=== PATIENT | male | born 1940 | race Caucasian/White ===

== ENCOUNTER 2021-11-29 18:56 | Outpatient (RCR) | payer SELFPAY ==
--- NOTE | 2022-02-03 15:29 | URNOTE ---
Received request for prior auth for Leuprolide ([id number]) and Zoledronic Acid ([id number]). Pt has Medicare primary, prior authorization is not required as services are based on medical necessity and follow medicare guidelines.
[2022-02-08] MEDS: ZOLEDRONIC ACID 4 MG in 0.9 % SODIUM CHLORIDE 100 ml 100 ML 420 MG IVPB (15:32)
[2022-02-08] MEDS: LEUPROLIDE ACETATE 22.5 MG (SQ) SYRINGE SUBCUT (15:51)
== END 2022-06-22 12:51 | disposition home or self-care (01) ==
LOC: MOW 18:56
PROVIDERS: PCP Family Medicine; Visit Provider Family Medicine
DX: Z76.0 Encounter for issue of repeat prescription (principal)
CPT/HCPCS: 36415; 80053; 84153; 85025; 96376; 96401; 99212; 99214; J3489; J9217; S5170

== ENCOUNTER 2022-03-07 12:11 | Inpatient (IN) | payer MEDICARE, BC, SELFPAY ==
[2022-03-07] VITALS (7 sets, daily range): BP systolic 106–134; BP diastolic 50–89; PULSE 85–114; RESP 18–20; TEMP 36.8–37.7; O2SAT 91–96; BMI 22.5
--- NOTE | 2022-03-07 12:38 | CRLHL7_ITS ---
For Patients: As a result of the Century Cures Act, medical imaging exams and procedure reports are released immediately into your electronic medical record. You may view this report before your referring provider. If you have questions, please contact your health care provider. INDICATION: COVID-19 TECHNIQUE: Chest radiograph 1 view COMPARISON: 04/30/2023 FINDINGS: Mediastinum: The mediastinum is normal in appearance. The heart silhouette is normal in size and morphology. Lung: Small lung volumes are present with bibasilar subsegmental atelectasis seen. No sign of pleural effusion seen. No pneumothorax is identified. Bone and Soft tissue: Remote right-sided rib fracture deformities are present. IMPRESSION: 1. Small lung volumes are present with bibasilar subsegmental atelectasis seen. Dictated by Alfonso Avalos MD @ 03/07/2022 1:59:40 PM Dictated by: Alfonso Avalos MD @ 03/07/2022 13:59:43 (Electronically Signed)
--- NOTE | 2022-03-07 12:40 | ED_ITS ---
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 patient does have a history of dementia, is here signing for him since he has a history deafness. per he has had increased weakness since yesterday, usually gets around with a walker or cane, he could not get out of bed this morning, he has had decreased oral intake, he did not eat anything, states that he had a fever yesterday which has improved today he has had a chronic cough, he also has episodes were coughing up white sputum, no shortness of breath, he has had some abdominal cramping this morning but no chest pain, he has had also chronic diarrhea, no urinary complaints. No Covid exposure. he was scheduled to see Urology today but he could not get out of bed, he ended up sliding to the floor when they tried to change his depends, he would not get up. he is baseline per , no focal deficits, he is in no apparent distress pain Related Data Home Medications Medication Instructions Recorded Confirmed atorvastatin 40 mg tablet 40 mg PO DAILY 02/08/22 03/07/22 enzalutamide 40 mg tablet (Xtandi) See Rx Instructions PO QDAY 02/08/22 02/08/22 latanoprost 0.005 % eye drops 1 drp ophthalmic (eye) HS 02/08/22 03/07/22 lisinopril 2.5 mg tablet 2.5 mg PO DAILY 02/08/22 03/07/22 metoprolol tartrate 25 mg tablet 25 mg PO BID 02/08/22 03/07/22 omeprazole 20 mg capsule,delayed 20 mg PO DAILY 02/08/22 03/07/22 release timolol maleate 0.5 % eye drops 1 drp ophthalmic (eye) QAM 02/08/22 03/07/22 vitamin B complex (B 1 tab PO QDAY 02/08/22 02/08/22 Complex-Vitamin B12 tablet) Allergies Allergy/AdvReac Type Severity Reaction Status Date / Time No Known Drug Allergies Allergy Verified 02/08/22 11:03 Review of Systems Status of ROS: Reports: 10 or more systems reviewed and unremarkable except as noted in History and below [facility] Medical History (Updated 03/07/22 @ 16:42 by Doris Ahumada MD) Alzheimer's dementia with behavioral disturbance Anemia Arm fracture ASHD (arteriosclerotic heart disease) Atrial fibrillation with RVR Bladder outflow obstruction CKD stage G3a/A1, GFR 45-59 and albumin creatinine ratio <30 mg/g Complex renal cyst Deafness DJD (degenerative joint disease) of knee Essential hypertension Falls GERD (gastroesophageal reflux disease) Glaucoma History of radiation therapy Hydronephrosis of right kidney Hypokalemia Iron deficiency anemia Kidney stone on left side Mild dementia Mixed hyperlipidemia Non-STEMI (non-ST elevated myocardial infarction) Normal colonoscopy Normal esophagogastroduodenoscopy (EGD) MAGALYS (obstructive sleep apnea) Peripheral artery disease Prostate cancer metastatic to bone Sepsis UTI (urinary tract infection) Surgical History (Updated 03/07/22 @ 16:29 by Doris Ahumada MD) H/O lithotripsy H/O prostatectomy History of coronary artery stent placement Social History (Updated 03/07/22 @ 16:33 by Doris Ahumada MD) Narrative: Lives with , who is also deaf. I tried to contact her at the number on file; she was unavailable. Smoked [id number], 0.25 ppd for 3 years. No chew. According to [place], occasional beer. Has previously been full code. I am unable to discuss this with him and his is unavailable. Highest level of school completed/degree received: don't know Smoking Status: Never smoker How often do you have a drink containing alcohol: never AUDIT-C Alcohol total score: 0 Non-prescribed substance use: denies use Exam Narrative: Exam Narrative: general: no obvious distress laying comfortably, nontoxic in appearance HEENT: tympanic membranes within normal limits bilateral oropharynx is clear and moist pupils equal round reactive to light, extraocular muscles intact neck: supple full range of motion lungs: clear to auscultation bilaterally heart: normal sinus rhythm S1-S2 abdomen: bowel sounds present, he is nontender to palpation all 4 quadrants muscle skeletal: is moving his upper and lower extremities without any difficulty, no focal deficits. Neuro; dementia, baseline per unable to evaluate gait Const: Vital Signs, click to edit/add: Vital Signs - 24 hr 03/07/22 12:20 03/07/22 13:55 Temperature 99.2 F Pulse Rate [Pulse Oximeter] 89 85 Respiratory Rate 18 18 Blood Pressure [Ri t Upper Arm] 106/65 113/50 L Pulse Oximetry 91 95 Oxygen Delivery Me thod Room Air Room Air Course Course Hospital Course: 12:30 PM: AIDET performed, vitals are normal at this time, workup will include sepsis order set, including lactate, blood cultures x2, chest x-ray two views, urinalysis and urine culture, CMP, will also obtain COVID swab, IV fluids 500 mL bolus, likely admit for observation. Reevaluation(s) Reevaluation #1: updated on his imaging and lab results, patient positive for SARs-covi-2, patient and mildly elevated lactate at 2.5 plan to repeat after fluids, CBC showed no leukocytosis, imaging showed no acute cardiopulmonary process. Patients vitals are stable at this time, no hypoxia. Did discuss patient with Hospitalist Dr. Artem DONAHUE. He accepts care of the patient to an observation bed, still pending urinalysis at this time, patient is feeling better after the above care given. Multiple differential diagnoses were considered for the above patient's symptoms. Life-threatening include sepsis, CVA or [place]. Other considerations were pneumonia, UTI, COVID-19, influenza, metabolic derangement or [employer] derangement. Time: 13:56 Vital Signs Vital signs: Initial Vital Signs Temperature 99.2 F 03/07/22 12:20 Temperature Source Temporal Artery Scan 03/07/22 12:20 Pulse Rate 89 03/07/22 12:20 Respiratory Rate 18 03/07/22 12:20 Blood Pressure 106/65 03/07/22 12:20 Blood Pressure Mean 78 03/07/22 12:20 Blood Pressure Position Supine 03/07/22 12:20 Pulse Oximetry 91 03/07/22 12:20 Oxygen Delivery Method 03/07/22 12:20 Vital Signs Temperature 99.2 F 03/07/22 12:20 Pulse Rate 89 03/07/22 12:20 Respiratory Rate 18 03/07/22 12:20 Blood Pressure 106/65 03/07/22 12:20 Pulse Oximetry 91 03/07/22 12:20 Oxygen Delivery Method 03/07/22 12:20 Temperature 99.2 F 03/07/22 12:20 Pulse Rate 85 03/07/22 13:55 Respiratory Rate 18 03/07/22 13:55 Blood Pressure 113/50 L 03/07/22 13:55 Pulse Oximetry 96 03/07/22 15:30 Oxygen Delivery Method 03/07/22 13:55 Medical Decision Making Lab Data Labs: Lab Results 03/07/22 03/07/22 03/07/22 Range/Units 13:00 13:00 13:00 WBC 8.13 (4.50-11.00) K/uL RBC 5.48 (4.30-5.90) m/uL Hgb 15.2 (13.5-17.5) gm/dL Hct 44.8 (37.0-53.0) % MCV 82 (80-100) fL MCH 28 (26-34) pg MCHC 34 (32-36) gm/dL RDW Coeff of Kai 13.9 (11.5-15.5) % Plt Count 279 (140-440) K/uL Neut % (Auto) 78.0 H (42.0-72.0) % Lymph % (Auto) 4.9 L (20-44) % [place] % (Auto) 16.4 H (0.0-11.0) % Eos % (Auto) 0.1 (0.0-7.0) % Baso % (Auto) 0.2 (0.0-3.0) % Neut # (Auto) 6.30 (1.7-7.0) K/uL Lymph # (Auto) 0.40 L (0.90-2.90) K/uL [place] # (Auto) 1.30 H (0.00-0.90) K/UL Eos # (Auto) 0.01 (0.00-0.50) K/uL Baso # (Auto) 0.02 (0.00-0.30) K/uL Abs Immat Gran (auto) 0.03 (0.00-0.30) K/uL Sodium 134 L (135-149) mmol/L Potassium 4.0 (3.6-5.1) mmol/L Chloride 101 (96-114) mmol/L Carbon Dioxide 22 (20-32) mmol/L BUN 9 (7-30) mg/dL Creatinine 0.8 (0.5-1.5) mg/dL Estimated Creat Clear 49.33 Estimated GFR 88 ml/min Glucose 129 H (60-115) mg/dL Lactate 2.5 H (0.5-1.9) mmol/L Calcium 9.4 (8.4-10.6) mg/dL Total Bilirubin 0.7 (0.1-1.5) mg/dL AST 30 (12-35) U/L ALT 19 (4-50) U/L Alkaline Phosphatase 90 (40-150) U/L Total Protein 7.4 (6.0-8.3) g/dL Albumin 4.4 (3.3-5.0) g/dL SARS-CoV-2 (PCR) (Negative) 03/07/22 Range/Units 13:00 WBC (4.50-11.00) K/uL RBC (4.30-5.90) m/uL Hgb (13.5-17.5) gm/dL Hct (37.0-53.0) % MCV (80-100) fL MCH (26-34) pg MCHC (32-36) gm/dL RDW Coeff of Kai (11.5-15.5) % Plt Count (140-440) K/uL Neut % (Auto) (42.0-72.0) % Lymph % (Auto) (20-44) % [place] % (Auto) (0.0-11.0) % Eos % (Auto) (0.0-7.0) % Baso % (Auto) (0.0-3.0) % Neut # (Auto) (1.7-7.0) K/uL Lymph # (Auto) (0.90-2.90) K/uL [place] # (Auto) (0.00-0.90) K/UL Eos # (Auto) (0.00-0.50) K/uL Baso # (Auto) (0.00-0.30) K/uL Abs Immat Gran (auto) (0.00-0.30) K/uL Sodium (135-149) mmol/L Potassium (3.6-5.1) mmol/L Chloride (96-114) mmol/L Carbon Dioxide (20-32) mmol/L BUN (7-30) mg/dL Creatinine (0.5-1.5) mg/dL Estimated Creat Clear Estimated GFR ml/min Glucose (60-115) mg/dL Lactate (0.5-1.9) mmol/L Calcium (8.4-10.6) mg/dL Total Bilirubin (0.1-1.5) mg/dL AST (12-35) U/L ALT (4-50) U/L Alkaline Phosphatase (40-150) U/L Total Protein (6.0-8.3) g/dL Albumin (3.3-5.0) g/dL SARS-CoV-2 (PCR) POSITIVE SARS-CoV-2 A (Negative) Discharge Plan Discharge Clinical Impression: COVID-19, Generalized weakness
--- NOTE | 2022-03-07 13:02 | ED.NURSE ---
tangled yarn spool straightener on a stick used for registrar nurses' registry. pt alert and awake but not interacting with tangled yarn spool straightener. answering all questions. #20 sl placed R ac, ns bolus infusing. pt swabbed for covid.
[2022-03-07 13:04] LABS: Lactate* 2.5 mmol/L (0.5-1.9)
[2022-03-07] MEDS: 0.9 % SODIUM CHLORIDE 500 ML 500 ML IV (13:04)
[2022-03-07 13:06] LABS: Basophils Absolute Auto 0.02 K/uL (0.00-0.30); Basophils Percent Auto 0.2 % (0.0-3.0); Eosinophils Absolute Auto 0.01 K/uL (0.00-0.50); Eosinophils Percent Auto 0.1 % (0.0-7.0); Hematocrit 44.8 % (37.0-53.0); Hemoglobin* 15.2 gm/dL (13.5-17.5); Immature Granulocytes Abs Auto 0.03 K/uL (0.00-0.30); Lymphocytes Percent Auto 4.9 % (20-44); Mean Corpuscular HGB Conc 34 gm/dL (32-36); Mean Corpuscular Hemoglobin 28 pg (26-34); Mean Corpuscular Volume 82 fL (80-100); Monocytes Percent Auto 16.4 % (0.0-11.0); Platelet Count* 279 K/uL (140-440); RDW Coefficient of Variation % 13.9 % (11.5-15.5); Red Blood Count 5.48 m/uL (4.30-5.90); White Blood Count* 8.13 K/uL (4.50-11.00)
[2022-03-07 13:07] LABS: Slide Review Reflex No
[2022-03-07 13:30] LABS: Albumin* 4.4 g/dL (3.3-5.0); Chloride* 101 mmol/L (96-114); Sodium* 134 mmol/L (135-149)
[2022-03-07 13:32] LABS: Bilirubin Total* 0.7 mg/dL (0.1-1.5); Creatinine* 0.8 mg/dL (0.5-1.5); Est. Creatinine Clearance* 49.33; Estimated Glomerular Filt Rate 88 ml/min
[2022-03-07 13:33] LABS: Alanine Aminotransferase* 19 U/L (4-50); Alkaline Phosphatase* 90 U/L (40-150); Aspartate Amino Transferase* 30 U/L (12-35); Blood Urea Nitrogen* 9 mg/dL (7-30); Calcium* 9.4 mg/dL (8.4-10.6); Carbon Dioxide* 22 mmol/L (20-32); Glucose* 129 mg/dL (60-115); Total Protein* 7.4 g/dL (6.0-8.3)
[2022-03-07 13:36] LABS: SARS PCR* POSITIVE SARS-CoV-2 (Negative)
--- OUTSIDE RECORDS SUMMARY | 2022-03-07 14:39 | XMS_ITS | Clinical Summary ---
:1940 Author Organization [employer] [facility] [place] [address] Care Team Providers Name Role Phone Clovis Turk MD Primary Care Provider [phone] Allergies No known active allergies Medications Medication Sig Dispensed Refills Start Date End Date Status CENTRUM SILVER TAB Once daily 0 01/14/2007 Active aspirin 81 mg tablet Take 1 tablet by 0 02/16/2012 Active mouth once daily with a meal. VITAMIN D-3 2,000 TAKE ONE CAPSULE 100 capsule 2 09/13/2012 Active unit capsule BY MOUTHEVERY DAY omega-3 fatty Take 1 capsule by 90 capsule 3 02/18/2015 Active acids-vitamin E (FISH mouth once daily. OIL) 1,000 mg capIndications: Hyperlipidemia LDL goal < 70 latanoprost (XALATAN) Place 1 Drop into 0 03/15/2015 Active 0.005 % ophthalmic the eye(s) once solution daily in the evening. timolol maleate INSTILL 1 DROP 5 mL 11 10/24/2016 Active (TIMOPTIC) 0.5 % INTO BOTH EYE(S) ophthalmic TWICE A DAY solutionIndications: ASHD (arteriosclerotic heart disease) enzalutamide (XTANDI) Take 4 capsules by 0 9 Active 40 mg capsule mouth once daily. nitroglycerin Place 1 tablet 25 tablet 1 06/12/2019 Active (NITROSTAT) 0.4 mg under the tongue sublingual every 5 minutes if tabletIndications: needed for Chest ASHD Pain. (arteriosclerotic heart disease) calcium carbonate Take 500 mg by 0 12/30/2020 Active (OS-LIN 500) 500 mg mouth. calcium (1,250 mg) tablet acetaminophen Take 2 Tablets 0 02/03/2021 Active (TYLENOL EXTRA (1,000 mg) by [facility]) 500 mg mouth every 8 tabletIndications: hours if needed. Pain Max acetaminophen dose: 4000mg in 24 hrs. lidocaine 5 % topical Apply on dry, 30 Patch 11 02/21/2021 Active patchIndications: clean, hairless Mechanical back pain skin. Apply 1 patch to painful area of skin for up to to 12 hours within 24 hour period. honey ([place], Apply topically to 103 mL 3 03/15/2021 Active honey,) 100 % affected area(s). psteIndications: Skin ulcer of sacrum, unspecified ulcer stage (HC) Foam Bandage Apply topically to 20 Each 3 03/15/2021 Active (Mepilex) 4 X 4 affected area(s). bndgIndications: Skin Apply to skin ulcer of sacrum, ulcer every 3 to 4 unspecified ulcer days. stage (HC) atorvastatin Take 1 Tablet (40 90 tablet. 3 09/08/2021 Active (LIPITOR) 40 mg mg) by mouth once tabletIndications: daily. ASHD (arteriosclerotic heart disease) lisinopriL (PRINIVIL; Take 1 Tablet (2.5 90 Tablet 3 2 Active ZESTRIL) 2.5 mg mg) by mouth once tabletIndications: daily. ASHD (arteriosclerotic heart disease) metoprolol tartrate Take 1 Tablet (25 180 Tablet 3 09/08/2021 Active (LOPRESSOR) 25 mg mg) by mouth 2 tabletIndications: times daily. ASHD (arteriosclerotic heart disease) omeprazole (PRILOSEC) Take 1 Capsule (20 90 Capsule 3 09/09/19 22 Active 20 mg Delayed-Release mg) by mouth once capsuleIndications: daily before a Gastroesophageal meal. reflux disease, unspecified whether esophagitis present cyanocobalamin One tab oral 90 Tablet 3 09/09/2021 A ctive (VITAMIN B12) 250 mcg daily. 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 Patient has identified Health Care Agent (s): Yes Add Health Care Agents: Yes Health Care Agent(s): Primary Health Care Agent: Martin Dinh elationship: son (h) [phone](c) Secondary Health Care Agent: Scarlet Guido Relationship: sister in law (h) [phone] (c) Conservator: Relationship: Phone: Guardian: Relationship: Phone: Patient has Advance Care Plan Documents (Health Care Directive, POLST): Yes Advance Care Plan Documents: Health Care Directive Patient has identified Specific Treatmen t Preferences: Yes Specific Treatment Preferences: Code Status: CPR/Attempt Resuscitation Tony would want CPR attempted unless his provider determines any of the following: ?? He has an incurable illness or injury and is dying; ?? He has no reasonable chance of surviv al if his heart stops; ?? He has little chance of senior care mk vival if his heart stops and the process of resuscutation would cause significant suffering. Goals of Treatment: Limited Interventions and treat reversib le conditions. Provide interventions aimed at treatment of new or reversible illness/injury or non-life threatening chronic conditions. Duration of invasive or un comfortable interventions should general ly be limited.- Trial of intubation until physician advise likelihood of recovery low. Interventions and Treatments: Other Jaymie tment Preferences: would want all treatments, desire all treatments necessary unless likelihood of recovery low and physician confirms no improvement or return to prior condition. Last Assessment & Plan: Advance Care Planning: Disease-specific Session Tony Lora is a [facility] patient. His PCP is Dr. Esa López at [facility]. Advance care planning discussions were c ompleted with Tony and his spouse and son, designated health care agents, Jyothi and Martin Lora. hourly sign language interpreter, Kendy Bobby, also present. Alternative H CA, Scarlet Lora identified, not present for session. Understanding of Illness and Disease Bur den: Tony identifies his medical condition as good, having history of heart disease, stent placed; hypertension, anemia, prostate cancer, kidney stones and describes it as stable. He identifies the follow ing symptoms of his medical condition as being the most bothersome: arthritic back pain, once up moving around loosens up. Goals of Care: Tony currently hopes to maintain inde pendence, control pain and symptoms, delay progression of, but not cure, the illness, have comfort cares and with dignity. Desires to continue routine follow- up medical appointments and seek treatme tn as appropriate. Don't want to end up in a usp. Would desire Home Care and/or Hospice when / if appropriate to remain in home. Quality of Life: The following present and future experie nces are most important for Tony to live well: Family, time with Jyothi and one son/ and 3 grandsons, growing up fast, very active. Walking 2-3 miles carlos y, prefers outdoors, use treadmill in wi nter. Playing Cards and watching sports on TV, loves to work, housework, laundry, iron clothes, dishes. Tony yesi with serious challenges in his life: Family: Spouse, Jyothi and Son, Martin; and neighbors very helpful Tony identifies the following fears a nd worries about his medical care: Disabling disease so can't get outdoors, really don't think about it, keep cool about it. Having hourly sign language interpreter significant improvement, in past not available which caused much fear. Having hands free to sign/communicate. Treatment and Care Preferences: Past experiences in dealing with family and/or friends that have or been seriously ill include father suddenly, mother had leukemia and heart disease, during long hospital stay, and broth er in [place], had dementia. As a result of these experiences, Tony expresses these health care preferences: Summary Tony's Treatment Preferences: LOW SURVIVAL; HIGH TREATMENT BURDEN: If Tony suffered a serious complication, such that he was facing a prolonged hospital stay, required ongoing medical interventions, and the chance of living throu gh the complication was low (for example , only 5 out of 100 would live), Tony would choose: to focus treatment on comfort and quality of life (Quality of life is more important than length of life t chandler Jimenez.) If any chance of improvemen t to return to previous state, would request a limited trial of medical interventions HIGH SURVIVAL; LOW FUNCTIONAL STATUS: If Tony had a serious complication and had a good chance of living through the complication but it was expected that he would never be able to walk or talk again and would require 24 hour nursing care, he would choose: to focus treatment on comfort and quality of life (Quality of life is more important than length of life to Tony.) HIGH SURVIVAL; LOW COGNITIVE STATUS: If Tony had a serious complication and had a good chance of living through the complication but it was expected that he would never know who he was or who he was with and would require 24 hour nursing c are, he would choose: to focus treatment on comfort and quality of life (Quality of life is more important than length of life to Tony.) CARDIO-PULMONARY RESUSCITATION (CPR): e facts, risks and benefits of CPR were discussed with Tony. If he had a sudden event that caused his heart and breathing to stop, he: WOULD want CPR attempted unless his provider determines any one of the following: he has an incurable illness or injury and is dying, he has no reasonable chance of survival if his heart stops or he has little chance of long-t erm survival if his heart stops and the process of resuscutation would cause significant suffering. MECHANICAL VENTILATION: If Tony had a n episode where he was unable to breathe on his own, he would choose the following: attempt to use any appropriate non- invasive method to assist breathing, and de sires limited trial use of mechanical ve ntilation to assess improvement and ability to be weaned from mechanical ventilation. Tony has chosen his healthcare agent to: do what he or she thinks is best at the time, considering Tony's wishes Follow Up Plan: Tony was encouraged to continue advan ce care planning discussions with his Designated Health Care Agent: Ryan, and primary care provider. Hard Choices for [place] People booklet was given to Tony and his health care agent fo r review. none Tony identified the following concern s during his advance care planning session: none Questions identified for his primary car e provider: none Documents addressed during this advance care planning session: Health Care Directive completed and scan michelle into medical record. Statement of Treatment Preferences for a dvanced illness completed and scanned into the medical record. Recommendations/Plan: Tony and his health care agent to rev iew Advance Care Plan with Tony's family. Tony would benefit from: Home Care an d/or Hospice when/if appropriate Lifeline and Care Navigation Help Desk f or additional support resources to remain home when/if increasing needs. Hospice Care, Home Care, [facility], Care Navigation Help Desk, and [facility] [employer] [facility] brochure(s) were given to Tony and/or his healthcare agent. Advance Care Planning recommendations an d Tony's concerns and questions were cc? ed to his primary provider. Interviewer: Darlene Villafana RN 05/06 Essential hypertension 02/16/2012 Complex renal cyst 06/06/2011 Overview: On right kidney, repeat CT or US September 03 012. Anemia, unspecified 05/05/2011 Overview: Colonoscopy 04/2011 normal no follow up needed Unspecified urinary incontinence 09/17/2009 ASHD (arteriosclerotic heart disease) 07/22/2009 Overview: -NSTEMI 07/21/2009 -Stenting (BMS) to proximal LAD and PTCA of small diagonal 07/21/2009 -Stress Myoview 11/02/2010 Small area of mild ischemia in the mid apical anterior septum EF 65% DJD (degenerative joint disease) of knee 07/12/2009 GERD (gastroesophageal reflux disease) 05/31/2009 Overview: EGD 04/2011 normal Personal history of malignant neoplasm of prostate 11/2006 Overview: -Status post prostatectomy Unspecified glaucoma Deaf Overview: - Mother had Mongolian Measles during pregn vincent Resolved Problems Problem Noted Date Resolved Date Atrial fibrillation 09/25/2019 09/08/2021 Prostate cancer 04/07/2019 09/08/2021 Poor personal hygiene 09/15/2016 09/20/2017 Prostate cancer 06/21/2015 09/15/2016 MCI (mild cognitive impairment) 07/21/2014 04/20/20 15 Advanced care planning/counseling discussion 08/15/2011 08/15/2012 Overview: Desires full code. Shortness of breath 04/20/2011 08/15/2011 S/P coronary artery stent placement 03/28/201104/04 SOBOE (shortness of breath on exertion) 10/18/2010 04/20/2011 Malignant neoplasm of prostate 06/28/2010 1 Malignant neoplasm of prostate 06/21/2010 1 Status post prostatectomy 09/17/2009 04/20/2011 New Onset A-Fib with RVR 07/21/2009 08/15/2011 Overview: - noted 07/21/08 when arrived for test - spontaneous conversion to SR 07/22 Non STEMI - acute 07/21/2009 04/20/2011 Overview: - 07/21/09: Trop I 0.12 at [facility] - angiogram 07/22/ Other and unspecified hyperlipidemia 06/27/2007 Overview: - lipitor 10 mg daily prior to admission - 05/31/09: TC 125, TC 119, HDL 44, LDL 57 Calculus of kidney 09/16/2006 03/13/2016 Personal history of malignant neoplasm of prostate 06/27/2007 Hyperlipidemia LDL goal < 70 09/16/2015 Encounters Date Type Specialty Care Team Description 03/07/2022 Nurse Triage Clovis Turk MD Weak 03/07/2022 Travel 03/07/2022 Nurse Triage Clovis Turk MD Cough 02/08/2022 Orders Only Scanner <No scans attac hed> from Last 3 Months Immunizations Name Administration Dates Next Due AMB Influenza, IIV3 (Age >=3 03/14/2011, 03/22/2009, 008 years)(Flu Clinic Only) Amb Influenza, Inact (High-dose) (Flu 03/11/2014 Clinic Only) Amb Influenza, Inactivated AIIV4 (Age 1003/16/2020 65+ Years) Preserv Free COVID-19 vaccine (Lancope 09/08/2021 30mcg/0.3mL) 12YO+ EMI-SUCROSE CECILIA NICK COVID-19 vaccine (Lancope 03/03/2021, 08/10/2020, 30mcg/0.3mL) PF, MDV Influenza, High-dose Inactivated 03/13/2016, 02/18/2015 Influenza, IIV3 (Age >=3 years) 02/20/2013, 02/16/2012, 03/04, 03/01/2010, 03/22/2009, 03/25/2008, 04/09/2007, 04/17/2006, 03/27/2005, 03/25/2003 Influenza, Inactivated AIIV4 (Age 65+ 03/03/2021 Years) Preserv Free Influenza, Inactivated IIV3 (Age 65+ 03/10/2019, 03/18/2018, 02/27/2017 Years) Preserv Free Pneumococcal Poly,23-Valent 11/16/2011, 03/26/2005 (Pneumovax) Pneumococcal conj 13-Valent (Prevnar 01/18/2015 13) Td (Age >=7 Years) 12/15/2020, 05/14/1995 Td, Preservative Free (age >= 7 06/24/2015 Years) Tdap 06/23/2005 Zoster (Shingrix-RZV, recombinant) 08/28/2018, 06/25/2018 Zoster (Zostavax-ZVL, live) 01/04/2010 Family History Medical History Relation Name Comments Cancer Mother Other Mother lukemia Relation Name Status Comments Father Mother Social History Tobacco Use Types Packs/Day Years Used Date Former Smoker Cigarettes 0.25 3 1966 - 970 Smokeless Tobacco: Never Used Tobacco Cessation: Counseling Given: Yes Comments: smoked 1 cigarette on weekends in 1960's -1969's rare Alcohol Use Standard Drinks/Week Comments Not Currently 0 (1 standard drink = 0.6 oz pure alcoho l) occ beer Alcohol Habits Answer Date Recorded How often do you have a drink containing alcohol? Monthly or less 09/23/2018 How many drinks containing alcohol do you have on a 1 or 2 09/23/2018 typical day when you are drinking? How often do you have six or more drinks on one Never 09/23/2018 occasion? Comment: Not asked Sex Assigned at Date Recorded Not on file COVID-19 Exposure Response Date Recorded In the last 10 days, have you been in contact with No / Unsu re 03/07/2022 10:07 AM CDT someone who was confirmed or suspected to have Coronavirus/COVID-19? Obstetrics History Last Filed Vital Signs Vital Sign Reading Time Taken Comments Blood Pressure 132/72 09/08/2021 10:15 AM CDT Pulse 84 09/08/2021 10:15 AM CDT Temperature 36.6 ??C (97.9 ??F) 01/08/2020 1:40 PM CDT Respiratory Rate 20 03/01/2020 2:18 PM CDT Oxygen Saturation 96% 09/08/2021 10:15 AM CDT Inhaled Oxygen Concentration - - Weight 60.4 kg (133 lb 3.2 oz) 09/08/2021 10:15 AM CDT Height 165.7 cm (5' 5.24) 09/08/2021 10:15 AM CDT Body Mass Index 22.01 09/08/2021 10:15 AM CDT Plan of Treatment Upcoming Encounters Date Type Specialty Care Team Description 03/08/2022 Office Visit Amina Leiva PA [address] [facility] [address] [place], [place] [address] (Wo rk) 03/14/2022 Office Visit Clovis Turk MD [address] [facility] [address] [place], [place] [address] (Wo rk) Health Maintenance Due Date Last Done Comments Depression screening for age 12+ 09/24/2020 09/25/2019, , 09/26/2018, Additional history exists Medicare Wellness for age 65+ 09/24/2020 09/25/2019, 2018, 09/20/2017, Additional history exists COVID-19 vaccine series (5 - 11/03/2021 09/08/2021, 021, Booster for Pfizer series) 08/10/2020, Additiona l history exists Influenza for age 65+ 02/02/2022 03/03/2021, 03/16/2020, 03/10/2019, Additional history exists BMI (ht and wt on same day) for 09/08/2022 09/08/2021, 11/03, age 18+ 01/08/2020, Additional history exists Tetanus booster 12/15/2030 12/15/2020, 06/24/2015, 06/23/2005, Additional history exists Tdap Completed 06/23/2005 Pneumococcal series for age 65+ Completed 01/18/2015, 03/05 ([facility] 11/16/2011, Additional history exists Zoster (shingles) series for age Completed 08/28/2018, , 50+ 01/04/2010 Procedures Procedure Name Priority Date/Time Associated Diagnosis Comme nts SCAN-LABORATORY 02/08/2022 12:00 AM Resul ts for this REPORT CDT procedure are i n the results section. from Last 3 Months Results SCAN-LABORATORY REPORT (02/08/2022 12:00 AM CDT) Narrative This result has an attachment that is no t available. Scanner OTHER from Last 3 Months Insurance Payer Benefit Plan / Subscriber ID Effective Dates Phone Addre ss Type Group MEDICARE PART B MEDICARE PART B [id number] 2003-Prese ATTN: CLAIMS - HB USE ONLY HB ONLY nt [address] [place] [address] MEDICARE PART A MEDICARE PART A [id number] 2003-Prese ATTN: CLAIMS - HB USE ONLY HB ONLY nt [address] [place] [address] BLUE CROSS BLUE CROSS [id number] 2016-[place] [address] [address] [address] [place], [place] [id number] BLUE CROSS MR BLUE CROSS [id number] 2016-Presen [address] [address] [place] [place], [place] [id number] Advance Directives Documents on File Type Date Recorded Patient Trade [employer] Official Explanati on Healthcare Directive 05/10/2012 12:08 PM ACP Latest Code Status on File Code Status Date Activated Date Inactivated Comments Full Code 04/25/2015 5:06 AM 04/28/2015 9:45 PM Per POLST Full Code 04/20/2011 11:31 AM 04/20/2011 5:08 PM Full Code 07/21/2009 8:23 PM 07/23/2009 6:15 PM Care Teams Knot Cutter Relationship Specialty Start Date End Date Clovis Turk MD PCP - General Family Practice 11/28/16 [address] [place] [address]
[2022-03-07 15:50] LABS: Lactate* 2.3 mmol/L (0.5-1.9)
--- NOTE | 2022-03-07 16:26 | P.IMHP_ITS ---
Hospitalist- H&P: HPI History of Present Illness Time Seen by Provider: 14:20 Date Seen: 03/07/22 Chief complaint: Weakness Narrative: Tony Lora is a 81 year old male with advanced Alzheimer's dementia who lives with his became very weak this morning, slid out of bed, and was unable to get up. They had called the clinic earlier in the day because he was coughing and wanted to get him a COVID test. According to the ER doc, the patient's did not communicate with the patient when answering questions. The patient did not respond to the shipping services sales representative on the iPad. When I finger spelled my name in sign language, the patient looked at me but did not otherwise respond. He did follow a few simple commands via pantomime. Per the ER doc, the patient's was concerned that his appetite was poor today as well. Review of Systems Status of ROS: Reports: unobtainable due to medical condition and unobtainable due to mental status PFSH [facility] Medical History (Updated 03/07/22 @ 16:42 by Doris Ahumada MD) Alzheimer's dementia with behavioral disturbance Anemia Arm fracture ASHD (arteriosclerotic heart disease) Atrial fibrillation with RVR Bladder outflow obstruction CKD stage G3a/A1, GFR 45-59 and albumin creatinine ratio <30 mg/g Complex renal cyst Deafness DJD (degenerative joint disease) of knee Essential hypertension Falls GERD (gastroesophageal reflux disease) Glaucoma History of radiation therapy Hydronephrosis of right kidney Hypokalemia Iron deficiency anemia Kidney stone on left side Mild dementia Mixed hyperlipidemia Non-STEMI (non-ST elevated myocardial infarction) Normal colonoscopy Normal esophagogastroduodenoscopy (EGD) MAGALYS (obstructive sleep apnea) Peripheral artery disease Prostate cancer metastatic to bone Sepsis UTI (urinary tract infection) Surgical History (Updated 03/07/22 @ 16:29 by oDris Ahumada MD) H/O lithotripsy H/O prostatectomy History of coronary artery stent placement Social History (Updated 03/07/22 @ 16:33 by Doris Ahumada MD) Narrative: Lives with , who is also deaf. I tried to contact her at the number on file; she was unavailable. Smoked [id number], 0.25 ppd for 3 years. No chew. According to Harrison, occasional beer. Has previously been full code. I am unable to discuss this with him and his is unavailable. Highest level of school completed/degree received: don't know Smoking Status: Never smoker How often do you have a drink containing alcohol: never AUDIT-C Alcohol total score: 0 Non-prescribed substance use: denies use Meds Home Medications and Allergies Home Medications Medication Instructions Recorded Confirmed Type atorvastatin 40 mg tablet 40 mg PO DAILY 02/08/22 03/07/22 History enzalutamide 40 mg tablet (Xtandi) See Rx Instructions PO QDAY 02/08/22 02/08/22 History latanoprost 0.005 % eye drops 1 drp ophthalmic (eye) HS 02/08/22 03/07/22 History lisinopril 2.5 mg tablet 2.5 mg PO DAILY 02/08/22 03/07/22 History metoprolol tartrate 25 mg tablet 25 mg PO BID 02/08/22 03/07/22 History omeprazole 20 mg capsule,delayed 20 mg PO DAILY 02/08/22 03/07/22 History release timolol maleate 0.5 % eye drops 1 drp ophthalmic (eye) QAM 02/08/22 03/07/22 History vitamin B complex (B 1 tab PO QDAY 02/08/22 02/08/22 History Complex-Vitamin B12 tablet) Allergies Allergy/AdvReac Type Severity Reaction Status Date / Time No Known Drug Allergies Allergy Verified 02/08/22 11:03 Exam Narrative: Exam Narrative: General: No acute distress. Sleeping, arousable by touch, deaf, was able to follow some simple commands by pantomime. Cooperative. Did not speak. HEENT: Normocephalic atraumatic, pupils equally round and reactive to light. Oropharynx clear. Mucous membranes are slightly dry. No cervical lymphadenopathy, thyromegaly or carotid bruits. No JVD. Cardiovascular: Regular rate and rhythm. No murmurs, gallops, or rubs. Chest: No increased work of breathing. Clear to auscultation bilaterally. No crackles or wheezes. Abdomen: Bowel sounds present. Soft, nondistended, nontender. No hepatosplenomegaly or masses. Extremities: No edema, no cyanosis or clubbing. Skin on legs is very dry and flaky. Skin: No jaundice, no pallor, no rashes. Neuro: Grossly intact. No focal deficits, moved all extremities. Unable to do a complete neuro exam because the patient is unable to follow commands. Const: Vital Signs, click to edit/add: Vital Signs - 24 hr 03/07/22 12:20 03/07/22 13:55 Temperature 99.2 F Pulse Rate [Pulse Oximeter] 89 85 Respiratory Rate 18 18 Blood Pressure [Ri ght Upper Arm] 106/65 113/50 L Pulse Oximetry 91 95 Oxygen Delivery Me thod Room Air Room Air Documenting provider has reviewed patient's vital signs: yes Hospitalist - H&P: Result Labs Labs: Short CBC 03/07/22 Range/Units 13:00 WBC 8.13 (4.50-11.00) K/uL Hgb 15.2 (13.5-17.5) gm/dL Hct 44.8 (37.0-53.0) % Plt Count 279 (140-440) K/uL BMP 03/07/22 13:00 Sodium 134 L Potassium 4.0 Chloride 101 Carbon Dioxide 22 BUN 9 Creatinine 0.8 Glucose 129 H Calcium 9.4 Liver Function 03/07/22 Range/Units 13:00 Total Bilirubin 0.7 (0.1-1.5) mg/dL AST 30 (12-35) U/L ALT 19 (4-50) U/L Alkaline Phosphatase 90 (40-150) U/L Albumin 4.4 (3.3-5.0) g/dL Ordering Physician: Chang Ko M.D. Date of Service: 03/07/22 Procedure(s): XR chest 1V portable Accession Number(s): [id number] cc: Clovis Turk MD; Chang Ko M.D.~ For Patients: As a result of the Cures Act, medical imaging exams and procedure reports are released immediately into your electronic medical record. You may view this report before your referring provider. If you have questions, please contact your health care provider. INDICATION: COVID-19 TECHNIQUE: Chest radiograph 1 view COMPARISON: 04/30/2023 FINDINGS: Mediastinum: The mediastinum is normal in appearance. The heart silhouette is normal in size and morphology. Lung: Small lung volumes are present with bibasilar subsegmental atelectasis seen. No sign of pleural effusion seen. No pneumothorax is identified. Bone and Soft tissue: Remote right-sided rib fracture deformities are present. IMPRESSION: 1. Small lung volumes are present with bibasilar subsegmental atelectasis seen. Dictated by Alfonso Avalos MD @ 03/07/2022 1:59:40 PM Dictated by: Alfonso Avalos MD @ 03/07/2022 13:59:43 (Electronically Signed) Assessment and Plan Assessment and plan (1) COVID-19: Problem comment: Symptom onset 03/07/22 Covid pcr positive 03/07/22 Status: Acute Assessment and Plan: Symptoms of cough, weakness, decreased appetite (2) Generalized weakness: Status: Acute Assessment and Plan: secondary to covid (3) Alzheimer's dementia with behavioral disturbance: Status: Chronic (4) Hyponatremia: Problem comment: mild, Na 134 Status: Acute (5) Volume depletion: Status: Acute (6) Deafness: Problem comment: Mother had [place] Measles during Status: Chronic (7) Prostate cancer metastatic to bone: Status: Chronic (8) MAGALYS (obstructive sleep apnea): Problem comment: 04/30/2018 AHI-27, positional and stage dependent with central apneas on treatment Status: Acute Plan * Admit for treatment of moderate covid with generalized weakness and no respiratory distress or hypoxia. * Since patient takes Xtandi, paxlovid is contraindicated. Start 3 day course of remdesivir. * Was given fluid bolus in ER. Lactate went from 2.5 to 2.3. Give another bolus and recheck labs in am. * Hold lisinopril. Continue daily metoprolol if BP allows. * PT/OT for weakness. * Will need code status addressed when is available. Will also order SW consult to help with d/c planning.
[2022-03-07] MEDS: LACTATED RINGERS 1000 ML 500 ML IV (17:27)
--- NOTE | 2022-03-07 20:16 | PC.NURSE ---
shift note: pt admit via stretcher to rm [id number]. pt very drowsy and unable to communicate with picture board or grease board. Pt incont x1 moderate amount. pt tolerating ensure supplement and water. LS clr. IV patent Rt AC #20. pt had temp 99.9 temporal.
[2022-03-07] MEDS: METOPROLOL TARTRATE 25 MG TABLET PO (20:32)
[2022-03-07] MEDS: ENOXAPARIN 40 MG/0.4 ML INJ SUBCUT (20:32)
[2022-03-08] VITALS (11 sets, daily range): BP systolic 109–139; BP diastolic 57–73; PULSE 64–83; RESP 14–20; TEMP 36.3–39.2; O2SAT 91–93
[2022-03-08] MEDS: ACETAMINOPHEN 325 MG TABLET 650 MG PO ×2 (01:05→16:12)
[2022-03-08] MEDS: OMEPRAZOLE 20 MG CAPSULE DR PO (06:36)
[2022-03-08 07:16] LABS: Lactate* 1.3 mmol/L (0.5-1.9)
[2022-03-08 07:19] LABS: Hematocrit 39.6 % (37.0-53.0); Hemoglobin* 13.4 gm/dL (13.5-17.5); Immature Granulocytes Abs Auto 0.01 K/uL (0.00-0.30); Lymphocytes Absolute Auto 1.38 K/uL (0.90-2.90); Lymphocytes Percent Auto 22.7 % (20-44); Mean Corpuscular HGB Conc 34 gm/dL (32-36); Mean Corpuscular Hemoglobin 28 pg (26-34); Mean Corpuscular Volume 83 fL (80-100); Monocytes Percent Auto 23.6 % (0.0-11.0); Neutrophils Absolute Auto 3.25 K/uL (1.7-7.0); Neutrophils Percent Auto 53.5 % (42.0-72.0); Platelet Count* 232 K/uL (140-440); RDW Coefficient of Variation % 14.1 % (11.5-15.5); White Blood Count* 6.07 K/uL (4.50-11.00)
[2022-03-08 07:20] LABS: Slide Review Reflex No
[2022-03-08 07:35] LABS: Chloride* 104 mmol/L (96-114); Sodium* 136 mmol/L (135-149)
[2022-03-08 07:36] LABS: Potassium* 3.5 mmol/L (3.6-5.1)
[2022-03-08 07:38] LABS: Carbon Dioxide* 24 mmol/L (20-32); Creatinine* 0.7 mg/dL (0.5-1.5); Estimated Glomerular Filt Rate 92 ml/min
--- NOTE | 2022-03-08 07:38 | PC.NURSE ---
Shift Note 23-07: Pt is pleasant and cooperative, VSS, fever present @ 0100, Tylenol given and brought down to normal temp range. Pt unable to respond to attempts to communicate. Incontinent of bladder. Tolerating reg diet.
[2022-03-08 07:39] LABS: Blood Urea Nitrogen* 12 mg/dL (7-30); Calcium* 8.5 mg/dL (8.4-10.6); Glucose* 110 mg/dL (60-115)
[2022-03-08 08:35] LABS: Magnesium* 1.8 mg/dL (1.5-2.6)
[2022-03-08] MEDS: ATORVASTATIN CALCIUM 40 MG TABLET PO (09:12)
[2022-03-08] MEDS: METOPROLOL TARTRATE 25 MG TABLET PO ×2 (09:12→20:43)
--- NOTE | 2022-03-08 12:15 | PM.IMPN1 ---
Progress Note: A&P Assessment and plan (1) COVID-19: Problem details: Symptom onset 03/07/22 Covid pcr positive 03/07/22 Status: Acute Assessment and Plan: Remdesivir day 2/3. Improving. (2) Volume depletion: Status: Acute Assessment and Plan: Resolved. Encourage PO intake. (3) Hyponatremia: Problem details: mild, Na 134 Status: Acute Assessment and Plan: Resolved. (4) Generalized weakness: Status: Acute Assessment and Plan: Treat covid, as above. PT/OT. Unclear what his needs will be and if he'll be strong enough/safe for d/c home in next few days. May need SNF, is aware and prefers him to return home. (5) Alzheimer's dementia with behavioral disturbance: Status: Chronic Assessment and Plan: Appears to be improving to near baseline mental status. (6) MAGALYS (obstructive sleep apnea): Problem details: 04/30/2018 AHI-27, positional and stage dependent with central apneas on treatment Status: Acute (7) Deafness: Problem details: Mother had [place] Measles during Status: Chronic (8) Prostate cancer metastatic to bone: Status: Chronic Assessment and Plan: Continue Xtandi (9) Hypokalemia: Status: Acute Assessment and Plan: Replace orally. (10) Hypertension: Status: Chronic Assessment and Plan: Lisinopril on hold. BP better today. Restart lisinopril tomorrow if continues to do well. Plan VTE prophylaxis with TEDs, SCDs, low dose lovenox. Subjective Time Seen by Provider: 09:15 Date Seen: 03/08/22 Interval history: Jacque looks better today, more awake and interactive. We communicated via whiteboard. He said he was feeling okay. His and I spoke via ASL video bathroom tiling professional. She said that he is mildly demented at baseline. He is incontinent of urine, he forgets he needs to go. She prompts him to shower, which he then does once a month. He often doesn't remember things, but when she reminds him, it dejesus his memory. He is able to feed himself. He doesn't eat much. If he skips a meal, he will drink an ensure. He ambulates with a walker or cane with her as SBA. To go to [facility], he uses a wheelchair. His is going to call us with a list of his medications. We reviewed them together and she thinks we are missing a few of his home medications, but she does not know which ones. EXAM General: No acute distress. Awake, alert. Cooperative. Did not speak. Thin. Cardiovascular: Regular rate and rhythm. No murmurs, gallops, or rubs. Chest: No increased work of breathing. No respiratory distress. Clear to auscultation bilaterally. No crackles or wheezes. Abdomen: Bowel sounds present. Soft, nondistended, nontender. No hepatosplenomegaly or masses. Exam Const: Vital Signs, click to edit/add: Vital Signs - 24 hr 03/07/22 12:20 03/07/22 13:55 03/07/22 15:30 Temperature 99.2 F Pulse Rate [Left B rachial] Pulse Rate [Pulse Oximeter] 89 85 Respiratory Rate 18 18 Blood Pressure [Le ft Arm] Blood Pressure [Ri ght Upper Arm] 106/65 113/50 L Pulse Oximetry 91 95 96 Oxygen Delivery Me thod Room Air Room Air 03/07/22 15:16 03/07/22 14:55 03/07/22 20:48 Temperature 99.9 F H 99.9 F H 98.2 F Pulse Rate [Left B rachial] 94 94 114 H Pulse Rate [Pulse Oximeter] Respiratory Rate 20 20 18 Blood Pressure [Le ft Arm] 133/89 133/89 134/74 Blood Pressure [Ri ght Upper Arm] Pulse Oximetry 96 96 93 Oxygen Delivery Al thod Room Air Room Air Room Air 03/07/22 20:54 03/08/22 00:52 03/08/22 01:05 Temperature 102.5 F H 102.5 F H Pulse Rate [Left B rachial] 83 Pulse Rate [Pulse Oximeter] Respiratory Rate 14 Blood Pressure [Le ft Arm] 139/66 Blood Pressure [Ri ght Upper Arm] Pulse Oximetry 92 93 Oxygen Delivery Al thod Room Air 03/08/22 01:17 03/08/22 03:15 03/08/22 03:16 Temperature 97.4 F L 97.4 F L Pulse Rate [Left B rachial] 83 66 Pulse Rate [Pulse Oximeter] Respiratory Rate 14 20 Blood Pressure [Le ft Arm] Blood Pressure [Ri ght Upper Arm] Pulse Oximetry 91 Oxygen Delivery Me thod Room Air 03/08/22 09:08 03/08/22 09:08 Temperature 98.9 F Pulse Rate [Left B rachial] 82 Pulse Rate [Pulse Oximeter] Respiratory Rate 18 Blood Pressure [Le ft Arm] 122/57 L Blood Pressure [Ri ght Upper Arm] Pulse Oximetry 91 91 Oxygen Delivery Me thod Room Air Labs Labs: Laboratory Results - last 24 hr 03/07/22 03/07/22 03/07/22 13:00 13:00 13:00 WBC 8.13 RBC 5.48 Hgb 15.2 Hct 44.8 MCV 82 MCH 28 MCHC 34 RDW Coeff of Kai 13.9 Plt Count 279 Neut % (Auto) 78.0 H Lymph % (Auto) 4.9 L [place] % (Auto) 16.4 H Eos % (Auto) 0.1 Baso % (Auto) 0.2 Neut # (Auto) 6.30 Lymph # (Auto) 0.40 L [place] # (Auto) 1.30 H Eos # (Auto) 0.01 Baso # (Auto) 0.02 Abs Immat Gran (auto) 0.03 Sodium 134 L Potassium 4.0 Chloride 101 Carbon Dioxide 22 BUN 9 Creatinine 0.8 Estimated Creat Clear 49.33 Estimated GFR 88 Glucose 129 H Lactate 2.5 H Calcium 9.4 Magnesium Total Bilirubin 0.7 AST 30 ALT 19 Alkaline Phosphatase 90 Total Protein 7.4 Albumin 4.4 SARS-CoV-2 (PCR) 03/07/22 03/07/22 03/08/22 13:00 15:44 07:02 WBC 6.07 RBC 4.80 Hgb 13.4 L Hct 39.6 MCV 83 MCH 28 MCHC 34 RDW Coeff of Kai 14.1 Plt Count 232 Neut % (Auto) 53.5 Lymph % (Auto) 22.7 [place] % (Auto) 23.6 H Eos % (Auto) 0.0 Baso % (Auto) 0.0 Neut # (Auto) 3.25 Lymph # (Auto) 1.38 [place] # (Auto) 1.40 H Eos # (Auto) 0.00 Baso # (Auto) 0.00 Abs Immat Gran (auto) 0.01 Sodium Potassium Chloride Carbon Dioxide BUN Creatinine Estimated Creat Clear Estimated GFR Glucose Lactate 2.3 H Calcium Magnesium Total Bilirubin AST ALT Alkaline Phosphatase Total Protein Albumin SARS-CoV-2 (PCR) POSITIVE SARS-CoV-2 A 03/08/22 03/08/22 07:02 07:02 WBC RBC Hgb Hct MCV MCH MCHC RDW Coeff of Kai Plt Count Neut % (Auto) Lymph % (Auto) [place] % (Auto) Eos % (Auto) Baso % (Auto) Neut # (Auto) Lymph # (Auto) [place] # (Auto) Eos # (Auto) Baso # (Auto) Abs Immat Gran (auto) Sodium 136 Potassium 3.5 L Chloride 104 Carbon Dioxide 24 BUN 12 Creatinine 0.7 Estimated Creat Clear 46.40 Estimated GFR 92 Glucose 110 Lactate 1.3 Calcium 8.5 Magnesium 1.8 Total Bilirubin AST ALT Alkaline Phosphatase Total Protein Albumin SARS-CoV-2 (PCR)
--- NOTE | 2022-03-08 15:20 | REH.PT ---
Eval not performed today as OT evaluated pt, and he was minimally responsive and non-participatory. Pt. not appropriate for PT eval today. Will attempt tomorrow, if appropriate.
[2022-03-08] MEDS: POTASSIUM CHLORIDE 10 MEQ CAPSULE ER PO (17:45)
[2022-03-08] MEDS: ENOXAPARIN 40 MG/0.4 ML INJ SUBCUT (20:42)
[2022-03-08] MEDS: LATANOPROST 0.005% OPHTH 1 DROP EYE-BOTH (20:43)
[2022-03-08] MEDS: CYANOCOBALAMIN (VITAMIN B-12) 500 MCG TABLET 250 MCG PO (20:43)
--- NOTE | 2022-03-08 22:36 | PC.NURSE ---
?Pt is pleasant and cooperative, VSS, mild temp at start of shift, 99.6. Communicated w/Pt. via white board and asked if he had any pain, and he said yes to pain. PRN Tylenol given and temp came down to normal range and pt. was able to rest. Pt unable to respond to attempts to communicate using the Ipad psychometrician. Incontinent of bladder, changed brief in bed and turned and repositioned in bed. Tolerating reg diet. Pt. ate 100%. Pt. became fidgety and kept pressing call light, pulled off pulse ox, and DC'd his IV after Remdesivir infusion. IV was found on bed intact.
[2022-03-09 03:00] VITALS: BP 146/77; PULSE 64; RESP 16; TEMP 37.1; O2SAT 95
[2022-03-09] MEDS: OMEPRAZOLE 20 MG CAPSULE DR PO (06:21)
[2022-03-09 07:00] VITALS: BP 134/65; PULSE 64; RESP 16; TEMP 37.1; O2SAT 95
--- NOTE | 2022-03-09 07:31 | PC.NURSE ---
END OF SHIFT NOTE: PT DEAF; USES ASL AND WHITEBOARD TO COMMUNICATE. COMMUNICATE WITH YES/NO QUESTIONS. PT REPOSITIONED WITH PILLOWS FOR OFFLOADING OVERNIGHT. PT DOES NOT USE CALL LIGHT APPROPRIATELY. PT IS INCONTINENT OF URINE. PT ABLE TO ROLL FROM SIDE TO SIDE WHEN PERFORMING CARES WHEN PROMPTED. PT HAS NON-PRODUCTIVE, MOIST COUGH. VSS ON RA. PER PREVIOUS SHIFT, IV DC?D BY PT D/T DEMENTIA. NO IV MEDS REQUIRED THIS SHIFT. IV LEFT OUT NOTIFIED ONCOMING NURSE, ATIF. CODE STATUS REQUIRES ADDRESSING.
[2022-03-09 07:40] LABS: Potassium* 3.4 mmol/L (3.6-5.1)
[2022-03-09] MEDS: METOPROLOL TARTRATE 25 MG TABLET PO ×2 (09:07→20:21)
[2022-03-09] MEDS: ASPIRIN 81 MG TABLET EC PO (09:07)
[2022-03-09] MEDS: POTASSIUM CHLORIDE 10 MEQ CAPSULE ER PO ×2 (09:08→18:52)
[2022-03-09] MEDS: timoloL maleate 0.5 % 1 DROP EYE-BOTH (09:08)
[2022-03-09] MEDS: CYANOCOBALAMIN (VITAMIN B-12) 500 MCG TABLET 250 MCG PO ×2 (09:08→20:21)
[2022-03-09] MEDS: ATORVASTATIN CALCIUM 40 MG TABLET PO (09:08)
[2022-03-09 11:00] VITALS: BP 135/74; PULSE 72; RESP 18; TEMP 36.7; O2SAT 92
[2022-03-09] MEDS: ACETAMINOPHEN 325 MG TABLET 650 MG PO (14:42)
[2022-03-09 15:00] VITALS: BP 115/52; PULSE 77; RESP 18; TEMP 37.1; O2SAT 94
--- NOTE | 2022-03-09 17:12 | PM.IMPN1 ---
Progress Note: A&P Assessment and plan (1) COVID-19: Problem details: Symptom onset 03/07/22 Covid pcr positive 03/07/22 He appears modestly improved overall but still profoundly weak. Uncertain how much of his poor cognition is related to COVID and how much is his underlying dementia Status: Acute (2) Volume depletion: Problem details: Improved Status: Acute (3) Hyponatremia: Problem details: mild, Na 134 Status: Acute (4) Generalized weakness: Problem details: Not much improvement. Uncertain how well he was doing at home with his prior to admission. Is quite a ways from being able to live independently based on current status. Status: Acute (5) Alzheimer's dementia with behavioral disturbance: Problem details: Not much behavioral problem Status: Chronic (6) MAGALYS (obstructive sleep apnea): Problem details: 04/30/2018 AHI-27, positional and stage dependent with central apneas on treatment Status: Acute (7) Deafness: Problem details: Mother had Citizen [place] Measles during Status: Chronic (8) Prostate cancer metastatic to bone: Problem details: On Xtandi Status: Chronic (9) Hypokalemia: Status: Acute (10) Hypertension: Status: Chronic Plan Continue in hospital for management of COVID, weakness, profound disability. Time Spent With Patient Total time spent: Total time spent is is 45 minutes, 30 minutes in coordination of care and discussing with other providers ongoing management of COVID and weakness. Subjective Date Seen: 03/09/22 Interval history: 81-year-old male seen in followup of profound weakness related to COVID infection. Patient with congenital deafness is seen today with a in-person signals analyst as he was unable to communicate with an eye pad signals analyst. Today the a communication with they in person signals analyst was also relatively unsuccessful. Cognitively the patient seemed to be basically alert but not responding significantly to questions or following simple commands. Nursing staff note that he is still unable to assist with transfers so he has a Nasrin lift to get bed to chair. He has been eating some but not well. No respiratory problems are apparent. He has occasional cough. He pulled out his IV but it has been replaced for his last dose of Remdesivir. Exam Narrative: Exam Narrative: He is alert appears in no obvious distress he is relatively unresponsive to the activity around him. He occasionally looks at people but does not respond in any obvious way to their care providing examination or intervention. He is not indicating any responsiveness to the signals analyst with him today as well. Respirations unlabored with a few basilar crackles otherwise clear. Cardiovascular: S1-S2 regular rate and rhythm. Abdomen is soft without tenderness. Extremities without edema. Const: Vital Signs, click to edit/add: Vital Signs - 24 hr 03/08/22 21:00 03/08/22 23:10 03/08/22 23:10 Temperature 98.5 F Pulse Rate [Left B rachial] 83 Pulse Rate [Pulse Oximeter] Respiratory Rate 16 16 Blood Pressure [Le ft Arm] 110/73 Pulse Oximetry 93 92 93 Oxygen Delivery Me thod Room Air Room Air 03/08/22 23:00 03/09/22 03:00 03/09/22 07:00 Temperature 98.8 F 98.8 F Pulse Rate [Left B rachial] Pulse Rate [Pulse Oximeter] 64 64 64 Respiratory Rate 16 16 16 Blood Pressure [Le ft Arm] 146/77 H 134/65 Pulse Oximetry 95 95 Oxygen Delivery Me thod Room Air Room Air 03/09/22 07:00 03/09/22 11:00 Temperature 98.0 F Pulse Rate [Left B rachial] Pulse Rate [Pulse Oximeter] 72 Respiratory Rate 16 18 Blood Pressure [Le ft Arm] 135/74 Pulse Oximetry 92 Oxygen Delivery Me thod Room Air Documenting provider has reviewed patient's vital signs: yes Labs Labs: Laboratory Results - last 24 hr 03/09/22 07:09 Potassium 3.4 L
[2022-03-09] MEDS: POTASSIUM BICARB 25 MEQ EFFERVESCENT TAB PO (18:52)
[2022-03-09 19:00] VITALS: BP 114/69; PULSE 69; RESP 18; TEMP 36.6; O2SAT 96
--- NOTE | 2022-03-09 19:58 | PC.NURSE ---
PATIENT VERY SLEEPY THIS MORNING, ABLE TO COMMUNICATE WITH PATIENT USING SIGN LANGUAGE AND WHITE BOARD, PATIENT RESPONDS TO 75% OF QUESTIONS ASKS, HORTICULTURE SUPERVISOR HERE TODAY AND PATIENT ALSO RESPONDED/FOLLOWED DIRECTION ABOUT 75% OF THE TIME, EATING REGULAR DIET ATE MINIMAL OF BREAKFAST AND LUNCH BUT ATE 100% OF DINNER, UP TO CHAIR WITH A1 WALKER AND BELT, IT IS HELPFUL TO HAVE TWO PEOPLE WITH TRANSFERS ONE TO HELP AMBULATE/ASSIST AND ONE TO SHOW PATIENT WHAT TO DO, TURN AND REPO Q2H WHEN IN BED, INCONTINENT OF BLADDER, NO BOWEL MOVEMENT TODAY, TOOK PILLS WITH WATER WITH EASE, PRN TYLENOL GIVEN TODAY FOR SOME DISCOMFORT AFTER AMBULATION, PATIENT INDICATED RELIEF.
[2022-03-09] MEDS: ENOXAPARIN 40 MG/0.4 ML INJ SUBCUT (20:21)
[2022-03-09] MEDS: LATANOPROST 0.005% OPHTH 1 DROP EYE-BOTH (20:22)
[2022-03-09 23:00] VITALS: BP 96/58; PULSE 68; PULSE 69; RESP 18; TEMP 35.9; O2SAT 94
[2022-03-10] VITALS (7 sets, daily range): BP systolic 92–125; BP diastolic 55–64; PULSE 51–71; RESP 16; TEMP 36.2–36.3; O2SAT 92–95
--- NOTE | 2022-03-10 05:46 | PC.NURSE ---
Pt slept well. Denied pain, turn and reposition every 2 hours. Continued communication with white board and sign. O2 maintained >90% of room air.
[2022-03-10] MEDS: OMEPRAZOLE 20 MG CAPSULE DR PO (06:29)
[2022-03-10] MEDS: ACETAMINOPHEN 325 MG TABLET 650 MG PO ×2 (06:35→15:10)
[2022-03-10 07:48] LABS: Basophils Absolute Auto 0.01 K/uL (0.00-0.30); Basophils Percent Auto 0.1 % (0.0-3.0); Eosinophils Absolute Auto 0.05 K/uL (0.00-0.50); Eosinophils Percent Auto 0.7 % (0.0-7.0); Hematocrit 39.3 % (37.0-53.0); Hemoglobin* 13.4 gm/dL (13.5-17.5); Immature Granulocytes Abs Auto 0.01 K/uL (0.00-0.30); Lymphocytes Percent Auto 19.2 % (20-44); Mean Corpuscular HGB Conc 34 gm/dL (32-36); Mean Corpuscular Hemoglobin 28 pg (26-34); Mean Corpuscular Volume 81 fL (80-100); Monocytes Percent Auto 14.2 % (0.0-11.0); Neutrophils Absolute Auto 4.86 K/uL (1.7-7.0); Neutrophils Percent Auto 65.7 % (42.0-72.0); Platelet Count* 232 K/uL (140-440); RDW Coefficient of Variation % 14.3 % (11.5-15.5); Red Blood Count 4.84 m/uL (4.30-5.90)
[2022-03-10 07:56] LABS: Slide Review Reflex No
[2022-03-10 08:00] LABS: Chloride* 104 mmol/L (96-114)
[2022-03-10 08:01] LABS: Sodium* 134 mmol/L (135-149)
[2022-03-10 08:03] LABS: Creatinine* 0.6 mg/dL (0.5-1.5); Estimated Glomerular Filt Rate 96 ml/min
[2022-03-10 08:04] LABS: Blood Urea Nitrogen* 15 mg/dL (7-30); Carbon Dioxide* 23 mmol/L (20-32); Glucose* 107 mg/dL (60-115)
[2022-03-10 08:05] LABS: Calcium* 8.5 mg/dL (8.4-10.6)
[2022-03-10 08:07] LABS: C Reactive Protein* 3.9 mg/dL (0.5-1.0)
[2022-03-10] MEDS: ATORVASTATIN CALCIUM 40 MG TABLET PO (08:19)
[2022-03-10] MEDS: POTASSIUM CHLORIDE 10 MEQ CAPSULE ER PO ×2 (08:19→17:30)
[2022-03-10] MEDS: timoloL maleate 0.5 % 1 DROP EYE-BOTH (08:20)
[2022-03-10] MEDS: CYANOCOBALAMIN (VITAMIN B-12) 500 MCG TABLET 250 MCG PO ×2 (08:20→21:19)
[2022-03-10] MEDS: ASPIRIN 81 MG TABLET EC PO (08:20)
[2022-03-10] MEDS: SODIUM CHLORIDE 0.9 % (FLUSH) 10 ML SYRINGE IVF ×2 (11:23→21:28)
[2022-03-10] MEDS: METOPROLOL TARTRATE 25 MG TABLET PO ×2 (11:23→21:18)
--- NOTE | 2022-03-10 13:25 | PC.SOCIAL ---
Confirmed pt. has had [facility] in the past, but home care is closed to any new home care admissions for the next week. Unclear if pt. will be able to discharge home which is what the pt. and spouse want or if pt. will need a SNF. Due to being COVID positive pt. would not be able to discharge to a SNF until 03/17.
[2022-03-10] MEDS: guaiFENesin 100 MG/ML CUP PO (15:09)
[2022-03-10] MEDS: BENZOCAINE/MENTHOL 1 EACH LOZENGE MUCOUS MEM (15:10)
--- NOTE | 2022-03-10 15:29 | PM.IMPN1 ---
Progress Note: A&P Assessment and plan (1) COVID-19: Problem details: Symptom onset 03/07/22 Covid + PCR 03/07/22 Status: Acute Assessment and Plan: Has completed course of Remdesivir as COVID specific therapy. Weakness remains primary symptom, continue PT/OT. (2) Hyponatremia: Problem details: mild, Na 134 Status: Acute Assessment and Plan: Stable, continue to follow. (3) Generalized weakness: Status: Acute Assessment and Plan: Slowly improving with therapies. (4) Alzheimer's dementia with behavioral disturbance: Problem details: No agitation or impulsivity. Status: Chronic (5) MAGALYS (obstructive sleep apnea): Problem details: 04/30/2018 AHI-27, positional and stage dependent with central apneas on treatment Status: Acute (6) Deafness: Problem details: Congenital - Mother had [place] Measles during Status: Chronic (7) Prostate cancer metastatic to bone: Problem details: On Xtandi Status: Chronic (8) Hypokalemia: Status: Acute Assessment and Plan: Resolved, continue to follow. (9) Hypertension: Status: Chronic Assessment and Plan: Hypotensive over the past 1-2 days, asymptomatic. Holding Lisinopril, continuing Metoprolol for rate control, given history of A fib. Plan - per above - Lovenox for ppx - dispo pending progress with PT/OT. May need SNF upon discharge (vs home with ) Time Spent With Patient Total time spent: 25, >50% in chart review and care coordination Subjective Date Seen: 03/10/22 Interval history: No acute events overnight. No concerns from nursing staff. Tony denies any concerns for me today (we communicated with minimal sign language and the whiteboard). He is making strides with therapies. Labs are stable/improved. Exam Narrative: Exam Narrative: GEN: Alert and sitting comfortably in bedside chair, nontoxic HEENT: Normal external ears, EOMIs bilaterally, no scleral icterus CV: RRR (not in AFib during my exam), No concerning murmurs, rubs, or gallops R: Decreased air movement at bilateral bases, no wheezes or crackles, air movement adequate Ext: wwp, no concerning edema Skin: No concerning skin lesions or rashes on exposed skin Neuro: Nonfocal Psych: Appropriate Const: Vital Signs, click to edit/add: Vital Signs - 24 hr 03/09/22 19:00 03/09/22 23:00 03/09/22 23:00 Temperature 97.9 F Pulse Rate [Pulse Oximeter] 69 69 Respiratory Rate 18 18 Blood Pressure [Le ft Arm] 114/69 Pulse Oximetry 96 94 Oxygen Delivery Me thod Room Air 03/09/22 23:00 03/10/22 03:00 03/10/22 07:00 Temperature 96.7 F L 97.2 F L Pulse Rate [Pulse Oximeter] 68 63 71 Respiratory Rate 18 16 16 Blood Pressure [Le ft Arm] 96/58 L 104/58 L 92/56 L Pulse Oximetry 94 92 93 Oxygen Delivery Me thod Room Air Room Air Room Air 03/10/22 07:00 03/10/22 11:00 Temperature 97.3 F L Pulse Rate [Pulse Oximeter] 71 66 Respiratory Rate 16 16 Blood Pressure [Le ft Arm] 92/60 Pulse Oximetry 94 Oxygen Delivery Me thod Room Air Labs Labs: Laboratory Results - last 24 hr 03/10/22 03/10/22 07:30 07:30 WBC 7.40 RBC 4.84 Hgb 13.4 L Hct 39.3 MCV 81 MCH 28 MCHC 34 RDW Coeff of Kai 14.3 Plt Count 232 Neut % (Auto) 65.7 Lymph % (Auto) 19.2 L Taylor % (Auto) 14.2 H Eos % (Auto) 0.7 Baso % (Auto) 0.1 Neut # (Auto) 4.86 Lymph # (Auto) 1.40 [place] # (Auto) 1.10 H Eos # (Auto) 0.05 Baso # (Auto) 0.01 Abs Immat Gran (auto) 0.01 Sodium 134 L Potassium 4.0 Chloride 104 Carbon Dioxide 23 BUN 15 Creatinine 0.6 Estimated Creat Clear 46.40 Estimated GFR 96 Glucose 107 Calcium 8.5 C-Reactive Protein 3.9 H
--- NOTE | 2022-03-10 19:43 | PC.NURSE ---
Patient Ax1 with walker and GB today. Incontinent q 1-2h, multiple incontinent stools. Cdiff sample ordered, Verbal order obtained from Dr. Jackson if Cdiff sample is negative immodium can be given. Ipad grocery store bagger used as well as whiteboard. Tylenol and cough syrup given for productive cough with yellow sputum. Cont pulse ox monitoring, pt remained 93% and above on RA. Pt ate eggs, deluna and toast this AM, enjoys black coffee throughout the day. Pt ate half of lunch meal of hamburger with chicken noodle soup and fruit tray. Oral potassium replacement. barrier cream applied to buttocks. turn and repo when in bed. Spouse Jyothi called at [phone] ([phone]) who uses grocery store bagger phone services, keno writer/runner inquired about care she was assisting patient with at home, Spouse verbalized, I can't care for him., I have covid, and my own issues. 10 days and he can come home. Accounts Receivable Administrator asked again what she would do for him at baseline and spouse verbalized, helped with walking, encouraging him to eat, give him more blankets. Dr. Jackson aware of conversation. Bed linen change x2 today, chair linen change x1. Replaced TEDS/Gripper socks/gown due to incontence of bowel and bladder. Extra precautions taken to prevent soiled linen. Pt up in chair with meal tray, bed alarm on and call light in reach. Report given to Giovanni RN's.
[2022-03-10] MEDS: LATANOPROST 0.005% OPHTH 1 DROP EYE-BOTH (21:18)
[2022-03-10] MEDS: ENOXAPARIN 40 MG/0.4 ML INJ SUBCUT (21:18)
[2022-03-11] VITALS (8 sets, daily range): BP systolic 105–128; BP diastolic 54–77; PULSE 53–67; RESP 16; TEMP 35.8–36.6; O2SAT 92–98
--- NOTE | 2022-03-11 06:40 | PC.NURSE ---
Condition seems improving. no cough and fever observed. Turn and reposition every 2 hours.
[2022-03-11] MEDS: OMEPRAZOLE 20 MG CAPSULE DR PO (06:53)
[2022-03-11] MEDS: CYANOCOBALAMIN (VITAMIN B-12) 500 MCG TABLET 250 MCG PO ×2 (09:13→21:49)
[2022-03-11] MEDS: ASPIRIN 81 MG TABLET EC PO (09:13)
[2022-03-11] MEDS: POTASSIUM CHLORIDE 10 MEQ CAPSULE ER PO ×2 (09:14→17:33)
[2022-03-11] MEDS: METOPROLOL TARTRATE 25 MG TABLET PO ×2 (09:14→21:48)
[2022-03-11] MEDS: ATORVASTATIN CALCIUM 40 MG TABLET PO (09:14)
[2022-03-11] MEDS: timoloL maleate 0.5 % 1 DROP EYE-BOTH (09:16)
[2022-03-11] MEDS: SODIUM CHLORIDE 0.9 % (FLUSH) 10 ML SYRINGE IVF ×2 (09:16→21:52)
--- NOTE | 2022-03-11 16:14 | PC.NURSE ---
shift note: pt up 1/walker. pt using walker improperly and needed to be guided on how to use properly. LS clr. pt on cont sats. pt denies pain. pt has fair appetite. Pt has chaffing/redness to buttock. small open area to rt mid buttock. pt 's upper torso skin very dry/flaking. IV to Rt FA patent.
--- NOTE | 2022-03-11 16:35 | P.IMPN_ITS ---
Progress Note: A&P Assessment and plan (1) COVID-19: Problem details: Symptom onset 03/07/22 Covid + PCR 03/07/22 Status post Remdesivir x3 days Continue current cares, supportive. Not on oxygen Mild hyponatremia hypokalemia will continue to monitor. Status: Acute (2) Generalized weakness: Problem details: Continue current cares, supportive. Status: Acute (3) Deafness: Problem details: Congenital - Mother had Mongolian Measles during Status: Chronic (4) Prostate cancer metastatic to bone: Problem details: On Xtandi Status: Chronic (5) Alzheimer's dementia with behavioral disturbance: Problem details: No agitation or impulsivity. Status: Chronic Subjective Date Seen: 03/11/22 Interval history: Daily Progress Note - Hospital Medicine Day #:5 CC:weakness 03/07/22, Day #5 of illness, Day #5 from +PCR OVERNIGHT UPDATES FROM STAFF & MED, LAB, IMAGING UPDATES Burning makes slow progress. But he is making improvements. He is working with OT and PT although there has been variable effort. He has finished his 3 day course of Remdesivir. He is not strong enough to return home especially given his has now become symptomatic with COVID and he needs more help than she can provide. However placement in a jail facility is quite limited given his current/acute diagnosis of COVID. No new labs today, following a mild hyponatremia, mild hypokalemia Review of Systems: See subjective Cardiac: No new chest pain/pressure/palpitations. Respiratory: no new dyspnea. GI: No abdominal bloating Objective: Tired appearing, deaf. I use the dry erase board and word/picture association laminated Card to communicate Vitals: see above Lungs: Clear. congested cough appreciated. Cardiac: S1S2. No edema Disposition/Potential discharge - Likely to return to previous living situation vs SNF for short term rehab. Total time is 35 minutes with greater than 50% spent in counseling and coordination of care. Exam Const: Vital Signs, click to edit/add: Vital Signs - 24 hr 03/10/22 19:00 03/10/22 23:00 03/10/22 23:00 Temperature 97.2 F L Pulse Rate [Left B rachial] Pulse Rate [Pulse Oximeter] 64 51 L Respiratory Rate 16 16 Blood Pressure [Le ft Arm] 118/55 L Pulse Oximetry 94 95 Oxygen Delivery Me thod Room Air 03/10/22 23:00 03/11/22 00:35 03/11/22 02:55 Temperature 96.5 F L 97 F L Pulse Rate [Left B rachial] Pulse Rate [Pulse Oximeter] 51 L 54 L 58 L Respiratory Rate 16 16 16 Blood Pressure [Le ft Arm] 105/58 L 106/61 Pulse Oximetry [address] thod Room Air Room Air Room Air 03/11/22 08:30 03/11/22 12:00 Temperature 97.8 F 97.9 F Pulse Rate [Left B rachial] 58 L 58 L Pulse Rate [Pulse Oximeter] Respiratory Rate 16 16 Blood Pressure [Le ft Arm] 126/77 128/54 L Pulse Oximetry [address] Room Air Room Air
[2022-03-11] MEDS: LATANOPROST 0.005% OPHTH 1 DROP EYE-BOTH (21:51)
[2022-03-11] MEDS: ENOXAPARIN 40 MG/0.4 ML INJ SUBCUT (21:51)
--- NOTE | 2022-03-11 22:19 | PC.NURSE ---
Shift note: The technical writer communicated with the pt via interpreter and White board ( by writing ); The pt appeared forgetful and has not been following directions. He has been getting out of the bed and chair without calling for help despite educating. He denied any distress ; short of breath and chest pain. He has been in room air with Spo2 in the mid 90s. He has been incontinent of urine. He drunk all of his Enlive ensure; and a few bites of his dinner .
[2022-03-12 03:30] VITALS: BP 129/63; PULSE 66; RESP 16; TEMP 36.4; O2SAT 96
--- NOTE | 2022-03-12 05:27 | PC.NURSE ---
Shift note : Pt w/ dementia, has been calm/cooperative all shift, incontinent of urine, T&R Q2h. Home Health Registered Nurse not used throughout the night as able to communicate routine care provided via white board. Remains on RA, lungs clear.
[2022-03-12] MEDS: OMEPRAZOLE 20 MG CAPSULE DR PO (06:14)
[2022-03-12 07:00] VITALS: BP 111/53; PULSE 60; PULSE 63; RESP 16; TEMP 36.4; O2SAT 96
[2022-03-12 07:51] LABS: Chloride* 104 mmol/L (96-114); Sodium* 136 mmol/L (135-149)
[2022-03-12 07:52] LABS: Potassium* 3.6 mmol/L (3.6-5.1)
[2022-03-12 07:54] LABS: Blood Urea Nitrogen* 12 mg/dL (7-30); Carbon Dioxide* 26 mmol/L (20-32); Creatinine* 0.6 mg/dL (0.5-1.5); Estimated Glomerular Filt Rate 96 ml/min
[2022-03-12 07:55] LABS: Calcium* 8.5 mg/dL (8.4-10.6); Glucose* 105 mg/dL (60-115)
[2022-03-12] MEDS: POTASSIUM CHLORIDE 10 MEQ CAPSULE ER PO ×2 (10:41→17:59)
[2022-03-12] MEDS: ATORVASTATIN CALCIUM 40 MG TABLET PO (10:42)
[2022-03-12] MEDS: CYANOCOBALAMIN (VITAMIN B-12) 500 MCG TABLET 250 MCG PO ×2 (10:42→21:40)
[2022-03-12] MEDS: timoloL maleate 0.5 % 1 DROP EYE-BOTH (10:43)
[2022-03-12] MEDS: METOPROLOL TARTRATE 25 MG TABLET PO ×2 (10:43→21:40)
[2022-03-12] MEDS: ASPIRIN 81 MG TABLET EC PO (10:43)
[2022-03-12] MEDS: SODIUM CHLORIDE 0.9 % (FLUSH) 10 ML SYRINGE IVF ×2 (10:44→21:41)
[2022-03-12 11:00] VITALS: BP 115/71; PULSE 62; RESP 16; TEMP 36.6; O2SAT 96
[2022-03-12 15:00] VITALS: BP 117/64; PULSE 63; PULSE 64; RESP 16; TEMP 36.6; O2SAT 95
--- NOTE | 2022-03-12 16:49 | P.IMPN_ITS ---
Progress Note: A&P Assessment and plan (1) COVID-19: Problem details: Symptom onset 03/07/22 Covid + PCR 03/07/22 Status post Remdesivir x3 days Continue current cares, supportive. Not on oxygen Mild hyponatremia hypokalemia will continue to monitor. Status: Acute (2) Generalized weakness: Problem details: Continue current cares, supportive. Status: Acute (3) Deafness: Problem details: Congenital - Mother had Serbian Measles during Status: Chronic (4) Prostate cancer metastatic to bone: Problem details: On Xtandi Status: Chronic (5) Alzheimer's dementia with behavioral disturbance: Problem details: No agitation or impulsivity. Status: Chronic Subjective Date Seen: 03/12/22 Interval history: Daily Progress Note - Hospital Medicine Day #: 6 CC: weakness 03/07/22, Day #6 of illness, Day #6 from +PCR OVERNIGHT UPDATES FROM STAFF & MED, LAB, IMAGING UPDATES progressing. less weak. pt and I with PT walked down the roy a little. used iP ad to talk with ASL interpretor. c/o of back stiffness and needing to have BM. smiling more; tells ASL that PT and doc are doing a great job - seems to understand he has covid, as does his , and he is here to gain strength and return home. Last drawn cbc 03/10 Today, 03/12, BMP is completely unremarkable. Review of Systems: See subjective Cardiac: No new chest pain/pressure/palpitations. Respiratory: no new dyspnea. GI: No abdominal bloating Tired, lack of appetite. Back stiffness. Feels constipated. Objective: Vitals: see above Lungs: Clear. Cardiac: S1S2. Abdomen soft. Good bowel sounds. Walks with a slow shuffle but has decent ambulatory stamina. Disposition/Potential discharge - Likely to return to previous living situation. Total time is 35 minutes with greater than 50% spent in counseling and coordination of care. Exam Const: Vital Signs, click to edit/add: Vital Signs - 24 hr 03/11/22 17:47 03/11/22 19:49 03/11/22 17:10 Temperature 97.5 F L 97.7 F Pulse Rate [Left B rachial] 58 L 53 L 60 Pulse Rate [Pulse Oximeter] Respiratory Rate 16 16 16 Blood Pressure [Le ft Arm] 124/61 125/57 L Pulse Oximetry 98 96 Oxygen Delivery Me thod Room Air Room Air 03/11/22 23:30 03/11/22 23:30 03/11/22 23:30 Temperature 96.6 F L Pulse Rate [Left B rachial] 67 Pulse Rate [Pulse Oximeter] 67 Respiratory Rate 16 16 Blood Pressure [Le ft Arm] 120/54 L Pulse Oximetry 96 96 Oxygen Delivery Ky thod Room Air 03/12/22 03:30 03/12/22 07:00 03/12/22 07:00 Temperature 97.6 F 97.6 F Pulse Rate [Left B rachial] 63 Pulse Rate [Pulse Oximeter] 66 60 60 Respiratory Rate 16 16 16 Blood Pressure [Le ft Arm] 129/63 111/53 L Pulse Oximetry 96 96 Oxygen Delivery Ky thod Room Air Room Air 03/12/22 11:00 Temperature 97.9 F Pulse Rate [Left B rachial] Pulse Rate [Pulse Oximeter] 62 Respiratory Rate 16 Blood Pressure [Le ft Arm] 115/71 Pulse Oximetry 96 Oxygen Delivery Ky thod Room Air Labs Labs: Laboratory Results - last 24 hr 03/12/22 07:05 Sodium 136 Potassium 3.6 Chloride 104 Carbon Dioxide 26 BUN 12 Creatinine 0.6 Estimated Creat Clear 46.40 Estimated GFR 96 Glucose 105 Calcium 8.5
--- NOTE | 2022-03-12 18:13 | PC.NURSE ---
Patient is up in the room with Standby assistance. Demonstrates a steady gait. Incontinent of urine this shift. Tolerating a regular diet - encouraged fluid intake. Ipad card hanger used this shift to communicate. Experienced some difficultly as patient seemed confusing with questioning.
[2022-03-12 19:00] VITALS: BP 117/63; PULSE 61; RESP 16; TEMP 36.4; O2SAT 95
[2022-03-12] MEDS: LATANOPROST 0.005% OPHTH 1 DROP EYE-BOTH (21:40)
[2022-03-12] MEDS: ENOXAPARIN 40 MG/0.4 ML INJ SUBCUT (21:41)
[2022-03-12] MEDS: guaiFENesin 100 MG/ML CUP PO (22:01)
[2022-03-12 23:00] VITALS: BP 107/59; PULSE 55; RESP 16; TEMP 36.2; O2SAT 95
[2022-03-13 03:00] VITALS: BP 114/59; PULSE 65; RESP 16; TEMP 36.5; O2SAT 93
--- NOTE | 2022-03-13 07:35 | PC.NURSE ---
19-07: shift unremarkable. Moves around the room well. Does not call appropriately, bed alarm and chair alarms on. 2x brief change. VSS. Pt on RA.
[2022-03-13] MEDS: OMEPRAZOLE 20 MG CAPSULE DR PO (07:41)
[2022-03-13 07:48] VITALS: BP 126/64; PULSE 56; RESP 16; TEMP 36.4; O2SAT 93
[2022-03-13] MEDS: ATORVASTATIN CALCIUM 40 MG TABLET PO (09:30)
[2022-03-13] MEDS: METOPROLOL TARTRATE 25 MG TABLET PO ×2 (09:30→20:43)
[2022-03-13] MEDS: CYANOCOBALAMIN (VITAMIN B-12) 500 MCG TABLET 250 MCG PO ×2 (09:30→21:16)
[2022-03-13] MEDS: POTASSIUM CHLORIDE 10 MEQ CAPSULE ER PO ×2 (09:31→18:10)
[2022-03-13] MEDS: ASPIRIN 81 MG TABLET EC PO (09:31)
[2022-03-13] MEDS: SODIUM CHLORIDE 0.9 % (FLUSH) 10 ML SYRINGE IVF ×2 (09:32→20:44)
[2022-03-13] MEDS: timoloL maleate 0.5 % 1 DROP EYE-BOTH (09:32)
[2022-03-13 11:38] VITALS: BP 138/68; PULSE 62; RESP 18; TEMP 36.6; O2SAT 94
[2022-03-13 15:33] VITALS: BP 116/60; PULSE 62; RESP 16; TEMP 36.5; O2SAT 94
--- NOTE | 2022-03-13 17:48 | PC.NURSE ---
Shift Summary: Patient pleasant and cooperative. Uses whiteboard to communicate. Attempted to use ipad mesh worker to communicate but patient not receptive, would tell ipad mesh worker he doesn't need anything. Had 25% of an ensure for lunch and bites of malt-o-meal for breakfast. C/o back pain, unable to rate, was offered tylenol but refused. Up in recliner for meals. Continues to be incontinent of bladder, needing bed and gown change this morning.
[2022-03-13 19:00] VITALS: BP 124/66; PULSE 86; RESP 16; TEMP 36.4; O2SAT 92
--- NOTE | 2022-03-13 20:04 | P.IMPN_ITS ---
Progress Note: A&P Assessment and plan (1) COVID-19: Problem details: Symptom onset 03/07/22 Covid + PCR 03/07/22 Status post Remdesivir x3 days Continue current cares, supportive. Not on oxygen Mild hyponatremia hypokalemia will continue to monitor. long conversation with interpretor and via phone. has covid, likely she is day 5. she is at home and coughing and tired but does not feel she can care for him. she had concerns about giving him covid again and they both falling trying to help each other. they have no adult children or family to help. she would like to have him transferred to rehab/SNF for short term stay and when they are both at baseline, she will come pick him up Status: Acute (2) Alzheimer's dementia with behavioral disturbance: Problem details: No agitation or impulsivity. Status: Chronic (3) Generalized weakness: Problem details: Continue current cares, supportive. Status: Acute (4) Deafness: Problem details: Congenital - Mother had Romanian Measles during Status: Chronic Subjective Date Seen: 03/13/22 Interval history: Day #: 7 CC: weakness 03/07/22, Day #7 of illness, Day #7 from +PCR OVERNIGHT UPDATES FROM STAFF & MED, LAB, IMAGING UPDATES progressing. less weak. No significant change. He is comfortable and likely back to his baseline. He expresses he feels better each day. Last drawn cbc 03/10 03/12, BMP was completely unremarkable. Review of Systems: See subjective Cardiac:? No new chest pain/pressure/palpitations.? Respiratory:? no new dyspnea.? GI: No abdominal bloating? Tired, lack of appetite.? Back stiffness.? Feels constipated. ? Objective: Vitals: see above Lungs: Clear. Cardiac: S1S2. Abdomen soft.? Good bowel sounds. Walks with a slow shuffle but has decent ambulatory stamina. ? Disposition/Potential discharge - Likely to return to previous living situation. Total time is 35 minutes with greater than 50% spent in counseling and coordination of care. Exam Const: Vital Signs, click to edit/add: Vital Signs - 24 hr 03/12/22 23:00 03/12/22 23:00 03/12/22 23:00 Temperature 97.1 F L Pulse Rate [Pulse Oximeter] 55 L 55 L Respiratory Rate 16 16 Blood Pressure [Le ft Arm] 107/59 L Pulse Oximetry 95 95 Oxygen Delivery Me thod Room Air 03/13/22 03:00 03/13/22 07:48 03/13/22 11:38 Temperature 97.7 F 97.5 F L 97.8 F Pulse Rate [Pulse Oximeter] 65 56 L 62 Respiratory Rate 16 16 18 Blood Pressure [Le ft Arm] 114/59 L 126/64 138/68 Pulse Oximetry 93 93 94 Oxygen Delivery Me thod Room Air Room Air Room Air 03/13/22 15:33 Temperature 97.7 F Pulse Rate [Pulse Oximeter] 62 Respiratory Rate 16 Blood Pressure [Le ft Arm] 116/60 Pulse Oximetry 94 Oxygen Delivery Me thod Room Air
[2022-03-13] MEDS: ENOXAPARIN 40 MG/0.4 ML INJ SUBCUT (20:43)
[2022-03-13] MEDS: LATANOPROST 0.005% OPHTH 1 DROP EYE-BOTH (20:43)
[2022-03-13] MEDS: ACETAMINOPHEN 325 MG TABLET 650 MG PO (21:14)
[2022-03-13] MEDS: guaiFENesin 100 MG/ML CUP PO (21:16)
[2022-03-13 23:00] VITALS: PULSE 80; RESP 16; TEMP 36.6; O2SAT 92; O2SAT 93
[2022-03-14 02:54] VITALS: BP 112/62; PULSE 73; RESP 16; TEMP 36.6; O2SAT 94
--- NOTE | 2022-03-14 06:16 | PC.NURSE ---
19-: pt seemed withdrawn and sad at the beginning of this shift. Ipad customer complaint clerk used, pt c/o back ache, and accepted Tylenol. Pts cough sounded more productive as well, pt accepted guaifenesin. Pt slept on and off throughout the night. VSS. Lotion applied to dry skin, pt was grateful for this. This AM pt seems more records management clerk and is smiling.
[2022-03-14] MEDS: OMEPRAZOLE 20 MG CAPSULE DR PO (06:36)
[2022-03-14 07:00] VITALS: BP 109/67; PULSE 64; PULSE 69; RESP 15; RESP 18; TEMP 36.5; O2SAT 94
[2022-03-14] MEDS: CYANOCOBALAMIN (VITAMIN B-12) 500 MCG TABLET 250 MCG PO ×2 (08:43→20:37)
[2022-03-14] MEDS: POTASSIUM CHLORIDE 10 MEQ CAPSULE ER PO ×2 (08:43→20:37)
[2022-03-14] MEDS: ASPIRIN 81 MG TABLET EC PO (08:44)
[2022-03-14] MEDS: METOPROLOL TARTRATE 25 MG TABLET PO ×2 (08:44→20:37)
[2022-03-14] MEDS: ATORVASTATIN CALCIUM 40 MG TABLET PO (08:45)
[2022-03-14] MEDS: timoloL maleate 0.5 % 1 DROP EYE-BOTH (08:45)
[2022-03-14 09:51] VITALS: BMI 21.1
[2022-03-14 11:00] VITALS: BP 90/68; PULSE 93; RESP 15; TEMP 36.5; O2SAT 93
[2022-03-14] MEDS: guaiFENesin 100 MG/ML CUP PO (11:28)
[2022-03-14] MEDS: SODIUM CHLORIDE 0.9 % (FLUSH) 10 ML SYRINGE IVF ×2 (11:29→20:44)
--- NOTE | 2022-03-14 14:29 | PC.SOCIAL ---
Made a phone call to pt's , Jyothi to discuss discharge planning and placement at SNF. Jyothi stated that they discussed and she has changed her mind. Jyothi thinks it's best if pt comes home with her and has some home health services in place. Jyothi states she is concerned about finances and states insurance has said that he doesn't qualify for a [facility]cf stay. This worker will have Utilization Review check insurance coverage. Jyothi states that she is not interested in having pt come to [facility] as he was there before. Jyothi would like pt to stay in the [place] area only and states that [place] and [place] facilities are too far away. Jyothi states she will be talking with Dr. Elizondo around 12:45 pm and will discuss what she would like to do either SNF or pt going home with home health services in place. Phone call to Monique in Utilization Review to discuss pt's insurance coverage. Monique states Medicare is primary and pt would have to have a skilled need to get coverage for SNF stay. Pt is currently receiving therapy services. Provided and update to Dr. Elizondo regarding conversation and insurance coverage. Dr. Elizondo will talk with Pt's more on the plan moving forward.
[2022-03-14] MEDS: ACETAMINOPHEN 325 MG TABLET 650 MG PO ×2 (14:46→21:09)
[2022-03-14 15:00] VITALS: BP 137/69; PULSE 70; RESP 21; O2SAT 93
--- NOTE | 2022-03-14 15:22 | P.IMPN_ITS ---
Progress Note: A&P Assessment and plan (1) COVID-19: Problem details: Symptom onset 03/07/22 Covid + PCR 03/07/22 Status post Remdesivir x3 days Continue current cares, supportive. Not on oxygen Mild hyponatremia hypokalemia will continue to monitor. long conversation with interpretor and via phone. has covid, likely she is day 5. she is at home and coughing and tired but does not feel she can care for him. she had concerns about giving him covid again and they both falling trying to help each other. they have no adult children or family to help. she would like to have him transferred to rehab/SNF for short term stay and when they are both at baseline, she will come pick him up Status: Acute (2) Alzheimer's dementia with behavioral disturbance: Problem details: No agitation or impulsivity. Status: Chronic (3) Generalized weakness: Problem details: Continue current cares, supportive. Status: Acute (4) Deafness: Problem details: Congenital - Mother had Malagasy Measles during Status: Chronic Subjective Date Seen: 03/14/22 Interval history: Day #: 8 CC: weakness 03/07/22, Day #8 of illness, Day #9 from +PCR OVERNIGHT UPDATES FROM STAFF & MED, LAB, IMAGING UPDATES progressing. less weak. No significant change. He is comfortable and likely back to his baseline. He expresses he feels better each day. Last drawn cbc 03/10 03/12, BMP was completely unremarkable. Review of Systems: See subjective Cardiac:? No new chest pain/pressure/palpitations.? Respiratory:? no new dyspnea.? GI: No abdominal bloating? Tired, lack of appetite.? Back stiffness.? Feels constipated. ? Objective: Vitals: see above Lungs: Clear. Cardiac: S1S2. Abdomen soft.? Good bowel sounds. Walks with a slow shuffle but has decent ambulatory stamina. ? Disposition/Potential discharge - Likely to return to previous living situation. Total time is 35 minutes with greater than 50% spent in counseling and coordination of care. Exam Const: Vital Signs, click to edit/add: Vital Signs - 24 hr 03/13/22 15:33 03/13/22 19:00 03/13/22 23:00 Temperature 97.7 F 97.6 F Pulse Rate [Pulse Oximeter] 62 86 Respiratory Rate 16 16 Blood Pressure [Le ft Arm] 116/60 124/66 Pulse Oximetry 94 92 92 Oxygen Delivery Me thod Room Air Room Air 03/13/22 23:00 03/13/22 23:00 03/14/22 02:54 Temperature 97.9 F 98 F Pulse Rate [Pulse Oximeter] 80 80 73 Respiratory Rate 16 16 16 Blood Pressure [Le ft Arm] 112/62 Pulse Oximetry 93 94 Oxygen Delivery Co thod Room Air Room Air 03/14/22 07:00 03/14/22 07:00 03/14/22 11:00 Temperature 97.7 F 97.7 F Pulse Rate [Pulse Oximeter] 69 64 93 Respiratory Rate 15 18 15 Blood Pressure [Le ft Arm] 109/67 90/68 Pulse Oximetry 94 93 Oxygen Delivery Co thod Room Air Room Air
--- NOTE | 2022-03-14 16:13 | PC.SOCIAL ---
Made a phone call to Pt's , Jyothi Lora. Pt's states that she does not think she can provide the care that pt needs and requests that pt goes to SNF for rehab. Informed that this worker will look for SNF placement in [place] or close to [place] per 's request. Contacted the following facilities for SNF placement. 1. [facility]- Phone call to Gloria in Admissions. Gloria states that she may have an open bed by Sunday. This worker informed that Sunday is the earliest that pt can discharge. Faxed initial information to [phone]. 2. [facility]- Phone call to Candy information assurance analyst Admissions. Candy states that she has no beds available for this week. 3. [facility]- Phone call to Gregoria in admissions. Gregoria states that she has no male beds available for this week. 4. [facility]- Faxed initial information for assessment of possible admission.
[2022-03-14 19:00] VITALS: BP 112/66; PULSE 55; RESP 18; TEMP 36.4; O2SAT 96
--- NOTE | 2022-03-14 19:27 | PC.NURSE ---
shift [id number] Pt this shift calm and cooperative with cares. Per report, pt c/o back pain and not acting like himself. Pt still c/o of back pain, and treated with Tylenol see eMAR. Assessed area and no bruising, bulging, or redness noted. Reddened groin and glutes, barrier cream applied each brief change x2. Used pillows to prop pt on L side. Ate about 50% at breakfast, did not order lunch and ordered dinner late. One ensure given. Skin pale and dry, bilat legs lotion and massaged, TEDs on and SCD on while in bed. Used director work, communicated well with pt, able to get needs known, and message from relayed to pt. Lung sounds clear in upper [place], diminished middle lobes, and clear at bases. Occasional cough heard which is productive.
[2022-03-14] MEDS: ENOXAPARIN 40 MG/0.4 ML INJ SUBCUT (20:38)
[2022-03-14] MEDS: LATANOPROST 0.005% OPHTH 1 DROP EYE-BOTH (20:44)
[2022-03-14 23:00] VITALS: PULSE 55; PULSE 62; RESP 16; RESP 18; TEMP 36.6; O2SAT 94; O2SAT 96
[2022-03-15 03:00] VITALS: BP 115/60; PULSE 58; RESP 18; TEMP 36.6; O2SAT 95
--- NOTE | 2022-03-15 06:22 | PC.NURSE ---
Shift note: Turned and repositioned pt every couple hours, pt is incontinent. He is afebrile, back pain treated per eMAR and pt was able to rest
[2022-03-15 07:00] VITALS: BP 93/58; PULSE 56; RESP 18; TEMP 36.7; O2SAT 94
[2022-03-15] MEDS: METOPROLOL TARTRATE 25 MG TABLET PO ×2 (09:35→20:12)
[2022-03-15] MEDS: CYANOCOBALAMIN (VITAMIN B-12) 500 MCG TABLET 250 MCG PO ×2 (09:36→20:11)
[2022-03-15] MEDS: ATORVASTATIN CALCIUM 40 MG TABLET PO (09:36)
[2022-03-15] MEDS: POTASSIUM CHLORIDE 10 MEQ CAPSULE ER PO (09:37)
[2022-03-15] MEDS: ASPIRIN 81 MG TABLET EC PO (09:37)
[2022-03-15] MEDS: SODIUM CHLORIDE 0.9 % (FLUSH) 10 ML SYRINGE IVF ×2 (09:38→20:13)
[2022-03-15] MEDS: timoloL maleate 0.5 % 1 DROP EYE-BOTH (09:39)
[2022-03-15] MEDS: OMEPRAZOLE 20 MG CAPSULE DR PO (09:42)
[2022-03-15 11:00] VITALS: BP 138/74; PULSE 56; RESP 18; TEMP 36.2; O2SAT 97
--- NOTE | 2022-03-15 13:22 | PM.IMPN1 ---
Progress Note: A&P Assessment and plan (1) COVID-19: Problem details: Symptom onset 03/07/22 Covid + PCR 03/07/22 Status post Remdesivir x3 days Continue current cares, supportive. Not on oxygen Mild hyponatremia hypokalemia will continue to monitor. will have RN update . initial pushback from SNF - not interpretor for ASL and worried about Xtandi dosing. is recovering from covid. Status: Acute (2) Alzheimer's dementia with behavioral disturbance: Problem details: No agitation or impulsivity. Status: Chronic (3) Generalized weakness: Problem details: Continue current cares, supportive. Status: Acute (4) Deafness: Problem details: Congenital - Mother had Singaporean Measles during Status: Chronic Subjective Date Seen: 03/15/22 Interval history: Day #: 9 CC: weakness 03/07/22, Day #9 of illness, Day #8 from +PCR OVERNIGHT UPDATES FROM STAFF & MED, LAB, IMAGING UPDATES progressing. less weak. No significant change. He is comfortable and likely back to his baseline. He expresses he feels better each day. Last drawn cbc 03/10 03/12, BMP was completely unremarkable. Review of Systems: See subjective Cardiac:? No new chest pain/pressure/palpitations.? Respiratory:? no new dyspnea.? GI: No abdominal bloating? Tired, lack of appetite.? Back stiffness.? Feels constipated. ? Objective: Vitals: see above Lungs: Clear. Cardiac: S1S2. Abdomen soft.? Good bowel sounds. Walks with a slow shuffle but has decent ambulatory stamina. ? Disposition/Potential discharge - Likely to return to previous living situation. Total time is 35 minutes with greater than 50% spent in counseling and coordination of care. Exam Const: Vital Signs, click to edit/add: Vital Signs - 24 hr 03/14/22 15:00 03/14/22 15:00 03/14/22 19:00 Temperature 97.6 F Pulse Rate [Pulse Oximeter] 70 70 55 L Respiratory Rate 21 21 18 Blood Pressure [Le ft Arm] 137/69 112/66 Pulse Oximetry 93 96 Oxygen Delivery Me thod Room Air Room Air 03/14/22 23:00 03/14/22 23:00 03/14/22 23:00 Temperature 98 F Pulse Rate [Pulse Oximeter] 55 L 62 Respiratory Rate 18 16 Blood Pressure [Le ft Arm] Pulse Oximetry 96 94 Oxygen Delivery Me thod Room Air 03/15/22 03:00 03/15/22 07:00 Temperature 97.8 F 98.1 F Pulse Rate [Pulse Oximeter] 58 L 56 L Respiratory Rate 18 18 Blood Pressure [Le ft Arm] 115/60 93/58 L Pulse Oximetry 95 94 Oxygen Delivery Me thod Room Air Room Air
[2022-03-15 15:00] VITALS: BP 133/68; PULSE 56; RESP 18; TEMP 36.6; O2SAT 94
--- NOTE | 2022-03-15 15:49 | PC.NURSE ---
Attempted to call , Jyothi to update @ [id number]. No answer. Will try again
--- NOTE | 2022-03-15 15:54 | PC.SOCIAL ---
Received a phone call from Indigo in Admissions at [facility]. [facility] is declining pt for admission due to pt being on a medication (Xtandi) that costs $1,300.00 a month. Also, declining due to not have an primary class teacher for ASL and pt's medical history stating he has Alzheimer's dementia with behavioral disturbance. Follow up phone call to [facility] in [place] to inquire on referral that was faxed to them on 03/14/22. Left a voicemail for Valerie in Admissions.
--- NOTE | 2022-03-15 16:05 | PC.NURSE ---
Pt's , Jyothi, called back. Updated her per Dr. Elizondo and social works notes. states she feels it is better for him to come home on Sunday.
[2022-03-15 19:00] VITALS: BP 127/72; PULSE 68; RESP 18; TEMP 36.5; O2SAT 94
--- NOTE | 2022-03-15 19:48 | PC.NURSE ---
Pt up with SBA, and gait belt; attempts but confused with use of walker. Denies pain. Use of car chaser on iPad and whiteboard for communication with pt. Pt denies appetite, eating only fruit and toast, refusing ensure.
[2022-03-15] MEDS: ENOXAPARIN 40 MG/0.4 ML INJ SUBCUT (20:13)
[2022-03-15] MEDS: LATANOPROST 0.005% OPHTH 1 DROP EYE-BOTH (20:14)
[2022-03-15 23:00] VITALS: BP 121/67; PULSE 67; PULSE 68; RESP 16; RESP 18; TEMP 36.5; O2SAT 94
[2022-03-16 03:00] VITALS: BP 117/68; PULSE 79; RESP 16; TEMP 36.3; O2SAT 94
--- NOTE | 2022-03-16 05:16 | PC.NURSE ---
[id number] Pt slept entire shift, T&R q2hr and independently per pt, changed brief prn. denies pain, pt on RA with sats well above 90%.
[2022-03-16] MEDS: OMEPRAZOLE 20 MG CAPSULE DR PO (06:33)
[2022-03-16 07:00] VITALS: BP 138/78; PULSE 74; RESP 16; O2SAT 93
[2022-03-16] MEDS: METOPROLOL TARTRATE 25 MG TABLET PO ×2 (08:51→21:12)
[2022-03-16] MEDS: POTASSIUM CHLORIDE 10 MEQ CAPSULE ER PO ×2 (08:51→18:03)
[2022-03-16] MEDS: ATORVASTATIN CALCIUM 40 MG TABLET PO (08:51)
[2022-03-16] MEDS: ASPIRIN 81 MG TABLET EC PO (08:52)
[2022-03-16] MEDS: CYANOCOBALAMIN (VITAMIN B-12) 500 MCG TABLET 250 MCG PO ×2 (08:52→21:12)
[2022-03-16] MEDS: timoloL maleate 0.5 % 1 DROP EYE-BOTH (08:52)
--- NOTE | 2022-03-16 10:02 | PC.SOCIAL ---
Discharge planning- Phone call to pt's Jyothi Lora. Informed Jyothi that this worker was unable to find a SNF that could meet pt's needs. Informed that pt is now medically ready for discharge and at his baseline. Jyothi stated that she will have to come and get him then. This worker stated that if Jyothi could come into the [facility] today she could come to the pt's room and see how he is doing and also speak with medical staff before discharge. Jyothi responded stating that she needs more rest and she doesn't want to come in. This worker asked how the pt would get home from the hospital and Jyothi responded stating she guesses she would have to come in. This worker again offered for Jyothi to come to the pt's room and speak with medical staff before discharge and see how pt is doing. Jyothi stated she will come in and meet staff at the Emergency Department entrance at 11:00 am and she will bring pt's coat with her. Informed Jyothi that she will need to have a mask on and have the mask on while in the building. Informed Jyothi that she has the right to appeal the discharge and during that time the appeal is being reviewed pt would stay in the hospital. Processing [employer] Supervisor then cut me off and stated that Jyothi is trying to hang up the phone and doesn't want to continue to conversate. Call then ended. Provided update to charge nurse.
[2022-03-16 11:00] VITALS: BP 113/70; PULSE 69; RESP 16; TEMP 36.6; O2SAT 95
[2022-03-16] MEDS: SODIUM CHLORIDE 0.9 % (FLUSH) 10 ML SYRINGE IVF ×2 (11:15→21:13)
--- NOTE | 2022-03-16 12:46 | P.IMPN_ITS ---
Progress Note: A&P Assessment and plan (1) COVID-19: Problem details: Symptom onset 03/07/22 Covid + PCR 03/07/22 Status post Remdesivir x3 days Continue current cares, supportive. Not on oxygen family conference with , RN, Jacque and Lidya from social work. No SNF available with closed circuit screen watcher; brought bedside to visit with social work and she agrees to home health and taking him home tomorrow. Status: Acute (2) Alzheimer's dementia with behavioral disturbance: Problem details: No agitation or impulsivity. Status: Chronic (3) Generalized weakness: Problem details: Continue current cares, supportive. Status: Acute (4) Deafness: Problem details: Congenital - Mother had Setswana Measles during Status: Chronic Subjective Date Seen: 03/16/22 Interval history: Day #: 10 CC: weakness 03/07/22, Day #10 of illness, Day #9 from +PCR OVERNIGHT UPDATES FROM STAFF & MED, LAB, IMAGING UPDATES progressing. less weak. No significant change. He is comfortable and likely back to his baseline. He expresses he feels better each day. Last drawn cbc 03/10 03/12, BMP was completely unremarkable. Review of Systems: See subjective Cardiac:? No new chest pain/pressure/palpitations.? Respiratory:? no new dyspnea.? GI: No abdominal bloating? Tired, lack of appetite.? Back stiffness.? Feels constipated. ? Objective: Vitals: see above Lungs: Clear. Cardiac: S1S2. Abdomen soft.? Good bowel sounds. Walks with a slow shuffle but has decent ambulatory stamina. I watched him standup and shuffle to the chair - he need a little cuing and one hand to get started. ? Disposition/Potential discharge - Likely to return to previous living situation. Total time is 35 minutes with greater than 50% spent in counseling and coordination of care. Exam Const: Vital Signs, click to edit/add: Vital Signs - 24 hr 03/15/22 15:00 03/15/22 19:00 03/15/22 23:00 Temperature 97.8 F 97.7 F Pulse Rate [Pulse Oximeter] 56 L 68 67 Respiratory Rate 18 18 16 Blood Pressure [Le ft Arm] 133/68 127/72 Blood Pressure [Ri ght Arm] Pulse Oximetry 94 94 Oxygen Delivery Me thod Room Air Room Air 03/15/22 23:00 03/15/22 23:00 03/16/22 03:00 Temperature 97.7 F 97.3 F L Pulse Rate [Pulse Oximeter] 68 79 Respiratory Rate 18 16 Blood Pressure [Le ft Arm] 121/67 117/68 Blood Pressure [Ri ght Arm] Pulse Oximetry 94 94 94 Oxygen Delivery Ak thod Room Air Room Air 03/16/22 07:00 03/16/22 11:00 Temperature 97.8 F Pulse Rate [Pulse Oximeter] 74 69 Respiratory Rate 16 16 Blood Pressure [Le ft Arm] 113/70 Blood Pressure [Ri ght Arm] 138/78 Pulse Oximetry 93 95 Oxygen Delivery Ak thod Room Air Room Air
[2022-03-16] MEDS: ACETAMINOPHEN 325 MG TABLET 650 MG PO (14:04)
[2022-03-16 15:00] VITALS: BP 131/69; PULSE 62; RESP 14; TEMP 37.1; O2SAT 94
--- NOTE | 2022-03-16 15:43 | PC.SOCIAL ---
Met with pt's , pt, Dr. Elizondo, and Nurse in pt's room. bottle line worker was outside of room due to Covid protocols. Pt's was informed that pt would be discharged tomorrow (03-17-22) and social work will work on looking for home health care options. Pt and Pt's were agreeable to having home health services come into their home to assist with therapy and nursing services. Dr. Elizondo requested that social work get housing resource information for pt and pt's . Discussed home health services with pt's . Informed pt's that this worker would complete a referral to the senior linkage line to get housing information. Pt's was agreeable. Completed the face to face sheet for home care orders. Completed referral to [facility] linkage line for help around the home, managing finances, and housing options. Confirmation #[id number]. Contacted the following home care agencies. 1. [facility]. Home care declined due to having pt in the past and pt being non-compliant and not letting home care into the home. 2. [facility]- Phone call to [facility] intake. Faxed referral to be assessed. Received a phone call back stating that they cannot meet clients needs. 3. [facility]- Phone call to [facility] intake and was informed they could take pt. Faxed referral to [phone]. Received phone call back stating they could not longer accept pt as they cannot meet pt needs. 4. [facility] Phone call to [facility] intake and was informed they could take pt for home health services. Faxed referral information to [phone]. Made a phone call to Pt's and provided an update.
[2022-03-16 19:00] VITALS: BP 121/64; PULSE 78; RESP 16; TEMP 36.6; O2SAT 92
--- NOTE | 2022-03-16 19:35 | PC.NURSE ---
End of Shift: Patient pleasant and cooperative. Patient vitally stable, lungs with crackles posteriorly, BS WNL, IV intact. Patient SBA, walker, gb. Patient reported some back pain, tylenol given. Patient incontinent of urine and bladder, diaper changed x3 with 1 small soft BM. Patient with small appetite but tolerating regular diet. White board used for communication, when arrived Ipad parts interpreter used with MD and oncology social worker.
[2022-03-16] MEDS: ENOXAPARIN 40 MG/0.4 ML INJ SUBCUT (21:13)
[2022-03-16] MEDS: LATANOPROST 0.005% OPHTH 1 DROP EYE-BOTH (21:13)
[2022-03-16 23:00] VITALS: BP 117/69; PULSE 62; RESP 16; TEMP 36.6; O2SAT 92
[2022-03-17] VITALS (7 sets, daily range): BP systolic 127–141; BP diastolic 71–93; PULSE 57–78; RESP 16–20; TEMP 36.1–36.6; O2SAT 92–95
--- NOTE | 2022-03-17 05:20 | PC.NURSE ---
[id number]: mobile device engineer used for cares, patient incontinent of bladder frequently, room air, slept between cares.
[2022-03-17] MEDS: OMEPRAZOLE 20 MG CAPSULE DR PO (06:47)
[2022-03-17] MEDS: POTASSIUM CHLORIDE 10 MEQ CAPSULE ER PO ×2 (09:22→17:53)
[2022-03-17] MEDS: METOPROLOL TARTRATE 25 MG TABLET PO ×2 (09:23→20:02)
[2022-03-17] MEDS: ASPIRIN 81 MG TABLET EC PO (09:23)
[2022-03-17] MEDS: ATORVASTATIN CALCIUM 40 MG TABLET PO (09:23)
[2022-03-17] MEDS: CYANOCOBALAMIN (VITAMIN B-12) 500 MCG TABLET 250 MCG PO ×2 (09:23→20:03)
[2022-03-17] MEDS: SODIUM CHLORIDE 0.9 % (FLUSH) 10 ML SYRINGE IVF ×2 (09:24→20:02)
[2022-03-17] MEDS: timoloL maleate 0.5 % 1 DROP EYE-BOTH (09:25)
--- NOTE | 2022-03-17 11:30 | PC.SOCIAL ---
Social work: Vulnerable Adult report made through [facility] due to possible concerns regarding 's ability to care for self and pt at home. Report #[id number]. [facility] worker, Ashleigh Betancourt, aware of report made. Awaiting communication from [facility] department regarding plans to discharge pt home with as caregiver. wallboard worker to follow up as needed.
--- NOTE | 2022-03-17 13:05 | PM.IMPN1 ---
Progress Note: A&P Assessment and plan (1) COVID-19: Problem details: Symptom onset 03/07/22 Covid + PCR 03/07/22 Status post Remdesivir x3 days Continue current cares, supportive. Not on oxygen family conference with , RN, Jacque and Lidya from social work. No SNF available with light rail transit operator; brought bedside to visit with social work and she agrees to home health and taking him home. Status: Acute (2) Alzheimer's dementia with behavioral disturbance: Problem details: No agitation or impulsivity. Status: Chronic (3) Generalized weakness: Problem details: Continue current cares, supportive. Status: Acute (4) Deafness: Problem details: Congenital - Mother had Korean Measles during Status: Chronic Subjective Date Seen: 03/17/22 Interval history: Day #: 11 CC: weakness 03/07/22, Day #11 of illness, Day #10 from +PCR OVERNIGHT UPDATES FROM STAFF & MED, LAB, IMAGING UPDATES progressing. less weak. No significant change. He is comfortable and likely back to his baseline. He expresses he feels better each day. Last drawn cbc 03/10 03/12, BMP was completely unremarkable. Review of Systems: See subjective Cardiac:? No new chest pain/pressure/palpitations.? Respiratory:? no new dyspnea.? GI: No abdominal bloating? Tired, lack of appetite.? Back stiffness.? wants to go home. ? Objective: Vitals: see above Lungs: Clear. Cardiac: S1S2. Abdomen soft.? Good bowel sounds. Walks with a slow shuffle but has decent ambulatory stamina. I watched him standup and shuffle to the chair - he need a little cuing and one hand to get started. ? Disposition/Potential discharge - Likely to return to previous living situation. I did place a [facility] report after meeting and interacting with her and Jacque. She, Jyothi = , reports that it is cold in their house but that wearing blankets and extra coats is fine and she thinks the furnace doesn't work. She does not appear to have stamina and strength to barely care for herself in addition to Jacque and his acute on chronic weakness. Id like to see home health and elderly services help this couple and see if they can get moved into assisted living. Total time is 35 minutes with greater than 50% spent in counseling and coordination of care. Exam Const: Vital Signs, click to edit/add: Vital Signs - 24 hr 03/16/22 15:00 03/16/22 15:00 03/16/22 19:00 Temperature 98.7 F 97.8 F Pulse Rate [Pulse Oximeter] 62 62 78 Respiratory Rate 14 14 16 Blood Pressure [Ri ght Arm] 131/69 121/64 Pulse Oximetry 94 92 Oxygen Delivery Me thod Room Air Room Air 03/16/22 23:00 03/16/22 23:00 03/16/22 23:00 Temperature 97.8 F Pulse Rate [Pulse Oximeter] 62 62 Respiratory Rate 16 16 Blood Pressure [Ri ght Arm] 117/69 Pulse Oximetry 92 92 Oxygen Delivery Me thod Room Air 03/17/22 03:00 03/17/22 08:04 03/17/22 08:07 Temperature 97.0 F L Pulse Rate [Pulse Oximeter] 57 L 57 L Respiratory Rate 18 16 16 Blood Pressure [Ri ght Arm] 132/71 Pulse Oximetry 94 Oxygen Delivery Me thod Room Air 03/17/22 11:30 Temperature 97.4 F L Pulse Rate [Pulse Oximeter] 62 Respiratory Rate 16 Blood Pressure [Ri ght Arm] 132/71 Pulse Oximetry 92 Oxygen Delivery Me thod Room Air
--- NOTE | 2022-03-17 14:56 | PM.DS1 ---
DS: Providers Provider Date Seen: 03/17/22 Date of admission: 03/07/22 15:16 Primary care physician: Clovis Turk MD Admitting Clinician: Casa Mcgill MD Consults: 03/07/22 15:34 Consult to Occupational Therapy [CONS] Routine Comment: Reason(s) for OT Consult:: Evaluate and Treat Any Restrictions?:: No Restrictions Consult to Physical Therapy [CONS] Routine Comment: Reason(s) for PT Consult:: Evaluate and Treat Any Restrictions?:: No Restrictions Consult to [employer] Machine Operator [CONS] Routine Comment: Reason for Consult:: Discharge Planning Needs Attending Physician on discharge: [facility] Date of Discharge: 03/18/22 DS: Diagnosis Discharge Diagnosis (1) COVID-19: Status: Acute Problem details: Symptom onset 03/07/22 Covid + PCR 03/07/22 Status post Remdesivir x3 days Continue current cares, supportive. Not on oxygen family conference with , RN, Jacque and Lidya from social work. No SNF available with cod clerk; brought bedside to visit with social work and she agrees to home health and taking him home. (2) Alzheimer's dementia with behavioral disturbance: Status: Chronic Problem details: No agitation or impulsivity. (3) Generalized weakness: Status: Acute Problem details: Continue current cares, supportive. (4) Deafness: Status: Chronic Problem details: Congenital - Mother had Taiwanese Measles during DS: Summary Hospital Course Hospital Course: HOSPITALIST DISCHARGE SUMMARY ATTENDING PHYSICIAN: Lisa Elizondo MD FINAL DIAGNOSIS: COVID-19 -hospitalized for weakness. Status post 3 days of Remdesivir. Congenital deafness Alzheimer's dementia [facility] cancer [facility] FOLLOWUP ISSUES: 1. Home health for increased strength. Patient would have benefitted from halfway therapies to continue to work on his strength, coordination and self-care. However placement was not possible. Vulnerable adult and home health requests for intervention were placed REFERRALS WHILE ADMITTED: [employer] Machine Operator, PT, OT REFERRALS AFTER DISCHARGE: Home health BRIEF HOSPITAL COURSE: Jacque is an 81-year-old, deaf since , gentleman who unfortunately acquired COVID-19. And while he was not hypoxic he was incredibly weak. He lives alone with his who also struggles to maintain self-care. He was brought into the hospital secondary to dehydration, electrolyte abnormalities and COVID-19 related weakness. He was given supportive care, Remdesivir and electrolyte corrections. He is likely back to baseline, however his baseline is tenuous. He is able to shuffle walk behind his walker and can generally transition from sitting to standing. His still drives and does all of the primary care giving. She also had COVID during her 's admission. When the risk of transmission could be mitigated we brought Jyothi up to interact with Jacque and assess their level of functioning. At the time of discharge I was worried about the ability for her and them as a couple to self-care. They seem relatively socially isolated, financially restricted and are not receiving services. Jyothi made mention of a furnace that was not working and that they would need extra blankets and coats. The lack of insight seem to be concerning. I made a vulnerable adult report. At the time of this dictation this was not available back from the [facility]. I think they can be successful at home with increased services. However there will be a time in the very near future where assisted living and or halfway will be necessary for 1 or both Jacque and Jyothi. However, from a COVID specific standpoint he has returned to baseline and can be discharged. VITAL SIGN, MEDICATION, LAB/MICRO, IMAGING SUMMARY (full details available in account tabs or by records request) DISCHARGE MEDICATIONS: See Reconciled list REVIEW OF SYSTEMS No new chest pain or dyspnea Pain controlled No voiding difficulties Tolerating diet challenge PHYSICAL EXAM: CONSTITUTIONAL: alert; cooperative. uses ASL to communicate or dry erase board. VITAL SIGNS: see record. HEENT: Normocephalic, atraumatic. PERRL, EOMI, conjunctivae pink, no scleral icterus. Ears and nose externally normal. Pharynx normal. NECK: No JVD. No carotid bruit, no thyromegaly, no adenopathy. CHEST: Clear to auscultation bilaterally. HEART: S1 and S2 normal. Edema ABDOMEN: Soft, nontender. Normal bowel sounds. MUSCULOSKELETAL: No gross joint deformity or swelling. NEURO: Cranial nerves intact. Grossly intact. No asymmetric findings. shuffle walk unchanged. trunk strength and stability weak. SKIN: No rashes, petechiae, concerning changes PSYCHIATRIC: Mood euthymic. DISPOSITION: home with ; home health and increased [facility] services. Time spent on discharge 37 minutes. Status at Discharge Functional status at discharge: uses cane/walker Overall status at discharge: patient is progressing back to baseline Time Spent with Patient Time attestation: Total time spent providing and/or coordinating discharge services: Exam Const: Vital Signs, click to edit/add: Vital Signs - 24 hr 03/16/22 15:00 03/16/22 15:00 03/16/22 19:00 Temperature 98.7 F 97.8 F Pulse Rate [Pulse Oximeter] 62 62 78 Respiratory Rate 14 14 16 Blood Pressure [Ri ght Arm] 131/69 121/64 Pulse Oximetry 94 92 Oxygen Delivery Me thod Room Air Room Air 03/16/22 23:00 03/16/22 23:00 03/16/22 23:00 Temperature 97.8 F Pulse Rate [Pulse Oximeter] 62 62 Respiratory Rate 16 16 Blood Pressure [Ri ght Arm] 117/69 Pulse Oximetry 92 92 Oxygen Delivery Me thod Room Air 03/17/22 03:00 03/17/22 08:04 03/17/22 08:07 Temperature 97.0 F L Pulse Rate [Pulse Oximeter] 57 L 57 L Respiratory Rate 18 16 16 Blood Pressure [Ri ght Arm] 132/71 Pulse Oximetry 94 Oxygen Delivery Me thod Room Air 03/17/22 11:30 Temperature 97.4 F L Pulse Rate [Pulse Oximeter] 62 Respiratory Rate 16 Blood Pressure [Ri ght Arm] 132/71 Pulse Oximetry 92 Oxygen Delivery Me thod Room Air Discharge Plan Discharge Disposition: Home, Self-Care Date of Admission: 03/07/22 15:16 Attending Provider on Discharge: Lisa Elizondo Primary Care Provider: Clovis Turk Condition: Improved Anticipated Discharge Date/Time: 03/18/22 12:53 Discharge Medications: Continued atorvastatin 40 mg tablet 40 mg PO DAILY Label Comments: TAKE 1 TABLET BY MOUTH ONCE DAILY. timolol maleate 0.5 % drops 1 drp ophthalmic (eye) QAM Label Comments: INSTILL 1 DROP INTO BOTH EYE(S) EVERY MORNING latanoprost 0.005 % drops 1 drp ophthalmic (eye) HS Label Comments: INSTILL 1 DROP INTO BOTH EYES ONCE DAILY IN THE EVENING omeprazole 20 mg capsule,delayed release(DR/EC) 20 mg PO DAILY lisinopril 2.5 mg tablet 2.5 mg PO HS Label Comments: TAKE 1 TABLET (2.5 MG) BY MOUTH ONCE DAILY. metoprolol tartrate 25 mg tablet 25 mg PO BID Label Comments: TAKE 1 TABLET (25 MG) BY MOUTH 2 TIMES DAILY. Xtandi 40 mg tablet See Rx Instructions PO QDAY Rx Instructions: alternates 80mg with 40 mg every other day orally every day; omega 6-dap-rgo-fish oil [Fish Oil] 1,200 (144-216) mg capsule 1 cap PO DAILY cyanocobalamin (vitamin B-12) [Vitamin B-12] 250 mcg tablet 250 mcg PO BID aspirin 81 mg tablet,delayed release (DR/EC) 81 mg PO DAILY calcium carbonate-vitamin D3 [Calcium 500 + D] 500 mg-5 mcg (200 unit) tablet 1 tab PO DAILY cholecalciferol (vitamin D3) [Vitamin D3] 25 mcg (1,000 unit) tablet 25 mcg PO DAILY Discharge Orders: Discharge Order (Routine); Ordered 03/17/22 Ordered By: Lisa Elizondo Additional Instructions: 1. Use your walker in the home. 2. Allow home health and [facility] service representatives help you and your Jyothi 3. stay as active as possible. Activity Level: Activity as Tolerated Discharge Diet: Regular Follow Up Appointments: Clovis Turk MD [Primary Care Provider] - 03/24/22 (f/u covid weakness (hospitalized); vulnerable adult concern placed with [facility] for lack of resources for Jacque and his .) Forms: [employer] Info Instructions
--- NOTE | 2022-03-17 15:40 | PC.NURSE ---
End of Shift: Pt has been pleasant and he is cooperative. no pain, vvs. , lungs with coarse and crackles., SL is patent. and intact. Pt is up with SBA, walker, and gb. pt took meds with rn assist. he is incontinent of urine, Brief was changed as needed. he is eating drinking and voiding. White board used for communication, when arrived Ipad child care provider used. was needed at times. instructed the to stay in the room and use the call both RN and charge relayed this information to the Pt.
--- NOTE | 2022-03-17 16:19 | PC.SOCIAL ---
Discharge planning: Received call back from Ashleigh Betancourt [facility] Vulnerable Adult worker, stating she received the [facility] report submitted by this protective services social worker and has spoken with pt's by phone using computer systems security analyst. Per Ashleigh, pt's refuses any discharge plan other than pt returning home. Per Ashleigh, states she is sick with COVID so can not care for pt this weekend. wants him to have home care when he returns home at discharge. [facility] Vulnerable Adult Department is not opening this case to follow-up and agrees with discharge home with when she voices she can care for pt, and when home care has been set up. Shared this information with MD and RN.
--- NOTE | 2022-03-17 16:40 | PC.SOCIAL ---
Phone call to [facility]. to follow up on referral for home health care services for pt. Home Health Care is determining if they can meet pt needs and will call this worker back. Received phone call from [facility]. and they stated they have accepted pt for admission. Informed that pt will discharge tomorrow (03-18-22). [facility]. will call pt's 's phone tomorrow to set up initial home visit, which will be on Sunday or Sunday. Provided information to Charge Nurse. Made a phone call to pt's Jyothi Lora. Informed that [facility]. will provide home health services to pt. and will contact her tomorrow to set up initial meeting. Provided with the name and phone number to the home health care agency ([facility] [phone]). Informed that pt will be discharged from the hospital tomorrow (03-18-22) at 11:00 am. Asked if she is able to pick pt up from the hospital upon discharge. stated that she don't know if she can and asks if pt is for sure being discharged tomorrow. This worker informed that the plan established is for sure happening. Pt's then stated that she will come to the hospital and pick pt up at 11:00 am tomorrow when he is set to discharge. Pt states she will wait for the phone call from home health care services. Provided updated information to the charge nurse. Received a phone call from the [facility] line asking about the discharge plan for the pt. This worker made a referral for resources and services. Made a phone call back to [facility] Line at [phone] and left a voicemail providing information on discharge plan.
--- NOTE | 2022-03-17 18:52 | PC.NURSE ---
Shift [id number]- Communicates with patient via whiteboard. RN also anticipates needs and directs with gestures. He offers conflicting answers at times- for instance looking into bathroom, frowning and shaking his head no, but continuing to walk into the bathroom anyway and sitting on toilet, where he has a small-medium BM. He is up with walker, gait belt and assist of one. He is very slow to walk back to bed and appeared weak/tired. He seemed agreeable to suppe trayr, but has not eaten anything from his tray yet.
[2022-03-17] MEDS: LATANOPROST 0.005% OPHTH 1 DROP EYE-BOTH (20:02)
[2022-03-17] MEDS: ENOXAPARIN 40 MG/0.4 ML INJ SUBCUT (20:02)
[2022-03-18 03:00] VITALS: PULSE 70; RESP 16; TEMP 36.3; O2SAT 95
--- NOTE | 2022-03-18 05:18 | PC.NURSE ---
SHIFT NOTE -: Pt pleasant and cooperative, deaf, communication via spool fixer and white board. Denies pain. VSS on RA. Up 1 assist with a walker. Incontinent of urine, dileep care provided. Uneventful night.
[2022-03-18] MEDS: OMEPRAZOLE 20 MG CAPSULE DR PO (06:22)
[2022-03-18 08:15] VITALS: BP 137/79; PULSE 85; RESP 16; TEMP 36.1; O2SAT 94
[2022-03-18] MEDS: ASPIRIN 81 MG TABLET EC PO (09:22)
[2022-03-18] MEDS: ATORVASTATIN CALCIUM 40 MG TABLET PO (09:22)
[2022-03-18] MEDS: CYANOCOBALAMIN (VITAMIN B-12) 500 MCG TABLET 250 MCG PO (09:22)
[2022-03-18] MEDS: METOPROLOL TARTRATE 25 MG TABLET PO (09:22)
[2022-03-18] MEDS: timoloL maleate 0.5 % 1 DROP EYE-BOTH (09:23)
[2022-03-18] MEDS: SODIUM CHLORIDE 0.9 % (FLUSH) 10 ML SYRINGE IVF (09:23)
[2022-03-18] MEDS: POTASSIUM CHLORIDE 10 MEQ CAPSULE ER PO (09:23)
--- NOTE | 2022-03-18 11:25 | PC.NURSE ---
Pt calm, pleasant and cooperative. Nursing staff using wipe off board to communicate with Jacque who is deaf. Good appetite, up to chair for bkfst. Incontinent of urine times one. Took in 760 in orally. RN utilized ASL divorce attorney to teach Jacque about his discharge instructions. Pt's timolol, latanaprost eye gtts returned in addition to his Xtandi chemo med. Pt indicated to ASL divorce attorney that he understood his discharge diagnosis, home meds, f/up appt and symptoms to report urgently to physician. IV discontinued. Pt dressed and d/c'ed to own home with his via w/c at 11:10 am.
== END 2022-03-18 11:10 | disposition home health service (06) | DRG 178 ==
LOC: ED 14:05 → MEDSURG 14:37
PROVIDERS: Family Medicine; Admitting Provider Family Medicine; Emergency Provider Student in an Organized Health Care Education/Training Program; PCP Family Medicine; Visit Provider Family Medicine
DX: U07.1 COVID-19 (principal); C79.51 Secondary malignant neoplasm of bone; E87.1 Hypo-osmolality and hyponatremia; F02.818 Dementia in other diseases classified elsewhere, unspecified severity, with other behavioral disturbance; E87.6 Hypokalemia; R53.1 Weakness; E86.9 Volume depletion, unspecified; G30.9 Alzheimer's disease, unspecified; I12.9 Hypertensive chronic kidney disease with stage 1 through stage 4 chronic kidney disease, or unspecified chronic kidney disease; N18.31 Chronic kidney disease, stage 3a; G47.33 Obstructive sleep apnea (adult) (pediatric); I48.91 Unspecified atrial fibrillation; I25.10 Atherosclerotic heart disease of native coronary artery without angina pectoris; K21.9 Gastro-esophageal reflux disease without esophagitis; E78.2 Mixed hyperlipidemia; C61 Malignant neoplasm of prostate; I73.9 Peripheral vascular disease, unspecified; H90.5 Unspecified sensorineural hearing loss
CPT/HCPCS: 36415; 71045; 80048; 80053; 81003; 83605; 83735; 84132; 85025; 86140; 87040; 87086; 87493; 87631; 87635; 94761; 97116; 97161; 97166; 97530; 97535; 99283; 99284; A9270; J1650; J7050; J7120

== ENCOUNTER 2022-03-18 20:18 | Outpatient (CLI) | payer MEDICARE, BC, SELFPAY ==
--- OUTSIDE RECORDS SUMMARY | 2022-05-05 10:49 | XMS_ITS | Clinical Summary ---
:1940 Author Organization [facility] [place] [address] Care Team Providers Name Role Phone Clovis Turk MD Primary Care Provider [phone] Allergies No known active allergies Medications Medication [...] 02/03/2021 Active (TYLENOL EXTRA (1,000 mg) by [facility]) 500 mg mouth every 8 tabletIndications: hours if needed. Pain Max acetaminophen dose: 4000mg in 24 hrs. lidocaine 5 % topical Apply on dry, 30 Patch 11 02/21/2021 Active patchIndications: clean, hairless Mechanical back pain skin. Apply 1 patch to painful area of skin for up to to 12 hours within 24 hour period. honey ([employer], Apply topically to 103 mL 3 03/15/2021 [...] Care Agent: Martin Dinh elationship: son (h) [phone](c) Secondary Health Care Agent: Scarlet Guido Relationship: sister in law (h) [phone] (c) Conservator: Relationship: Phone: Guardian: Relationship: Phone: [...] stops; ?? 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 Esa López at [facility]. Advance care planning discussions were c ompleted with Tony and his spouse and son, designated health care agents, Jyothi and Martin Lora. worm farmer, Kendy Bobby, also present. Alternative H [...] about it, keep cool about it. Having worm farmer significant improvement, in past not available [...] and primary care provider. Hard Choices for [place] booklet was given to Tony and [...] when/if increasing needs. Hospice Care, Home Care, [facility], Care Navigation Help Desk, [...] Unspecified glaucoma Deaf Overview: - Mother had Finnish Measles during pregn vincent Resolved Problems Problem [...] Overview: - 07/21/09: Trop I 0.12 at [place] - angiogram 07/22/ Other and unspecified hyperlipidemia [...] 1003/16/2020 65+ Years) Preserv Free COVID-19 vaccine (Osmopure 09/08/2021 30mcg/0.3mL) 12YO+ EMI-SUCROSE PF, MDV COVID-19 vaccine (Osmopure 03/03/2021, 08/10/2020, 30mcg/0.3mL) PF, MDV Influenza, High-dose [...] Group MEDICARE PART B MEDICARE PART B [id number] 2003-Prese ATTN: CLAIMS - HB USE ONLY HB ONLY nt [address] [place] [address] MEDICARE PART A MEDICARE PART A [id number] 2003-Prese ATTN: CLAIMS - HB USE ONLY HB ONLY nt [address] [place] [address] BLUE CROSS BLUE CROSS [id number] 2016-Presen [address] [address] [place], [place] HB ONLY [id number] BLUE CROSS MR BLUE CROSS [id number] 2016-Nurys [address] [address] [place], [place] MR PB ONLY [id number] Advance Directives Documents on File Type Date Recorded Patient Technical Manager Explanati on Healthcare Directive 05/10/2012 12:08 PM ACP Latest Code Status on File Code Status Date Activated Date Inactivated Comments Full Code 04/25/2015 5:06 AM 04/28/2015 9:45 PM Per POLST Full Code 04/20/2011 11:31 AM 04/20/2011 5:08 PM Full Code 07/21/2009 8:23 PM 07/23/2009 6:15 PM Care Teams Electrical Sign Wirer Relationship Specialty Start Date End Date Clovis Turk MD PCP - General Family Practice 11/28/[address] [place] [address]
== END 2022-03-18 20:19 | disposition home or self-care (01) ==
LOC: AMB 05-05 10:47
PROVIDERS: PCP Family Medicine; Visit Provider Family Medicine
DX: R53.1 Weakness (principal)
CPT/HCPCS: A0998

== ENCOUNTER 2022-03-19 08:42 | Outpatient (CLI) | payer MEDICARE, BC, SELFPAY ==
--- OUTSIDE RECORDS SUMMARY | 2022-03-24 17:23 | XMS_ITS | Clinical Summary ---
:1940 Author Organization [facility] [place] [address] Care Team Providers Name Role Phone Clovis Turk MD Primary Care Provider [phone] Allergies No known active allergies Medications Medication [...] 12 hours within 24 hour period. honey ([employer], Apply topically to 103 mL 3 03/15/2021 [...] Care Agent: Martin Dinh elationship: son (h) [phone](c) Secondary Health Care Agent: Scarlet Guido Relationship: sister in law (h) [phone] (c) Conservator: Relationship: Phone: Guardian: Relationship: Phone: [...] stops; ?? He has little chance of wood barrel reconditioner mk vival if his heart stops and [...] His PCP is Dr. Esa López at [facility]. Advance care planning discussions were c ompleted with Tony and his spouse and son, designated health care agents, Jyothi and Martin Lora. mixed livestock farmer, Kendy Bobby, also present. Alternative H CA, [...] Don't want to end up in a mcfp. Would desire Home Care and/or Hospice when [...] about it, keep cool about it. Having mixed livestock farmer significant improvement, in past not available which caused much fear. Having hands free to sign/communicate. Treatment and Care Preferences: Past experiences in dealing with family and/or friends that have or been seriously ill include father suddenly, mother had leukemia and heart disease, during long hospital stay, and broth er in [place], had dementia. As a result of these [...] and primary care provider. Hard Choices for Holder People booklet was given to Tony and [...] when/if increasing needs. Hospice Care, Home Care, [facility], Care Navigation Help Desk, [...] Unspecified glaucoma Deaf Overview: - Mother had [place] Citizen Measles during pregn vincent Resolved Problems Problem [...] Overview: - 07/21/09: Trop I 0.12 at [place] - angiogram 07/22/ Other and unspecified hyperlipidemia 06/27/2007 Overview: - lipitor 10 mg daily prior to admission - 05/31/09: TC 125, TC 119, HDL 44, LDL 57 Calculus of kidney 09/16/2006 03/13/2016 Personal history of malignant neoplasm of prostate 06/27/2007 Hyperlipidemia LDL goal < 70 09/16/2015 Encounters Date Type Specialty Care Team Description 03/19/2022 Orders Only Scanner <No scans attac hed> 03/17/2022 Telephone Clovis Turk MD Questions (Homecare) [...] 1003/16/2020 65+ Years) Preserv Free COVID-19 vaccine ([employer] 09/08/2021 30mcg/0.3mL) 12YO+ EMI-SUCROSE PF, MDV COVID-19 vaccine ([employer] 03/03/2021, 08/10/2020, 30mcg/0.3mL) PF, MDV Influenza, High-dose [...] 09/08/2021 10:15 AM CDT Plan of Treatment Health Maintenance Due Date Last Done Comments [...] 65+ Completed 01/18/2015, 03/05 (Completed outside of [facility]), 11/16/2011, Additional history exists Zoster (shingles) series for age Completed 08/28/2018, , 50+ 01/04/2010 Procedures Procedure Name Priority Date/Time Associated Comments Diagnosis SCAN-MRI INTERPRETATION 03/19/2022 12:00 AM CDT SCAN-LABORATORY REPORT 02/08/2022 12:00 R esults for this AM CDT procedure are i n the results section. from Last 3 Months Results SCAN-MRI INTERPRETATION (03/19/2022 12:00 AM CDT) Narrative This result has an attachment that is no t available. Scanner OTHER SCAN-LABORATORY REPORT (02/08/2022 12:00 AM CDT) Narrative This result has an attachment that is no t available. Scanner OTHER from Last 3 Months Insurance Payer Benefit Plan / Subscriber ID Effective Dates Phone Addre ss Type Group MEDICARE PART B MEDICARE PART B [id number] 2003-Prese ATTN: CLAIMS - HB USE ONLY HB ONLY nt [address] [place] [address] MEDICARE PART A MEDICARE PART A [id number] 2003-Prese ATTN: CLAIMS - HB USE ONLY HB ONLY nt [address] [place] [address] BLUE CROSS BLUE CROSS [id number] 2016-[place] [address] [address] [address] [place], [place] ONLY [id number] BLUE CROSS MR BLUE CROSS [id number] 2016-Presen [address] [address] [address] [place], [place] MR PB ONLY [id number] Advance Directives Documents on File Type Date Recorded Patient Cupola Tender Helper Explanati on Healthcare Directive 05/10/2012 12:08 PM ACP Latest Code Status on File Code Status Date Activated Date Inactivated Comments Full Code 04/25/2015 5:06 AM 04/28/2015 9:45 PM Per POLST Full Code 04/20/2011 11:31 AM 04/20/2011 5:08 PM Full Code 07/21/2009 8:23 PM 07/23/2009 6:15 PM Care Teams Facilities Manager Relationship Specialty Start Date End Date Clovis Turk MD PCP - General Family Practice 11/28/16 [address] [place] [id number]
--- OUTSIDE RECORDS SUMMARY | 2022-04-24 08:26 | XMS_ITS | Clinical Summary ---
:1940 Author Organization [employer] [facility] [place] [address] Care Team Providers Name Role Phone Clovis Turk MD Primary Care Provider [phone] Allergies No known active allergies Medications Medication [...] 02/03/2021 Active (TYLENOL EXTRA (1,000 mg) by [facility]) 500 mg mouth every 8 tabletIndications: hours if needed. Pain Max acetaminophen dose: 4000mg in 24 hrs. lidocaine 5 % topical Apply on dry, 30 Patch 11 02/21/2021 Active patchIndications: clean, hairless Mechanical back pain skin. Apply 1 patch to painful area of skin for up to to 12 hours within 24 hour period. honey (Innovidney, Apply topically to 103 mL 3 03/15/2021 [...] Care Agent: Martin Dinh elationship: son (h) [phone](c) Secondary Health Care Agent: Scarlet Guido Relationship: sister in law (h) [phone] (c) Conservator: Relationship: Phone: Guardian: Relationship: Phone: [...] stops; ?? He has little chance of usp mk vival if his heart stops and [...] of recovery low. Interventions and Treatments: Other Jyamie tment Preferences: would want all treatments, desire all treatments necessary unless likelihood of recovery low and physician confirms no improvement or return to prior condition. Last Assessment & Plan: Advance Care Planning: Disease-specific Session Tony Lora is a [facility] patient. His PCP is Dr. Esa López at [facility]. Advance care planning discussions were c ompleted with Tony and his spouse and son, designated health care agents, Jyothi and Martin Lora. foreign language interpreter, Kendy Bobby, also present. Alternative [...] Don't want to end up in a shelter. Would desire Home Care and/or Hospice when [...] about it, keep cool about it. Having foreign language interpreter significant improvement, in past not available which caused much fear. Having hands free to sign/communicate. Treatment and Care Preferences: Past experiences in dealing with family and/or friends that have or been seriously ill include father suddenly, mother had leukemia and heart disease, during long hospital stay, and broth er in [place], had dementia. As a result of these [...] and primary care provider. Hard Choices for [place] People booklet was given to Tony and [...] when/if increasing needs. Hospice Care, Home Care, [facility], Care Navigation Help Desk, [...] Unspecified glaucoma Deaf Overview: - Mother had Bermudian Measles during pregn vincent Resolved Problems Problem [...] Overview: - 07/21/09: Trop I 0.12 at [place] - angiogram 07/22/ Other and unspecified hyperlipidemia 06/27/2007 Overview: - lipitor 10 mg daily prior to admission - 05/31/09: TC 125, TC 119, HDL 44, LDL 57 Calculus of kidney 09/16/2006 03/13/2016 Personal history of malignant neoplasm of prostate 06/27/2007 Hyperlipidemia LDL goal < 70 09/16/2015 Encounters Date Type Specialty Care Team Description 04/07/2022 Orders Only Scanner <No scans attac hed> 03/24/2022 Orders Only Scanner <No scans attac hed> 03/24/2022 Orders Only Scanner <No scans attac hed> 03/19/2022 Orders Only Scanner <No scans attac [...] 1003/16/2020 65+ Years) Preserv Free COVID-19 vaccine (AirDroids 09/08/2021 30mcg/0.3mL) 12YO+ EMI-SUCROSE PF, MDV COVID-19 vaccine (AirDroids 03/03/2021, 08/10/2020, 30mcg/0.3mL) PF, MDV Influenza, High-dose [...] Assigned at Date Recorded Not on file Obstetrics History Last Filed Vital Signs Vital [...] Procedure Name Priority Date/Time Associated Comments Diagnosis SCAN-LABORATORY REPORT 04/07/2022 7:23 AM Results for this CDT procedure are i n the results section. SCAN-CT INTERPRETATION 03/24/2022 12:00 AM CDT SCAN-RADIOLOGY REPORT 03/24/2022 12:00 Re sults for this AM CDT procedure are i n the results section. SCAN-MRI INTERPRETATION 03/19/2022 12:00 AM CDT SCAN-LABORATORY REPORT 02/08/2022 12:00 R esults for this AM CDT procedure are i n the results section. from Last 3 Months Results SCAN-LABORATORY REPORT (04/07/2022 7:23 AM CDT)Only the most recent of2 results within the time period is included. Narrative This result has an attachment that is no t available. Scanner OTHER SCAN-RADIOLOGY REPORT (03/24/2022 12:00 AM CDT) Narrative This result has an attachment that is no t available. Scanner OTHER SCAN-CT INTERPRETATION (03/24/2022 12:00 AM CDT) Narrative This result has an attachment that is no t available. Scanner OTHER SCAN-MRI INTERPRETATION (03/19/2022 12:00 AM CDT) Narrative This result has an attachment that is no t available. Scanner OTHER from Last 3 Months Insurance Payer Benefit Plan / Subscriber ID Effective Dates Phone Addre ss Type Group MEDICARE PART B MEDICARE PART B [id number] 2003-Prese ATTN: CLAIMS - HB USE ONLY HB ONLY nt [address] [place] [address] MEDICARE PART A MEDICARE PART A [id number] 2003-Prese ATTN: CLAIMS - HB USE ONLY HB ONLY nt [address] [place] [address] BLUE CROSS BLUE CROSS [id number] 2016-[place] [address] [address] [address] [place], [place] ONLY [id number] BLUE CROSS MR BLUE CROSS [id number] 2016-Nurys [address] [address] [place] [address] [place], [place] [id number] Advance Directives Documents on File Type Date Recorded Patient Classification Clerk Explanati on Healthcare Directive 05/10/2012 12:08 PM ACP Latest Code Status on File Code Status Date Activated Date Inactivated Comments Full Code 04/25/2015 5:06 AM 04/28/2015 9:45 PM Per POLST Full Code 04/20/2011 11:31 AM 04/20/2011 5:08 PM Full Code 07/21/2009 8:23 PM 07/23/2009 6:15 PM Care Teams Fire Protection Specialist Relationship Specialty Start Date End Date Clovis Turk MD PCP - General Family Practice 11/28/[address] [place] [address]
== END 2022-03-19 08:43 | disposition home or self-care (01) ==
LOC: AMB 04-24 08:21
PROVIDERS: PCP Family Medicine; Visit Provider Emergency Medicine Emergency Medical Services
DX: R53.1 Weakness (principal); R50.9 Fever, unspecified; R05.9 Cough, unspecified
CPT/HCPCS: A0425; A0427

== ENCOUNTER 2022-03-19 09:18 | Inpatient (IN) | payer MEDICARE, BC, SELFPAY ==
[2022-03-19] VITALS (9 sets, daily range): BP systolic 114–132; BP diastolic 61–104; PULSE 62–99; RESP 12–20; TEMP 36.5–37.2; O2SAT 91–97; BMI 23.0; BMI 18.7
--- NOTE | 2022-03-19 09:41 | CRLHL7_ITS ---
For Patients: As a result of the Cures Act, medical imaging exams and procedure reports are released immediately into your electronic medical record. You may view this report before your referring provider. If you have questions, please contact your health care provider. INDICATION: Weakness. Fever. Possible sepsis. TECHNIQUE: AP portable seated chest x-ray. COMPARISON: March 07, 2022. FINDINGS: Clear lungs. Normal heart size and pulmonary vascularity. Old right-sided rib fractures. Post traumatic/postsurgical change left humerus/left shoulder. IMPRESSION: No acute cardiopulmonary process identified. No significant change. Dictated by Arya Guido MD @ 03/19/2022 10:12:57 AM (Electronically Signed)
--- NOTE | 2022-03-19 09:42 | ED.GENADULT ---
HPI - General Adult General Chief complaint: Weakness Stated complaint: Weakness fever possible sepsis Time Seen by Provider: 03/19/22 09:36 History of Present Illness HPI narrative: This 81-year-old male comes in by ambulance. His called for a lift assistance as he was in bed and apparently needed help getting up. He was seen here yesterday. Ambulance personnel report a fever of around 101? F and oximetry at 89% on room air. He does have a cough and was positive for COVID couple weeks ago. He arrives here with normal temperature at 98.2? and oximetry at 95% on room air. He is not using accessory muscles for breathing. The patient is a poor historian due to dementia and also is very hard of hearing. He nods his head to answer questions but it is uncertain whether he understands what is being asked of him. Related Data Home Medications Medication Instructions Recorded Confirmed atorvastatin 40 mg tablet 40 mg PO DAILY 02/08/22 03/07/22 enzalutamide 40 mg tablet (Xtandi) See Rx Instructions PO QDAY 02/08/22 03/08/22 latanoprost 0.005 % eye drops 1 drp ophthalmic (eye) HS 02/08/22 03/07/22 lisinopril 2.5 mg tablet 2.5 mg PO HS 02/08/22 03/09/22 metoprolol tartrate 25 mg tablet 25 mg PO BID 02/08/22 03/07/22 omeprazole 20 mg capsule,delayed 20 mg PO DAILY 02/08/22 03/07/22 release timolol maleate 0.5 % eye drops 1 drp ophthalmic (eye) [facility] 02/08/22 03/07/22 aspirin 81 mg tablet,delayed 81 mg PO DAILY 03/08/22 03/08/22 release calcium carbonate 500 mg-vitamin 1 tab PO DAILY 03/08/22 03/08/22 D3 5 mcg (200 unit) tablet (Calcium 500 + D) cyanocobalamin (vitamin B-12) 250 250 mcg PO BID 03/08/22 03/08/22 mcg tablet (Vitamin B-12) omega 5-xxj-qge-fish oil 1,200 mg 1 cap PO DAILY 03/08/22 03/08/22 (144 mg-216 mg) capsule (Fish Oil) cholecalciferol (vitamin D3) 25 25 mcg PO DAILY 03/09/22 03/09/22 mcg (1,000 unit) tablet (Vitamin D3) Allergies Allergy/AdvReac Type Severity Reaction Status Date / Time No Known Drug Allergies Allergy Verified 02/08/22 11:03 Review of Systems Status of ROS: Reports: unobtainable due to mental status [facility] Medical History (Updated 03/19/22 @ 12:00 by Get Castillo MD) Alzheimer's dementia with behavioral disturbance Anemia Arm fracture ASHD (arteriosclerotic heart disease) Atrial fibrillation with RVR Bladder outflow obstruction CKD stage G3a/A1, GFR 45-59 and albumin creatinine ratio <30 mg/g Complex renal cyst Deafness DJD (degenerative joint disease) of knee Essential hypertension Falls GERD (gastroesophageal reflux disease) Glaucoma History of radiation therapy Hydronephrosis of right kidney Hypokalemia Iron deficiency anemia Kidney stone on left side Mild dementia Mixed hyperlipidemia Non-STEMI (non-ST elevated myocardial infarction) Normal colonoscopy Normal esophagogastroduodenoscopy (EGD) MAGALYS (obstructive sleep apnea) Peripheral artery disease Prostate cancer metastatic to bone Sepsis UTI (urinary tract infection) Surgical History (Updated 03/07/22 @ 16:29 by Doris Ahumada MD) H/O lithotripsy H/O prostatectomy History of coronary artery stent placement Social History (Updated 03/07/22 @ 16:33 by Doris Ahumada MD) Narrative: Lives with , who is also deaf. I tried to contact her at the number on file; she was unavailable. Smoked [id number], 0.25 ppd for 3 years. No chew. According to Harrison, occasional beer. Has previously been full code. I am unable to discuss this with him and his is unavailable. Highest level of school completed/degree received: don't know Smoking Status: Never smoker How often do you have a drink containing alcohol: never AUDIT-C Alcohol total score: 0 Non-prescribed substance use: denies use Exam Narrative: Exam Narrative: Constitutional: Well-developed, well-nourished, no acute distress. HEENT: Normocephalic, atraumatic. Neck: Normal range of motion. Nontender. Supple. Heart: Regular. No murmurs. Normal rate. Intact distal pulses. Lungs: Clear to auscultation. No chest discomfort. No wheezes, rhonchi, or rales. Productive cough. Abdomen: Normal bowel sounds. Nontender. No rebound tenderness. Genitalia: Deferred. Back: No midline tenderness. Normal range of motion. Extremities: Normal range of motion. No injury. No pedal edema. Skin: Intact. No rash. Warm. No erythema or pallor. Neurologic: No altered sensation. No weakness. Alert. Nursing notes and vitals signs are reviewed. Const: Vital Signs, click to edit/add: Vital Signs - 24 hr 03/19/22 09:25 Temperature 98.2 F Pulse Rate [Pulse Oximeter] 78 Respiratory Rate 12 Blood Pressure [facility]] 123/61 Pulse Oximetry 95 Oxygen Delivery Me thod Room Air Course Vital Signs Vital signs: Initial Vital Signs Temperature 98.2 F 03/19/22 09:25 Temperature Source Temporal Artery Scan 03/19/22 09:25 Pulse Rate 78 03/19/22 09:25 Respiratory Rate 12 03/19/22 09:25 Blood Pressure 123/61 03/19/22 09:25 Blood Pressure Mean 81 03/19/22 09:25 Blood Pressure Position Supine 03/19/22 09:25 Pulse Oximetry 95 03/19/22 09:25 Oxygen Delivery Method 03/19/22 09:25 Vital Signs Temperature 98.2 F 03/19/22 09:25 Pulse Rate 78 03/19/22 09:25 Respiratory Rate 12 03/19/22 09:25 Blood Pressure 123/61 03/19/22 09:25 Pulse Oximetry 95 03/19/22 09:25 Oxygen Delivery Method 03/19/22 09:25 Temperature 98.2 F 03/19/22 09:25 Pulse Rate 78 03/19/22 09:25 Respiratory Rate 12 03/19/22 09:25 Blood Pressure 123/61 03/19/22 09:25 Pulse Oximetry 95 03/19/22 09:25 Oxygen Delivery Method 03/19/22 09:25 Medical Decision Making MDM Narrative Medical decision making narrative: This patient comes in by ambulance who reported fever and hypoxia. On arrival here in throughout his stay here he has had normal vital signs with normal oximetry on room air and temperature. Labs are acquired and returned with reassuring findings. He does have a slightly elevated white count and his COVID test is yet positive. This is not new for him as he was positive back almost 2 weeks ago. His lactate level is in normal range. He is not appearing septic. He is rather pleasant and does not appear to be in any acute distress. An attempt was made to get the patient to ambulate and he was not strong enough to do so. He also had his depends changed and not the nurse reports that it seems like there was an accumulation of stool and urine probably since yesterday when he was discharged from the hospital. I did speak with the hospitalist networks computer consultant, Dr. Ahumada, who agrees to bring him in on an observation status. I did speak with the patient's and indicated that this is not covered by Medicare. She states that she cannot take care of him if he is not able to get up and ambulate. Lab Data Labs: Lab Results 03/19/22 03/19/22 03/19/22 Range/Units 09:50 09:50 09:50 WBC 11.25 H (4.50-11.00) K/uL RBC 4.90 (4.30-5.90) m/uL Hgb 13.6 (13.5-17.5) gm/dL Hct 40.2 (37.0-53.0) % MCV 82 (80-100) fL MCH 28 (26-34) pg MCHC 34 (32-36) gm/dL RDW Coeff of Kai 14.2 (11.5-15.5) % Plt Count 264 (140-440) K/uL Neut % (Auto) 72.2 H (42.0-72.0) % Lymph % (Auto) 10.2 L (20-44) % Hays % (Auto) 16.6 H (0.0-11.0) % Eos % (Auto) 0.4 (0.0-7.0) % Baso % (Auto) 0.2 (0.0-3.0) % Neut # (Auto) 8.10 H (1.7-7.0) K/uL Lymph # (Auto) 1.10 (0.90-2.90) K/uL Hays # (Auto) 1.90 H (0.00-0.90) K/UL Eos # (Auto) 0.00 (0.00-0.50) K/uL Baso # (Auto) 0.00 (0.00-0.30) K/uL Abs Immat Gran (auto) 0.05 (0.00-0.30) K/uL Sodium 135 (135-149) mmol/L Potassium 3.6 (3.6-5.1) mmol/L Chloride 105 (96-114) mmol/L Carbon Dioxide 22 (20-32) mmol/L BUN 11 (7-30) mg/dL Creatinine 0.6 (0.5-1.5) mg/dL Estimated Creat Clear 58.46 Estimated GFR 96 ml/min Glucose 116 H (60-115) mg/dL Lactate 1.1 (0.5-1.9) mmol/L Calcium 9.3 (8.4-10.6) mg/dL SARS-CoV-2 (PCR) (Negative) Influenza Type A (PCR) (Negative) Influenza Type B (PCR) (Negative) 03/19/22 Range/Units 10:15 WBC (4.50-11.00) K/uL RBC (4.30-5.90) m/uL Hgb (13.5-17.5) gm/dL Hct (37.0-53.0) % MCV (80-100) fL MCH (26-34) pg MCHC (32-36) gm/dL RDW Coeff of Kai (11.5-15.5) % Plt Count (140-440) K/uL Neut % (Auto) (42.0-72.0) % Lymph % (Auto) (20-44) % Hays % (Auto) (0.0-11.0) % Eos % (Auto) (0.0-7.0) % Baso % (Auto) (0.0-3.0) % Neut # (Auto) (1.7-7.0) K/uL Lymph # (Auto) (0.90-2.90) K/uL Hays # (Auto) (0.00-0.90) K/UL Eos # (Auto) (0.00-0.50) K/uL Baso # (Auto) (0.00-0.30) K/uL Abs Immat Gran (auto) (0.00-0.30) K/uL Sodium (135-149) mmol/L Potassium (3.6-5.1) mmol/L Chloride (96-114) mmol/L Carbon Dioxide (20-32) mmol/L BUN (7-30) mg/dL Creatinine (0.5-1.5) mg/dL Estimated Creat Clear Estimated GFR ml/min Glucose (60-115) mg/dL Lactate (0.5-1.9) mmol/L Calcium (8.4-10.6) mg/dL SARS-CoV-2 (PCR) POSITIVE SARS-CoV-2 A (Negative) Influenza Type A (PCR) Negative PCR FLU A (Negative) Influenza Type B (PCR) Negative PCR FLU B (Negative) Imaging Data Chest x-ray: Radiologist's impression: No acute cardiopulmonary process identified. No significant change. Discharge Plan Discharge Clinical Impression: COVID-19, Weakness Patient Disposition: Admitted As Inpatient Condition: Stable Additional Instructions: Continue current plans. Follow up with MD or return if worsening. Prescriptions: No Action atorvastatin 40 mg tablet 40 mg PO DAILY Label Comments: TAKE 1 TABLET BY MOUTH ONCE DAILY. timolol maleate 0.5 % drops 1 drp ophthalmic (eye) QAM Label Comments: INSTILL 1 DROP INTO BOTH EYE(S) EVERY MORNING latanoprost 0.005 % drops 1 drp ophthalmic (eye) HS Label Comments: INSTILL 1 DROP INTO BOTH EYES ONCE DAILY IN THE EVENING omeprazole 20 mg capsule,delayed release(DR/EC) 20 mg PO DAILY lisinopril 2.5 mg tablet 2.5 mg PO HS Label Comments: TAKE 1 TABLET (2.5 MG) BY MOUTH ONCE DAILY. metoprolol tartrate 25 mg tablet 25 mg PO BID Label Comments: TAKE 1 TABLET (25 MG) BY MOUTH 2 TIMES DAILY. Xtandi 40 mg tablet See Rx Instructions PO QDAY Rx Instructions: alternates 80mg with 40 mg every other day orally every day; omega [id number]-fish oil [Fish Oil] 1,200 (144-216) mg capsule 1 cap PO DAILY cyanocobalamin (vitamin B-12) [Vitamin B-12] 250 mcg tablet 250 mcg PO BID aspirin 81 mg tablet,delayed release (DR/EC) 81 mg PO DAILY calcium carbonate-vitamin D3 [Calcium 500 + D] 500 mg-5 mcg (200 unit) tablet 1 tab PO DAILY cholecalciferol (vitamin D3) [Vitamin D3] 25 mcg (1,000 unit) tablet 25 mcg PO DAILY Follow Up/Referrals: Clovis Turk MD [Primary Care Provider] - Stand Alone Forms: [employer] Info Instructions
--- OUTSIDE RECORDS SUMMARY | 2022-03-19 09:56 | XMS_ITS | Clinical Summary ---
:1940 Author Organization [facility] [place] [address] Care Team Providers Name Role Phone Clovis Turk MD Primary Care Provider [phone] Allergies No known active allergies Medications Medication [...] 02/03/2021 Active (TYLENOL EXTRA (1,000 mg) by [facility]) 500 mg mouth every 8 tabletIndications: hours if needed. Pain Max acetaminophen dose: 4000mg in 24 hrs. lidocaine 5 % topical Apply on dry, 30 Patch 11 02/21/2021 Active patchIndications: clean, hairless Mechanical back pain skin. Apply 1 patch to painful area of skin for up to to 12 hours within 24 hour period. honey (XOJETney, Apply topically to 103 mL 3 03/15/2021 [...] Care Agent: Martin Dinh elationship: son (h) [phone](c) Secondary Health Care Agent: Scarlet Guido Relationship: sister in law (h) [phone] (c) Conservator: Relationship: Phone: Guardian: Relationship: Phone: [...] stops; ?? He has little chance of watermelon inspector mk vival if his heart stops and [...] His PCP is Dr. Esa L[facility]pez at [facility]. Advance care planning discussions were c ompleted with Tony and his spouse and son, designated health care agents, Jyothi and Martin Lora. slate worker, Kendy Bobby, also present. Alternative H [place], [...] about it, keep cool about it. Having slate worker significant improvement, in past not available which caused much fear. Having hands free to sign/communicate. Treatment and Care Preferences: Past experiences in dealing with family and/or friends that have or been seriously ill include father suddenly, mother had leukemia and heart disease, during long hospital stay, and broth er in [place], had dementia. As a result of these [...] and primary care provider. Hard Choices for [place] People booklet was given to Tony and [...] when/if increasing needs. Hospice Care, Home Care, [facility], Care Navigation Help Desk, [...] Unspecified glaucoma Deaf Overview: - Mother had Colombian Measles during pregn vincent Resolved Problems Problem [...] Overview: - 07/21/09: Trop I 0.12 at [place] - angiogram 07/22/ Other and unspecified hyperlipidemia 06/27/2007 Overview: - lipitor 10 mg daily prior to admission - 05/31/09: TC 125, TC 119, HDL 44, LDL 57 Calculus of kidney 09/16/2006 03/13/2016 Personal history of malignant neoplasm of prostate 06/27/2007 Hyperlipidemia LDL goal < 70 09/16/2015 Encounters Date Type Specialty Care Team Description 03/17/2022 Telephone Clovis Turk MD Questions (Homecare) 03/07/2022 Nurse Triage Clovis Turk MD Weak [...] 1003/16/2020 65+ Years) Preserv Free COVID-19 vaccine (NuFlick 09/08/2021 30mcg/0.3mL) 12YO+ EMI-SUCROSE PF, MDV COVID-19 vaccine (NuFlick 03/03/2021, 08/10/2020, 30mcg/0.3mL) PF, MDV Influenza, High-dose [...] smoked 1 cigarette on weekends in 1960's -1970's rare Alcohol Use Standard Drinks/Week Comments Not [...] Encounters Date Type Specialty Care Team Description 03/20/2022 Office Visit Shanice Leon MD [address] [place], [place] [address] (Wo rk) Health Maintenance [...] 65+ Completed 01/18/2015, 03/05 ([facility] 11/16/2011, Additional history exists Zoster (shingles) series [...] Group MEDICARE PART B MEDICARE PART B [id number] 2003-Prese ATTN: CLAIMS - HB USE ONLY HB ONLY nt [address] [place] [address] MEDICARE PART A MEDICARE PART A [id number] 2003-Prese ATTN: CLAIMS - HB USE ONLY HB ONLY nt [address] [place] [address] BLUE CROSS BLUE CROSS [id number] 2016-Presen [address] [address] [address] [place], [place] ONLY [id number] BLUE CROSS MR BLUE CROSS [id number] 2016-Presen [address] [address] [place], [place] [phone] (Work) [id number] Advance Directives Documents on File Type Date Recorded Patient Chiropractic Doctor Explanati on Healthcare Directive 05/10/2012 12:08 PM ACP Latest Code Status on File Code Status Date Activated Date Inactivated Comments Full Code 04/25/2015 5:06 AM 04/28/2015 9:45 PM Per POLST Full Code 04/20/2011 11:31 AM 04/20/2011 5:08 PM Full Code 07/21/2009 8:23 PM 07/23/2009 6:15 PM Care Teams Furrier Apprentice Relationship Specialty Start Date End Date Clovis Turk MD PCP - General Family Practice 11/28/16 [address] [place] [address]
[2022-03-19 10:06] LABS: Lactate* 1.1 mmol/L (0.5-1.9)
[2022-03-19 10:07] LABS: Basophils Percent Auto 0.2 % (0.0-3.0); Eosinophils Percent Auto 0.4 % (0.0-7.0); Hematocrit 40.2 % (37.0-53.0); Hemoglobin* 13.6 gm/dL (13.5-17.5); Immature Granulocytes Abs Auto 0.05 K/uL (0.00-0.30); Lymphocytes Percent Auto 10.2 % (20-44); Mean Corpuscular HGB Conc 34 gm/dL (32-36); Mean Corpuscular Hemoglobin 28 pg (26-34); Mean Corpuscular Volume 82 fL (80-100); Monocytes Percent Auto 16.6 % (0.0-11.0); Neutrophils Percent Auto 72.2 % (42.0-72.0); Platelet Count* 264 K/uL (140-440); RDW Coefficient of Variation % 14.2 % (11.5-15.5); White Blood Count* 11.25 K/uL (4.50-11.00)
[2022-03-19 10:11] LABS: Slide Review Reflex No
[2022-03-19 10:23] LABS: Chloride* 105 mmol/L (96-114); Potassium* 3.6 mmol/L (3.6-5.1); Sodium* 135 mmol/L (135-149)
[2022-03-19 10:26] LABS: Blood Urea Nitrogen* 11 mg/dL (7-30); Carbon Dioxide* 22 mmol/L (20-32); Creatinine* 0.6 mg/dL (0.5-1.5); Est. Creatinine Clearance* 58.46; Estimated Glomerular Filt Rate 96 ml/min; Glucose* 116 mg/dL (60-115)
[2022-03-19 10:27] LABS: Calcium* 9.3 mg/dL (8.4-10.6)
--- NOTE | 2022-03-19 10:33 | ED.NURSE ---
Pt COV+ 03/07, so discussed antigen vs PCR test with and MD advises continuing with PCR orders that include flu. Pt requesting water and okayed with .
[2022-03-19 11:01] LABS: PCR FLU A Negative PCR FLU A (Negative); PCR FLU B Negative PCR FLU B (Negative)
[2022-03-19 11:04] LABS: SARS PCR* POSITIVE SARS-CoV-2 (Negative)
--- OUTSIDE RECORDS SUMMARY | 2022-03-19 12:22 | XMS_ITS | Clinical Summary ---
:1940 Author Organization [facility] [place] [address] Care Team Providers Name Role Phone Clovis Turk MD Primary Care Provider [phone] Allergies No known active allergies Medications Medication [...] 02/03/2021 Active (TYLENOL EXTRA (1,000 mg) by [facility]) 500 mg mouth every 8 tabletIndications: hours if needed. Pain Max acetaminophen dose: 4000mg in 24 hrs. lidocaine 5 % topical Apply on dry, 30 Patch 11 02/21/2021 Active patchIndications: clean, hairless Mechanical back pain skin. Apply 1 patch to painful area of skin for up to to 12 hours within 24 hour period. honey (PadMatcherney, Apply topically to 103 mL 3 03/15/2021 [...] Care Agent: Martin Dinh elationship: son (h) [phone](c) Secondary Health Care Agent: Scarlet Guido Relationship: sister in law (h) [phone] (c) Conservator: Relationship: Phone: Guardian: Relationship: Phone: [...] stops; ?? He has little chance of buttermaker continuous churn mk vival if his heart stops and [...] His PCP is Dr. Esa L[facility]pez at [facility]. Advance care planning discussions were c ompleted with Tony and his spouse and son, designated health care agents, Jyothi and Martin Lora. recruitment director, Kendy Bobby, also present. Alternative H [place], [...] Don't want to end up in a [place] health care facility. Would desire Home Care and/or Hospice when [...] about it, keep cool about it. Having recruitment director significant improvement, in past not available which caused much fear. Having hands free to sign/communicate. Treatment and Care Preferences: Past experiences in dealing with family and/or friends that have or been seriously ill include father suddenly, mother had leukemia and heart disease, during long hospital stay, and broth er in [place], had dementia. As a result of these [...] and primary care provider. Hard Choices for [place] People booklet was given to Tony and [...] when/if increasing needs. Hospice Care, Home Care, [facility], Care Navigation Help Desk, [...] Unspecified glaucoma Deaf Overview: - Mother had Swazi Measles during pregn vincent Resolved Problems Problem [...] Overview: - 07/21/09: Trop I 0.12 at [place] - angiogram 07/22/ Other and unspecified hyperlipidemia [...] 1003/16/2020 65+ Years) Preserv Free COVID-19 vaccine (Snabboteket 09/08/2021 30mcg/0.3mL) 12YO+ EMI-SUCROSE PF, MDV COVID-19 vaccine (Snabboteket 03/03/2021, 08/10/2020, 30mcg/0.3mL) PF, MDV Influenza, High-dose [...] Office Visit Shanice Leon MD [address] [place], [place] [address] (Wo rk) Health Maintenance [...] 65+ Completed 01/18/2015, 03/05 [facility] 11/16/2011, Additional history exists Zoster (shingles) series [...] Group MEDICARE PART B MEDICARE PART B [id number] 2003-Prese ATTN: CLAIMS - HB USE ONLY HB ONLY nt [address] [place] [address] MEDICARE PART A MEDICARE PART A [id number] 2003-Prese ATTN: CLAIMS - HB USE ONLY HB ONLY nt [address] [place] [address] BLUE CROSS BLUE CROSS [id number] 2016-[place] [address] [address] [place], [place] [id number] BLUE CROSS [address] BLUE CROSS [id number] 2016-Presen [address] [address] [address] [place], [place] [phone] (Work) [id number] Advance Directives Documents on File Type Date Recorded Patient Water Registrar Explanati on Healthcare Directive 05/10/2012 12:08 PM ACP Latest Code Status on File Code Status Date Activated Date Inactivated Comments Full Code 04/25/2015 5:06 AM 04/28/2015 9:45 PM Per POLST Full Code 04/20/2011 11:31 AM 04/20/2011 5:08 PM Full Code 07/21/2009 8:23 PM 07/23/2009 6:15 PM Care Teams Route Sales Driver Relationship Specialty Start Date End Date Clovis Turk MD PCP - General Family Practice 11/28/16 [address] [place] [address]
--- NOTE | 2022-03-19 15:21 | PM.IMHP1 ---
Hospitalist- H&P: HPI History of Present Illness Time Seen by Provider: 14:45 Date Seen: 03/19/22 Chief complaint: Weakness Narrative: Tony Lora is a 81 year old man who is being readmitted to the hospital after having been discharged yesterday. His summoned EMS help because he was so weak in the home and unable to get out of bed. EMS measured a temperature of 101? F and room air oxygen saturation of 89%. By the time he arrives here at hospital his temperature is 98.2? F and his room air oxygen saturations 95%. He appears comfortable and is not using any accessory muscles of respiration. indicates that she is not able to care for him in their home when he is so weak that he is not able to care for himself and move. For safety's sake, patient is admitted to the hospital under observation as we further assess the patient and consider alternative discharge disposition options. Patient was admitted to the hospital on 03/07/2022 with weakness, cough, hypoxemia. He tested positive for COVID-19. Treated with 3 days of remdesivir. Over time his oxygen saturations normalized. His strength gradually returned. Was able to walk in the hallways in the hospital with use of walker. Discussion was undertaken prior to discharge about safe discharge plan. Recommendations were made for patient to be discharged to retirement facility for rehabilitation purposes. Despite these discussions and recommendations that patient and opted to be discharged back to his home with home health care as well as in-home physical and occupational therapy. Prior discharge vulnerable adult report was filed with the [facility]. indicates to our emergency department physician that the patient has not moved since he got back home. She indicates she is not able to help him in this weak states that he is currently in. Hence patient is admitted to the hospital under observation status as we continue to assess him and consider alternate, safer living arrangements. In the emergency department patient's depends diaper was changed. He was found to have large amount of stool and urine in his depends diapers. It appears as though his depends diaper has not been changed since he left the hospital yesterday. Review of Systems Status of ROS: Reports: 6 or more systems reviewed and unremarkable except as noted in History and below Narrative: I am only able to communicate with the patient via a costume design teacher whom we convene via the iPad. I have difficulty keeping the patient awake or engaged in my efforts to communicate with him. Should be stated that his baseline cognition is known to be impaired and that he has a known diagnosis of dementia. He does indicate he feels fine and has no pain. Denies chest heaviness, pressure, tightness, discomfort. Denies dyspnea. Denies syncope. Denies nausea or vomiting. Acknowledges decreased oral intake in the last 24 hours. He denies fevers, rigors, diaphoresis. Denies dysuria, urgency, frequency, hematuria. Denies diarrhea or constipation. [facility] Medical History (Updated 03/19/22 @ 15:52 by Miki Ortega MD) Alzheimer's dementia with behavioral disturbance Anemia Arm fracture ASHD (arteriosclerotic heart disease) Atrial fibrillation with RVR Bladder outflow obstruction CKD stage G3a/A1, GFR 45-59 and albumin creatinine ratio <30 mg/g Complex renal cyst COVID-19 Deafness DJD (degenerative joint disease) of knee Essential hypertension Falls GERD (gastroesophageal reflux disease) Glaucoma History of radiation therapy Hydronephrosis of right kidney Hypokalemia Iron deficiency anemia Kidney stone on left side Mild dementia Mixed hyperlipidemia Non-STEMI (non-ST elevated myocardial infarction) Normal colonoscopy Normal esophagogastroduodenoscopy (EGD) MAGALYS (obstructive sleep apnea) Peripheral artery disease Prostate cancer metastatic to bone Sepsis UTI (urinary tract infection) Volume depletion Surgical History H/O lithotripsy H/O prostatectomy History of coronary artery stent placement Social History Narrative: Lives with , who is also deaf. I tried to contact her at the number on file; she was unavailable. Smoked [id number], 0.25 ppd for 3 years. No chew. According to Harrison, occasional beer. Has previously been full code. I am unable to discuss this with him and his is unavailable. Highest level of school completed/degree received: don't know Smoking Status: Never smoker How often do you have a drink containing alcohol: never AUDIT-C Alcohol total score: 0 Non-prescribed substance use: denies use Meds Home Medications and Allergies Home Medications Medication Instructions Recorded Confirmed Type atorvastatin 40 mg tablet 40 mg PO DAILY 02/08/22 03/07/22 History enzalutamide 40 mg tablet (Xtandi) See Rx Instructions PO QDAY 02/08/22 03/08/22 History latanoprost 0.005 % eye drops 1 drp ophthalmic (eye) HS 02/08/22 03/07/22 History lisinopril 2.5 mg tablet 2.5 mg PO HS 02/08/22 03/09/22 History metoprolol tartrate 25 mg tablet 25 mg PO BID 02/08/22 03/07/22 History omeprazole 20 mg capsule,delayed 20 mg PO DAILY 02/08/22 03/07/22 History release timolol maleate 0.5 % eye drops 1 drp ophthalmic (eye) QAM 02/08/22 03/07/22 History aspirin 81 mg tablet,delayed 81 mg PO DAILY 03/08/22 03/08/22 History release calcium carbonate 500 mg-vitamin 1 tab PO DAILY 03/08/22 03/08/22 History D3 5 mcg (200 unit) tablet (Calcium 500 + D) cyanocobalamin (vitamin B-12) 250 250 mcg PO BID 03/08/22 03/08/22 History mcg tablet (Vitamin B-12) omega 1-sul-ayg-fish oil 1,200 mg 1 cap PO DAILY 03/08/22 03/08/22 History (144 mg-216 mg) capsule (Fish Oil) cholecalciferol (vitamin D3) 25 25 mcg PO DAILY 03/09/22 03/09/22 History mcg (1,000 unit) tablet (Vitamin D3) Allergies Allergy/AdvReac Type Severity Reaction Status Date / Time No Known Drug Allergies Allergy Verified 02/08/22 11:03 Exam Narrative: Exam Narrative: Appears comfortable and in no acute distress. He is deaf. Able to communicate with him with help from costume design teacher via iPad. He engages for a brief period of time, then closes his eyes and rolls over when he is done having a conversation. Does not answer the question for me as to what happened in the last 24 hours and why he is back at the hospital so soon. Vision is preserved. Dry buccal mucosa. Dentition in fair repair. Pupils equally round and reactive to light and accommodation. Extraocular muscles intact. No conjunctival injection or icterus. Neck is supple. Midline trachea. Normal thyroid. No JVD, hepatojugular reflux, or carotid bruits. No lymphadenopathy in the pre or postauricular chains, anterior or posterior cervical chains, submandibular or submental fossa, supra or infraclavicular fossa, or axilla bilaterally. Lungs are clear to auscultation without wheezing, rhonchi, or rales. Chest wall excursions are full. No CVA tenderness. Heart tones with regular rhythm, normal S1-S2, without murmur, gallop, or rub. PMI is not laterally displaced. Abdomen with active bowel sounds, soft, nontender. No organomegaly or masses. Palpable pulses in upper lower extremities. Capillary refill less than 3 seconds. Skin is warm, dry, intact. No petechiae, jaundice, rash, or other lesions. Aside from his absence of hearing and seemingly inability to articulate,cranial nerves 3-12 are otherwise normal. Too weak to sit up without assistance at this juncture. Too weak to stand up. No other focal motor neurologic deficits. Const: Vital Signs, click to edit/add: Vital Signs - 24 hr 03/19/22 09:25 03/19/22 10:00 03/19/22 10:30 Temperature 98.2 F Pulse Rate [Left P ulse Oximeter] Pulse Rate [Pulse Oximeter] 78 62 75 Respiratory Rate 12 12 12 Blood Pressure [Le ft Arm] Blood Pressure [Ri ght Upper Arm] 123/61 132/73 118/75 Pulse Oximetry 95 95 97 Oxygen Delivery Me thod Room Air Room Air Room Air 03/19/22 12:49 03/19/22 12:49 03/19/22 11:00 Temperature 99 F Pulse Rate [Left P ulse Oximeter] 91 Pulse Rate [Pulse Oximeter] 75 Respiratory Rate 20 20 12 Blood Pressure [Le ft Arm] 125/104 H Blood Pressure [Ri ght Upper Arm] 118/75 Pulse Oximetry 93 97 Oxygen Delivery Me thod Room Air Room Air 03/19/22 12:00 Temperature Pulse Rate [Left P ulse Oximeter] Pulse Rate [Pulse Oximeter] 94 Respiratory Rate Blood Pressure [Le ft Arm] Blood Pressure [Ri ght Upper Arm] Pulse Oximetry 94 Oxygen Delivery Me thod Room Air Hospitalist - H&P: Result Labs Labs: Short CBC 03/19/22 Range/Units 09:50 WBC 11.25 H (4.50-11.00) K/uL Hgb 13.6 (13.5-17.5) gm/dL Hct 40.2 (37.0-53.0) % Plt Count 264 (140-440) K/uL [facility] 03/19/22 09:50 Sodium 135 Potassium 3.6 Chloride 105 Carbon Dioxide 22 BUN 11 Creatinine 0.6 Glucose 116 H Calcium 9.3 Imaging Chest x-ray: Attestation: I have reviewed the pertinent imaging results. Radiologist's impression: No acute changes. Assessment and Plan Assessment and plan (1) COVID-19: Problem comment: Symptom onset 03/07/22 Covid + PCR 03/07/22 Status post Remdesivir x3 days Continue current cares, supportive. Not on oxygen family conference with , RN, Jacque and Lidya from social work. No SNF available with utility person; brought bedside to visit with social work and she agrees to home health and taking him home. Status: Acute (2) Weakness: Problem comment: Too weak to care for self. Too weak to transfer or stand. Status: Acute (3) Alzheimer's dementia with behavioral disturbance: Problem comment: No agitation or impulsivity. Vulnerable adult report filed 03/17/2022. Status: Chronic (4) Deafness: Problem comment: Congenital - Mother had Georgian Measles during Status: Chronic (5) Prostate cancer metastatic to bone: Problem comment: On Xtandi Status: Chronic (6) MAGALYS (obstructive sleep apnea): Problem comment: 04/30/2018 AHI-27, positional and stage dependent with central apneas on treatment Status: Acute (7) Leukocytosis: Status: Acute Plan 1. Reviewed impression with patient. 2. Our emergency department physician reviewed with patient and . 3. Patient's condition precludes being able to safely remain in his home at this time. It appears as though he has not incontinence cares since he left the hospital about 24 hours ago. acknowledges she is not able to care for him in this weak state. 4. Will check a urine analysis and urine culture. Blood cultures already obtained. 5. Continue with supportive cares and efforts. 6. Physical therapy, occupational therapy, bilingual social worker consultation. 7. Anticipate he will need discharge to an assisted living setting or retirement facility that is able to safely meet his needs. 8. Patient and are agreeable to above stated plans and recommendations.
[2022-03-19 15:24] LABS: Appearance Urine Clear (Clear); Bilirubin Urine Negative (Negative); Blood Urine Trace-intact (Negative); Color Urine Yellow (Yellow); Glucose Urine Negative (Negative); Ketones Urine Negative (Negative); Leukocyte Esterase Urine Negative (Negative); Nitrite Urine Negative (Negative); Protein Urine Negative (Negative); Specific Gravity Urine 1.015 (1.000-1.030); Urobilinogen Urine 0.2 (0.2-1.0)
[2022-03-19 15:40] LABS: RBC Urine 0-2 (0-2)
[2022-03-19 15:41] LABS: Bacteria Urine Few
--- NOTE | 2022-03-19 18:10 | PC.NURSE ---
Addendum entered by Tina Solis RN 03/19/22 18:20: Gloria's phone # [phone] Original Note: Family contact: ZULY Castro spoke with RN via telephone (Patient okayed). She would like to be included in discharge planning conversations. She is supportive of patient being placed to SNF and has concerns about his safety to return home. This information was charted to social worker aide.
--- NOTE | 2022-03-19 18:45 | PC.NURSE ---
Shift 5495-1697- Patient is moved to room 245 from [facility]. He is up to chair for supper and tolerated walk from bed well. He frowns and shakes his head no when attempt to put on HILARIA stockings. He is straight cath'd for urine sample and was sent. Solo provided for incontinence.
[2022-03-19] MEDS: ENOXAPARIN 40 MG/0.4 ML INJ SUBCUT (22:35)
[2022-03-20 03:00] VITALS: BP 121/67; PULSE 87; RESP 16; TEMP 36.8; O2SAT 93
--- NOTE | 2022-03-20 06:20 | PC.NURSE ---
Shift note: Pt rested in bed overnight, episodes of large incontinence of urine, RN changed in bed. No c/o pain
[2022-03-20 07:00] VITALS: BP 152/77; PULSE 91; RESP 16; TEMP 36.1; O2SAT 94
[2022-03-20 11:00] VITALS: BP 125/81; PULSE 91; RESP 16; TEMP 36.2; O2SAT 95
--- NOTE | 2022-03-20 14:01 | PC.SOCIAL ---
Received a phone call from Ashleigh Betancourt at [facility]. Ashleigh states that pt's called over the weekend and asked Ashleigh to come and change pt's depends. Ashleigh states that pt's again called today to see if pt's branch officer was coming to the home. Will follow up with Pt's . Phone call to pt's and there was no answer. Phone call to [facility] and provided an update that pt is currently readmitted to the hospital and not at home. Informed agency that this worker will update on pt's discharge plan.
--- NOTE | 2022-03-20 15:02 | PC.NURSE ---
Shift [id number]-?Pt. pleasant and cooperative, alert and able to use ipad for communication as well as the white board. Pt. up to chair for meals and tolerated walk from bed well.?He frowns and shakes his head no when attempt to put on HILARIA stockings.? Solo provided for incontinence. Pt. up independently this morning and walked to BR and changed his pad by himself. He tolerated walking back to bed well. VSS, pt. denies any N/V/SOB and denies any pain. Plan for patient is waiting on placement to memory care facility.
--- NOTE | 2022-03-20 15:43 | P.IMPN_ITS ---
Progress Note: A&P Assessment and plan (1) Generalized weakness: Status: Acute Assessment and Plan: Continue PT and OT. He will need placement, which is challenging given his needs for would computational physicist. No safe discharge option at present. (2) Alzheimer's dementia with behavioral disturbance: Problem details: No agitation or impulsivity. Vulnerable adult report filed 03/17/2022. Status: Chronic (3) Deafness: Problem details: Congenital - Mother had Sinhala Measles during Status: Chronic (4) COVID-19: Problem details: Resolved. Symptom onset 03/07/22 Covid + PCR 03/07/22 Status post Remdesivir x3 days Status: Resolved Subjective Time Seen by Provider: 10:45 Date Seen: 03/20/22 Interval history: I spoke with Jacque via iPad design engineering specialist. He says he is sad because he misses his family and wants to be at home. He says he recalls being at home briefly, but can not recall any details and does not know how it went being at home. He is up in his room independently here and has been getting up on his own prompting to use the bathroom with a walker. Exam Narrative: Exam Narrative: General: Pleasant. Cooperative. No acute distress. Awake, alert, oriented to self and place. No pallor. No jaundice. While I was standing in the hallway, I watched him get out of bed and ambulate independently with a walker to the bathroom. Oropharynx: Clear. Mucous membranes moist. Cardiovascular: Regular rate and rhythm. No murmurs, gallops, or rubs. Respiratory: Clear to auscultation bilaterally. No wheezes or crackles. Abdomen: Bowel sounds present. Soft, nondistended, nontender. Extremities: No pedal edema. Const: Vital Signs, click to edit/add: Vital Signs - 24 hr 03/19/22 16:05 03/19/22 19:00 03/19/22 23:00 Temperature 97.7 F 98.3 F 98.2 F Pulse Rate [Left P ulse Oximeter] 79 99 86 Respiratory Rate 18 16 18 Blood Pressure [Le ft Arm] 119/80 114/70 Pulse Oximetry 94 93 91 Oxygen Delivery Me thod Room Air Room Air Room Air 03/20/22 03:00 03/20/22 07:00 03/20/22 07:00 Temperature 98.3 F 96.9 F L Pulse Rate [Left P ulse Oximeter] 87 91 91 Respiratory Rate 16 16 16 Blood Pressure [Le ft Arm] 121/67 152/77 H Pulse Oximetry 93 94 Oxygen Delivery Me thod Room Air Room Air 03/20/22 11:00 Temperature 97.2 F L Pulse Rate [Left P ulse Oximeter] 91 Respiratory Rate 16 Blood Pressure [Le ft Arm] 125/81 Pulse Oximetry 95 Oxygen Delivery Me thod Room Air Documenting provider has reviewed patient's vital signs: yes
[2022-03-20 15:55] VITALS: BP 137/79; PULSE 95; RESP 16; TEMP 36.4; O2SAT 91
--- NOTE | 2022-03-20 18:16 | PC.NURSE ---
Shift Summary 15-19: Patient pleasant and cooperative. Up with one assist, walker and gait belt. Incont, staff manage pericares an incont brief. Able to communicate with white board and sign language.
[2022-03-20 19:00] VITALS: BP 111/62; PULSE 107; RESP 16; TEMP 36.8; O2SAT 91
[2022-03-20] MEDS: ENOXAPARIN 40 MG/0.4 ML INJ SUBCUT (20:30)
[2022-03-20 23:00] VITALS: PULSE 96; RESP 16; TEMP 37; O2SAT 90
[2022-03-21] VITALS (7 sets, daily range): BP systolic 131–155; BP diastolic 78–95; PULSE 79–93; RESP 14–16; TEMP 36.2–36.8; O2SAT 92–96
--- NOTE | 2022-03-21 06:22 | PC.NURSE ---
Shift note: rested throughout the night, afebrile
--- NOTE | 2022-03-21 13:20 | PM.IMPN1 ---
Progress Note: A&P Assessment and plan (1) Generalized weakness: Status: Acute Assessment and Plan: Failed 24 hours at home. Continue PT and OT. He needs placement, which is challenging given his needs for signs and displays salesperson. No safe discharge option at present. (2) Alzheimer's dementia with behavioral disturbance: Problem details: No agitation or impulsivity. Vulnerable adult report filed 03/17/2022. Status: Chronic (3) Deafness: Problem details: Congenital - Mother had Kenyan Measles during Status: Chronic (4) COVID-19: Problem details: Resolved. Symptom onset 03/07/22 Covid + PCR 03/07/22 Status post Remdesivir x3 days Status: Resolved Plan Resume home medications. Subjective Time Seen by Provider: 12:12 Date Seen: 03/21/22 Interval history: I spoke with Jacque with an in person signs and displays salesperson. When I introduced myself, he replied that it has been a long time since he's seen me, and he was sorry it's been so long. He complains of feeling sad and fatigued. He is missing his home and family. Exam Narrative: Exam Narrative: General: Pleasant. Cooperative. No acute distress. Awake, alert, oriented to self and place. No pallor. No jaundice. Cardiovascular: Regular rate and rhythm. No murmurs, gallops, or rubs. Respiratory: Clear to auscultation bilaterally. No wheezes or crackles. Abdomen: Bowel sounds present. Soft, nondistended, nontender. Extremities: No pedal edema. Const: Vital Signs, click to edit/add: Vital Signs - 24 hr 03/20/22 15:55 03/20/22 19:00 03/20/22 23:00 Temperature 97.6 F 98.3 F 98.6 F Pulse Rate [Left P ulse Oximeter] 95 107 H 96 Respiratory Rate 16 16 16 Blood Pressure [Le ft Arm] 137/79 111/62 Pulse Oximetry 91 91 90 Oxygen Delivery Me thod Room Air Room Air Room Air 03/21/22 03:00 03/21/22 07:31 03/21/22 11:27 Temperature 98.2 F 97.1 F L 97.1 F L Pulse Rate [Left P ulse Oximeter] 86 82 86 Respiratory Rate 16 16 16 Blood Pressure [Le ft Arm] 131/78 136/83 Pulse Oximetry 92 94 96 Oxygen Delivery Me thod Room Air Room Air Room Air Documenting provider has reviewed patient's vital signs: yes
--- NOTE | 2022-03-21 14:26 | PC.SOCIAL ---
Follow up phone call to Valerie in Admission at [facility] regarding assessment for admission. Valerie states that they are declining pt for admission due to not being able to meet pt's needs. [facility] a phone call to [facility] and they do have [facility] open bed. Faxed referral to [phone]. Phone call to Viv at [facility] at [phone]. Provided an update that pt is currently inpatient at the hospital. Viv states that they will keep pt open and pending until a discharge plan is in place. Viv would like an update when discharge plans are finalized. Made a phone call to Pt's , Jyothi Lora. Informed Jyothi that the Home Health Care Services that were put into place for pt are currently on hold since pt is now in the hospital. Discussed discharge plans and pt's states that she would like pt to go to assisted living or SNF because she cannot provide him the care he needs. Informed Jyothi that this worker is working on locating a SNF that can meet pt's needs. Jyothi asked this worker if this worker could meet with her in person and discuss discharge plans. Jyothi then stated that she did not want to meet in person because she is still very ill from Covid and does not want to go out in the cold. Jyothi states she would like updates via phone calls. Jyothi states that she is working with Royce, from [facility], on locating assisted living facilities and completing an MA application. Jyothi states that she thought Royce was from the [facility]. This worker had to reiterate to her that this worker discussed a referral with her last week to the [facility] to locate housing resources and complete a MA application. Made a phone call to Royce at the [facility] at [phone]. Provided an update on pt's status and discharge plan. Royce states that he has had conversations with Pt's and pt's does not feel she can meet pt's needs (short-term or long-term) and wants pt to go to assisted living or SNF. This worker informed that this worker is working on locating a SNF that can meet pt's needs. Royce will meet with pt's in person to provide the MA application to her.
--- NOTE | 2022-03-21 16:00 | PC.SOCIAL ---
Phone call to Ashleigh Betancourt at [facility] at [phone]. Provided Ashleigh with an update on pt. and the plan for discharge (looking for a SNF placement). Informed Ashleigh that hospital staff and this worker have concerns of the pt's 's cognitive ability due to inconsistency in discussions. Ashleigh states that she also has concerns after having conversations with Pt's . Ashleigh states she asked pt's if she had heat in her home and she stated she didn't and then later in conversation she said she got heat on Sunday. Ashleigh will try to get to pt's home to see home conditions tomorrow. Ashleigh would like and update on discharge plans for pt as they are known.
--- NOTE | 2022-03-21 18:26 | PC.NURSE ---
End of Shift(): Patient pleasant and cooperative. Patient vitally stable, lungs clear, BS WNL, IV intact. Patient denies pain. Patient 1 assist, walker, gb. Patient incontinent, brief changed once with this marketing copywriter. Patient has been up in chair watching tv. Patient tolerating regular diet but only took bites of dinner. White board used for communication.
[2022-03-21] MEDS: ENOXAPARIN 40 MG/0.4 ML INJ SUBCUT (20:38)
[2022-03-22] VITALS (7 sets, daily range): BP systolic 122–133; BP diastolic 71–90; PULSE 67–91; RESP 16–18; TEMP 36.3–36.6; O2SAT 93–95
--- NOTE | 2022-03-22 05:41 | P.IMPN_ITS ---
Progress Note: A&P Assessment and plan (1) Alzheimer's dementia with behavioral disturbance: Problem details: No agitation or impulsivity. Vulnerable adult report filed 03/17/2022. Status: Chronic (2) Generalized weakness: Status: Acute (3) Deafness: Problem details: Congenital - Mother had Hong Konger Measles during Status: Chronic (4) COVID-19: Problem details: Resolved. Symptom onset and + COVID PCR 03/07/22 Status post Remdesivir x3 days Status: Resolved Plan - continue to work with PT and OT while awaiting placement; appreciate assistance from social work regarding disposition - patient's comorbidities (Alzheimer's, essential hypertension, MAGALYS, prostate cancer, AFib) are quiescent; continue home medications - Lovenox and aspirin for prophylaxis Time Spent With Patient Total time spent: 25, greater than 50% in coordination of care with team Subjective Date Seen: 03/22/22 Interval history: No acute events overnight. Jacque denies any concerns for me today. He continues to work with therapies. Exam Narrative: Exam Narrative: GEN: Alert HEENT: Normal external ears, EOMIs bilaterally, no scleral icterus CV: Rate controlled atrial fibrillation, No concerning murmurs, rubs, or gallops R: LCTA bilaterally without concerning wheezing, rales, or rhonchi Ext: wwp, no concerning edema Skin: No concerning skin lesions or rashes on exposed skin Neuro: Nonfocal Psych: Appropriate Const: Vital Signs, click to edit/add: Vital Signs - 24 hr 03/21/22 07:31 03/21/22 11:27 03/21/22 15:00 Temperature 97.1 F L 97.1 F L Pulse Rate [Left P ulse Oximeter] 82 86 93 Respiratory Rate 16 16 14 Blood Pressure [Le ft Arm] 131/78 136/83 Blood Pressure [Ri ght Arm] Pulse Oximetry 94 96 Oxygen Delivery Me thod Room Air Room Air 03/21/22 15:00 03/21/22 19:15 03/21/22 22:53 Temperature 97.8 F 97.3 F L 97.1 F L Pulse Rate [Left P ulse Oximeter] 93 89 79 Respiratory Rate 14 16 16 Blood Pressure [Le ft Arm] Blood Pressure [Ri ght Arm] 132/82 138/95 H 155/95 H Pulse Oximetry 93 93 93 Oxygen Delivery Me thod Room Air Room Air Room Air 03/21/22 23:04 03/22/22 02:49 Temperature 97.3 F L Pulse Rate [Left P ulse Oximeter] 79 76 Respiratory Rate 16 16 Blood Pressure [Le ft Arm] Blood Pressure [Ri ght Arm] 130/90 H Pulse Oximetry 93 Oxygen Delivery Hi thod Room Air
--- NOTE | 2022-03-22 05:47 | PC.NURSE ---
Pt pleasant and cooperative. Uses sign language. Up SBA. VS unremarkable.
[2022-03-22] MEDS: METOPROLOL TARTRATE 25 MG TABLET PO ×2 (11:25→20:10)
[2022-03-22] MEDS: ATORVASTATIN CALCIUM 40 MG TABLET PO (11:26)
[2022-03-22] MEDS: OMEPRAZOLE 20 MG CAPSULE DR PO (11:26)
[2022-03-22] MEDS: timoloL maleate 0.5 % 1 DROP EYE-BOTH (11:27)
[2022-03-22] MEDS: ASPIRIN 81 MG TABLET EC PO (11:27)
--- NOTE | 2022-03-22 14:52 | PC.NURSE ---
Patient's medication resumed by Dr. Jackson mid-morning today. XTANDI is not available from the pharmacy. (who has dementia) will try to locate this chemo drug at home and bring it in to the hospital. Pt calm and cooperative with cares. Good appetite at breakfast and poor appetite for lunch. IV site patent. Eval by Dr. Jackson. Pt takes his meds 1-2 pills at a time. Continue POC.
--- NOTE | 2022-03-22 15:09 | PC.SOCIAL ---
Discharge planning - phone call to Gregoria in Admissions at The [facility] in [place] to check in on the referral sent on pt. Gregoria states that they have reviewed the referral and there are some initial concerns that pt has dementia with behavioral disturbances and if pt were to become behavioral the staff is concerned they would not be able to communicate with pt to calm him down. Discussed with Gregoria the different ways that hospital staff communicates with pt. Also, discussed that there are no documented concerns with behavioral disturbances while pt has been hospitalized. Gregoria will discuss again with the DON at [facility], but states they may have to decline. Gregoria will follow up with a response after communicating with the DON. Phone call to Julieth in admissions at the [facility] in [place] at [phone]. Facility offers ASL interpreters and also works with pt's with Dementia. Left a voicemail inquiring on potential openings for admission. Received a phone call back from Julieth. There are no openings at this time.
[2022-03-22] MEDS: ENOXAPARIN 40 MG/0.4 ML INJ SUBCUT (20:09)
[2022-03-22] MEDS: lisinopriL 5 MG TABLET 2.5 MG PO (20:10)
[2022-03-23] VITALS (9 sets, daily range): BP systolic 105–113; BP diastolic 60–68; PULSE 58–78; RESP 16–18; TEMP 36.3–36.6; O2SAT 92–94; BMI 18.6
--- NOTE | 2022-03-23 05:04 | PC.NURSE ---
Pt slept well, changed and repo q2-3hr. denies pain. urine with strong odor, encouraged fluid intake.
[2022-03-23] MEDS: OMEPRAZOLE 20 MG CAPSULE DR PO (06:31)
[2022-03-23] MEDS: ASPIRIN 81 MG TABLET EC PO (08:47)
[2022-03-23] MEDS: ATORVASTATIN CALCIUM 40 MG TABLET PO (08:47)
[2022-03-23] MEDS: METOPROLOL TARTRATE 25 MG TABLET PO ×2 (08:47→20:38)
[2022-03-23] MEDS: timoloL maleate 0.5 % 1 DROP EYE-BOTH (08:48)
--- NOTE | 2022-03-23 12:19 | PC.SOCIAL ---
Received a phone call from Gregoria in admissions at The [facility]. Gregoria informed that they are declining admission for pt due to not being able to meet pt's needs.
--- NOTE | 2022-03-23 14:01 | PM.IMPN1 ---
Progress Note: A&P Assessment and plan (1) Alzheimer's dementia with behavioral disturbance: Problem details: No agitation or impulsivity. Vulnerable adult report filed 03/17/2022. Status: Chronic Assessment and Plan: - baseline, pleasant (2) Generalized weakness: Status: Acute Assessment and Plan: - improving, working with therapies (3) Deafness: Problem details: Congenital - Mother had [place]vian Measles during Status: Chronic (4) COVID-19: Problem details: Resolved. Symptom onset and + COVID PCR 03/07/22 Status post Remdesivir x3 days Status: Resolved Plan - per above - Lovenox for ppx Subjective Date Seen: 03/23/22 Interval history: No acute events overnight. Jacque denies any concerns for me today. Exam Narrative: Exam Narrative: GEN: Alert, comfortable in bed. Interpretor utilized for interview HEENT: Normal external ears, EOMIs bilaterally, no scleral icterus CV: Rate controlled atrial fibrillation R: LCTA bilaterally without concerning wheezing, rales, or rhonchi Ext: wwp, no concerning edema Skin: No concerning skin lesions or rashes on exposed skin Neuro: Nonfocal Psych: Appropriate Const: Vital Signs, click to edit/add: Vital Signs - 24 hr 03/22/22 15:00 03/22/22 15:00 03/22/22 19:16 Temperature 97.6 F 97.9 F Pulse Rate [Left P ulse Oximeter] 67 67 74 Respiratory Rate 18 18 16 Blood Pressure [Le ft Arm] 124/71 Blood Pressure [Ri ght Arm] 122/76 Pulse Oximetry 94 95 Oxygen Delivery Me thod Room Air Room Air 03/22/22 23:30 03/22/22 23:31 03/23/22 00:27 Temperature 97.9 F Pulse Rate [Left P ulse Oximeter] 74 74 Respiratory Rate 16 16 16 Blood Pressure [Le ft Arm] 124/71 Blood Pressure [Ri ght Arm] Pulse Oximetry 95 Oxygen Delivery Me thod Room Air 03/23/22 03:07 03/23/22 05:03 03/23/22 07:35 Temperature 97.8 F Pulse Rate [Left P ulse Oximeter] 62 Respiratory Rate 16 16 18 Blood Pressure [Le ft Arm] 105/68 Blood Pressure [Ri ght Arm] Pulse Oximetry 92 Oxygen Delivery Me thod Room Air 03/23/22 10:54 Temperature 97.5 F L Pulse Rate [Left P ulse Oximeter] 58 L Respiratory Rate 18 Blood Pressure [Le ft Arm] Blood Pressure [Ri ght Arm] 107/60 Pulse Oximetry 93 Oxygen Delivery Me thod Room Air
--- NOTE | 2022-03-23 15:22 | PC.NURSE ---
Pt's appetite off this shift. Pt calm and cooperative, no dysphagia with med administration. Walked in hallway with Juan from PT. lang interpreter Mariella in to assist with Manuel rounds this afternoon. Pt had a small bm, then tolerated vanilla ensure and PBJ sandwich for lunch. Up to chair for meals, resting in bed with warm blankets and bed alarm engaged at this time.
--- NOTE | 2022-03-23 15:31 | PC.NURSE ---
Report to Amina Rdz RN for evening shift.
[2022-03-23] MEDS: lisinopriL 5 MG TABLET 2.5 MG PO (20:38)
[2022-03-23] MEDS: ENOXAPARIN 40 MG/0.4 ML INJ SUBCUT (20:38)
--- NOTE | 2022-03-23 22:34 | PC.NURSE ---
End of Shift: Patient pleasant and cooperative. Afebrile. Video dental insurance biller and white board used for communication. Denies pain. Up to chair and bathroom with 1 assist, walker and gait belt. Tolerating regular diet with no nausea. O2 sats 93-94% on room air.
[2022-03-24] VITALS (7 sets, daily range): BP systolic 93–118; BP diastolic 53–64; PULSE 57–75; RESP 16–20; TEMP 36.2–36.8; O2SAT 92–94
--- NOTE | 2022-03-24 04:57 | PC.NURSE ---
[id number] Restful night vitals, Pt slept entire night, Turn and Repo throughout night. incontinent brief changed with repositioning.
[2022-03-24] MEDS: OMEPRAZOLE 20 MG CAPSULE DR PO (06:11)
[2022-03-24] MEDS: timoloL maleate 0.5 % 1 DROP EYE-BOTH (09:04)
[2022-03-24] MEDS: METOPROLOL TARTRATE 25 MG TABLET PO ×2 (09:04→21:14)
[2022-03-24] MEDS: ASPIRIN 81 MG TABLET EC PO (09:04)
[2022-03-24] MEDS: ATORVASTATIN CALCIUM 40 MG TABLET PO (09:04)
--- NOTE | 2022-03-24 12:10 | P.IMPN_ITS ---
Progress Note: A&P Assessment and plan (1) Alzheimer's dementia with behavioral disturbance: Problem details: No agitation or impulsivity. Vulnerable adult report filed 03/17/2022. Expressed apathy/depression on 03/24/22, started Lexapro at that time. Status: Chronic Assessment and Plan: - notes mood is low, amenable to treatment. - start Lexapro (2) Generalized weakness: Status: Acute Assessment and Plan: - no safe discharge plan at this time, awaiting SNF placement. Appreciate input and assistance from PT, OT, and SW (3) Deafness: Problem details: Congenital - Mother had [place] Measles during Status: Chronic (4) COVID-19: Problem details: Resolved. Symptom onset and + COVID PCR 03/07/22 Status post Remdesivir x3 days Status: Resolved (5) Right-sided chest pain: Status: Acute Assessment and Plan: - c/w muscular source vs malignant pain. No true CVA ttp - obtain portable CXR to evaluate, continue to follow symptoms (6) Prostate cancer metastatic to bone: Problem details: On Xtandi, has this at home. Status: Chronic Assessment and Plan: - has missed some doses of Xtandi during this hospitalization, has been asked to bring this in Plan - per above - Lovenox for ppx Subjective Date Seen: 03/24/22 Interval history: No acute events overnight. No concerns from nursing staff. Jacque notes that his mood is low, would like to try a medication for this. Also has started having some discomfort in his R side, no trauma or inciting incident. Exam Narrative: Exam Narrative: GEN: Alert, comfortable in bed. ASL Interpretor utilized for interview HEENT: Normal external ears, EOMIs bilaterally, no scleral icterus CV: Rate controlled atrial fibrillation Chest: no crepitus over R chest/flank, mild discomfort over this area with palpation R: LCTA bilaterally without concerning wheezing, rales, or rhonchi Ext: wwp, no concerning edema Skin: No concerning skin lesions or rashes on exposed skin. Jacque declines skin exam over R side/flank Neuro: Nonfocal Psych: Appropriate, affect more flat today Const: Vital Signs, click to edit/add: Vital Signs - 24 hr 03/23/22 15:00 03/23/22 15:00 03/23/22 19:00 Temperature 97.4 F L 97.6 F Pulse Rate [Left P ulse Oximeter] 72 72 78 Respiratory Rate 16 16 16 Blood Pressure [facility]] 109/63 113/68 Pulse Oximetry 94 93 Oxygen Delivery Me thod Room Air Room Air 03/23/22 23:00 03/23/22 23:00 03/23/22 23:30 Temperature Pulse Rate [Left P ulse Oximeter] Respiratory Rate 16 16 16 Blood Pressure [[facility] Arm] Pulse Oximetry Oxygen Delivery Me thod 03/24/22 06:00 03/24/22 08:40 03/24/22 11:00 Temperature 97.2 F L 97.3 F L Pulse Rate [Left P ulse Oximeter] 69 57 L Respiratory Rate 16 18 16 Blood Pressure [[facility] Arm] 93/60 106/59 L Pulse Oximetry 93 94 Oxygen Delivery Ga thod Room Air Room Air
--- NOTE | 2022-03-24 12:37 | CRLHL7_ITS ---
For Patients: As a result of the Cures Act, medical imaging exams and procedure reports are released immediately into your electronic medical record. You may view this report before your referring provider. If you have questions, please contact your health care provider. INDICATION: Right-sided pain. TECHNIQUE: Chest 1 views. COMPARISON: Chest x-ray from 03/19/2022. FINDINGS: Lungs: Clear lungs. No consolidation. Pleura: No pleural effusion or pneumothorax. Heart and Mediastinum: The cardiomediastinal silhouette is normal. The vessels are unremarkable. Bones: Unremarkable. IMPRESSION: No acute cardiopulmonary disease. Dictated by Wesley Gibbs MD @ 03/24/2022 1:11:52 PM (Electronically Signed)
--- NOTE | 2022-03-24 13:38 | PC.NURSE ---
Pt calm and cooperative with nsg interventions. No dysphagia with meds. Eval by Dr. Jackson and myself today. Portable CXR completed this afternoon. Pt requested that patient call his Jyothi as he is lonely,bored and would like to have her visit this evening with dtr-in-law Gloria. They plan to arrive around dinnertime. Pt assisted by Mariella PAULA barge hand at bedside today. Pt needs verbal cues to take in nutrition and drink fluids more liberally.
--- NOTE | 2022-03-24 14:50 | PC.SOCIAL ---
Discharge planning: Requested evaluation for admission to [facility] when there is a bed available. Pt to be evaluated for potential admit. Called [facility] Vulnerable Adult Worker, Ashleigh Betancourt, who has had contact with to ask if has been assisted by [facility] with Medical Assistance Application. Ashleigh states she will check and call back. connection worker to follow up as needed.
--- NOTE | 2022-03-24 15:37 | CRLHL7_ITS ---
For Patients: As a result of the Century Cures Act, medical imaging exams and procedure reports are released immediately into your electronic medical record. You may view this report before your referring provider. If you have questions, please contact your health care provider. INDICATION: Right-sided abdominal pain.. TECHNIQUE: CT abdomen and pelvis without contrast. COMPARISON: None. FINDINGS: Limited evaluation of the intra-abdominal solid organs without IV contrast. Lower chest: Pericardial calcifications are noted. Coronary artery calcifications are identified. Left lower lobe airspace opacities may be related aspiration, infection or atelectasis. Mild bilateral gynecomastia. Liver: Normal in size and attenuation. No suspicious masses. Gallbladder and bile ducts: No stones or inflammation. No biliary dilatation. Pancreas: Unremarkable. No mass or inflammation. Spleen: Normal in size. No masses. Adrenal glands: Normal in size. No nodules. Kidneys: Staghorn type calcifications in the superior pole of left kidney, measuring up to 2.6 centimeters in craniocaudal dimension. Punctate nonobstructing stone in the superior pole of the right kidney. No hydronephrosis or hydroureter. GI tract: Unremarkable. Normal in caliber. No sign of mass or inflammation. Normal appendix. Vasculature: Abdominal aorta is normal in caliber. Moderate calcific atherosclerosis of the visualized vessels. Lymph nodes: No lymphadenopathy. Peritoneum/Abdominal Wall: Unremarkable. No sign of mass or infiltration. No free air or significant free fluid. Pelvis: Bladder is decompressed. Prostate is not visualized. Multiple clips in the lower pelvis likely related to prior surgical intervention. Bones: Bilateral L5 spondylolysis. Grade 1 anterolisthesis of L5 on S1. Mild demineralization of the visualized bones. Mild multilevel degenerative changes in the spine. No suspicious osseous lesions. Mild bilateral hip degenerative changes. IMPRESSION: No acute intra-abdominal process identified. Gallbladder, right kidney and appendix not demonstrate an acute process. Staghorn type nonobstructing calculus in the left kidney. Punctate nonobstructing stone in the right kidney. Probable prior prostatectomy. Please note that all CT scans at this facility use dose modulation, iterative reconstruction, and/or weight-based dosing when appropriate to reduce radiation dose to as low as reasonably achievable. Dictated by Scott Velasquez MD @ 03/24/2022 5:29:30 PM (Electronically Signed)
[2022-03-24] MEDS: lisinopriL 5 MG TABLET 2.5 MG PO (21:14)
[2022-03-24] MEDS: ENOXAPARIN 40 MG/0.4 ML INJ SUBCUT (21:14)
[2022-03-25 06:32] LABS: Basophils Absolute Auto 0.03 K/uL (0.00-0.30); Basophils Percent Auto 0.6 % (0.0-3.0); Eosinophils Absolute Auto 0.09 K/uL (0.00-0.50); Eosinophils Percent Auto 1.7 % (0.0-7.0); Hematocrit 36.7 % (37.0-53.0); Hemoglobin* 12.5 gm/dL (13.5-17.5); Immature Granulocytes Abs Auto 0.04 K/uL (0.00-0.30); Lymphocytes Absolute Auto 1.41 K/uL (0.90-2.90); Lymphocytes Percent Auto 26.4 % (20-44); Mean Corpuscular HGB Conc 34 gm/dL (32-36); Mean Corpuscular Hemoglobin 28 pg (26-34); Mean Corpuscular Volume 83 fL (80-100); Monocytes Percent Auto 16.5 % (0.0-11.0); Neutrophils Absolute Auto 2.89 K/uL (1.7-7.0); Neutrophils Percent Auto 54.1 % (42.0-72.0); Platelet Count* 329 K/uL (140-440); RDW Coefficient of Variation % 14.1 % (11.5-15.5); Red Blood Count 4.44 m/uL (4.30-5.90); White Blood Count* 5.34 K/uL (4.50-11.00)
[2022-03-25 06:37] LABS: Slide Review Reflex No
[2022-03-25 06:53] LABS: Chloride* 103 mmol/L (96-114); Sodium* 136 mmol/L (135-149)
[2022-03-25 06:54] LABS: Potassium* 3.3 mmol/L (3.6-5.1)
[2022-03-25 06:56] LABS: Creatinine* 0.6 mg/dL (0.5-1.5); Estimated Glomerular Filt Rate 96 ml/min
[2022-03-25 06:57] LABS: Blood Urea Nitrogen* 14 mg/dL (7-30); Calcium* 9.2 mg/dL (8.4-10.6); Carbon Dioxide* 25 mmol/L (20-32); Glucose* 103 mg/dL (60-115)
[2022-03-25] MEDS: OMEPRAZOLE 20 MG CAPSULE DR PO (06:58)
[2022-03-25 07:00] VITALS: BP 101/60; PULSE 67; RESP 18; TEMP 36.1; O2SAT 94
--- NOTE | 2022-03-25 07:40 | PC.NURSE ---
Pt pleasant and cooperative. Inc of urine x3. Pt T&R q2hrs. VSS Up with 1 A and walker.
[2022-03-25] MEDS: timoloL maleate 0.5 % 1 DROP EYE-BOTH (09:18)
[2022-03-25] MEDS: METOPROLOL TARTRATE 25 MG TABLET PO ×2 (09:18→21:20)
[2022-03-25] MEDS: ESCITALOPRAM 10 MG TABLET 5 MG PO (09:18)
[2022-03-25] MEDS: ATORVASTATIN CALCIUM 40 MG TABLET PO (09:18)
[2022-03-25] MEDS: ASPIRIN 81 MG TABLET EC PO (09:18)
--- NOTE | 2022-03-25 09:51 | PC.NURSE ---
Addendum entered by Vickie Adams RN 03/25/22 11:16: Maintenance brought a different tv to patient room and closed captioning is working on this tv for the patient now. Original Note: It was brought to my attention that the closed captioning is not currently working on the patient's TV. Called Maintenance they are currently in the room along with the ALS machine printer hose trying to get the closed captioning to work on his tv.
[2022-03-25 11:00] VITALS: BP 100/52; PULSE 62; RESP 18; TEMP 36.3; O2SAT 93
--- NOTE | 2022-03-25 12:02 | P.IMPN_ITS ---
Progress Note: A&P Assessment and plan (1) Alzheimer's dementia with behavioral disturbance: Problem details: No agitation or impulsivity. Vulnerable adult report filed 03/17/2022. Expressed apathy/depression on 03/24/22, started Lexapro at that time. Status: Chronic Assessment and Plan: - patient is very pleasant without any agitated behaviors - awaiting placement, possibly our long-term care facility early next week (2) Generalized weakness: Status: Acute (3) Hypertension: Problem details: Stopped lisinopril 2/2 hypotension 03/25/22 Status: Chronic Assessment and Plan: - BP has been trending downward over the past few days, we will stop his home lisinopril dose and continue to follow - continue metoprolol given history of AFib (4) Deafness: Problem details: Congenital - Mother had Mongolian Measles during Status: Chronic (5) COVID-19: Problem details: Resolved. Symptom onset and + COVID PCR 03/07/22 Status post Remdesivir x3 days Status: Resolved (6) Right-sided chest pain: Problem details: Noted on 03/24, resolved. X-ray and CT within normal limits Status: Acute Assessment and Plan: - patient's pain is totally resolved today (7) Prostate cancer metastatic to bone: Problem details: On Xtandi, has this at home. Status: Chronic Assessment and Plan: - we have asked to bring in Xtandi; Jacque does not express a strong desire to remain on this medicine long-term Plan - per above - Lovenox for ppx Subjective Date Seen: 03/25/22 Interval history: No acute events overnight. No concerns from nursing staff. Jacque was having right-sided chest pain yesterday, both CT scan and x-ray were within normal limits. Today he states the pain is totally gone and he has no concerns for me. Interview conducted with superintendent power present. Exam Narrative: Exam Narrative: GEN: Alert, answering questions appropriately, thin and appears chronically ill but nontoxic HEENT: Normal external ears, EOMIs bilaterally CV: Rate controlled atrial fibrillation R: LCTA bilaterally without concerning wheezing, rales, or rhonchi Ext: wwp, no concerning edema Skin: No concerning skin lesions or rashes on exposed skin Neuro: Nonfocal Psych: Appropriate Const: Vital Signs, click to edit/add: Vital Signs - 24 hr 03/24/22 15:00 03/24/22 15:00 03/24/22 19:00 Temperature 98.2 F 97.2 F L Pulse Rate [Left P ulse Oximeter] 70 70 75 Respiratory Rate 16 16 18 Blood Pressure [Ri ght Arm] 103/53 L 118/64 Pulse Oximetry 93 92 Oxygen Delivery Me thod Room Air Room Air 03/24/22 23:30 03/24/22 23:00 03/25/22 07:00 Temperature Pulse Rate [Left P ulse Oximeter] 67 Respiratory Rate 20 18 18 Blood Pressure [Ri ght Arm] Pulse Oximetry Oxygen Delivery Me thod 03/25/22 07:00 03/25/22 11:00 Temperature 97 F L 97.3 F L Pulse Rate [Left P ulse Oximeter] 67 62 Respiratory Rate 18 18 Blood Pressure [Ri ght Arm] 101/60 100/52 L Pulse Oximetry 94 93 Oxygen Delivery Me thod Room Air Room Air Labs Labs: Laboratory Results - last 24 hr 03/25/22 03/25/22 06:07 06:07 WBC 5.34 RBC 4.44 Hgb 12.5 L Hct 36.7 L MCV 83 MCH 28 MCHC 34 RDW Coeff of Kai 14.1 Plt Count 329 Neut % (Auto) 54.1 Lymph % (Auto) 26.4 Boundary % (Auto) 16.5 H Eos % (Auto) 1.7 Baso % (Auto) 0.6 Neut # (Auto) 2.89 Lymph # (Auto) 1.41 Boundary # (Auto) 0.90 Eos # (Auto) 0.09 Baso # (Auto) 0.03 Abs Immat Gran (auto) 0.04 Sodium 136 Potassium 3.3 L Chloride 103 Carbon Dioxide 25 BUN 14 Creatinine 0.6 Estimated Creat Clear 47.50 Estimated GFR 96 Glucose 103 Calcium 9.2
[2022-03-25 15:00] VITALS: BP 108/68; PULSE 62; PULSE 64; RESP 18; TEMP 36.4; O2SAT 94
--- NOTE | 2022-03-25 17:06 | PC.NURSE ---
Shift Note [id number]: Pt friendly and cooperative with cares, in person full time staff interpreter used this morning. Gun Profiler able to efficiently communicate with pt using whiteboard this afternoon. BP's slightly soft, low 100's systolically. HR= 60's. SpO2 greater than 90% on RA. Afebrile. Denies pain other than a low back ache after some time in the chair. Discomfort resolved with transitioning pt back to bed this afternoon per pt report. Mediocre appetite, pt did drink 100% vanilla ensure this afternoon. Total incontinence with one large BM. Jyothi updated via telephone this morning. States she will come visit another day. Gun Profiler explained we will continue to share and update her with pt's POC. verbalized understanding.
[2022-03-25 19:00] VITALS: BP 110/67; RESP 18; TEMP 36.4; O2SAT 94
[2022-03-25] MEDS: ENOXAPARIN 40 MG/0.4 ML INJ SUBCUT (21:21)
[2022-03-25 23:00] VITALS: BP 112/69; PULSE 60; RESP 1; TEMP 36.4; O2SAT 94
[2022-03-25 23:30] VITALS: RESP 18
[2022-03-26] VITALS (7 sets, daily range): BP systolic 105–124; BP diastolic 51–99; PULSE 59–81; RESP 18–20; TEMP 36.1–36.4; O2SAT 93–95
[2022-03-26] MEDS: OMEPRAZOLE 20 MG CAPSULE DR PO (06:42)
[2022-03-26] MEDS: METOPROLOL TARTRATE 25 MG TABLET PO ×2 (09:12→20:24)
[2022-03-26] MEDS: ASPIRIN 81 MG TABLET EC PO (09:12)
[2022-03-26] MEDS: ESCITALOPRAM 10 MG TABLET 5 MG PO (09:12)
[2022-03-26] MEDS: POTASSIUM CHLORIDE 10 MEQ CAPSULE ER 20 MEQ PO (09:12)
[2022-03-26] MEDS: ATORVASTATIN CALCIUM 40 MG TABLET PO (09:12)
[2022-03-26] MEDS: timoloL maleate 0.5 % 1 DROP EYE-BOTH (09:20)
--- NOTE | 2022-03-26 11:32 | P.IMPN_ITS ---
Progress Note: A&P Assessment and plan (1) Alzheimer's dementia with behavioral disturbance: Problem details: No agitation or impulsivity. Vulnerable adult report filed 03/17/2022. Expressed apathy/depression on 03/24/22, started Lexapro at that time. Status: Chronic (2) Generalized weakness: Problem details: multifactorial; covid, dementia, age Status: Acute (3) Hypertension: Problem details: Stopped lisinopril 2/2 hypotension 03/25/22 Status: Chronic (4) Deafness: Problem details: Congenital - Mother had Ugand[place] Measles during Status: Chronic (5) COVID-19: Problem details: Resolved. Symptom onset and + COVID PCR 03/07/22 Status post Remdesivir x3 days Status: Resolved (6) Right-sided chest pain: Problem details: Noted on 03/24, resolved. X-ray and CT within normal limits Status: Acute (7) Prostate cancer metastatic to bone: Problem details: On Xtandi, has this at home. Status: Chronic Subjective Date Seen: 03/26/22 Interval history: Daily Progress Note - Hospital Medicine Day #:8 CC: No specific complaints, failure to thrive at home, in need of mcc OVERNIGHT UPDATES FROM STAFF & MED, LAB, IMAGING UPDATES No staff concerns. Jacque has no concerns. Hopeful for placement at our long- term care the coming days. No new labs this morning. no new imaging. Review of Systems: See subjective Cardiac: No new chest pain/pressure/palpitations. Respiratory: no new dyspnea. GI: No abdominal bloating Objective: Sleeping when I arrived this morning. Woke easily and was interactive. translator/interpreter bedside Vitals: Stable. No changes. see above Lungs: Clear. Cardiac: S1S2. Neuro: Jacque really was not able to pull himself up to the side of the bed and dangle his legs. He struggled some to get his legs uncovered. Somewhat apathetic this morning. Disposition/Potential discharge - Likely to move [facility] to [facility]. Total time is 35 minutes with greater than 50% spent in counseling and coordination of care. Exam Const: Vital Signs, click to edit/add: Vital Signs - 24 hr 03/25/22 15:00 03/25/22 15:00 03/25/22 19:00 Temperature 97.6 F 97.5 F L Pulse Rate [Left P ulse Oximeter] 62 64 Respiratory Rate 18 18 18 Blood Pressure [Le ft Arm] Blood Pressure [Ri ght Arm] 108/68 110/67 Pulse Oximetry 94 94 Oxygen Delivery Me thod Room Air Room Air 03/25/22 23:00 03/25/22 23:30 03/26/22 03:00 Temperature 97.5 F L 97.5 F L Pulse Rate [Left P ulse Oximeter] 60 81 Respiratory Rate 1 L 18 18 Blood Pressure [Le ft Arm] 105/68 Blood Pressure [Ri ght Arm] 112/69 121/71 Pulse Oximetry 94 95 Oxygen Delivery Me thod Room Air Room Air 03/26/22 06:00 03/26/22 07:00 03/26/22 07:00 Temperature 97.0 F L Pulse Rate [Left P ulse Oximeter] 62 62 Respiratory Rate 18 18 18 Blood Pressure [Le ft Arm] 114/99 H Blood Pressure [Ri ght Arm] Pulse Oximetry 93 Oxygen Delivery Me thod Room Air Labs Labs: Laboratory Results - last 24 hr 03/25/22 06:07 TSH 2.830
--- NOTE | 2022-03-26 18:39 | PC.NURSE ---
Shift Note [id number]: Pt friendly and cooperative with cares, in person revenue officer used this morning. Nurse able to communicate with pt using whiteboard this afternoon. Pt. Afebrile. Denies pain, N/V/SOB. Pt. did not have much of an appetite, pt. offered magic up but refused. Pt. incontinent of bowel and bladder, changed frequently and barrier cream applied to reddened areas on buttocks. Pt. repo frequently when in bed. Pt. sat in chair for breakfast and watched football game for a while.
[2022-03-26] MEDS: ENOXAPARIN 40 MG/0.4 ML INJ SUBCUT (20:24)
[2022-03-27] VITALS (8 sets, daily range): BP systolic 116–130; BP diastolic 62–70; PULSE 62–68; RESP 16–20; TEMP 36.6; O2SAT 93–94
--- NOTE | 2022-03-27 05:17 | PC.NURSE ---
END OF SHIFT NOTE: PT PLEASANT AND COOPERATIVE WITH CARES. PT IS DEAF. ASL AND WHITEBOARD UTILIZED FOR COMMUNICATION. BRIEF CHANGE AND REPOSITIONED PRN. PT IS INCONTINENT OF URINE DURING HS. DENIES CP, SOB, N/V. VSS ON RA; AFEBRILE.?RESTFUL NIGHT VITALS IN PLACE.
[2022-03-27] MEDS: OMEPRAZOLE 20 MG CAPSULE DR PO (06:32)
[2022-03-27] MEDS: ATORVASTATIN CALCIUM 40 MG TABLET PO (08:49)
[2022-03-27] MEDS: ASPIRIN 81 MG TABLET EC PO (08:49)
[2022-03-27] MEDS: METOPROLOL TARTRATE 25 MG TABLET PO ×2 (08:49→22:03)
[2022-03-27] MEDS: timoloL maleate 0.5 % 1 DROP EYE-BOTH (08:50)
[2022-03-27] MEDS: ESCITALOPRAM 10 MG TABLET 5 MG PO (08:50)
[2022-03-27] MEDS: POTASSIUM CHLORIDE 10 MEQ CAPSULE ER 20 MEQ PO (08:50)
--- NOTE | 2022-03-27 11:03 | PC.SOCIAL ---
Discharge planning: PT is being evaluated for admission to the [facility] [place]. Pt does not have insurance coverage for this potential stay. has been working with Senior LInkage stoneworker, Royce Rubio [phone], to complete a Medical Assistance application. Left message for Royce requesting call back regarding status of this application. Left message with [facility] vulnerable adult worker, Ashleigh Betancourt, who has been working with , requesting any information from [facility] regarding status of application. dry transfer worker to follow up as needed.
--- NOTE | 2022-03-27 11:12 | PC.SOCIAL ---
Addendum entered by MANJU Sullivan 03/27/22 16:25: Recieved call back from Royce at [facility] and [place] at [facility] confirming there has not been a Medical Assistance Application started with for this patient. Called pt's , Jyothi, using ASL/voice veneer jointer services, who confirmed she is still requesting usp placement for pt. Offered assistance with completing the Medical Assistance Application. will be at the hospital at 9:30am tomorrow morning to complete this with high school social studies tutor. ASL in-person veneer jointer is arranged for that time to provide interpreting services. pole frame construction worker to follow up as needed. Original Note: Discharge planning: Received call from pt's , Jyothi, through ASL/voice veneer jointer. Provided with an update on efforts to find a chcf facility for placement. Asked with whether she has already completed a Medical Assistance application. thinks she is scheduled to do that tomorrow afternoon at her home with Royce from [facility]. pole frame construction worker to clarify with Royce and call back to confirm appointment location.
--- NOTE | 2022-03-27 14:23 | PC.NURSE ---
Pt eval by Dr. Ortega and myself. ASL sandfill operator surface Mariella present to assist with lunch order and patient communication for primary RN and hospitalist. Jyothi updated per phone with ASL sandfill operator surface. No dysphagia with meds. Calm and cooperative with cares. Eupneic and in NAD. Plan possible d/c to LTCC tomorrow. Remains incontinent of urine.
--- NOTE | 2022-03-27 15:15 | PM.IMPN1 ---
Progress Note: A&P Assessment and plan (1) Alzheimer's dementia with behavioral disturbance: Problem details: No agitation or impulsivity. Vulnerable adult report filed 03/17/2022. Expressed apathy/depression on 03/24/22, started Lexapro at that time. Status: Chronic (2) Generalized weakness: Problem details: multifactorial; covid, dementia, age Status: Acute (3) Hypertension: Problem details: Stopped lisinopril 2/2 hypotension 03/25/22 Status: Chronic (4) Deafness: Problem details: Congenital - Mother had Marshallese Measles during Status: Chronic (5) COVID-19: Problem details: Resolved. Symptom onset and + COVID PCR 03/07/22 Status post Remdesivir x3 days Status: Resolved (6) Right-sided chest pain: Problem details: Noted on 03/24, resolved. X-ray and CT within normal limits Status: Acute (7) Prostate cancer metastatic to bone: Problem details: On Xtandi, has this at home. Status: Chronic Plan 1. Continue with our supportive efforts . 2. Continue with efforts to try to establish a safe discharge disposition plan. 3. Answered patient's questions to satisfaction. 4. Patient agreeable to above stated plans and recommendations. Time Spent With Patient Total time spent: 20 minutes Subjective Time Seen by Provider: 09:00 Date Seen: 03/27/22 Interval history: Daily Progress Note - [facility] Medicine Hospital day 9. I spoke with and examined the patient with the help and support from our supervisor communications and signals who was present. He indicates he feels well. Denies any concerns. Asks me to help with his blanket because he is feeling cold. Indicates he is getting enough to eat and has no nausea or vomiting or abdominal pain or dyspepsia. He indicates he is satisfied and ready to be discharged when we are able to find a place for him to safely move to. Denies any chest heaviness, pressure, tightness, or pain. Denies dyspnea at rest, paroxysmal nocturnal dyspnea, or orthopnea. Denies orthostasis, syncope, near syncope, vertigo, lightheadedness, or dizziness. Denies any other discomforts. Denies dysuria, urgency, frequency, or hematuria. Denies diarrhea or constipation. Exam Narrative: Exam Narrative: He speaks in sign language only. I speak with him through supervisor communications and signals. Alert, oriented to self and place not necessarily to time but in great measure is oriented to situation. Friendly, cooperative. Even has a sense of humor. Lungs are clear to auscultation. Heart tones with regular rhythm. Abdomen with active bowel sounds, soft, nontender. Extremities without edema. Capillary refill less than 3 seconds. Skin is warm, dry, intact. No focal motor neurologic deficits. Const: Vital Signs, click to edit/add: Vital Signs - 24 hr 03/26/22 19:00 03/26/22 23:00 03/26/22 23:00 Temperature 97.1 F L 97.3 F L Pulse Rate [Left P ulse Oximeter] 71 69 69 Respiratory Rate 18 20 20 Blood Pressure [Le ft Arm] 111/66 Blood Pressure [Ri ght Arm] 124/97 H Pulse Oximetry 95 95 Oxygen Delivery Me thod Room Air Room Air 03/27/22 03:00 03/27/22 03:00 03/27/22 06:00 Temperature Pulse Rate [Left P ulse Oximeter] Respiratory Rate 18 18 18 Blood Pressure [Le ft Arm] Blood Pressure [Ri ght Arm] Pulse Oximetry Oxygen Delivery Me thod Room Air 03/27/22 07:00 03/27/22 11:00 Temperature 97.8 F 98 F Pulse Rate [Left P ulse Oximeter] 62 68 Respiratory Rate 16 16 Blood Pressure [Le ft Arm] Blood Pressure [Ri ght Arm] 120/69 130/65 Pulse Oximetry 93 94 Oxygen Delivery Me thod Room Air Room Air Documenting provider has reviewed patient's vital signs: yes
[2022-03-27] MEDS: ENOXAPARIN 40 MG/0.4 ML INJ SUBCUT (22:03)
--- NOTE | 2022-03-27 23:19 | PC.NURSE ---
Nurse Care Hours: [id number] Pt this shift is calm and cooperative with cares. Fatigued and sleeping in bed most of shift. Ate 50% lunch and dinner, no supplements given. Void brief changed x1, red sore about the size of a dime, non-blanching, mepliex applied and pt position changed to right lateral. Wild Animal Caretaker used basic sign language and white board for communication. Pt signed thank you after cares.
[2022-03-28] VITALS (7 sets, daily range): BP systolic 125–133; BP diastolic 62–70; PULSE 60–65; RESP 16–20; TEMP 36.2–36.9; O2SAT 94–95
--- NOTE | 2022-03-28 04:41 | PC.NURSE ---
[id number] Pt slept during night, awake for cares but able to fall asleep as soon as task was completed. denies pain.
[2022-03-28] MEDS: OMEPRAZOLE 20 MG CAPSULE DR PO (06:34)
[2022-03-28] MEDS: ESCITALOPRAM 10 MG TABLET 5 MG PO (10:19)
[2022-03-28] MEDS: ASPIRIN 81 MG TABLET EC PO (10:20)
[2022-03-28] MEDS: POTASSIUM CHLORIDE 10 MEQ CAPSULE ER 20 MEQ PO (10:21)
[2022-03-28] MEDS: METOPROLOL TARTRATE 25 MG TABLET PO ×2 (10:21→21:11)
[2022-03-28] MEDS: ATORVASTATIN CALCIUM 40 MG TABLET PO (10:21)
[2022-03-28] MEDS: timoloL maleate 0.5 % 1 DROP EYE-BOTH (10:22)
--- NOTE | 2022-03-28 15:32 | PC.SOCIAL ---
Addendum entered by RILEY Gamble 03/28/22 16:03: Received a return phone call from Pt's , Jyothi. Jyothi would like to meet in person with clinical assessment manager tomorrow at 2:00 pm as she states it is easier to understand then talking over the phone. Will meet tomorrow at 2:00 pm in pt's room with in person clinical assessment manager. Original Note: Met with pt and pt's , Jyothi, in pt's room. capacity manager, Mariella, was also present in the room to provide ASL interpretation. Completed MA application for long-term care services with pt and pt's . Pt's provided 3 bank statements. Faxed MA application to [facility] at [phone]. Pt has been accepted to [facility]. Made a phone call to pt's , Jyothi. There was no answer. Social work will follow up with pt and pt's tomorrow.
--- NOTE | 2022-03-28 15:34 | PC.NURSE ---
Pt doing well. Jyothi spoke with via air conditioner installer helper Mariella about needed information for medical assistance forms. She continues to have questions about them but SS provided her with a list of financial forms she will need to supply in order to complete the forms to see if she will qualify. Jacque ambulated in hallway with OCCUPATIONAL THERAPY MANAGER 75 feet. VSS. Appetite improving. No dysphagia with meds. Report to Gaviota LAWRENCE for evening shift. Packing Clerk for ASL video remains in patient room at this time
--- NOTE | 2022-03-28 15:49 | P.IMPN_ITS ---
Progress Note: A&P Assessment and plan (1) Alzheimer's dementia with behavioral disturbance: Problem details: No agitation or impulsivity. Vulnerable adult report filed 03/17/2022. Expressed apathy/depression on 03/24/22, started Lexapro at that time. Status: Chronic Assessment and Plan: Awaiting safe discharge disposition plan. (2) Generalized weakness: Problem details: multifactorial; covid, dementia, age Status: Acute (3) Hypertension: Problem details: Stopped lisinopril 2/2 hypotension 03/25/22 Status: Chronic (4) Deafness: Problem details: Congenital - Mother had Greek Measles during Status: Chronic (5) COVID-19: Problem details: Resolved. Symptom onset and + COVID PCR 03/07/22 Status post Remdesivir x3 days Status: Resolved (6) Right-sided chest pain: Problem details: Noted on 03/24, resolved. X-ray and CT within normal limits Status: Acute (7) Prostate cancer metastatic to bone: Problem details: Will stop his Xtandi. Status: Chronic Time Spent With Patient Total time spent: 20 minutes Subjective Time Seen by Provider: 09:00 Date Seen: 03/28/22 Interval history: Daily Progress Note - [facility] Medicine Hospital day 10. I spoke with and examined the patient with the help and support from our senior interior designer who was present. He indicates he feels well. Denies any concerns. Indicates he is getting enough to eat and has no nausea or vomiting or abdominal pain or dyspepsia. He indicates he is satisfied and ready to be discharged when we are able to find a place for him to safely move to. Denies any chest heaviness, pressure, tightness, or pain. Denies dyspnea at rest, paroxysmal nocturnal dyspnea, or orthopnea. Denies orthostasis, syncope, near syncope, vertigo, lightheadedness, or dizziness. Denies any other discomforts. Denies dysuria, urgency, frequency , or hematuria. Denies diarrhea or constipation. It is unclear to me how much insight he has into when his social workers are trying to help achieve for him. Exam Narrative: Exam Narrative: Appears comfortable, no acute distress. Alert, oriented to self, place, time. Lungs are clear to auscultation. Heart tones with regular rhythm. Abdomen is benign. Extremities without edema. Const: Vital Signs, click to edit/add: Vital Signs - 24 hr 10/24/22 19:00 03/27/22 23:00 03/27/22 23:00 Temperature 97.9 F Pulse Rate [Left P ulse Oximeter] 62 62 Respiratory Rate 20 20 20 Blood Pressure [Le ft Arm] 129/62 Blood Pressure [Ri ght Arm] Pulse Oximetry 94 Oxygen Delivery Me thod Room Air 03/27/22 23:30 03/28/22 06:00 03/28/22 08:30 Temperature 97.9 F Pulse Rate [Left P ulse Oximeter] 60 Respiratory Rate 20 20 18 Blood Pressure [Le ft Arm] Blood Pressure [Ri ght Arm] 133/62 Pulse Oximetry 95 Oxygen Delivery Me thod Room Air 03/28/22 12:40 Temperature 97.1 F L Pulse Rate [Left P ulse Oximeter] 63 Respiratory Rate 18 Blood Pressure [Le ft Arm] Blood Pressure [Ri ght Arm] 125/63 Pulse Oximetry 94 Oxygen Delivery Me thod Room Air Documenting provider has reviewed patient's vital signs: yes
[2022-03-28] MEDS: ENOXAPARIN 40 MG/0.4 ML INJ SUBCUT (21:12)
--- NOTE | 2022-03-28 22:11 | PC.NURSE ---
End of Shift: Patient pleasant and cooperative. Patient vitally stable, lungs clear, BS WNL, No IV. Patient denies pain and sat in chair all shift. Patient tolerating regular diet, but not with great appetite, patient ate ice cream and some mac and cheese then video game script writer fed rest of mac and cheese to patient so patient had a reasonable dinner. Whiteboard used for communication. Patient 1 assist, walker, gb. Patient's brief changed for incontinent urines. Patient brushed teeth then went to bed.
[2022-03-29] VITALS (8 sets, daily range): BP systolic 101–140; BP diastolic 62–88; PULSE 50–77; RESP 16–18; TEMP 36.3–36.9; O2SAT 94–96
[2022-03-29] MEDS: OMEPRAZOLE 20 MG CAPSULE DR PO (06:41)
--- NOTE | 2022-03-29 06:46 | PC.NURSE ---
23-23: pt pleasant and cooperative with cares. White board use for communication, pt usually nods or signs ?okay?. Incont. Brief changes in bed. No BM. VS WNL.
[2022-03-29] MEDS: POTASSIUM CHLORIDE 10 MEQ CAPSULE ER 20 MEQ PO (09:35)
[2022-03-29] MEDS: ATORVASTATIN CALCIUM 40 MG TABLET PO (09:36)
[2022-03-29] MEDS: ESCITALOPRAM 10 MG TABLET 5 MG PO (09:36)
[2022-03-29] MEDS: METOPROLOL TARTRATE 25 MG TABLET PO ×2 (09:37→19:58)
[2022-03-29] MEDS: timoloL maleate 0.5 % 1 DROP EYE-BOTH (09:38)
[2022-03-29] MEDS: ASPIRIN 81 MG TABLET EC PO (09:38)
--- NOTE | 2022-03-29 12:43 | PM.IMPN1 ---
Progress Note: A&P Assessment and plan (1) Alzheimer's dementia with behavioral disturbance: Problem details: No agitation or impulsivity. Vulnerable adult report filed 03/17/2022. Expressed apathy/depression on 03/24/22, started Lexapro at that time. Status: Chronic (2) Generalized weakness: Problem details: multifactorial; covid, dementia, age Status: Acute (3) Hypertension: Problem details: Stopped lisinopril 2/2 hypotension 03/25/22 Status: Chronic (4) Deafness: Problem details: Congenital - Mother had Marshallese Measles during Status: Chronic (5) COVID-19: Problem details: Resolved. Symptom onset and + COVID PCR 03/07/22 Status post Remdesivir x3 days Status: Resolved (6) Right-sided chest pain: Problem details: Noted on 03/24, resolved. X-ray and CT within normal limits Status: Acute (7) Prostate cancer metastatic to bone: Problem details: Will stop his Xtandi. Status: Chronic Subjective Date Seen: 03/29/22 Interval history: Daily Progress Note - Hospital Medicine Day #: 11 CC: Generalized weakness, cognitive decline OVERNIGHT UPDATES FROM STAFF & MED, LAB, IMAGING UPDATES Jacque appears at his baseline. Nursing reports no concerns. There is administrative delays and financial hurdles to be past before he can be moved to our long-term care unit. Medically he is stable and receiving supportive care. Review of Systems: See subjective Cardiac: No new chest pain/pressure/palpitations. Respiratory: no new dyspnea. GI: No abdominal bloating Objective: Vitals: Reviewed Lungs: Clear. Cardiac: S1S2. Disposition/Potential discharge - Likely to return to previous living situation. Total time is 35 minutes with greater than 50% spent in counseling and coordination of care. . Exam Const: Vital Signs, click to edit/add: Vital Signs - 24 hr 03/28/22 15:00 03/28/22 15:00 03/28/22 19:00 Temperature 98.5 F 98.2 F Pulse Rate [Left P ulse Oximeter] 65 65 65 Respiratory Rate 20 20 16 Blood Pressure [Ri ght Arm] 130/65 130/70 Pulse Oximetry 94 94 Oxygen Delivery Me thod Room Air Room Air 03/28/22 23:00 03/28/22 23:30 03/29/22 03:00 Temperature 97.4 F L Pulse Rate [Left P ulse Oximeter] 62 Respiratory Rate 18 18 18 Blood Pressure [Ri t Arm] 111/62 Pulse Oximetry 95 Oxygen Delivery Me thod Room Air 03/29/22 06:00 03/29/22 07:30 03/29/22 11:00 Temperature 97.7 F 97.9 F Pulse Rate [Left P ulse Oximeter] 62 50 L Respiratory Rate 18 16 16 Blood Pressure [Located within [facility] Arm] 132/78 101/88 Pulse Oximetry 95 96 Oxygen Delivery Me thod Room Air Room Air
--- NOTE | 2022-03-29 14:04 | PC.NURSE ---
Pt calm and cooperative with cares. VS stable. Appetite improved. No dysphagia with meds. Jyothi is aware manager packaging will arrive at 2pm today. Assisted pt with ordering his meals. Up to recliner. Report given to Lidya Kincaid RN who assumed care of this patient at 11:25 am. The Daily Muse board used to communicate with pt who is deaf and his hearing impaired .
--- NOTE | 2022-03-29 16:03 | PC.SOCIAL ---
Completed Preadmission screening for pt to admit to [facility] on 03/30/2022. Confirmation #[id number].
--- NOTE | 2022-03-29 16:04 | PC.SOCIAL ---
Discharge planning- Met with pt and pt's , Jyothi Alfredn, in pt's room. In person electrode cleaner, Mariella, was in meeting to provide interpretation services. Provided pt's , Jyothi, with a printed copy of the discussion. Informed pt and pt's that pt has been accepted to the [facility]. Informed pt and pt's that since pt does not have a skilled need for SNF the Medicare insurance would not cover the custodial stay. Informed that this worker submitted the [employer] Former Supervisor Care Services application to [facility] yesterday (03/29/2022). Informed that based on the financial information provided by pt's the [facility] may require a spend down, but that will be decided by [facility]. Informed that for pt to go to [facility] they will have to private pay $7,500.00 up front upon admission. Informed that the first 30 days of the stay will cost approximately $408.65 a day. Informed that after 30 days the cost will be $340.54 a day. Informed that it is pt's financial responsibility to pay the monthly cost of care privately until a decision is made on the status of the AR for Long-term care services is made. Provided pt's with the phone number to [facility]. Informed that it is the medical recommendation that pt receive SNF level of care at this time. Pt's voiced concerns that they would spend all of their money right away and not have any money left. Pt's was concerned that she would not have any finances to live on at their home. Informed that she could reach out to [facility] on any questions she may have as [facility] will make the determination. Informed Pt and pt's if they decide to move pt to LT they would need to initially pay the $7,500.00. Pt and pt's discussed and stated they would like pt to move to [facility] as soon as possible. Pt's stated that she will come tomorrow with a check for the $7,500.00. Checked with [facility] staff and they are willing to accept pt for admission tomorrow (03/30/22) at 8:00 am. In person physiognomist will be available from 8-9 am. Pt's states she will arrive at the [facility] at 7:00am. Provided update to . Phone call to [employer]. at [phone]. Provided an update that [facility] and [facility] Health Care services are no longer needed for pt.
[2022-03-29] MEDS: ACETAMINOPHEN 325 MG TABLET 650 MG PO (19:19)
[2022-03-29] MEDS: ENOXAPARIN 40 MG/0.4 ML INJ SUBCUT (19:58)
--- NOTE | 2022-03-29 23:54 | PC.NURSE ---
Shift unremarkable. Pt to d/c to LTCC tomorrow at 0800. Engine Dynamometer Tester will be available from [phone]. Ambulated from room to double door entrance to M/S unit and back without difficulty. Shaved prior to HS per 's request. PRN tylenol given for low back pain.
[2022-03-30 05:26] VITALS: RESP 18
--- NOTE | 2022-03-30 06:05 | PC.NURSE ---
23-07: shift unremarkable. Pt to transfer to our LTCC at 8am.
[2022-03-30] MEDS: OMEPRAZOLE 20 MG CAPSULE DR PO (06:30)
[2022-03-30 07:49] VITALS: BP 123/63; PULSE 62; RESP 16; TEMP 36.6; O2SAT 94
--- NOTE | 2022-03-30 08:22 | PC.NURSE ---
Pt. discharged/transferred to [facility] at 0820. system support developer, Mariella, present and utilized for discharge/transfer process. [id number] report given to Nurse Tatiana at [facility].
--- NOTE | 2022-04-03 11:44 | PM.DS1 ---
DS: Providers Provider Time Seen by Provider: 08:00 Date Seen: 03/30/22 Date of admission: 03/21/22 11:51 Primary care physician: Clovis Turk MD Admitting Clinician: Doris Ahumada MD Consults: 03/19/22 13:00 Consult to Occupational Therapy [CONS] Routine Comment: Reason(s) for OT Consult:: Difficulty Managing ADLs Any Restrictions?:: No Restrictions Consult to Physical Therapy [CONS] Routine Comment: Reason(s) for PT Consult:: Evaluate Ambulation Any Restrictions?:: No Restrictions 03/19/22 13:49 Consult to Physical Therapy [CONS] Routine Comment: Reason(s) for PT Consult:: Evaluate and Treat Any Restrictions?:: No Restrictions Consult to Drying Machine Back Tender [CONS] Routine Comment: Reason for Consult:: Discharge Planning Needs 03/19/22 13:52 Consult to Occupational Therapy [CONS] Routine Comment: Reason(s) for OT Consult:: Evaluate and Treat Any Restrictions?:: No Restrictions Attending Physician on discharge: Miki Ortega MD Date of Discharge: 03/30/22 DS: Diagnosis Discharge Diagnosis (1) Generalized weakness: Status: Acute Problem details: multifactorial; covid, dementia, age (2) Prostate cancer metastatic to bone: Status: Chronic Problem details: Will stop his Xtandi. (3) MAGALYS (obstructive sleep apnea): Status: Acute Problem details: 04/30/2018 AHI-27, positional and stage dependent with central apneas on treatment (4) Deafness: Status: Chronic Problem details: Congenital - Mother had Citizen Of [place] Measles during (5) Hypertension: Status: Chronic Problem details: Stopped lisinopril 2/2 hypotension 03/25/22 DS: Summary Hospital Course Hospital Course: Tony Lora is a 81 year old man who is being readmitted to the hospital after having been discharged yesterday.? His summoned EMS help because he was so weak in the home and unable to get out of bed.? EMS measured a temperature of 101? F and room air oxygen saturation of 89%.? By the time he arrives here at hospital his temperature is 98.2? F and his room air oxygen saturations 95%.? He appears comfortable and is not using any accessory muscles of respiration.? indicates that she is not able to care for him in their home when he is so weak that he is not able to care for himself and move.? For safety's sake, patient is admitted to the hospital under observation as we further assess the patient and consider alternative discharge disposition options. Patient was admitted to the hospital on 03/07/2022 with weakness, cough, hypoxemia.? He tested positive for COVID-19.? Treated with 3 days of remdesivir.? Over time his oxygen saturations normalized.? His strength gradually returned.? Was able to walk in the hallways in the hospital with use of walker.? Discussion was undertaken prior to discharge about safe discharge plan.? Recommendations were made for patient to be discharged to fpc facility for rehabilitation purposes.? Despite these discussions and recommendations that patient and opted to be discharged back to his home with home health care as well as in-home physical and occupational therapy.? Prior discharge vulnerable adult report was filed with the county. indicates to our emergency department physician that the patient has not moved since he got back home.? She indicates she is not able to help him in this weak states that he is currently in.? Hence patient is admitted to the hospital under observation status as we continue to assess him and consider alternate, safer living arrangements. In the emergency department patient's depends diaper was changed.? He was found to have large amount of stool and urine in his depends diapers.? It appears as though his depends diaper has not been changed since he left the hospital yesterday.? In-hospital the main thrust of our efforts were directed toward trying to find a safe place for him to live. After multiple hurdles the discharge plan specified below was finally made. On the date of discharge, I spoke with and examined the patient with the help and support from our signal tower operator who was present. He indicates he feels well.? Denies any concerns.? Indicates he is getting enough to eat and has no nausea or vomiting or abdominal pain or dyspepsia.? He indicates he is satisfied and ready to be discharged when we are able to find a place for him to safely move to.? Denies any chest heaviness, pressure, tightness, or pain.? Denies dyspnea at rest, paroxysmal nocturnal dyspnea, or orthopnea.? Denies orthostasis, syncope, near syncope, vertigo, lightheadedness, or dizziness.? Denies any other discomforts.? Denies dysuria, urgency, frequency, or hematuria.? Denies diarrhea or constipation. Time Spent with Patient Time attestation: Total time spent providing and/or coordinating discharge services: Time spent: Less than 30 minutes Exam Narrative: Exam Narrative: Appears comfortable, no acute distress. Alert, oriented to self, place, time. Lungs are clear to auscultation. Heart tones with regular rhythm.? Abdomen is benign.? Extremities without edema. Const: Documenting provider has reviewed patient's vital signs: yes Discharge Plan Discharge Disposition: [facility] Date of Admission: 03/21/22 11:51 Attending Provider on Discharge: Miki Ortega Primary Care Provider: Clovis Turk Condition: Stable Anticipated Discharge Date/Time: 03/30/22 08:00 Discharge Medications: New escitalopram oxalate 10 mg Tablet 10 mg PO DAILY Qty: 30 0RF potassium chloride 10 mEq Capsule, Extended Release 20 meq PO DAILY Qty: 60 0RF Continued atorvastatin 40 mg tablet 40 mg PO DAILY Label Comments: TAKE 1 TABLET BY MOUTH ONCE DAILY. timolol maleate 0.5 % drops 1 drp ophthalmic (eye) QAM Label Comments: INSTILL 1 DROP INTO BOTH EYE(S) EVERY MORNING latanoprost 0.005 % drops 1 drp ophthalmic (eye) HS Label Comments: INSTILL 1 DROP INTO BOTH EYES ONCE DAILY IN THE EVENING omeprazole 20 mg capsule,delayed release(DR/EC) 20 mg PO DAILY lisinopril 2.5 mg tablet 2.5 mg PO HS Label Comments: TAKE 1 TABLET (2.5 MG) BY MOUTH ONCE DAILY. metoprolol tartrate 25 mg tablet 25 mg PO BID Label Comments: TAKE 1 TABLET (25 MG) BY MOUTH 2 TIMES DAILY. omega 9-mnr-qkz-fish oil [Fish Oil] 1,200 (144-216) mg capsule 1 cap PO DAILY cyanocobalamin (vitamin B-12) [Vitamin B-12] 250 mcg tablet 250 mcg PO BID aspirin 81 mg tablet,delayed release (DR/EC) 81 mg PO DAILY calcium carbonate-vitamin D3 [Calcium 500 + D] 500 mg-5 mcg (200 unit) tablet 1 tab PO DAILY cholecalciferol (vitamin D3) [Vitamin D3] 25 mcg (1,000 unit) tablet 25 mcg PO DAILY Discontinued Xtandi 40 mg tablet See Rx Instructions PO QDAY Rx Instructions: alternates 80mg with 40 mg every other day orally every day; Discharge Orders: Discharge Order (Routine); Ordered 03/30/22 Ordered By: Lisa Elizondo Additional Instructions: Additional Orders: Code Status: DNR DNI Physical Therapy: Yes, safe transfer and fall prevention Occupational Therapy: Yes, safe transfer and fall prevention, increase independence Instructions for feeds (do they need to be thickened?): No specific modifications, pre cut meal will increase independence Activity limitations or suggestions: Standby assist with walker Oxygen order: No, on room air Activity Level: Activity as Tolerated Discharge Diet: Regular Follow Up Appointments: Clovis Turk MD [Primary Care Provider] - Forms: [facility] Info Instructions
== END 2022-03-30 08:20 | DRG 947 ==
LOC: ED 12:00 → MEDSURG 12:21
PROVIDERS: Family Medicine; Internal Medicine; Admitting Provider Family Medicine; Emergency Provider Emergency Medicine Emergency Medical Services; PCP Family Medicine; Visit Provider Family Medicine
DX: R53.1 Weakness (principal); U07.1 COVID-19; C79.51 Secondary malignant neoplasm of bone; F02.818 Dementia in other diseases classified elsewhere, unspecified severity, with other behavioral disturbance; N13.30 Unspecified hydronephrosis; C61 Malignant neoplasm of prostate; R07.9 Chest pain, unspecified; G47.33 Obstructive sleep apnea (adult) (pediatric); H90.5 Unspecified sensorineural hearing loss; G30.9 Alzheimer's disease, unspecified; I25.10 Atherosclerotic heart disease of native coronary artery without angina pectoris; I12.9 Hypertensive chronic kidney disease with stage 1 through stage 4 chronic kidney disease, or unspecified chronic kidney disease; N18.31 Chronic kidney disease, stage 3a; I48.91 Unspecified atrial fibrillation; K21.9 Gastro-esophageal reflux disease without esophagitis; H40.9 Unspecified glaucoma; N32.0 Bladder-neck obstruction; E78.2 Mixed hyperlipidemia; I25.2 Old myocardial infarction; I73.9 Peripheral vascular disease, unspecified; F32.A Depression, unspecified
CPT/HCPCS: 36415; 71045; 74176; 80048; 81001; 83605; 84443; 85025; 87040; 87086; 87631; 97116; 97161; 97165; 97530; 97535; 99284; A9270; G0378; J1650

== ENCOUNTER 2022-03-30 07:18 | Inpatient (IN) | payer MEDICAID, SELFPAY, OTHER ==
[2022-03-30 09:16] VITALS: BP 115/70; PULSE 67; RESP 16; TEMP 36.6; O2SAT 95
[2022-03-30 09:21] VITALS: TEMP 36.6; O2SAT 95
--- NOTE | 2022-03-30 10:02 | LTC.ADM ---
LTC Admission Note: o Admit from:[facility] med Surg o Mode of transport: w/c o Accompanied by: o Transferred via:Hospital staff o Admitting dx:Alzheimer dementia with behaviors. o Mentation: Alert and forgetful at times. o Vital Signs:Temp 97.8, BP 115/70, R16, O2 sat 95% on room air, P67 o Lung sounds: clear on all 4 Lobs o Overall condition: Resident was alert and able to respond with thumbs up when taking vitals. Resident wearing his mask on as well as his . o Pain: Denied pain o Mood/Behavior: Stable, pleasant and cooperative. o Wound care: Mepilex dressing on rt buttocks. Skin will be assess with evening shift. o Assistance level with ADL?s: Resident needs assist of on with one for transfer using walker. Therapy will assess. o Mobility: Assist of one with walker o Eating: regular diet, Independent with eating. Resident will eat in his room at this time.
--- NOTE | 2022-03-30 11:43 | PC.PHA ---
Pharmacy Note: Renal Dosing of Oseltamivir: Treatment:30 mg po Bid for 5 days Prophylaxis:30 mg po Daily for 14 days or longer (see policy)
[2022-03-30 13:29] VITALS: BP 135/79; PULSE 68; RESP 18; TEMP 36.4; O2SAT 96
--- NOTE | 2022-03-30 13:34 | LTC.ADM ---
LTC Admission Note: o Admit from: o Mode of transport: o Accompanied by: o Transferred via: o Admitting dx: o Mentation: o Vital Signs: o Lung sounds: o Overall condition: o Pain: o Mood/Behavior: o Wound care: o Assistance level with ADL?s: o Mobility: o Eating:
--- NOTE | 2022-03-30 13:35 | PC.NURSE ---
vital signs WNL. No indication of pain/ discomfort noted or reported. Resident continues to in his room siting quietly. He ate poorly for lunch, staff offered snack which he enjoyed it. Will encourage rest and repositioning.
[2022-03-30 13:42] VITALS: TEMP 36.4; O2SAT 96
--- NOTE | 2022-03-30 13:43 | PC.NURSE ---
PROCUREMENT OFFICER observed to right buttocks and noted slightly redness. Will apply protective cream per PROCUREMENT OFFICER BID or as needed..
[2022-03-30 15:28] VITALS: BP 147/72; PULSE 65; RESP 16; TEMP 36.2; O2SAT 98
[2022-03-30] MEDS: CYANOCOBALAMIN (VITAMIN B-12) 500 MCG TABLET 250 MCG PO (16:01)
[2022-03-30] MEDS: METOPROLOL TARTRATE 25 MG TABLET PO (16:02)
[2022-03-30] MEDS: ATORVASTATIN CALCIUM 40 MG TABLET PO (19:21)
[2022-03-30] MEDS: lisinopriL 2.5 MG TABLET PO (19:21)
[2022-03-30] MEDS: LATANOPROST 0.005% OPHTH 1 DROP EYE-BOTH (19:21)
[2022-03-30 20:59] VITALS: BP 127/79; PULSE 59; RESP 14; TEMP 36.3; O2SAT 94
--- NOTE | 2022-03-30 21:38 | PC.NURSE ---
Admit status: Resident up in chair watching TV. White board utilized for communication. VSS and denies pain. Ate dinner in room. 2x2.5cm scab noted on L hand. Resident did attempt to self transfer x2. Bed and Chair alarm initiated. Resident reminded to use call light by staff. Incontinent of urine.
[2022-03-31] VITALS: BP 121/76; PULSE 60; RESP 16; TEMP 36.4; O2SAT 95
[2022-03-31 04:00] VITALS: BP 119/73; PULSE 58; RESP 14; TEMP 36.5; O2SAT 94
--- NOTE | 2022-03-31 05:40 | PC.NURSE ---
Admit status: Was awake watching TV in bed until about midnight. Slept well remainder of shift. Denies pain when asked. VSS. No attempts to self-transfer through the night. Pleasant and cooperative. No concerns.
[2022-03-31] MEDS: OMEPRAZOLE 20 MG CAPSULE DR PO (06:46)
[2022-03-31] MEDS: ASPIRIN 81 MG TABLET EC PO (07:57)
[2022-03-31] MEDS: POTASSIUM CHLORIDE 10 MEQ CAPSULE ER 20 MEQ PO (07:58)
[2022-03-31] MEDS: CYANOCOBALAMIN (VITAMIN B-12) 500 MCG TABLET 250 MCG PO ×2 (07:58→15:34)
[2022-03-31] MEDS: timoloL maleate 0.5 % 1 DROP EYE-BOTH (07:58)
[2022-03-31] MEDS: METOPROLOL TARTRATE 25 MG TABLET PO ×2 (07:58→15:34)
[2022-03-31] MEDS: ATORVASTATIN CALCIUM 40 MG TABLET PO (10:08)
[2022-03-31] MEDS: ESCITALOPRAM 10 MG TABLET PO (10:08)
[2022-03-31 10:46] VITALS: BP 107/67; PULSE 74; RESP 20; TEMP 36.4; O2SAT 94
--- NOTE | 2022-03-31 11:21 | PC.NURSE ---
Physician Visit: Resident seen by Dr. Le. Orders/chart reviewed. Order: Please help arrange oncology appt. with Dr. Sutton, Cloud Engagement Partner to see re: appetite and low weight.
--- NOTE | 2022-03-31 16:49 | PC.NURSE ---
Week #4: Resident has been diagnosed with low mood is on Lexapro 10mf PO Daily. Temporary care plan reviewed, nothing added. Resident is deaf, wears corrective lenses, has forgetfulness.
[2022-03-31] MEDS: lisinopriL 2.5 MG TABLET PO (19:47)
[2022-03-31] MEDS: LATANOPROST 0.005% OPHTH 1 DROP EYE-BOTH (19:47)
[2022-04-01] MEDS: OMEPRAZOLE 20 MG CAPSULE DR PO (07:23)
[2022-04-01] MEDS: CYANOCOBALAMIN (VITAMIN B-12) 500 MCG TABLET 250 MCG PO ×2 (08:35→15:15)
[2022-04-01] MEDS: METOPROLOL TARTRATE 25 MG TABLET PO ×2 (08:35→15:15)
[2022-04-01] MEDS: ATORVASTATIN CALCIUM 40 MG TABLET PO (08:35)
[2022-04-01] MEDS: ESCITALOPRAM 10 MG TABLET PO (08:35)
[2022-04-01] MEDS: ASPIRIN 81 MG TABLET EC PO (08:35)
[2022-04-01] MEDS: timoloL maleate 0.5 % 1 DROP EYE-BOTH (08:35)
[2022-04-01] MEDS: POTASSIUM CHLORIDE 10 MEQ CAPSULE ER 20 MEQ PO (08:35)
[2022-04-01] MEDS: LATANOPROST 0.005% OPHTH 1 DROP EYE-BOTH (19:53)
[2022-04-01] MEDS: lisinopriL 2.5 MG TABLET PO (19:53)
[2022-04-02] MEDS: OMEPRAZOLE 20 MG CAPSULE DR PO (06:40)
[2022-04-02] MEDS: ASPIRIN 81 MG TABLET EC PO (08:19)
[2022-04-02] MEDS: CYANOCOBALAMIN (VITAMIN B-12) 500 MCG TABLET 250 MCG PO ×2 (08:19→15:24)
[2022-04-02] MEDS: ATORVASTATIN CALCIUM 40 MG TABLET PO (08:19)
[2022-04-02] MEDS: ESCITALOPRAM 10 MG TABLET PO (08:20)
[2022-04-02] MEDS: METOPROLOL TARTRATE 25 MG TABLET PO ×2 (08:20→15:24)
[2022-04-02] MEDS: POTASSIUM CHLORIDE 10 MEQ CAPSULE ER 20 MEQ PO (08:20)
[2022-04-02] MEDS: timoloL maleate 0.5 % 1 DROP EYE-BOTH (08:20)
[2022-04-02] MEDS: lisinopriL 2.5 MG TABLET PO (19:26)
[2022-04-02] MEDS: LATANOPROST 0.005% OPHTH 1 DROP EYE-BOTH (19:26)
[2022-04-03] MEDS: OMEPRAZOLE 20 MG CAPSULE DR PO (07:30)
[2022-04-03] MEDS: ATORVASTATIN CALCIUM 40 MG TABLET PO (08:58)
[2022-04-03] MEDS: ASPIRIN 81 MG TABLET EC PO (08:58)
[2022-04-03] MEDS: CYANOCOBALAMIN (VITAMIN B-12) 500 MCG TABLET 250 MCG PO ×2 (08:59→15:31)
[2022-04-03] MEDS: METOPROLOL TARTRATE 25 MG TABLET PO ×2 (08:59→15:31)
[2022-04-03] MEDS: ESCITALOPRAM 10 MG TABLET PO (08:59)
[2022-04-03] MEDS: POTASSIUM CHLORIDE 10 MEQ CAPSULE ER 20 MEQ PO (09:00)
[2022-04-03] MEDS: timoloL maleate 0.5 % 1 DROP EYE-BOTH (09:00)
[2022-04-03] MEDS: lisinopriL 2.5 MG TABLET PO (19:22)
[2022-04-03] MEDS: LATANOPROST 0.005% OPHTH 1 DROP EYE-BOTH (19:22)
--- NOTE | 2022-04-03 21:53 | PC.NURSE ---
FYI: Approximately 1929, resident requested a call made to his to pick him up tomorrow because he wanted to go home, thus he refused to sleep. Telephone call was made, but was out of reach. Resident was redirected, offered his favorite beverage (warm coffee), engaged him in activities, and spent time with him at the nurse station. Resident requested to go back to bed around 2029, and is sleeping at this time. Interventions were effective.
[2022-04-04] MEDS: OMEPRAZOLE 20 MG CAPSULE DR PO (08:00)
[2022-04-04] MEDS: METOPROLOL TARTRATE 25 MG TABLET PO ×2 (08:01→15:39)
[2022-04-04] MEDS: ESCITALOPRAM 10 MG TABLET PO (08:01)
[2022-04-04] MEDS: POTASSIUM CHLORIDE 10 MEQ CAPSULE ER 20 MEQ PO (08:01)
[2022-04-04] MEDS: timoloL maleate 0.5 % 1 DROP EYE-BOTH (08:02)
[2022-04-04] MEDS: CYANOCOBALAMIN (VITAMIN B-12) 500 MCG TABLET 250 MCG PO ×2 (08:03→15:39)
[2022-04-04] MEDS: ATORVASTATIN CALCIUM 40 MG TABLET PO (08:03)
[2022-04-04] MEDS: ASPIRIN 81 MG TABLET EC PO (08:03)
--- NOTE | 2022-04-04 12:00 | PC.SPIRITC ---
provided visit for hospitality and introduction.
--- NOTE | 2022-04-04 13:03 | PC.NURSE ---
Addendum entered by Tracie Boo RN 04/04/22 13:22: LEAD C DEVELOPER ordered to complete blood pressure checks 3x/week x 1 week. Original Note: Order: Polyethylene glycol 17gm PO daily by LEAD C DEVELOPEREdgar.
[2022-04-04 17:01] VITALS: BP 148/71
[2022-04-04] MEDS: LATANOPROST 0.005% OPHTH 1 DROP EYE-BOTH (19:19)
[2022-04-04] MEDS: lisinopriL 2.5 MG TABLET PO (19:20)
--- NOTE | 2022-04-04 21:13 | PC.NURSE ---
Resident refused to change clothing HS, states he gets cold at night and wanted to leave on PJ bottoms and sweatshirt.
[2022-04-05] MEDS: OMEPRAZOLE 20 MG CAPSULE DR PO (07:10)
[2022-04-05] MEDS: timoloL maleate 0.5 % 1 DROP EYE-BOTH (07:19)
[2022-04-05] MEDS: polyethylene glycoL 3350 17 GM PACK PO (07:19)
[2022-04-05] MEDS: CYANOCOBALAMIN (VITAMIN B-12) 500 MCG TABLET 250 MCG PO ×2 (08:52→15:42)
[2022-04-05] MEDS: ATORVASTATIN CALCIUM 40 MG TABLET PO (08:52)
[2022-04-05] MEDS: ESCITALOPRAM 10 MG TABLET PO (08:52)
[2022-04-05] MEDS: METOPROLOL TARTRATE 25 MG TABLET PO ×2 (08:52→15:42)
[2022-04-05] MEDS: POTASSIUM CHLORIDE 10 MEQ CAPSULE ER 20 MEQ PO (08:52)
[2022-04-05] MEDS: ASPIRIN 81 MG TABLET EC PO (08:52)
[2022-04-05 10:33] VITALS: BP 102/67
[2022-04-05 15:02] VITALS: BMI 18.5
--- NOTE | 2022-04-05 16:29 | PC.SOCIAL ---
Social work: At 's request, contacted [facility] to let them know that resident is at the [facility]. They have a maple nurse who visits halfway residents. is requesting resident be able to watch the remote services provided by the [facility]. Spoke with Teresa at [facility] who shared that the mass is always live streamed with closed captioning and that an in person diplomatic interpreter/translator is at the [facility] when requested for in-person attendance. Teresa states she will look into whether an diplomatic interpreter/translator can provide interpreting of the mass for remote viewing. Spoke with by phone who is aware this request has been made to [facility]. states she is planning to be at the [facility] to visit resident early tomorrow morning and will be there all day. is requesting to meet with the criminal justice social worker during the day. Scheduled Care Conference for 10:00am on 04/06/22 and scheduled in-person diplomatic interpreter/translator to attend this care conference. Left message for with the meeting information using the phone diplomatic interpreter/translator.
[2022-04-05] MEDS: lisinopriL 2.5 MG TABLET PO (19:56)
[2022-04-05] MEDS: LATANOPROST 0.005% OPHTH 1 DROP EYE-BOTH (19:58)
[2022-04-06] MEDS: OMEPRAZOLE 20 MG CAPSULE DR PO (06:35)
[2022-04-06] MEDS: ESCITALOPRAM 10 MG TABLET PO (08:12)
[2022-04-06] MEDS: ASPIRIN 81 MG TABLET EC PO (08:12)
[2022-04-06] MEDS: CYANOCOBALAMIN (VITAMIN B-12) 500 MCG TABLET 250 MCG PO ×2 (08:12→15:46)
[2022-04-06] MEDS: ATORVASTATIN CALCIUM 40 MG TABLET PO (08:12)
[2022-04-06] MEDS: POTASSIUM CHLORIDE 10 MEQ CAPSULE ER 20 MEQ PO (08:13)
[2022-04-06] MEDS: METOPROLOL TARTRATE 25 MG TABLET PO ×2 (08:13→15:46)
[2022-04-06] MEDS: timoloL maleate 0.5 % 1 DROP EYE-BOTH (08:13)
[2022-04-06] MEDS: polyethylene glycoL 3350 17 GM PACK PO (08:13)
--- NOTE | 2022-04-06 10:00 | PC.NURSE ---
CARE CONFERENCE: In person historical interpreter service utilized for care conference. Care conference meeting held with all members of care team present except activities. Resident and present. Nursing reviewed that resident continues to need 1 assist with adls, transfers, mobility, and toileting. Is incontinent of urine. has questions regarding monthly payment amount and MA--SW is assisting with this. wonders if she needs to bring any of his home medications--nursing clarified that she does not need to bring any medications from home and that he has all of his medications delivered by [facility] so she does not need to worry about this. requests that resident goes to [facility] [employer] and wants him to have an historical interpreter--discussed that ANGÉLICA Bradley is working on this with [facility] (who provides virtual Yub service on Sundays). Dietary discussed snacks with resident and , notes that he really enjoys sweets and would like to see him offered snacks twice daily and wants a snack list created so that resident can point to staff what snack he wants--stained glass glazier helper will arrange this. Nursing discussed that resident has a follow up appointment with oncologist, Dr. Sutton on May.09-- is aware. Resident and wish for him to continue DNR/DNI status. Uses no restraints. Does use 2 side rails up to assist with positioning.? Resident is given medications by staff.? Vulnerable due to mobility limitations and hearing loss. Resident feels that his care is going well and is appreciative. No concerns or questions at this time.
--- NOTE | 2022-04-06 11:15 | PC.SOCIAL ---
Care Conference held today at 10:00 am for resident in resident's room. Resident's , Jyothi Lora, was present. In person plant technician, Mariella, was also present. Updates received from Janay in Nursing, Leticia in Nutrition, and this worker from social work. Resident's mood is stable and there are no concerns. Resident's requested resident to attend [facility] with an amphibian crewmember present. Resident's brought documentation for resident's Medical Assistance application. Needle Maker informed resident's that the documentation will need to go to [facility] Animal Care Service Worker as they are processing the application. This worker will call and confirm that [facility] received the MA application and provide resident's with the phone number to [facility]. Resident's voiced concerns of continuing to private pay such a large amount. Informed Resident's that [facility] will process the MA application and make a determination if resident qualifies.
[2022-04-06 17:08] VITALS: BP 118/70
[2022-04-06] MEDS: LATANOPROST 0.005% OPHTH 1 DROP EYE-BOTH (19:29)
[2022-04-06] MEDS: lisinopriL 2.5 MG TABLET PO (19:29)
--- NOTE | 2022-04-07 01:44 | PC.NURSE ---
Week #1: Not currently receiving any analgesics. Denies pain with no noted s/sx of pain. Admission care plan reviewed with no changes. Assist of 1 with ADLs. Is able to shave, complete oral cares, and eat independently after setup. No reported concerns with chewing or swallowing.
[2022-04-07] MEDS: OMEPRAZOLE 20 MG CAPSULE DR PO (06:53)
[2022-04-07] MEDS: ATORVASTATIN CALCIUM 40 MG TABLET PO (06:59)
[2022-04-07] MEDS: METOPROLOL TARTRATE 25 MG TABLET PO ×2 (06:59→15:57)
[2022-04-07] MEDS: CYANOCOBALAMIN (VITAMIN B-12) 500 MCG TABLET 250 MCG PO ×2 (06:59→15:56)
[2022-04-07] MEDS: ASPIRIN 81 MG TABLET EC PO (06:59)
[2022-04-07] MEDS: ESCITALOPRAM 10 MG TABLET PO (06:59)
[2022-04-07 07:00] VITALS: BMI 18.5
[2022-04-07] MEDS: polyethylene glycoL 3350 17 GM PACK PO (07:00)
[2022-04-07] MEDS: POTASSIUM CHLORIDE 10 MEQ CAPSULE ER 20 MEQ PO (07:00)
[2022-04-07] MEDS: timoloL maleate 0.5 % 1 DROP EYE-BOTH (07:00)
--- NOTE | 2022-04-07 07:00 | PC.NURSE ---
Week #1: Baseline care plan reviewed. No changes made. Nothing added to temporary care plan. Resident needs one assist with dressing, grooming and bathing. Encourage to participate. Is able to do oral cares after set up. Staff assist as needed. Feed independently after set up. Is on regular diet. No problems noted/reported with chewing or swallowing. Pain: No complain or s/s noted. Is not on any pain medication. May have Tylenol PSO as needed. Staff to continue with pain assessment q shift.
[2022-04-07 08:00] VITALS: BP 110/71; PULSE 58; RESP 18; TEMP 36.2; O2SAT 98
[2022-04-07 09:01] LABS: SARS PCR* Negative SARS-CoV-2 (Negative)
--- NOTE | 2022-04-07 11:27 | PC.SOCIAL ---
Received a phone call back from Lianet at [facility] Camera Supervisor ([phone]). Lianet informed that she did receive resident's MA application and asked if resident was in the hospital or LTCC. Left voicemail for Linaet at [facility] informing her that when the application was submitted to [facility], resident was admitted in the [facility]. Informed that resident has since transferred to LTCC and is currently a resident in [facility].
--- NOTE | 2022-04-07 14:17 | PC.SOCIAL ---
Met with Resident and resident's in resident's room. informed that resident is due for an eye exam. Called [facility] at [phone]. Scheduled annual eye exam for May at 10:20 am. [facility] staff informed that resident is due for an annual exam and also typically comes every 4 months to get pressure checks. Provided resident and resident's with appointment information. will transport resident to the appointment as she states she does not want to pay privately for resident to be transported to appointment. Added appointment to resident appointment book and informed Nursing staff.
[2022-04-07] MEDS: LATANOPROST 0.005% OPHTH 1 DROP EYE-BOTH (19:22)
[2022-04-07] MEDS: lisinopriL 2.5 MG TABLET PO (19:22)
[2022-04-08] MEDS: OMEPRAZOLE 20 MG CAPSULE DR PO (07:02)
[2022-04-08] MEDS: METOPROLOL TARTRATE 25 MG TABLET PO ×2 (08:56→15:34)
[2022-04-08] MEDS: polyethylene glycoL 3350 17 GM PACK PO (08:56)
[2022-04-08] MEDS: ESCITALOPRAM 10 MG TABLET PO (08:56)
[2022-04-08] MEDS: CYANOCOBALAMIN (VITAMIN B-12) 500 MCG TABLET 250 MCG PO ×2 (08:56→15:34)
[2022-04-08] MEDS: POTASSIUM CHLORIDE 10 MEQ CAPSULE ER 20 MEQ PO (08:56)
[2022-04-08] MEDS: timoloL maleate 0.5 % 1 DROP EYE-BOTH (08:56)
[2022-04-08] MEDS: ASPIRIN 81 MG TABLET EC PO (08:56)
[2022-04-08] MEDS: ATORVASTATIN CALCIUM 40 MG TABLET PO (08:56)
[2022-04-08 18:30] VITALS: BP 142/66; PULSE 59; RESP 16; TEMP 36.6; O2SAT 98
--- NOTE | 2022-04-08 18:30 | PC.NURSE ---
[facility] Fall Note: o Fall Date: o Fall Time: o What happened? o Who found the resident and who responded? o What was the resident doing? o How the resident was found (knees, left side, arm under them), any hazards (cords, objects, nonskid slippers) brakes on? Proper equipment? o Did you assess for head trauma, spinal injuries, skeletal injuries, neurological changes and status, and head and neck pain? What did you find? o Did you assess ROM in shoulders, elbows, hips, knees, any other affected areas, unless there is suspected spinal injury. o Did you Assess for pain or discomfort? o What are the injuries and how are they being treated? o How was the resident transferred from the floor? o Did you call the MD or put a note in the HEEL BRUSHER book? o Enter vital signs. o Did you notify family? o What was the root cause of the fall? Why did it happen? o Create an IMMEDIATE INTERVENTION to ensure that this won't immediately happen again. (Put in temporary care plan too) o Complete Safety report and huddle (now one form) o If resident is seen in ED or fractured something, note that you started a VA Report process. Instructions are at the East nurse's desk in a red binder labeled VA report.
--- NOTE | 2022-04-08 18:30 | PC.NURSE ---
[facility] Fall Note: o Fall Date: 04/08/22 o Fall Time:1830 o What happened? Resident self transferred into bathroom, fell when pivoting from wheelchair to toilet. o Who found the resident and who responded? Kaley (LOY)Catia (RN) o What was the resident doing? Self transferred into bathroom. Fell when pivoting from wheelchair to toilet. o How the resident was found (knees, left side, arm under them), any hazards (cords, objects, nonskid slippers) brakes on? Proper equipment? Resident was found sitting on floor next to toilet. Non-skip slipper on. Chair alarm active and alarming on wheelchair. o Did you assess for head trauma, spinal injuries, skeletal injuries, neurological changes and status, and head and neck pain? What did you find? Resident reported hitting head on drawer. No bleeding or open areas noted. Scalp was pink. o Did you assess ROM in shoulders, elbows, hips, knees, any other affected areas, unless there is suspected spinal injury. ROM assessed no injury noted. o Did you Assess for pain or discomfort? Resident denied pain o What are the injuries and how are they being treated? No injuries noted. Pain assessed with vitals o How was the resident transferred from the floor? Resident was assisted up from floor with gaitbelt and 2 staff assist. o Did you call the MD or put a note in the TUBE COVERER book? Note left for TUBE COVERER. o Enter vital signs. See vitals assessment. WNL o Did you notify family? Will notify family sunday, as computer equipment installer is needed. o What was the root cause of the fall? Why did it happen? Resident self transferred, did not use call light. Staff assisting other residents and were unable to respond to chair alarm beofre resident fell. o Create an IMMEDIATE INTERVENTION to ensure that this won't immediately happen again. (Put in temporary care plan too). Hourly rounding initiated.
[2022-04-08] MEDS: LATANOPROST 0.005% OPHTH 1 DROP EYE-BOTH (19:22)
[2022-04-08] MEDS: lisinopriL 2.5 MG TABLET PO (19:22)
[2022-04-08 19:34] VITALS: BP 124/55; PULSE 64; RESP 16; TEMP 36.9; O2SAT 95
[2022-04-08 21:20] VITALS: BP 126/75
[2022-04-08 21:22] VITALS: BP 107/62; PULSE 61; RESP 18; TEMP 36.4; O2SAT 96
--- NOTE | 2022-04-08 21:45 | PC.NURSE ---
Fall F/U: Resident resting comfortably in bed. Vital signs and neuros completed, WNL. Denies pain. No bruising noted, L side of scalp is pink, skin intact. Encouraged resident to use call light for assistance.
[2022-04-09] VITALS (7 sets, daily range): BP systolic 98–114; BP diastolic 50–67; PULSE 53–64; RESP 16–20; TEMP 36.1–36.8; O2SAT 94–98
--- NOTE | 2022-04-09 00:21 | PC.NURSE ---
Fall F/U at 2230 hours : Resident was sleeping. Neuro check are WNL. Vitals taken as follows : Temp 97.2, P 61, Resp 18, O2 96% (RA) and B/P 114/67. Denies headache and alert.
[2022-04-09] MEDS: OMEPRAZOLE 20 MG CAPSULE DR PO (07:48)
[2022-04-09] MEDS: polyethylene glycoL 3350 17 GM PACK PO (08:38)
[2022-04-09] MEDS: METOPROLOL TARTRATE 25 MG TABLET PO ×2 (08:38→16:02)
[2022-04-09] MEDS: CYANOCOBALAMIN (VITAMIN B-12) 500 MCG TABLET 250 MCG PO ×2 (08:38→16:02)
[2022-04-09] MEDS: ATORVASTATIN CALCIUM 40 MG TABLET PO (08:38)
[2022-04-09] MEDS: ESCITALOPRAM 10 MG TABLET PO (08:38)
[2022-04-09] MEDS: ASPIRIN 81 MG TABLET EC PO (08:38)
[2022-04-09] MEDS: POTASSIUM CHLORIDE 10 MEQ CAPSULE ER 20 MEQ PO (08:39)
[2022-04-09] MEDS: timoloL maleate 0.5 % 1 DROP EYE-BOTH (08:39)
--- NOTE | 2022-04-09 09:34 | PC.NURSE ---
Neuro Check - Pupils - equal, round, reactive to light, accommodating. BUE strength equal at baseline. BLE strenth equal at baseline. A&Ox4.
--- NOTE | 2022-04-09 13:26 | PC.NURSE ---
Neuro check - Pupils - equal, round, reactive to light, and accommodating. BUE strength equal at baseline. BLE strength equal at baseline. A&Ox4.
--- NOTE | 2022-04-09 17:00 | PC.NURSE ---
Fall F/U: Resident up in wheelchair, participated in ice cream social and activity. VSS and Neuro WNL. Denies pain.
[2022-04-09] MEDS: LATANOPROST 0.005% OPHTH 1 DROP EYE-BOTH (19:40)
[2022-04-09] MEDS: lisinopriL 2.5 MG TABLET PO (19:40)
--- NOTE | 2022-04-09 21:22 | PC.NURSE ---
Fall F/U: Resident resting in bed. Sleepy after afternoon activity. Refused dinner, reported mild nausea, which resolved after resting in room. Ate 100% of snack offered HS, yogurt and ice cream. VSS and Neuro WNL. Continues to deny pain. No bruising noted on L side of head.
[2022-04-10] VITALS (7 sets, daily range): BP systolic 92–110; BP diastolic 53–64; PULSE 57–71; RESP 16–24; TEMP 36.1–36.7; O2SAT 94–100
--- NOTE | 2022-04-10 01:16 | PC.NURSE ---
Fall F/U : Vital and neuro signs are WNL. Resident is alert and denies any pain.Pupils are equal and reactive to light.
[2022-04-10] MEDS: OMEPRAZOLE 20 MG CAPSULE DR PO (07:58)
[2022-04-10] MEDS: ESCITALOPRAM 10 MG TABLET PO (08:40)
[2022-04-10] MEDS: ASPIRIN 81 MG TABLET EC PO (08:40)
[2022-04-10] MEDS: METOPROLOL TARTRATE 25 MG TABLET PO ×2 (08:40→16:13)
[2022-04-10] MEDS: CYANOCOBALAMIN (VITAMIN B-12) 500 MCG TABLET 250 MCG PO ×2 (08:40→16:13)
[2022-04-10] MEDS: ATORVASTATIN CALCIUM 40 MG TABLET PO (08:40)
[2022-04-10] MEDS: polyethylene glycoL 3350 17 GM PACK PO (08:41)
[2022-04-10] MEDS: POTASSIUM CHLORIDE 10 MEQ CAPSULE ER 20 MEQ PO (08:41)
[2022-04-10] MEDS: timoloL maleate 0.5 % 1 DROP EYE-BOTH (08:41)
--- NOTE | 2022-04-10 09:25 | PC.NURSE ---
Neuro check - Pupils equal, round reactive to light, accommodating. BUE strength equal at baseline. BLE strength equal at baseline. A&Ox4.
--- NOTE | 2022-04-10 17:00 | PC.NURSE ---
Fall Follow-up: Resident is in the dinning room waiting on supper. Vital signs and Neuro checks finding are WNL. Denies pain at this time. No new concerns as related to fall incident.
--- NOTE | 2022-04-10 17:09 | PC.NURSE ---
Fall F/U: Resident up in his recliner.. VSS and Neuro WNL. Denies pain at this time. No new concerns as related to fall incident.
[2022-04-10] MEDS: LATANOPROST 0.005% OPHTH 1 DROP EYE-BOTH (19:38)
[2022-04-10] MEDS: lisinopriL 2.5 MG TABLET PO (19:38)
--- NOTE | 2022-04-10 20:43 | PC.NURSE ---
Fall Follow-up: Resident is in bed. Vital signs and Neuro checks finding are WNL. Denies pain at this time. No new concerns as related to fall incident.
[2022-04-11 02:56] VITALS: BP 101/48; PULSE 55; RESP 18; TEMP 36.5; O2SAT 95
[2022-04-11 05:04] VITALS: BP 104/64; PULSE 59; RESP 18; TEMP 36.6; O2SAT 96
[2022-04-11] MEDS: OMEPRAZOLE 20 MG CAPSULE DR PO (07:46)
[2022-04-11] MEDS: ESCITALOPRAM 10 MG TABLET PO (08:50)
[2022-04-11] MEDS: timoloL maleate 0.5 % 1 DROP EYE-BOTH (08:50)
[2022-04-11] MEDS: polyethylene glycoL 3350 17 GM PACK PO (08:50)
[2022-04-11] MEDS: ATORVASTATIN CALCIUM 40 MG TABLET PO (08:50)
[2022-04-11] MEDS: POTASSIUM CHLORIDE 10 MEQ CAPSULE ER 20 MEQ PO (08:50)
[2022-04-11] MEDS: CYANOCOBALAMIN (VITAMIN B-12) 500 MCG TABLET 250 MCG PO ×2 (08:50→15:44)
[2022-04-11] MEDS: METOPROLOL TARTRATE 25 MG TABLET PO ×2 (08:50→15:44)
[2022-04-11] MEDS: ASPIRIN 81 MG TABLET EC PO (08:50)
[2022-04-11 09:00] VITALS: BP 123/55; PULSE 68; RESP 16; TEMP 36.6; O2SAT 96
--- NOTE | 2022-04-11 09:44 | PC.NURSE ---
Neuro check - Pupils equal, round, reactive to light, accommodating. BUE strength equal at bseline. BLE strength equal at baseline. A&Ox4.
--- NOTE | 2022-04-11 10:50 | PC.NURSE ---
NEW ORDER per Tracey Hernández SAP ANALYST. RBVO: Speech eval and treat d/t coughing at meals, no upper teeth. Possible swallowing/chewing diffculties.
[2022-04-11 12:11] VITALS: BP 110/63; PULSE 54; RESP 16; TEMP 36.8; O2SAT 96
--- NOTE | 2022-04-11 12:12 | PC.NURSE ---
Neuro Check - Pupils equal, round, reactive to light, accommodating. BUE strength equal at baseline. BLE strength equal at baseline. A&Ox4.
--- NOTE | 2022-04-11 14:55 | PC.NURSE ---
Hot Liquid Assessment: Due to Physical and cognitive impairments needs to only drink hot liquids at a table.
[2022-04-11 16:00] VITALS: BP 130/64; PULSE 62; RESP 16; TEMP 36.2; O2SAT 95
--- NOTE | 2022-04-11 16:00 | PC.NURSE ---
Fall F/U: Resident sitting up in chair watching TV. VSS and neuro WNL. Denies pain, but reported an upset stomach. Yumiko deandra offered and resident reported feeling better after drinking.
[2022-04-11 19:00] VITALS: BP 109/66; PULSE 56; RESP 16; TEMP 36.2; O2SAT 95
[2022-04-11] MEDS: LATANOPROST 0.005% OPHTH 1 DROP EYE-BOTH (19:03)
[2022-04-11] MEDS: lisinopriL 2.5 MG TABLET PO (19:03)
--- NOTE | 2022-04-11 21:30 | PC.NURSE ---
Fall F/U: Resident resting in bed watching TV. Stated his upset stomach resolved and ate well at dinner. Refused afternoon snack. VSS and Neuro WNL. Denies pain.
[2022-04-12] MEDS: OMEPRAZOLE 20 MG CAPSULE DR PO (07:51)
[2022-04-12] MEDS: timoloL maleate 0.5 % 1 DROP EYE-BOTH (08:57)
[2022-04-12] MEDS: polyethylene glycoL 3350 17 GM PACK PO (08:57)
[2022-04-12] MEDS: ATORVASTATIN CALCIUM 40 MG TABLET PO (08:57)
[2022-04-12] MEDS: ESCITALOPRAM 10 MG TABLET PO (08:57)
[2022-04-12] MEDS: METOPROLOL TARTRATE 25 MG TABLET PO ×2 (08:57→16:44)
[2022-04-12] MEDS: POTASSIUM CHLORIDE 10 MEQ CAPSULE ER 20 MEQ PO (08:57)
[2022-04-12] MEDS: ASPIRIN 81 MG TABLET EC PO (08:57)
[2022-04-12] MEDS: CYANOCOBALAMIN (VITAMIN B-12) 500 MCG TABLET 250 MCG PO ×2 (08:57→16:44)
--- NOTE | 2022-04-12 13:43 | PC.SOCIAL ---
Received a request for form [id number] from [facility] Crop Consultant. Completed DHS form 1503 and faxed it to [facility] worker, Kait Bailey. Placed copy of form in resident's chart.
--- NOTE | 2022-04-12 16:11 | PC.SPIRITC ---
Tony's arrived with friend who signs ASL; through the friend she asked about Jacque attending mass and anabaptist with an knockout worker. I connected her with Shaylee and followed up with an email about making sure we have ASL stand available. Tony did attend anabaptist today and an knockout worker via the ASL stand was present.
[2022-04-12] MEDS: lisinopriL 2.5 MG TABLET PO (19:52)
[2022-04-12] MEDS: LATANOPROST 0.005% OPHTH 1 DROP EYE-BOTH (19:52)
[2022-04-13] MEDS: OMEPRAZOLE 20 MG CAPSULE DR PO (06:42)
[2022-04-13] MEDS: ATORVASTATIN CALCIUM 40 MG TABLET PO (07:38)
[2022-04-13] MEDS: polyethylene glycoL 3350 17 GM PACK PO (07:38)
[2022-04-13] MEDS: ASPIRIN 81 MG TABLET EC PO (07:38)
[2022-04-13] MEDS: CYANOCOBALAMIN (VITAMIN B-12) 500 MCG TABLET 250 MCG PO ×2 (07:38→15:51)
[2022-04-13] MEDS: ESCITALOPRAM 10 MG TABLET PO (07:38)
[2022-04-13] MEDS: POTASSIUM CHLORIDE 10 MEQ CAPSULE ER 20 MEQ PO (07:38)
[2022-04-13] MEDS: timoloL maleate 0.5 % 1 DROP EYE-BOTH (07:38)
[2022-04-13] MEDS: METOPROLOL TARTRATE 25 MG TABLET PO ×2 (07:38→15:51)
--- NOTE | 2022-04-13 13:52 | PC.NURSE ---
Can only crush meds: Aspirin, Metoprolol, dissolve Potassium by Edgar THOMAS.
[2022-04-13 16:57] VITALS: BP 117/64
[2022-04-13] MEDS: LATANOPROST 0.005% OPHTH 1 DROP EYE-BOTH (19:30)
--- NOTE | 2022-04-14 03:00 | PC.NURSE ---
WEEKLY CHARTING - WEEK 2: Vital signs reviewed. No significant deviation. Blood pressure and pulse are consistently slightly low. Temporary and admission care plan reviewed with no changes. Assist of 1 with bed mobility. Half side rails in place for mobility assistance. Assist of 1 with gait belt for transfers and ambulation. Uses walker for ambulation. Fall risk assessment indicates resident is at high risk for falls. Current fall interventions: hourly visual checks for safety, bed and chair alarms, falling star in doorway.
[2022-04-14] MEDS: OMEPRAZOLE 20 MG CAPSULE DR PO (07:42)
[2022-04-14] MEDS: ATORVASTATIN CALCIUM 40 MG TABLET PO (07:43)
[2022-04-14] MEDS: ASPIRIN 81 MG TABLET EC PO (07:43)
[2022-04-14] MEDS: POTASSIUM CHLORIDE 10 MEQ CAPSULE ER 20 MEQ PO (07:44)
[2022-04-14] MEDS: ESCITALOPRAM 10 MG TABLET PO (07:44)
[2022-04-14] MEDS: CYANOCOBALAMIN (VITAMIN B-12) 500 MCG TABLET 250 MCG PO ×2 (07:44→15:33)
[2022-04-14] MEDS: METOPROLOL TARTRATE 25 MG TABLET PO ×2 (07:44→15:33)
[2022-04-14] MEDS: timoloL maleate 0.5 % 1 DROP EYE-BOTH (07:44)
[2022-04-14] MEDS: polyethylene glycoL 3350 17 GM PACK PO (07:46)
[2022-04-14 10:25] VITALS: BMI 18.3
[2022-04-14 10:26] VITALS: BP 121/72; PULSE 63; RESP 20; TEMP 36.1; O2SAT 95
--- NOTE | 2022-04-14 10:27 | PC.NURSE ---
Week #2 - Mobility: Baseline care plan reviewed, no changes made. Nothing added to temporary care plan. VS reviewed, with low BP values. VS noted by AIRFRAME AND POWERPLANT TECHNICIAN on her last visit. Lisinopril discontinued 04/13/22. Resident needs one assist, transfer belt and walker with transfers & ambulation. Propelled by staff to destinations. One assist with bed mobility. Top side rails up in bed to aid for positioning. Has a bed and chair alarm. Fall: Had a fall on 04/06/22 without injury. Self transferring into BR. Intermediate intervention: hourly rounding, bed/chair alar. Is a high fall risk according to assessment done on 04/08/22.
[2022-04-14 16:00] VITALS: BP 129/69
[2022-04-14] MEDS: LATANOPROST 0.005% OPHTH 1 DROP EYE-BOTH (19:38)
[2022-04-15] MEDS: OMEPRAZOLE 20 MG CAPSULE DR PO (06:31)
[2022-04-15] MEDS: polyethylene glycoL 3350 17 GM PACK PO (07:58)
[2022-04-15] MEDS: ESCITALOPRAM 10 MG TABLET PO (07:58)
[2022-04-15] MEDS: METOPROLOL TARTRATE 25 MG TABLET PO ×2 (07:58→15:24)
[2022-04-15] MEDS: ASPIRIN 81 MG TABLET EC PO (07:58)
[2022-04-15] MEDS: CYANOCOBALAMIN (VITAMIN B-12) 500 MCG TABLET 250 MCG PO ×2 (07:58→15:24)
[2022-04-15] MEDS: ATORVASTATIN CALCIUM 40 MG TABLET PO (07:58)
[2022-04-15] MEDS: POTASSIUM CHLORIDE 10 MEQ CAPSULE ER 20 MEQ PO (07:59)
[2022-04-15] MEDS: timoloL maleate 0.5 % 1 DROP EYE-BOTH (07:59)
[2022-04-15] MEDS: LATANOPROST 0.005% OPHTH 1 DROP EYE-BOTH (19:51)
[2022-04-15 21:03] VITALS: BP 104/56
[2022-04-16] MEDS: OMEPRAZOLE 20 MG CAPSULE DR PO (06:37)
[2022-04-16] MEDS: ASPIRIN 81 MG TABLET EC PO (08:06)
[2022-04-16] MEDS: ESCITALOPRAM 10 MG TABLET PO (08:06)
[2022-04-16] MEDS: METOPROLOL TARTRATE 25 MG TABLET PO ×2 (08:06→15:09)
[2022-04-16] MEDS: CYANOCOBALAMIN (VITAMIN B-12) 500 MCG TABLET 250 MCG PO ×2 (08:06→15:09)
[2022-04-16] MEDS: timoloL maleate 0.5 % 1 DROP EYE-BOTH (08:06)
[2022-04-16] MEDS: ATORVASTATIN CALCIUM 40 MG TABLET PO (08:06)
[2022-04-16] MEDS: POTASSIUM CHLORIDE 10 MEQ CAPSULE ER 20 MEQ PO (08:06)
[2022-04-16] MEDS: polyethylene glycoL 3350 17 GM PACK PO (08:06)
[2022-04-16] MEDS: LATANOPROST 0.005% OPHTH 1 DROP EYE-BOTH (19:52)
[2022-04-16 21:00] VITALS: BP 105/68
[2022-04-17] MEDS: ASPIRIN 81 MG TABLET EC PO (07:07)
[2022-04-17] MEDS: OMEPRAZOLE 20 MG CAPSULE DR PO (07:07)
[2022-04-17] MEDS: ATORVASTATIN CALCIUM 40 MG TABLET PO (07:07)
[2022-04-17] MEDS: CYANOCOBALAMIN (VITAMIN B-12) 500 MCG TABLET 250 MCG PO ×2 (07:07→15:57)
[2022-04-17] MEDS: POTASSIUM CHLORIDE 10 MEQ CAPSULE ER 20 MEQ PO (07:08)
[2022-04-17] MEDS: METOPROLOL TARTRATE 25 MG TABLET PO ×2 (07:08→15:57)
[2022-04-17] MEDS: ESCITALOPRAM 10 MG TABLET PO (07:08)
[2022-04-17] MEDS: polyethylene glycoL 3350 17 GM PACK PO (07:10)
[2022-04-17] MEDS: timoloL maleate 0.5 % 1 DROP EYE-BOTH (07:11)
--- NOTE | 2022-04-17 10:04 | PC.SOCIAL ---
Met with resident and resident's , Jyothi Lora, in residents room. Communicated with Resident and resident's via whiteboard. Resident's was asking about setting a meeting with [facility] to discuss resident's MA application. When this worker asked Jyothi when she would like the meeting she indicated next Spring in August 2022. This worker informed that [facility] will send a letter requesting information if more information is needed. This worker informed that the MA application may be done before next August. Jyothi states that she will watch her mail for any letters. Jyothi informed this worker that she may not come to visit very often this winter because she does not drive in the bad weather. This worker assured Jyothi that resident will be taken care of well and she can come visit anytime when it is safe to drive.
--- NOTE | 2022-04-17 16:46 | LTC.FALL ---
[facility] Fall Note: o Fall Date: 04/17/22 o Fall Time: 1646 o What happened? According to resident, he was trying to sit in his recliner but missed it and ended up sitting on the floor. o Who found the resident and who responded? LOY o What was the resident doing? Trying to sit in his recliner o How the resident was found (knees, left side, arm under them), any hazards (cords, objects, nonskid slippers) brakes on? Proper equipment? In a sitting position. o Did you assess for head trauma, spinal injuries, skeletal injuries, neurological changes and status, and head and neck pain? What did you find? Head to toe assessment completed. Resident denied hitting his head. Neuro finding is per baseline. No concerns at this time. o Did you assess ROM in shoulders, elbows, hips, knees, any other affected areas, unless there is suspected spinal injury. ROM normal o Did you Assess for pain or discomfort? Yes, denied pain at this time. o What are the injuries and how are they being treated? No injuries at this time. o How was the resident transferred from the floor? Sitting o Did you call the MD or put a note in the FORGE SHOP SUPERVISOR book? Yes. o Enter vital signs.BP-137/64, Temp- 97.8, Pul- 63, R-24, O2-96 o Did you notify family? o What was the root cause of the fall? Why did it happen? Unkown o Create an IMMEDIATE INTERVENTION to ensure that this won't immediately happen again. (Put in temporary care plan too) o Complete Safety report and huddle (now one form) o If resident is seen in ED or fractured something, note that you started a [facility] Report process. Instructions are at the East nurse's desk in a red binder labeled [facility] report.
--- NOTE | 2022-04-17 16:46 | PC.NURSE ---
Fall Follow-up: Vital signs and neuro assessment completed: PERRLA intact, Peripheral lyon full. Able to move extremities without C/O pain. Denies blurriness. No episode of vomit noted or reported. Resident denies pain at this time.
--- NOTE | 2022-04-17 18:47 | PC.NURSE ---
I called and updated Jyothi on resident's fall today. She was appreciative of the call and that he was not injured. She will not come visit tomorrow due to the weather.
--- NOTE | 2022-04-17 19:00 | PC.NURSE ---
Fall follow-up: Vital signs Neuro Check: PERRLA intact, Peripheral lyon full. Able to move extremities without C/O pain. Denies blurriness, and pain. No vomiting reported or noted this shift.
--- NOTE | 2022-04-17 19:00 | PC.NURSE ---
Fall follow-up: Vital signs and neuro check: PERRLA intact, Peripheral lyon full. Able to move extremities without C/O pain. Denies blurriness, and pain. No vomiting reported or noted this shift. Has equal normal strength in hand grasp. No change from baseline with cognition.
--- NOTE | 2022-04-17 19:23 | PC.NURSE ---
Updated Tracey Hernández ART EDITOR on fall with no injury. NNO.
[2022-04-17 19:30] VITALS: BP 137/64; PULSE 63; RESP 24; TEMP 36.6; O2SAT 96
[2022-04-17] MEDS: LATANOPROST 0.005% OPHTH 1 DROP EYE-BOTH (20:24)
[2022-04-17 23:09] VITALS: BP 115/58; PULSE 58; RESP 16; TEMP 36.7; O2SAT 95
--- NOTE | 2022-04-17 23:14 | PC.NURSE ---
fall vital's and Neuro assessment completed. Resident was asleep comfortably, no s/s of pain/discomfort noted.
[2022-04-18 03:00] VITALS: BP 106/66; PULSE 55; RESP 16; TEMP 36.6; O2SAT 96
--- NOTE | 2022-04-18 03:14 | PC.NURSE ---
Fall vitals and Neuro checks completed, Vital's wnl and pupil are equal and reactive to light. Equal hand grasp. Resident able to move all extremities per usual self. No verbal or nonverbal indication of pain/discomfort noted. Resident sleeping comfortably at his time. Will continues to monitor.
[2022-04-18 07:00] VITALS: BP 132/83; PULSE 63; RESP 12; TEMP 36.4; O2SAT 95
[2022-04-18] MEDS: OMEPRAZOLE 20 MG CAPSULE DR PO (07:43)
[2022-04-18] MEDS: ATORVASTATIN CALCIUM 40 MG TABLET PO (08:27)
[2022-04-18] MEDS: polyethylene glycoL 3350 17 GM PACK PO (08:27)
[2022-04-18] MEDS: ASPIRIN 81 MG TABLET EC PO (08:27)
[2022-04-18] MEDS: METOPROLOL TARTRATE 25 MG TABLET PO ×2 (08:27→15:33)
[2022-04-18] MEDS: ESCITALOPRAM 10 MG TABLET PO (08:27)
[2022-04-18] MEDS: CYANOCOBALAMIN (VITAMIN B-12) 500 MCG TABLET 250 MCG PO ×2 (08:27→15:32)
[2022-04-18] MEDS: POTASSIUM CHLORIDE 10 MEQ CAPSULE ER 20 MEQ PO (08:27)
[2022-04-18] MEDS: timoloL maleate 0.5 % 1 DROP EYE-BOTH (08:28)
--- NOTE | 2022-04-18 09:44 | PC.NURSE ---
Fall F/U Neuros - Pupils equal, round, reactive to light, accommodating. BUE strength equal at baseline. BLE strength equal at baseline. A&Ox4.
[2022-04-18 11:00] VITALS: BP 132/84; PULSE 61; RESP 12; TEMP 36.5; O2SAT 96
--- NOTE | 2022-04-18 11:47 | PC.NURSE ---
[facility] nurse called to ask about information on Tony's Xstandi prescription. Tony's has been repeatedly calling [facility] wanting to know why he is not taking Xstandi for prostate cancer. Tony's Xstandi order was discontinued on 03/29 d/t concerns over Tony's weakness and fatigue by Dr. Elizondo in the Med/Surg unit at [facility]. Tony and his have an appnt with Dr. Sutton, Tony's regular oncologist, to discuss whether or not to resume Xstandi on May 09 at 1330. Tony's has been told many times about the appointment on 05/[address] Sutton. If calls again wanting to know why Tony is not taking Xstandi simply remind her that they are meeting with Dr. Sutton on May.09 to discuss it.
--- NOTE | 2022-04-18 12:00 | PC.SPIRITC ---
Charm Filter Operator Helper provided visit for support and connection.
--- NOTE | 2022-04-18 12:19 | PC.NURSE ---
[facility] nurse called. Dr. Sutton, Tony's oncologist, wants to restart his Xstandi order. Dr. Sutton will provide the Xstandi order. Tony's will bring the medication to [facility] for us to administer it to him. We are not to order the Xstandi from [facility].
--- NOTE | 2022-04-18 13:21 | PC.NURSE ---
Fall F/U Neuro - Pupils equal, round, reactive to light, accommodating. BUE strength equal at baseline. BLE strength equal at baseline. A&Ox4.
[2022-04-18 15:00] VITALS: BP 121/73; PULSE 62; RESP 16; TEMP 36.2; O2SAT 99
--- NOTE | 2022-04-18 15:15 | PC.NURSE ---
Fall F/U: Resident sitting up in chair watching TV. Denies pain, VSS and neuro WNL. Snack offered at this time but resident refused.
[2022-04-18 19:00] VITALS: BP 108/62; PULSE 69; RESP 16; TEMP 36.6; O2SAT 96
[2022-04-18] MEDS: LATANOPROST 0.005% OPHTH 1 DROP EYE-BOTH (19:52)
--- NOTE | 2022-04-18 21:12 | PC.NURSE ---
Fall F/U: Resident resting in bed. Participated in activity, cards, this evening. Neuro WNL and VSS. Denies pain.
[2022-04-18 23:00] VITALS: BP 106/59; PULSE 60; RESP 18; TEMP 36.3; O2SAT 96
--- NOTE | 2022-04-19 00:13 | PC.NURSE ---
Fall f/u: No nonverbal indication of pain/discomfort noted. Resident sleeping comfortably. VSS, Neuro wnl
[2022-04-19 03:00] VITALS: BP 118/76; PULSE 66; RESP 18; TEMP 36.3; O2SAT 96
--- NOTE | 2022-04-19 03:46 | PC.NURSE ---
Fall f/u: No nonverbal indication of pain/discomfort? noted. Resident sleeping comfortably. VSS, Neuro wnl. Resident able to move all extremity per his baseline.
[2022-04-19 07:00] VITALS: BP 123/80; PULSE 61; RESP 12; TEMP 36.7; O2SAT 95
[2022-04-19] MEDS: OMEPRAZOLE 20 MG CAPSULE DR PO (07:40)
[2022-04-19] MEDS: timoloL maleate 0.5 % 1 DROP EYE-BOTH (07:40)
[2022-04-19] MEDS: POTASSIUM CHLORIDE 10 MEQ CAPSULE ER 20 MEQ PO (08:50)
[2022-04-19] MEDS: METOPROLOL TARTRATE 25 MG TABLET PO ×2 (08:50→16:39)
[2022-04-19] MEDS: ASPIRIN 81 MG TABLET EC PO (08:50)
[2022-04-19] MEDS: ATORVASTATIN CALCIUM 40 MG TABLET PO (08:50)
[2022-04-19] MEDS: ESCITALOPRAM 10 MG TABLET PO (08:50)
[2022-04-19] MEDS: CYANOCOBALAMIN (VITAMIN B-12) 500 MCG TABLET 250 MCG PO ×2 (08:50→16:39)
[2022-04-19] MEDS: polyethylene glycoL 3350 17 GM PACK PO (08:50)
--- NOTE | 2022-04-19 09:47 | PC.SOCIAL ---
Phone call to resident's , Jyothi Lora. Discussed resident's medication (Xtandi) and informed that [facility] pharmacy is unable to fill the medication. Requested resident's to pick medication up and bring to the facility. Resident's ordered medication and it will be delivered to her home [employer] tomorrow (04/20/22). Resident's will bring medication to [facility] on Sunday morning (04/21/22). Informed resident's that resident is requesting his rosary for mosque services. Resident's will bring resident's rosary on Sunday (04/21/22).
--- NOTE | 2022-04-19 10:11 | PC.NURSE ---
Fall F/U Neuro - Pupils equal, round, reactive to light, accommodating. BUE strength equal at baseline. BLE strength equal at baseline. A&Ox4
[2022-04-19 11:00] VITALS: BP 115/70; PULSE 55; RESP 14; TEMP 36.4; O2SAT 95
--- NOTE | 2022-04-19 13:20 | PC.NURSE ---
Fall F/U Neuro - Pupils equal, round, reactive to light, accommodating. BUE strength equal at baseline. BLE strength equal at baseline. A&Ox4.
[2022-04-19 15:00] VITALS: BP 115/70; BP 118/76; PULSE 61; RESP 14; TEMP 36.6; O2SAT 98
--- NOTE | 2022-04-19 15:00 | PC.NURSE ---
Fall follow-up: Vital signs and neuro assessment completed. PERRLA intact, Peripheral lyon full. Denies blurriness, and pain. No vomiting episode reported or noted. Level of consciousness remains at baseline, and vital signs are within resident's normal ranges. No new concerns relating to fall incident noted at this time. Resident sitting in his recliner and watching TV.
[2022-04-19 19:00] VITALS: BP 115/70; BP 118/76; PULSE 61; RESP 18; TEMP 36.6; O2SAT 98
[2022-04-19] MEDS: LATANOPROST 0.005% OPHTH 1 DROP EYE-BOTH (20:13)
--- NOTE | 2022-04-19 21:33 | PC.NURSE ---
Fall follow-up: Vital signs and neuro assessment completed. PERRLA intact, Peripheral lyon full. Denies blurriness, and pain. No vomiting episode reported or noted. Level of consciousness remains at baseline, and vital signs are within resident's normal ranges. No new concerns relating to fall incident noted at this time. Resident sleeping at this time.
[2022-04-19 23:00] VITALS: BP 114/70; PULSE 60; RESP 18; TEMP 36.4; O2SAT 96
--- NOTE | 2022-04-19 23:53 | PC.NURSE ---
FALL FOLLOW-UP: Vital signs: 97.5-60-18-114/70-96% on RA. Resident is sleeping, but easily aroused. Neuros intact. Hand grasps equal. Denies headache, visual concerns, and nausea. Orientation at baseline.
[2022-04-20 03:00] VITALS: BP 111/66; PULSE 62; RESP 16; TEMP 36.5; O2SAT 95
--- NOTE | 2022-04-20 03:14 | PC.NURSE ---
FALL FOLLOW-UP: Vital signs: 97.7-62-16-111/66-95% on RA. Sleeping soundly, but wakes easily. Hand grasps equal. Denies headache, visual concerns, and nausea. Orientation at baseline.?Neuros intact.
[2022-04-20] MEDS: OMEPRAZOLE 20 MG CAPSULE DR PO (07:31)
[2022-04-20] MEDS: ASPIRIN 81 MG TABLET EC PO (08:16)
[2022-04-20] MEDS: ATORVASTATIN CALCIUM 40 MG TABLET PO (08:16)
[2022-04-20] MEDS: POTASSIUM CHLORIDE 10 MEQ CAPSULE ER 20 MEQ PO (08:16)
[2022-04-20] MEDS: timoloL maleate 0.5 % 1 DROP EYE-BOTH (08:16)
[2022-04-20] MEDS: ESCITALOPRAM 10 MG TABLET PO (08:16)
[2022-04-20] MEDS: polyethylene glycoL 3350 17 GM PACK PO (08:16)
[2022-04-20] MEDS: METOPROLOL TARTRATE 25 MG TABLET PO ×2 (08:16→16:37)
[2022-04-20] MEDS: CYANOCOBALAMIN (VITAMIN B-12) 500 MCG TABLET 250 MCG PO ×2 (08:16→16:37)
[2022-04-20 10:06] VITALS: BP 110/55; PULSE 60; RESP 20; TEMP 36.4; O2SAT 95
[2022-04-20 14:08] VITALS: BP 115/65; PULSE 64; RESP 20; TEMP 36.4; O2SAT 95
--- NOTE | 2022-04-20 15:31 | PC.SOCIAL ---
Received a phone call from resident's , Jyothi Lora. Jyothi informed that she received resident's medication (Xtandi) in the mail today. Jyothi states she will come to the [facility] tomorrow (04/20/22) between 9:00 am and 9:30 am to bring the medication in for resident.
[2022-04-20 18:00] VITALS: BP 107/61; PULSE 60; RESP 16; TEMP 36.6; O2SAT 95
[2022-04-20] MEDS: LATANOPROST 0.005% OPHTH 1 DROP EYE-BOTH (20:29)
--- NOTE | 2022-04-21 03:14 | PC.NURSE ---
WEEKLY CHARTING - WEEK 3: Vital signs reviewed - no concerns. Temporary care plan reviewed - no changes. Admission/baseline care plan reviewed and diet updated to soft and bite sized. Per weekly skin assessment, no skin issues at this time. Is incontinent of bladder and continent of bowel. Requires assist of 1 for toileting needs including dileep-cares, clothing adjustment, and management of incontinent products. Assist of 1 with gait belt and walker to toilet. Is toileted Q 2 hours. Wears a medium pull-up.
[2022-04-21] MEDS: OMEPRAZOLE 20 MG CAPSULE DR PO (07:53)
[2022-04-21] MEDS: ESCITALOPRAM 10 MG TABLET PO (07:54)
[2022-04-21] MEDS: ATORVASTATIN CALCIUM 40 MG TABLET PO (07:54)
[2022-04-21] MEDS: METOPROLOL TARTRATE 25 MG TABLET PO ×2 (07:54→15:17)
[2022-04-21] MEDS: CYANOCOBALAMIN (VITAMIN B-12) 500 MCG TABLET 250 MCG PO ×2 (07:54→15:17)
[2022-04-21] MEDS: ASPIRIN 81 MG TABLET EC PO (07:54)
[2022-04-21] MEDS: POTASSIUM CHLORIDE 10 MEQ CAPSULE ER 20 MEQ PO (07:55)
[2022-04-21] MEDS: timoloL maleate 0.5 % 1 DROP EYE-BOTH (07:55)
[2022-04-21] MEDS: polyethylene glycoL 3350 17 GM PACK PO (07:56)
[2022-04-21 09:54] VITALS: BP 105/73; PULSE 57; RESP 16; TEMP 35.9; O2SAT 96
[2022-04-21 11:09] VITALS: BP 105/73; PULSE 57; RESP 14; TEMP 36.1; O2SAT 96; BMI 18.5
--- NOTE | 2022-04-21 11:36 | PC.NURSE ---
Week #3 - Toileting: Baseline care plan reviewed, no changes made. Nothing added to temporary care plan. Resident is frequently incontinent of bladder, continent of bowels. Needs one assist , wheelchair for transfer to the bathroom. Staff offer and toilet every 2 hours, before/after meals. Is usually incontinent of bowel, can be continent when toileted on time. Wears pull ups, Pads, pericares,clothing managed by staff. Vital signs reviewed. On DOLLY OPERATOR book to review for some low pulse & BP. Skin: No issues at this time. Skin is checked during cares and on bath day.
--- NOTE | 2022-04-21 15:01 | PC.SOCIAL ---
Met with resident and resident's , Jyothi Lora, in resident's room. Communicated via whiteboard. Jyothi brought resident's medication (Xtandi) into [facility] today. Jyothi also brought resident's rosary. Jyothi signed a medical consent form for Nursing for resident to take Lexapro for Depression. Jyothi reports that she will come to [facility] on and will also try to come to [facility] on . Jyothi reports she will bring resident Katt cookies as he loves Katt cookies. Jyothi asks if there is a Katt democrat at [facility]. Informed that this worker is aware that there is a resident democrat but not a democrat for family. Jyothi states that resident wants to come home because he is lonely at LT. Informed Jyothi that resident is safe at [facility]. Discussed that Jyothi was unable to provide care for resident previously. Jyothi states that she does not think she can provide care for resident at home. Reassured Jyothi that resident is safe at LT. Jyothi states that LTCC is too expensive. Reminded Jyothi that [facility] is still processing the MA application for resident. Jyothi and resident agreed that it was best for resident to be at LT where he is safe. Informed Jyothi and resident that social work is available to them if there are any further questions/concerns.
[2022-04-21] MEDS: LATANOPROST 0.005% OPHTH 1 DROP EYE-BOTH (19:17)
[2022-04-22] MEDS: OMEPRAZOLE 20 MG CAPSULE DR PO (06:33)
[2022-04-22] MEDS: ESCITALOPRAM 10 MG TABLET PO (08:44)
[2022-04-22] MEDS: ASPIRIN 81 MG TABLET EC PO (08:44)
[2022-04-22] MEDS: CYANOCOBALAMIN (VITAMIN B-12) 500 MCG TABLET 250 MCG PO ×2 (08:44→15:10)
[2022-04-22] MEDS: ATORVASTATIN CALCIUM 40 MG TABLET PO (08:44)
[2022-04-22] MEDS: METOPROLOL TARTRATE 25 MG TABLET PO ×2 (08:44→15:10)
[2022-04-22] MEDS: timoloL maleate 0.5 % 1 DROP EYE-BOTH (08:45)
[2022-04-22] MEDS: polyethylene glycoL 3350 17 GM PACK PO (08:45)
[2022-04-22] MEDS: POTASSIUM CHLORIDE 10 MEQ CAPSULE ER 20 MEQ PO (08:45)
[2022-04-22] MEDS: LATANOPROST 0.005% OPHTH 1 DROP EYE-BOTH (19:12)
[2022-04-23] MEDS: OMEPRAZOLE 20 MG CAPSULE DR PO (07:53)
[2022-04-23] MEDS: ASPIRIN 81 MG TABLET EC PO (08:58)
[2022-04-23] MEDS: polyethylene glycoL 3350 17 GM PACK PO (08:58)
[2022-04-23] MEDS: CYANOCOBALAMIN (VITAMIN B-12) 500 MCG TABLET 250 MCG PO ×2 (08:58→15:46)
[2022-04-23] MEDS: POTASSIUM CHLORIDE 10 MEQ CAPSULE ER 20 MEQ PO (08:58)
[2022-04-23] MEDS: timoloL maleate 0.5 % 1 DROP EYE-BOTH (08:58)
[2022-04-23] MEDS: ESCITALOPRAM 10 MG TABLET PO (08:58)
[2022-04-23] MEDS: ATORVASTATIN CALCIUM 40 MG TABLET PO (08:58)
[2022-04-23] MEDS: METOPROLOL TARTRATE 25 MG TABLET PO ×2 (08:58→15:46)
[2022-04-23] MEDS: LATANOPROST 0.005% OPHTH 1 DROP EYE-BOTH (19:22)
[2022-04-24] MEDS: OMEPRAZOLE 20 MG CAPSULE DR PO (08:10)
[2022-04-24] MEDS: METOPROLOL TARTRATE 25 MG TABLET PO ×2 (08:32→15:58)
[2022-04-24] MEDS: ATORVASTATIN CALCIUM 40 MG TABLET PO (08:32)
[2022-04-24] MEDS: CYANOCOBALAMIN (VITAMIN B-12) 500 MCG TABLET 250 MCG PO ×2 (08:32→15:59)
[2022-04-24] MEDS: ESCITALOPRAM 10 MG TABLET PO (08:32)
[2022-04-24] MEDS: ASPIRIN 81 MG TABLET EC PO (08:32)
[2022-04-24] MEDS: POTASSIUM CHLORIDE 10 MEQ CAPSULE ER 20 MEQ PO (08:33)
[2022-04-24] MEDS: timoloL maleate 0.5 % 1 DROP EYE-BOTH (08:33)
[2022-04-24] MEDS: polyethylene glycoL 3350 17 GM PACK PO (08:33)
[2022-04-24] MEDS: LATANOPROST 0.005% OPHTH 1 DROP EYE-BOTH (19:31)
[2022-04-25] MEDS: OMEPRAZOLE 20 MG CAPSULE DR PO (07:42)
[2022-04-25] MEDS: ASPIRIN 81 MG TABLET EC PO (08:47)
[2022-04-25] MEDS: polyethylene glycoL 3350 17 GM PACK PO (08:47)
[2022-04-25] MEDS: CYANOCOBALAMIN (VITAMIN B-12) 500 MCG TABLET 250 MCG PO ×2 (08:47→15:57)
[2022-04-25] MEDS: METOPROLOL TARTRATE 25 MG TABLET PO ×2 (08:47→15:57)
[2022-04-25] MEDS: POTASSIUM CHLORIDE 10 MEQ CAPSULE ER 20 MEQ PO (08:47)
[2022-04-25] MEDS: ESCITALOPRAM 10 MG TABLET PO (08:47)
[2022-04-25] MEDS: ATORVASTATIN CALCIUM 40 MG TABLET PO (08:47)
[2022-04-25] MEDS: timoloL maleate 0.5 % 1 DROP EYE-BOTH (08:48)
--- NOTE | 2022-04-25 15:57 | PC.SOCIAL ---
Met with resident and resident's , Jyothi Lora, in resident's room. Communication via whiteboard. Jyothi is concerned about hospital bills. Informed Jyothi that insurance would be billed for the hospital bills upstairs and this worker does not know if there will be a remaining bill for resident and resident's to pay. Jyothi informed that she is concerned about paying the bill for the [facility]. This worker asked if she has received any mail from [facility] regarding Resident's medical assistance application. Jyothi stated that she will check her mail. Jyothi asked this worker to reach out to Gloria Lora ([id number]) at [phone] and to Lissett Alexander at [phone]. Jyothi states that she gives this worker permission to communicate with both individuals. Jyothi states that Lissett is not a relative, but she is a friend and does interpret. Jyothi states she will come back to [facility] next Sunday and would like to meet with this worker.
[2022-04-25] MEDS: LATANOPROST 0.005% OPHTH 1 DROP EYE-BOTH (19:13)
[2022-04-26] MEDS: OMEPRAZOLE 20 MG CAPSULE DR PO (06:43)
[2022-04-26] MEDS: METOPROLOL TARTRATE 25 MG TABLET PO ×2 (08:09→16:07)
[2022-04-26] MEDS: ATORVASTATIN CALCIUM 40 MG TABLET PO (08:09)
[2022-04-26] MEDS: ESCITALOPRAM 10 MG TABLET PO (08:09)
[2022-04-26] MEDS: CYANOCOBALAMIN (VITAMIN B-12) 500 MCG TABLET 250 MCG PO ×2 (08:09→16:06)
[2022-04-26] MEDS: ASPIRIN 81 MG TABLET EC PO (08:09)
[2022-04-26] MEDS: polyethylene glycoL 3350 17 GM PACK PO (08:10)
[2022-04-26] MEDS: POTASSIUM CHLORIDE 10 MEQ CAPSULE ER 20 MEQ PO (08:10)
[2022-04-26] MEDS: timoloL maleate 0.5 % 1 DROP EYE-BOTH (08:10)
--- NOTE | 2022-04-26 15:01 | PC.PHA ---
Medication Review~ Medication monitoring:escitalopram 10 mg daily, Comments or Irregularity: Patient recently admitted and has been on low dose escitalopram, no issues with adjusting to his new environment. Suggested Course: Considering dose and patient's age and cogitative decline a GDR of escitalopram is recommended. Patient also takes Xtandi for prostate cancer and is scheduled for follow up with his Oncologist in next 30 days.
[2022-04-26] MEDS: LATANOPROST 0.005% OPHTH 1 DROP EYE-BOTH (20:00)
[2022-04-27] MEDS: timoloL maleate 0.5 % 1 DROP EYE-BOTH (07:24)
[2022-04-27] MEDS: OMEPRAZOLE 20 MG CAPSULE DR PO (07:24)
[2022-04-27] MEDS: CYANOCOBALAMIN (VITAMIN B-12) 500 MCG TABLET 250 MCG PO ×2 (08:20→16:16)
[2022-04-27] MEDS: ASPIRIN 81 MG TABLET EC PO (08:20)
[2022-04-27] MEDS: ESCITALOPRAM 10 MG TABLET PO (08:20)
[2022-04-27] MEDS: ATORVASTATIN CALCIUM 40 MG TABLET PO (08:20)
[2022-04-27] MEDS: METOPROLOL TARTRATE 25 MG TABLET PO ×2 (08:20→16:16)
[2022-04-27] MEDS: polyethylene glycoL 3350 17 GM PACK PO (08:21)
[2022-04-27] MEDS: POTASSIUM CHLORIDE 10 MEQ CAPSULE ER 20 MEQ PO (08:21)
[2022-04-27] MEDS: LATANOPROST 0.005% OPHTH 1 DROP EYE-BOTH (19:37)
--- NOTE | 2022-04-28 00:19 | PC.NURSE ---
WEEKLY CHARTING - WEEK 4: Vital signs reviewed with no concern. Temporary and admission care plan reviewed. Admission care plan updated - no longer needs to wear a mask in room. No documented behaviors in the last month. Currently receives escitalopram 10mg daily with no adverse effects. 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 Uses ASL, white board, or iPad freelance interpreter/translator for communication. Wears glasses for visual impairment. Dx of dementia. Is forgetful with increased confusion in the evening. New order in the last 30 days for Xtandi. All medications administered by staff. Health conditions stable.
[2022-04-28] MEDS: OMEPRAZOLE 20 MG CAPSULE DR PO (06:24)
--- NOTE | 2022-04-28 07:36 | PC.NURSE ---
Week #4: Baseline care plan reviewed. NO changes and nothing added to temporary care plan. Resident does use the call light. Needs also anticipated by staff. Wears glasses for visual impairment. He is deaf. Uses ASL, white board, and IPAD tipple tender for communication. Has diagnosis of dementia. Is forgetful and has episodes of confusion. Is not able to self administer medications. Chronic health condition stable. Vital signs reviewed with no concerns. Mood/Behavior: No issues the past month. Is on Lexapro 10 mg daily with no adverse effects noted. No change in medication.
[2022-04-28] MEDS: METOPROLOL TARTRATE 25 MG TABLET PO ×2 (08:12→15:33)
[2022-04-28] MEDS: ASPIRIN 81 MG TABLET EC PO (08:12)
[2022-04-28] MEDS: ESCITALOPRAM 10 MG TABLET PO (08:12)
[2022-04-28] MEDS: CYANOCOBALAMIN (VITAMIN B-12) 500 MCG TABLET 250 MCG PO ×2 (08:12→15:33)
[2022-04-28] MEDS: ATORVASTATIN CALCIUM 40 MG TABLET PO (08:12)
[2022-04-28] MEDS: POTASSIUM CHLORIDE 10 MEQ CAPSULE ER 20 MEQ PO (08:13)
[2022-04-28] MEDS: timoloL maleate 0.5 % 1 DROP EYE-BOTH (08:13)
[2022-04-28] MEDS: polyethylene glycoL 3350 17 GM PACK PO (08:13)
[2022-04-28 09:41] VITALS: BMI 18.5
[2022-04-28 10:06] VITALS: BP 115/63; PULSE 64; RESP 20; TEMP 36.2; O2SAT 95
[2022-04-28 10:12] VITALS: BP 115/63; PULSE 64; RESP 20; TEMP 36.2; O2SAT 95
[2022-04-28] MEDS: LATANOPROST 0.005% OPHTH 1 DROP EYE-BOTH (19:39)
[2022-04-29] MEDS: OMEPRAZOLE 20 MG CAPSULE DR PO (06:30)
[2022-04-29] MEDS: ASPIRIN 81 MG TABLET EC PO (08:29)
[2022-04-29] MEDS: METOPROLOL TARTRATE 25 MG TABLET PO ×2 (08:29→15:38)
[2022-04-29] MEDS: POTASSIUM CHLORIDE 10 MEQ CAPSULE ER 20 MEQ PO (08:29)
[2022-04-29] MEDS: ATORVASTATIN CALCIUM 40 MG TABLET PO (08:29)
[2022-04-29] MEDS: ESCITALOPRAM 10 MG TABLET PO (08:29)
[2022-04-29] MEDS: polyethylene glycoL 3350 17 GM PACK PO (08:29)
[2022-04-29] MEDS: CYANOCOBALAMIN (VITAMIN B-12) 500 MCG TABLET 250 MCG PO ×2 (08:29→15:38)
[2022-04-29] MEDS: timoloL maleate 0.5 % 1 DROP EYE-BOTH (08:30)
[2022-04-29] MEDS: LOPERAMIDE HCL 2 MG CAPSULE PO (13:25)
[2022-04-29] MEDS: LATANOPROST 0.005% OPHTH 1 DROP EYE-BOTH (20:39)
[2022-04-30] MEDS: ASPIRIN 81 MG TABLET EC PO (07:12)
[2022-04-30] MEDS: ATORVASTATIN CALCIUM 40 MG TABLET PO (07:12)
[2022-04-30] MEDS: CYANOCOBALAMIN (VITAMIN B-12) 500 MCG TABLET 250 MCG PO ×2 (07:12→15:26)
[2022-04-30] MEDS: OMEPRAZOLE 20 MG CAPSULE DR PO (07:12)
[2022-04-30] MEDS: ESCITALOPRAM 10 MG TABLET PO (07:12)
[2022-04-30] MEDS: POTASSIUM CHLORIDE 10 MEQ CAPSULE ER 20 MEQ PO (07:13)
[2022-04-30] MEDS: METOPROLOL TARTRATE 25 MG TABLET PO ×2 (07:13→15:26)
[2022-04-30] MEDS: timoloL maleate 0.5 % 1 DROP EYE-BOTH (07:13)
[2022-04-30] MEDS: LATANOPROST 0.005% OPHTH 1 DROP EYE-BOTH (19:13)
[2022-05-01] MEDS: METOPROLOL TARTRATE 25 MG TABLET PO ×2 (07:40→16:07)
[2022-05-01] MEDS: ESCITALOPRAM 10 MG TABLET PO (07:40)
[2022-05-01] MEDS: OMEPRAZOLE 20 MG CAPSULE DR PO (07:40)
[2022-05-01] MEDS: ATORVASTATIN CALCIUM 40 MG TABLET PO (07:40)
[2022-05-01] MEDS: ASPIRIN 81 MG TABLET EC PO (07:40)
[2022-05-01] MEDS: CYANOCOBALAMIN (VITAMIN B-12) 500 MCG TABLET 250 MCG PO ×2 (07:40→16:07)
[2022-05-01] MEDS: POTASSIUM CHLORIDE 10 MEQ CAPSULE ER 20 MEQ PO (07:41)
[2022-05-01] MEDS: polyethylene glycoL 3350 17 GM PACK PO (07:41)
[2022-05-01] MEDS: timoloL maleate 0.5 % 1 DROP EYE-BOTH (07:48)
--- NOTE | 2022-05-01 13:36 | PC.SOCIAL ---
Met with Resident and resident's , Jyothi Lora, in resident's room. Jyothi provided this worker with two letters from [facility] regarding resident's MA application. One letter was an AVS form Authorization to obtain financial information that had to be signed by and Jyothi. Both signed the application. Jyothi did not have her social security number and will call this worker back with the information. This worker will fax the form when it is completed. The second letter was a letter requesting documentation on finances. Jyothi has a family friend (Lissett Alexander, ) that will assist with locating the information and providing it to [facility]. Made a phone call to Lissett Alexander at Jyothi's request. Lissett will go to Jyothi's home at 10:00 am on Sunday to assist with locating the documentation that is needed for the MA application. Lissett asked that this worker provide an update to resident's [id number], Gloria Lora. Made a phone call to Gloria Lora at [phone]. There was no answer, left a voicemail for Gloria to call this worker back. Made a phone call to [facility] assigned MA worker, Kait Morgan at [phone], informed Kait that this worker was meeting with Tony and Jyothi Alfredn and stated that Jyothi provided a letter from [facility] asking for additional information. Informed Kait that Jyothi did not understand the letter so she is now working this week to gather the requested information. Received a voicemail from Kait Morgan stating that she will extend the deadline for the requested information. Kait is also requesting the 1503 form as she states [facility] did not receive it when it was sent by this worker. Kait is also requesting the AVS form signed by resident and resident's . Made a phone call back to Kait Morgan at [facility] and left a voicemail stating that this worker will resend the 1503 form and also will send the AVS form when it is completed.
--- NOTE | 2022-05-01 13:59 | PC.SOCIAL ---
Faxed WEB 4648 form to [facility] ATTN: Kait Morgan at [phone]. Form is for resident's pending MA application.
[2022-05-01] MEDS: LATANOPROST 0.005% OPHTH 1 DROP EYE-BOTH (19:22)
[2022-05-02] MEDS: OMEPRAZOLE 20 MG CAPSULE DR PO (07:45)
[2022-05-02] MEDS: timoloL maleate 0.5 % 1 DROP EYE-BOTH (07:45)
[2022-05-02] MEDS: METOPROLOL TARTRATE 25 MG TABLET PO ×2 (08:19→16:46)
[2022-05-02] MEDS: ASPIRIN 81 MG TABLET EC PO (08:19)
[2022-05-02] MEDS: CYANOCOBALAMIN (VITAMIN B-12) 500 MCG TABLET 250 MCG PO ×2 (08:19→16:46)
[2022-05-02] MEDS: ATORVASTATIN CALCIUM 40 MG TABLET PO (08:19)
[2022-05-02] MEDS: ESCITALOPRAM 10 MG TABLET PO (08:19)
[2022-05-02] MEDS: polyethylene glycoL 3350 17 GM PACK PO (08:19)
[2022-05-02] MEDS: POTASSIUM CHLORIDE 10 MEQ CAPSULE ER 20 MEQ PO (08:20)
--- NOTE | 2022-05-02 12:23 | PC.NURSE ---
Recert Visit: Resident seen by CONSTRUCTION SAFETY MANAGEREdgar. Orders reviewed and renewed of 45 days with no changes.
[2022-05-02] MEDS: LATANOPROST 0.005% OPHTH 1 DROP EYE-BOTH (20:01)
[2022-05-03] MEDS: timoloL maleate 0.5 % 1 DROP EYE-BOTH (07:43)
[2022-05-03] MEDS: OMEPRAZOLE 20 MG CAPSULE DR PO (07:43)
[2022-05-03] MEDS: ASPIRIN 81 MG TABLET EC PO (08:51)
[2022-05-03] MEDS: CYANOCOBALAMIN (VITAMIN B-12) 500 MCG TABLET 250 MCG PO ×2 (08:51→15:37)
[2022-05-03] MEDS: ESCITALOPRAM 10 MG TABLET PO (08:51)
[2022-05-03] MEDS: ATORVASTATIN CALCIUM 40 MG TABLET PO (08:51)
[2022-05-03] MEDS: METOPROLOL TARTRATE 25 MG TABLET PO ×2 (08:52→15:37)
[2022-05-03] MEDS: polyethylene glycoL 3350 17 GM PACK PO (08:52)
[2022-05-03] MEDS: POTASSIUM CHLORIDE 10 MEQ CAPSULE ER 20 MEQ PO (08:52)
--- NOTE | 2022-05-03 16:08 | PC.SOCIAL ---
Met with resident, resident's , Jyothi Lora, and resident's friend, Lissett Alexander. Lissett assisted Jyothi in locating all the requested paperwork for [facility] for resident's Medical Assistance application. Lissett will drop the information off at [facility] today. This worker faxed the AVS form to [facility]. Informed Resident's that it is important to make sure she watches her mail for further letters from [facility] so deadlines are not missed. Social work will follow up as necessary.
[2022-05-03] MEDS: LATANOPROST 0.005% OPHTH 1 DROP EYE-BOTH (19:09)
[2022-05-04] MEDS: OMEPRAZOLE 20 MG CAPSULE DR PO (06:31)
[2022-05-04] MEDS: CYANOCOBALAMIN (VITAMIN B-12) 500 MCG TABLET 250 MCG PO ×2 (08:08→15:48)
[2022-05-04] MEDS: ATORVASTATIN CALCIUM 40 MG TABLET PO (08:08)
[2022-05-04] MEDS: ASPIRIN 81 MG TABLET EC PO (08:08)
[2022-05-04] MEDS: POTASSIUM CHLORIDE 10 MEQ CAPSULE ER 20 MEQ PO (08:08)
[2022-05-04] MEDS: polyethylene glycoL 3350 17 GM PACK PO (08:08)
[2022-05-04] MEDS: METOPROLOL TARTRATE 25 MG TABLET PO ×2 (08:08→15:48)
[2022-05-04] MEDS: timoloL maleate 0.5 % 1 DROP EYE-BOTH (08:08)
[2022-05-04] MEDS: ESCITALOPRAM 10 MG TABLET PO (08:08)
[2022-05-04] MEDS: LATANOPROST 0.005% OPHTH 1 DROP EYE-BOTH (19:28)
[2022-05-05] MEDS: OMEPRAZOLE 20 MG CAPSULE DR PO (06:34)
[2022-05-05] MEDS: ASPIRIN 81 MG TABLET EC PO (08:03)
[2022-05-05] MEDS: ATORVASTATIN CALCIUM 40 MG TABLET PO (08:04)
[2022-05-05] MEDS: CYANOCOBALAMIN (VITAMIN B-12) 500 MCG TABLET 250 MCG PO ×2 (08:05→15:42)
[2022-05-05] MEDS: POTASSIUM CHLORIDE 10 MEQ CAPSULE ER 20 MEQ PO (08:05)
[2022-05-05] MEDS: ESCITALOPRAM 10 MG TABLET PO (08:05)
[2022-05-05] MEDS: METOPROLOL TARTRATE 25 MG TABLET PO ×2 (08:05→15:42)
[2022-05-05] MEDS: timoloL maleate 0.5 % 1 DROP EYE-BOTH (08:05)
[2022-05-05] MEDS: polyethylene glycoL 3350 17 GM PACK PO (08:05)
[2022-05-05 10:31] VITALS: BP 121/73; PULSE 60; RESP 20; TEMP 36.2; O2SAT 95; BMI 18.6
--- NOTE | 2022-05-05 15:44 | PC.SOCIAL ---
Received a phone call from resident's , Jyothi Lora. Jyothi asks if it can be set up that nursing staff walks resident upstairs to his appointment [facility] at [facility]. Jyothi will accompany resident to the appointments but needs assistance with pushing resident upstairs. Discussed with Ratna CONNER, and Ratna states that she will have staff take resident upstairs to his appointment. Will follow up as necessary.
[2022-05-05] MEDS: LATANOPROST 0.005% OPHTH 1 DROP EYE-BOTH (19:03)
[2022-05-06] MEDS: ASPIRIN 81 MG TABLET EC PO (07:06)
[2022-05-06] MEDS: ESCITALOPRAM 10 MG TABLET PO (07:06)
[2022-05-06] MEDS: CYANOCOBALAMIN (VITAMIN B-12) 500 MCG TABLET 250 MCG PO ×2 (07:06→15:50)
[2022-05-06] MEDS: polyethylene glycoL 3350 17 GM PACK PO (07:06)
[2022-05-06] MEDS: POTASSIUM CHLORIDE 10 MEQ CAPSULE ER 20 MEQ PO (07:06)
[2022-05-06] MEDS: ATORVASTATIN CALCIUM 40 MG TABLET PO (07:06)
[2022-05-06] MEDS: timoloL maleate 0.5 % 1 DROP EYE-BOTH (07:06)
[2022-05-06] MEDS: METOPROLOL TARTRATE 25 MG TABLET PO ×2 (07:06→15:50)
[2022-05-06] MEDS: OMEPRAZOLE 20 MG CAPSULE DR PO (07:06)
[2022-05-06] MEDS: LATANOPROST 0.005% OPHTH 1 DROP EYE-BOTH (19:20)
[2022-05-07] VITALS (8 sets, daily range): BP systolic 102–122; BP diastolic 60–73; PULSE 59–68; RESP 16–20; TEMP 36.3–36.9; O2SAT 94–96
[2022-05-07] MEDS: OMEPRAZOLE 20 MG CAPSULE DR PO (07:35)
[2022-05-07] MEDS: ATORVASTATIN CALCIUM 40 MG TABLET PO (08:48)
[2022-05-07] MEDS: CYANOCOBALAMIN (VITAMIN B-12) 500 MCG TABLET 250 MCG PO ×2 (08:48→15:22)
[2022-05-07] MEDS: polyethylene glycoL 3350 17 GM PACK PO (08:48)
[2022-05-07] MEDS: METOPROLOL TARTRATE 25 MG TABLET PO ×2 (08:48→15:22)
[2022-05-07] MEDS: ASPIRIN 81 MG TABLET EC PO (08:48)
[2022-05-07] MEDS: ESCITALOPRAM 10 MG TABLET PO (08:48)
[2022-05-07] MEDS: timoloL maleate 0.5 % 1 DROP EYE-BOTH (08:48)
[2022-05-07] MEDS: POTASSIUM CHLORIDE 10 MEQ CAPSULE ER 20 MEQ PO (08:48)
--- NOTE | 2022-05-07 11:15 | PC.NURSE ---
FALL F/U 11:45 Neuro checks PERRLA, BUE strength equal at baseline, BLE strength equal at baseline, A&Ox3 at baseline. Pt communication at baseline.
--- NOTE | 2022-05-07 11:41 | LTC.FALL ---
[facility] Fall Note: o Fall Date: 05/07/22 o Fall Time: 10:27 o What happened? Pt call light on. LOY went to pt room. LOY saw pt on floor near bed. LOY pulled RN. o Who found the resident and who responded? LOY found pt, LOY pulled RN. RN responded. o What was the resident doing? Resident was trying to self-transfer from wheelchair to bed. Resident is not supposed to be left in wheelchair in room alone. Resident was returned to room by conference services coordinator, conference services coordinator left pt in room alone in wheelchair. Resident attempted to get into bed. Resident fell during attempted self transfer. o How the resident was found (knees, left side, arm under them), any hazards (cords, objects, nonskid slippers) brakes on? Proper equipment? Resident was found sitting on floor, L leg extended in front of him, R leg folded in ezra-cross position. Resident back against wall right below call light button. Resident pulled call light out from wall during fall. o Did you assess for head trauma, spinal injuries, skeletal injuries, neurological changes and status, and head and neck pain? What did you find? Pt assessed. Pt reported hitting back of head against wall during fall. No bruising, bumps, bleeding, abrasions noted. Pt reported L elbow pain, no bruises, bumps, bleedings, abrasions, noted. Full pt assessment - no evidence of trauma/injury. Neuros: PERRLA, BUE strength equal at baseline, BLE strength equal at baseline, A&Ox3 at baseline. o Did you assess ROM in shoulders, elbows, hips, knees, any other affected areas, unless there is suspected spinal injury. Pt able to reach full ROM BUE and BLE o Did you Assess for pain or discomfort? Pt reported pain on back of skull L side. Pt reported pain at L elbow. Pt denied any other pain. o What are the injuries and how are they being treated? No visible injuries. o How was the resident transferred from the floor? Gait belt utilized, LOY and RN lifted pt back to bed. o Did you call the MD or put a note in the BIOMASS PLANT MANAGER book? RN called [place] on-call line. o Enter vital signs. BP - 113/60, HR: 60, RR:, 20, T: 97.3, O: 96 o Did you notify family? Yes. o What was the root cause of the fall? Why did it happen? Pt was left alone in room in wheelchair. Care plan states pt is not to be left alone in room in wheelchair. o Create an IMMEDIATE INTERVENTION to ensure that this won't immediately happen again. (Put in temporary care plan too): Pt care plan already states pt is not to be left alone in room in wheelchair. o Complete Safety report and huddle (now one form) o If resident is seen in ED or fractured something, note that you started a [facility] Report process. Instructions are at the East nurse's desk in a red binder labeled VA report.
--- NOTE | 2022-05-07 12:00 | PC.NURSE ---
FALL F/U Neuros at 12:00 PERRLA, BUE strength equal at baseline, BLE strength equal at baseline, A&Ox3 at baseline. Pt communication at baseline.
--- NOTE | 2022-05-07 12:15 | PC.NURSE ---
FALL F/U Neuro 12:15 PERRLA, BUE strength equal at baseline, BLE strength equal at baseline, A&Ox3 at baseline. Pt communication at baseline.
--- NOTE | 2022-05-07 12:22 | PC.NURSE ---
FALL Fall Date: 05/07/22 o Fall Time: 10:27 o What happened? Pt call light on. LOY went to pt room. LOY saw pt on floor near bed. LOY pulled RN. o Who found the resident and who responded? LOY found pt, LOY pulled RN. RN responded. o What was the resident doing? Resident was trying to self-transfer from wheelchair to bed. Resident is not supposed to be left in wheelchair in room alone. Resident was returned to room by local coordinator, local coordinator left pt in room alone in wheelchair. Resident attempted to get into bed. Resident fell during attempted self transfer. o How the resident was found (knees, left side, arm under them), any hazards (cords, objects, nonskid slippers) brakes on? Proper equipment? Resident was found sitting on floor, L leg extended in front of him, R leg folded in ezra-cross position. Resident back against wall right below call light button. Resident pulled call light out from wall during fall. o Did you assess for head trauma, spinal injuries, skeletal injuries, neurological changes and status, and head and neck pain? What did you find? Pt assessed. Pt reported hitting back of head against wall during fall. No bruising, bumps, bleeding, abrasions noted. Pt reported L elbow pain, no bruises, bumps, bleedings, abrasions, noted. Full pt assessment - no evidence of trauma/injury. Neuros: PERRLA, BUE strength equal at baseline, BLE strength equal at baseline, A&Ox3 at baseline. o Did you assess ROM in shoulders, elbows, hips, knees, any other affected areas, unless there is suspected spinal injury. Pt able to reach full ROM BUE and BLE o Did you Assess for pain or discomfort? Pt reported pain on back of skull L side. Pt reported pain at L elbow. Pt denied any other pain. o What are the injuries and how are they being treated? No visible injuries. o How was the resident transferred from the floor? Gait belt utilized, LOY and RN lifted pt back to bed. o Did you call the MD or put a note in the BULK MAIL CLERK book? RN called [place]na on-call line. o Enter vital signs. BP - 113/60, HR: 60, RR:, 20, T: 97.3, O: 96 o Did you notify family? Yes. o What was the root cause of the fall? Why did it happen? Pt was left alone in room in wheelchair. Care plan states pt is not to be left alone in room in wheelchair. o Create an IMMEDIATE INTERVENTION to ensure that this won't immediately happen again. (Put in temporary care plan too): Pt care plan already states pt is not to be left alone in room in wheelchair. o Complete Safety report and huddle (now one form) o If resident is seen in ED or fractured something, note that you started a [facility] Report process. Instructions are at the East nurse's desk in a red binder labeled VA report.
--- NOTE | 2022-05-07 13:15 | PC.NURSE ---
FALL F/U 13:00 Neuro PERRLA, BUE strength equal at baseline, BLE equal at baseline, A&Ox3, communication at baseline.
--- NOTE | 2022-05-07 14:30 | PC.NURSE ---
FALL F/U Neuro - 1400 PERRLA, BUE strength equal at baseline, BLE strength equal at baseline, A&Ox3 at baseline. Pt communication at baseline.
--- NOTE | 2022-05-07 14:37 | PC.NURSE ---
FALL F/U Family call updated on fall.
--- NOTE | 2022-05-07 15:39 | PC.NURSE ---
Fall F/U: Resident resting in bed watching TV. Reports little pain, denied need for pain medication. VSS and neuro at residents baseline.
[2022-05-07] MEDS: LATANOPROST 0.005% OPHTH 1 DROP EYE-BOTH (19:04)
--- NOTE | 2022-05-07 21:11 | PC.NURSE ---
Fall F/U: Resident up in recliner watching TV. Was out to dinning room for dinner and ate well. Vitals continue to be stable. Neuro at baseline. Denies pain at this time.
[2022-05-08] VITALS: BP 111/62; PULSE 62; RESP 16; TEMP 36.8; O2SAT 95
--- NOTE | 2022-05-08 00:08 | PC.NURSE ---
FALL FOLLOW-UP: Vital signs: 98.3-62-16-111/62-95% on RA. Denies pain when asked. Full ROM to bilateral upper and lower extremities. Acute Care Nurse strength equal bilaterally. Denies headache, blurred vision, or nausea.
[2022-05-08 04:00] VITALS: BP 106/68; PULSE 60; RESP 14; TEMP 36.8; O2SAT 93
--- NOTE | 2022-05-08 04:10 | PC.NURSE ---
FALL FOLLOW-UP: Vital signs 98.3-60-14-106/68-93% on RA. Sleeping soundly, but wakes easily. Continues to deny pain when asked. ROM to all extremities at baseline. Hand grasp equal bilaterally. Neuros intact. Denies headache, nausea, or blurred vision.
[2022-05-08] MEDS: timoloL maleate 0.5 % 1 DROP EYE-BOTH (07:27)
[2022-05-08] MEDS: OMEPRAZOLE 20 MG CAPSULE DR PO (07:27)
[2022-05-08 08:00] VITALS: BP 107/59; PULSE 59; RESP 12; TEMP 37.2; O2SAT 95
[2022-05-08] MEDS: ASPIRIN 81 MG TABLET EC PO (08:54)
[2022-05-08] MEDS: ATORVASTATIN CALCIUM 40 MG TABLET PO (08:54)
[2022-05-08] MEDS: ESCITALOPRAM 10 MG TABLET PO (08:54)
[2022-05-08] MEDS: CYANOCOBALAMIN (VITAMIN B-12) 500 MCG TABLET 250 MCG PO ×2 (08:54→16:23)
[2022-05-08] MEDS: METOPROLOL TARTRATE 25 MG TABLET PO ×2 (08:55→16:23)
[2022-05-08] MEDS: POTASSIUM CHLORIDE 10 MEQ CAPSULE ER 20 MEQ PO (08:55)
[2022-05-08] MEDS: polyethylene glycoL 3350 17 GM PACK PO (08:55)
--- NOTE | 2022-05-08 09:37 | PC.NURSE ---
FALL F/U Neuro 0800 PERRLA, BUE strength equal at baseline, BLE strength equal at baseline, A&Ox3 at baseline, communication at baseline
[2022-05-08 11:18] VITALS: BP 122/70; PULSE 64; RESP 24; TEMP 36.7; O2SAT 92
--- NOTE | 2022-05-08 12:13 | PC.NURSE ---
FALL F/U Neuro 1200 PERRLA, BUE strength equal at baseline, BLE strength equal at baseline, A&Ox3 at baseline, communication at baseline.
[2022-05-08 16:00] VITALS: BP 118/68; PULSE 64; RESP 18; TEMP 36.7; O2SAT 92
--- NOTE | 2022-05-08 16:49 | PC.SOCIAL ---
Met with resident and resident's in resident's room per the request of resident's . Resident's , Jyothi Lora, shared concerns of a letter she received from [facility] stating that the rates for SNF would increase on June 04, 2022. Resident's states she is worried because she cannot afford the monthly rate. Informed resident's that [facility] is reviewing the Medical Assistance application and hopefully they give a response soon. Resident's asked if the monthly rate for resident's SNF stay could be lowered and this worker explained that it could not be lowered as it is a set rate. Informed resident's that she may reach out to Lois Larkin as stated on the letter she received. Suggested that Resident's reach out to [facility] to determine if everything was received to process the application.
[2022-05-08] MEDS: LATANOPROST 0.005% OPHTH 1 DROP EYE-BOTH (19:41)
[2022-05-08 20:00] VITALS: BP 121/69; PULSE 70; RESP 20; TEMP 36.9; O2SAT 94
[2022-05-09] VITALS: BP 127/75; PULSE 65; RESP 16; TEMP 37.1; O2SAT 95
--- NOTE | 2022-05-09 00:25 | PC.NURSE ---
FALL FOLLOW-UP: Vital signs - 98.7-65-16-127/75-95% on RA. Strength and ROM to all extremities at baseline. Denies any pain. Neuros intact. Denies nausea, blurred vision, or headache.
[2022-05-09 04:00] VITALS: BP 132/74; PULSE 76; RESP 18; TEMP 37.2; O2SAT 93
--- NOTE | 2022-05-09 04:28 | PC.NURSE ---
FALL FOLLOW-UP: Vital signs - 98.9-76-18-132/74-93% on RA. Strength and ROM to all extremities at baseline. Denies any pain. Neuros intact. Denies nausea, blurred vision, or headache.
[2022-05-09] MEDS: timoloL maleate 0.5 % 1 DROP EYE-BOTH (07:41)
[2022-05-09] MEDS: OMEPRAZOLE 20 MG CAPSULE DR PO (07:41)
[2022-05-09 08:00] VITALS: BP 121/65; PULSE 88; RESP 24; TEMP 37.3; O2SAT 92
[2022-05-09] MEDS: POTASSIUM CHLORIDE 10 MEQ CAPSULE ER 20 MEQ PO (08:54)
[2022-05-09] MEDS: ASPIRIN 81 MG TABLET EC PO (08:54)
[2022-05-09] MEDS: METOPROLOL TARTRATE 25 MG TABLET PO ×2 (08:54→15:48)
[2022-05-09] MEDS: CYANOCOBALAMIN (VITAMIN B-12) 500 MCG TABLET 250 MCG PO ×2 (08:54→15:48)
[2022-05-09] MEDS: ATORVASTATIN CALCIUM 40 MG TABLET PO (08:54)
[2022-05-09] MEDS: ESCITALOPRAM 10 MG TABLET PO (08:54)
--- NOTE | 2022-05-09 09:38 | PC.NURSE ---
At 0730 LOY went into room to help pt get ready for the day. Pt did not look well to LOY. VS - BP:121/65, HR:88, RR:24, O2:92, T:99.1. Pt transferred to recliner. Pt weaker than usual. Pt denied pain. Pt expressed feeling unwell. At 0900 VS rechecked. HR:78, O2:93, T:99.3. RN ordered influenza test and COVID test. Pt encouraged to drink fluids and rest.
--- NOTE | 2022-05-09 10:16 | PC.NURSE ---
FALL F/U Neuro 0800 PERRLA, BUE strength 3/5, BLE strength 2/5 - below baseline. A&Ox3 at baseline. Pt not communicating at baseline level. Pt appears to feel unwell. COVID and FLU test ordered.
[2022-05-09 11:14] LABS: PCR FLU A Negative PCR FLU A (Negative); PCR FLU B Negative PCR FLU B (Negative)
[2022-05-09 11:34] LABS: SARS PCR* Negative SARS-CoV-2 (Negative)
[2022-05-09 12:00] VITALS: BP 117/69; PULSE 78; RESP 24; TEMP 36.9; O2SAT 96
--- NOTE | 2022-05-09 13:41 | PC.NURSE ---
FALL F/U Neuro 1200 PERRLA, BUE strength 3/5, BLE strength 2/5, A&Ox3 at baseline, communication below baseline. COVID and FLU tests both negative.
[2022-05-09 16:00] VITALS: BP 125/76; PULSE 74; RESP 16; TEMP 37.6; O2SAT 98
--- NOTE | 2022-05-09 16:05 | PC.NURSE ---
Fall F/U: Resident sitting up in recliner, after returning from [facility]. VSS. Neuro: Continues to have increased weakness. More notably on R side (leaning to R in recliner) C/o back pain, relieved when repositioned and pillow placed behind back. Communication below baseline. Unsure resident is comprehending questions, does not always respond appropriately.
[2022-05-09] MEDS: LATANOPROST 0.005% OPHTH 1 DROP EYE-BOTH (19:12)
[2022-05-09 20:00] VITALS: BP 125/84; PULSE 71; RESP 16; TEMP 36.8; O2SAT 94
--- NOTE | 2022-05-09 20:00 | PC.NURSE ---
Addendum entered by Catia Cadena RN 05/09/22 21:30: Resident did come out to dinning room for dinner and ate 25%. Became very fatigued after dinner. Required 2 assist from WC into bed. Was sleeping when RN assessed VS. Opened eyes, but did not engage in any communication. VSS. Continues to have weakness in extremities. Original Note: Fall F/U: Resident sleeping in bed.
[2022-05-10] VITALS: BP 121/75; PULSE 78; RESP 16; TEMP 36.7; O2SAT 94
--- NOTE | 2022-05-10 00:29 | PC.NURSE ---
FALL FOLLOW-UP: Vital signs: 98.1-78-16-121/75-94% on RA. Resident rested while vital signs obtained. Opened eyes briefly and smiled but did not engage in communication. Continues with weakness a/e/b weak equal hand grasps. Unable to assess for headache, blurred vision,or nausea. Additionally, video game script writer assessed lung sounds which were clear throughout bilaterally.
[2022-05-10 04:00] VITALS: BP 129/76; PULSE 72; RESP 14; TEMP 36.8; O2SAT 94
--- NOTE | 2022-05-10 04:40 | PC.NURSE ---
FALL FOLLOW-UP: Vital signs as follows: 98.3-72-14-129/76-94% on RA. Sleeping when freelance writer entered room. Woke easily. More alert and responsive at this time versus scheduled midnight check. ROM at baseline. Denies any pain when asked.
[2022-05-10] MEDS: timoloL maleate 0.5 % 1 DROP EYE-BOTH (07:15)
[2022-05-10] MEDS: OMEPRAZOLE 20 MG CAPSULE DR PO (07:15)
[2022-05-10 08:00] VITALS: BP 114/76; PULSE 80; RESP 24; TEMP 37.1; O2SAT 92
[2022-05-10] MEDS: ASPIRIN 81 MG TABLET EC PO (08:22)
[2022-05-10] MEDS: CYANOCOBALAMIN (VITAMIN B-12) 500 MCG TABLET 250 MCG PO ×2 (08:22→16:08)
[2022-05-10] MEDS: ESCITALOPRAM 10 MG TABLET PO (08:22)
[2022-05-10] MEDS: ATORVASTATIN CALCIUM 40 MG TABLET PO (08:22)
[2022-05-10] MEDS: METOPROLOL TARTRATE 25 MG TABLET PO ×2 (08:23→16:08)
[2022-05-10] MEDS: POTASSIUM CHLORIDE 10 MEQ CAPSULE ER 20 MEQ PO (08:23)
[2022-05-10] MEDS: polyethylene glycoL 3350 17 GM PACK PO (08:23)
--- NOTE | 2022-05-10 09:39 | PC.NURSE ---
FALL F/U Neuro 0800 PERRTALISHA, LUCIOE strength 3/, BLE strength 2/. A&Ox3 at baseline. Pt responsive to questions, but disinterested in conversing.
[2022-05-10 12:00] VITALS: BP 136/80; PULSE 81; RESP 16; TEMP 37.1; O2SAT 92
--- NOTE | 2022-05-10 13:53 | PC.NURSE ---
FALL F/U Neuro 1200 PERRLA, JARED strength 08/06, BLE strength 2. A&Ox3. Decreased communication.
[2022-05-11] MEDS: LATANOPROST 0.005% OPHTH 1 DROP EYE-BOTH ×2 (06:45→19:12)
[2022-05-11] MEDS: OMEPRAZOLE 20 MG CAPSULE DR PO (06:45)
[2022-05-11] MEDS: ATORVASTATIN CALCIUM 40 MG TABLET PO (08:06)
[2022-05-11] MEDS: CYANOCOBALAMIN (VITAMIN B-12) 500 MCG TABLET 250 MCG PO ×2 (08:06→15:55)
[2022-05-11] MEDS: ASPIRIN 81 MG TABLET EC PO (08:06)
[2022-05-11] MEDS: ESCITALOPRAM 10 MG TABLET PO (08:06)
[2022-05-11] MEDS: METOPROLOL TARTRATE 25 MG TABLET PO ×2 (08:06→15:54)
[2022-05-11] MEDS: polyethylene glycoL 3350 17 GM PACK PO (08:07)
[2022-05-11] MEDS: POTASSIUM CHLORIDE 10 MEQ CAPSULE ER 20 MEQ PO (08:07)
[2022-05-11] MEDS: timoloL maleate 0.5 % 1 DROP EYE-BOTH (08:07)
--- NOTE | 2022-05-11 16:36 | PC.SOCIAL ---
Scheduled a Webex meeting for a care conference on Monday May 16, 2022. During care conference will have family participation from extended family to review resident's care plan. Phone call to Mariella Dailey at [phone] to see if she is available to provide ASL interpretation for the meeting. Mariella informed that she is not available on May 16. E-mail to Claudia Michael at [facility] car storer services to request an in person lease administration supervisor for resident's care conference on May 16, 2022 at 3:00 pm. Social Work will follow up as necessary.
--- NOTE | 2022-05-11 18:16 | PC.NURSE ---
Family update: Discussed with ZULY Castro the progression of weakness that is being seeing by staff. We discussed the confusion we are also seeing in Jyothi () during visits and conversations. We discussed care conference to bring in , family friend Tatiana and GAGANDEEP Novak of his status and to discuss hospice and cancer treatments at this time with them. ZULY prefer he not be present. Tracey will be present over the phone to discuss the POLST with the family. Also discussed this with GAGANDEEP Novak and all in agreement of meeting to go over options for resident and .
--- NOTE | 2022-05-12 02:36 | PC.NURSE ---
WEEKLY CHARTING - WEEK 1: Vital signs reviewed. Noted with chronically low diastolic BP values. Temporary and comprehensive care plan reviewed. Diet updated to soft and bite sized. Limited to extensive assist with dressing, grooming, bathing, and oral care. Regular diet, soft & bite-sized texture, with thin liquids per ST recommendation as resident is edentulous on top. No documented chewing/swallowing problems since diet change. Weight is stable.
[2022-05-12] MEDS: OMEPRAZOLE 20 MG CAPSULE DR PO (06:37)
--- NOTE | 2022-05-12 07:48 | PC.NURSE ---
Week 31: Comprehensive care plan reviewed, no changes made. Nothing added to temporary care plan. Needs limited to extensive assist of one with dressing, grooming, oral cares and bathing. Is able to feed self after set up. Diet changed to regular, soft and bite sized, thin liquids. No problems with chewing or swallowing noted with current diet. Vital signs reviewed, no concerns. Pain: Is on no schedule pain medication. No signs of pain noted. Needs anticipated by staff.
[2022-05-12] MEDS: POTASSIUM CHLORIDE 10 MEQ CAPSULE ER 20 MEQ PO (08:23)
[2022-05-12] MEDS: ESCITALOPRAM 10 MG TABLET PO (08:23)
[2022-05-12] MEDS: ATORVASTATIN CALCIUM 40 MG TABLET PO (08:23)
[2022-05-12] MEDS: METOPROLOL TARTRATE 25 MG TABLET PO ×2 (08:23→15:29)
[2022-05-12] MEDS: timoloL maleate 0.5 % 1 DROP EYE-BOTH (08:23)
[2022-05-12] MEDS: ASPIRIN 81 MG TABLET EC PO (08:23)
[2022-05-12] MEDS: polyethylene glycoL 3350 17 GM PACK PO (08:23)
[2022-05-12] MEDS: CYANOCOBALAMIN (VITAMIN B-12) 500 MCG TABLET 250 MCG PO ×2 (08:23→15:29)
[2022-05-12 09:50] VITALS: BP 118/61; PULSE 64; RESP 20; TEMP 36.4; O2SAT 98; BMI 18.3
--- NOTE | 2022-05-12 12:08 | PC.NURSE ---
Diarrhoea : Resident had 3 episode of loose stool this morning .Tab Loperamide 4mg given at 1210 hours.
[2022-05-12] MEDS: LOPERAMIDE HCL 2 MG CAPSULE PO (12:11)
--- NOTE | 2022-05-12 14:46 | PC.SOCIAL ---
Received an e-mail from Claudia Michael at [facility] Manager Order services. Claudia informed that Jhoana Ross will be available for ASL interpretation for resident's care conference on Sunday05/16/22 from 3pm to 4pm.
--- NOTE | 2022-05-12 16:34 | PC.SOCIAL ---
Phone call to resident's , Jyothi Lora. Informed her that we will have a care conference for family to review Jacque's care plan on Monday May 16, 2022 at 3:00 pm. Informed that Gloria, Lissett, and Scarlet will all also be present. Informed that this worker arranged for an in person chainstitch seat joiner for her as well. Informed that the care conference will be held in a conference room in the [facility]. Jyothi confirmed that she will be present. Social Work will follow up as needed.
--- NOTE | 2022-05-12 18:21 | PC.NURSE ---
customer technical services manager has set up care conference scheduled for 05/16/22 @ 3pm to discuss hospice and residents health status.
[2022-05-12] MEDS: LATANOPROST 0.005% OPHTH 1 DROP EYE-BOTH (20:07)
[2022-05-13] MEDS: OMEPRAZOLE 20 MG CAPSULE DR PO (06:29)
[2022-05-13] MEDS: ASPIRIN 81 MG TABLET EC PO (08:15)
[2022-05-13] MEDS: CYANOCOBALAMIN (VITAMIN B-12) 500 MCG TABLET 250 MCG PO ×2 (08:15→15:10)
[2022-05-13] MEDS: METOPROLOL TARTRATE 25 MG TABLET PO ×2 (08:15→15:10)
[2022-05-13] MEDS: timoloL maleate 0.5 % 1 DROP EYE-BOTH (08:15)
[2022-05-13] MEDS: POTASSIUM CHLORIDE 10 MEQ CAPSULE ER 20 MEQ PO (08:15)
[2022-05-13] MEDS: ATORVASTATIN CALCIUM 40 MG TABLET PO (08:15)
[2022-05-13] MEDS: ESCITALOPRAM 10 MG TABLET PO (08:15)
[2022-05-13] MEDS: LATANOPROST 0.005% OPHTH 1 DROP EYE-BOTH (19:14)
[2022-05-14] MEDS: ATORVASTATIN CALCIUM 40 MG TABLET PO (07:48)
[2022-05-14] MEDS: OMEPRAZOLE 20 MG CAPSULE DR PO (07:48)
[2022-05-14] MEDS: ASPIRIN 81 MG TABLET EC PO (07:48)
[2022-05-14] MEDS: METOPROLOL TARTRATE 25 MG TABLET PO ×2 (07:49→15:01)
[2022-05-14] MEDS: CYANOCOBALAMIN (VITAMIN B-12) 500 MCG TABLET 250 MCG PO ×2 (07:49→15:01)
[2022-05-14] MEDS: ESCITALOPRAM 10 MG TABLET PO (07:49)
[2022-05-14] MEDS: polyethylene glycoL 3350 17 GM PACK PO (07:49)
[2022-05-14] MEDS: POTASSIUM CHLORIDE 10 MEQ CAPSULE ER 20 MEQ PO (07:49)
[2022-05-14] MEDS: timoloL maleate 0.5 % 1 DROP EYE-BOTH (07:50)
--- NOTE | 2022-05-14 14:10 | PC.NURSE ---
Status: Resident transfer self from recliner, alarm going off, staff check and he was standing holding onto the bed.
[2022-05-14] MEDS: LATANOPROST 0.005% OPHTH 1 DROP EYE-BOTH (19:01)
[2022-05-15] MEDS: timoloL maleate 0.5 % 1 DROP EYE-BOTH (07:45)
[2022-05-15] MEDS: OMEPRAZOLE 20 MG CAPSULE DR PO (07:46)
[2022-05-15] MEDS: ASPIRIN 81 MG TABLET EC PO (07:46)
[2022-05-15] MEDS: CYANOCOBALAMIN (VITAMIN B-12) 500 MCG TABLET 250 MCG PO ×2 (07:46→15:19)
[2022-05-15] MEDS: ESCITALOPRAM 10 MG TABLET PO (07:46)
[2022-05-15] MEDS: METOPROLOL TARTRATE 25 MG TABLET PO ×2 (07:46→15:20)
[2022-05-15] MEDS: POTASSIUM CHLORIDE 10 MEQ CAPSULE ER 20 MEQ PO (07:46)
[2022-05-15] MEDS: polyethylene glycoL 3350 17 GM PACK PO (07:59)
[2022-05-15] MEDS: ATORVASTATIN CALCIUM 40 MG TABLET PO (20:02)
[2022-05-15] MEDS: LATANOPROST 0.005% OPHTH 1 DROP EYE-BOTH (20:02)
[2022-05-16] MEDS: OMEPRAZOLE 20 MG CAPSULE DR PO (07:34)
[2022-05-16] MEDS: timoloL maleate 0.5 % 1 DROP EYE-BOTH (07:34)
[2022-05-16] MEDS: CYANOCOBALAMIN (VITAMIN B-12) 500 MCG TABLET 250 MCG PO ×2 (08:46→15:41)
[2022-05-16] MEDS: METOPROLOL TARTRATE 25 MG TABLET PO ×2 (08:46→15:41)
[2022-05-16] MEDS: POTASSIUM CHLORIDE 10 MEQ CAPSULE ER 20 MEQ PO (08:46)
[2022-05-16] MEDS: ASPIRIN 81 MG TABLET EC PO (08:46)
[2022-05-16] MEDS: ESCITALOPRAM 10 MG TABLET PO (08:46)
[2022-05-16] MEDS: polyethylene glycoL 3350 17 GM PACK PO (08:46)
--- NOTE | 2022-05-16 10:00 | PC.NURSE ---
Call to [facility]: discussed with nurse Carmen from cancer center team the symptoms that the LTC has observed over the past week and that a care conference is set up with family today to discuss hospice. Nurse discussed residents visit to cancer center last week and that resident was weaker during recent visit and her concerns that may not be receptive to hospice as has been adamant in having resident continue with cancer treatment in the past. Reconciliation Specialist will bring concerns to care conference today with family as [facility] team is unable to attend.
--- NOTE | 2022-05-16 16:00 | PC.NURSE ---
Care conference: Hospice recommendation: Care conference held with music writer, MARTHA Hernández over the phone, DON, DAIJA, Jyothi, pipe and tank fabricator, ZULY Castro, friend of family Tatiana, and GAGANDEEP Novak over the phone. Resident has recently had a decline in health and needing more assistance for ADLS and at meals with eating. Resident is having increase difficulty in swallowing pills and needing to be fed at meals in the past week. He is overall weak and sleeping majority of time. Last week he was having difficulty sitting up straight in his w/c due to weakness and spent majority of time resting/sleeping in bed. Nursing wanted to bring family together to discuss what has been assessed and oberved. at times seems to not understand the progression of residents Alzheimer disease and believes that it is prostate cancer that is making him weak. Education given to and family on progression of Alzheimer's disease. We discussed medication management and cancer center visits. and family stated that they no longer want him to take his cancer medications and they would like to pursue hospice for resident for comfort to the resident and family. CHRONIC CONDITION NURSE in agreement and will write order for hospice referral. Operations Asst will contact cancer center to review medication management and f/u care with them. Discussed Advanced Directive and health agents with family. SS went over formal paperwork with family. Visitor rules discussed with family at this time d/t children not allowed in unit at this time. Other options discussed for a visit to take place with grandchildren. No further questions/concerns by family at this time.
[2022-05-16] MEDS: ATORVASTATIN CALCIUM 40 MG TABLET PO (19:04)
[2022-05-16] MEDS: LATANOPROST 0.005% OPHTH 1 DROP EYE-BOTH (19:04)
[2022-05-17] MEDS: timoloL maleate 0.5 % 1 DROP EYE-BOTH (07:38)
[2022-05-17] MEDS: OMEPRAZOLE 20 MG CAPSULE DR PO (07:38)
[2022-05-17] MEDS: ESCITALOPRAM 10 MG TABLET PO (08:40)
[2022-05-17] MEDS: polyethylene glycoL 3350 17 GM PACK PO (08:40)
[2022-05-17] MEDS: METOPROLOL TARTRATE 25 MG TABLET PO ×2 (08:40→16:00)
[2022-05-17] MEDS: CYANOCOBALAMIN (VITAMIN B-12) 500 MCG TABLET 250 MCG PO ×2 (08:40→16:00)
[2022-05-17] MEDS: ASPIRIN 81 MG TABLET EC PO (08:40)
[2022-05-17] MEDS: POTASSIUM CHLORIDE 10 MEQ CAPSULE ER 20 MEQ PO (08:40)
--- NOTE | 2022-05-17 08:50 | PC.PHA ---
MEDICATION REVIEW: MEDICATION MONITORING: Escitalopram 10 mg daily plus 11 other scheduled medications. Xtandi for prostate cancer continues and patient did follow up now in May with his oncologist, see provider notes for plans regarding future order for Lucrecia. Potassium supplementation continues,large dosage form to swallow, with K=4.6 on 05/09/22 Lisinopril and metoprolol continue for hypertension and BP history reviewed, no hypertension. IRREGULARITY OR COMMENTS: At time of review, no care conference note to review. Asked nursing staff about how well patient was tolerating his new environment and medication regimen. Also reviewed nutrition assessment. No medications for pain profiled, no antibiotics prescribed since last review and no benzodiazepines started since April. SUGGESTED COURSE OF ACTION: Based on my said reviews, patient may benefit from dissolvable potassium dosage form. Also, could consider stopping B12, and atorvastatin if swallowing and chewing are problematic. GDR of escitalopram recommended last review but patient may be benefitting from medication therefore I will not recommend at this time.
--- NOTE | 2022-05-17 09:13 | PC.NURSE ---
Skin check - No areas of concern. Skin dry, intact, appropriate color, warm.
--- NOTE | 2022-05-17 13:07 | PC.SOCIAL ---
Late entry note from 05-16-2022. Care conference was held on 05-16-2022 at 3:00 pm in the activity room in [facility]. Present: Nurse Practitioner Tracey Hernández (phone), DALILA Garcia, SAMEER Guy, Nutrition Leticia Richey, this worker from Social Work, Jyothi Lora, Gloria Lora, and Scarlet Lora (phone), Lissett Alexander, and Ignacio Chinchilla (data control assistant). Tracey provided a medical update on resident's health. Resident has had a general decline in health. Discussion was held on resident's cancer medication, Xtandi. Xtandi is causing resident to have numerous side affects and generally not feel well. Family decision to stop cancer medication (Xtandi) and stop cancer treatments, including cancer center appointments. Discussion on whether family would like hospice services in place for resident as resident's life expectancy is less than 6 months. Family decision to complete a referral for hospice services for resident through [facility]. MD will complete a hospice order. This worker will complete hospice referral when MD completes hospice order. Met with family after care conference to update resident's health care directive. Gloria Lora and Scarlet Lora will be the appointed health care agents. Form was completed and notarized. Form was placed in resident chart.
--- NOTE | 2022-05-17 14:55 | PC.SOCIAL ---
Updated resident's health care directive to list Darlene (Scarlet) Guido as primary health care agent and Gloriaarlen Alfredn as secondary health care agent. E-mailed a copy of health care directive to Gloria Lora and sent a copy of the health care directive to Scarlet Lora at [address] [place] [address]. [phone]. Original copy of health care directive was placed in resident's chart.
[2022-05-17] MEDS: LATANOPROST 0.005% OPHTH 1 DROP EYE-BOTH (19:50)
[2022-05-17] MEDS: ATORVASTATIN CALCIUM 40 MG TABLET PO (19:50)
[2022-05-18] MEDS: OMEPRAZOLE 20 MG CAPSULE DR PO (06:39)
[2022-05-18] MEDS: ASPIRIN 81 MG TABLET EC PO (08:19)
[2022-05-18] MEDS: ESCITALOPRAM 10 MG TABLET PO (08:19)
[2022-05-18] MEDS: CYANOCOBALAMIN (VITAMIN B-12) 500 MCG TABLET 250 MCG PO ×2 (08:19→16:09)
[2022-05-18] MEDS: timoloL maleate 0.5 % 1 DROP EYE-BOTH (08:20)
[2022-05-18] MEDS: POTASSIUM CHLORIDE 10 MEQ CAPSULE ER 20 MEQ PO (08:20)
[2022-05-18] MEDS: METOPROLOL TARTRATE 25 MG TABLET PO ×2 (08:20→16:09)
[2022-05-18] MEDS: polyethylene glycoL 3350 17 GM PACK PO (08:20)
--- NOTE | 2022-05-18 13:55 | PC.NURSE ---
Hospice referral to [facility] done by ORGANIC SEARCH LEADEdgar.
--- NOTE | 2022-05-18 14:52 | PC.SOCIAL ---
Received hospice order from . Phone call to [facility] to inquire on referral. Spoke to Gregoria and she stated that [facility] can accept the new referral. Faxed referral to [facility] intake at [phone]. Gregoria will follow up on when hospice services can start. Provided resident's health care agents Scarlet Lora and Gloria Lora's phone numbers for initial paperwork. Social Work will follow up as necessary.
--- NOTE | 2022-05-18 16:41 | PC.SOCIAL ---
Received a phone call from Gregoria at [facility] at [phone]. Gregoria stated that she reached out to Scarlet Lora and Scarlet informed her that she cannot sign documents for resident because she is not POA and refused to sign. Scarlet informed Gregoria that she would need to reach out to resident's , Jyothi Lora. Gregoria called Jyothi Lora and was informed that Jyothi changed her mind and does not want hospice services for resident. Jyothi asked Gregoria not to call her again. Gregoria then called this worker. Provided an update on family care conference and decisions that were made. Provided Gregoria with Gloria Lora's contact information. Gloria Lora is the secondary health care agent for resident and can make health care decisions. Received an e-mail from Gregoria stating that Gloria Lora responded and will e-sign documents to begin hospice services. The hospice nurse will come to [facility] to meet with resident on Sunday (05/19/22) at 6:30 pm. Nurse that will come is Beth. Social Work will follow up as necessary.
--- NOTE | 2022-05-18 18:45 | PC.NURSE ---
[facility] update: Have reached out to [facility] team to update them after care conference that hospice option has been chosen by family and to discuss with team about f/u and medications with cancer center be reviewed and if able discontinued.
[2022-05-18] MEDS: ATORVASTATIN CALCIUM 40 MG TABLET PO (20:26)
[2022-05-18] MEDS: LATANOPROST 0.005% OPHTH 1 DROP EYE-BOTH (20:26)
--- NOTE | 2022-05-19 03:05 | PC.NURSE ---
WEEKLY CHARTING - WEEK 2: Vital signs reviewed with no concerns. Temporary and comprehensive care plan reviewed - no change. Requires assist of 1 with transfers and ambulation with walker. Staff provide cues for bed mobility. Half side rails bilaterally. Can propel w/c short distances. Total staff assist for destination. Is at high risk for falls. Fall interventions include: gripper socks, bed and chair alarms, call light in reach, falling star magnet, hourly safety checks.
[2022-05-19] MEDS: OMEPRAZOLE 20 MG CAPSULE DR PO (06:58)
[2022-05-19] MEDS: timoloL maleate 0.5 % 1 DROP EYE-BOTH (07:00)
[2022-05-19] MEDS: POTASSIUM CHLORIDE 10 MEQ CAPSULE ER 20 MEQ PO (07:00)
[2022-05-19] MEDS: METOPROLOL TARTRATE 25 MG TABLET PO ×2 (07:00→15:36)
[2022-05-19] MEDS: ASPIRIN 81 MG TABLET EC PO (07:00)
[2022-05-19] MEDS: CYANOCOBALAMIN (VITAMIN B-12) 500 MCG TABLET 250 MCG PO ×2 (07:00→15:36)
[2022-05-19] MEDS: ESCITALOPRAM 10 MG TABLET PO (07:00)
[2022-05-19] MEDS: polyethylene glycoL 3350 17 GM PACK PO (07:00)
--- NOTE | 2022-05-19 08:29 | PC.NURSE ---
Week #2 - Mobility: Comprehensive care plan reviewed, no changes made. Nothing added to temporary care plan. Resident needs one assist, transfer belt and walker with transfers and ambulation. Is able to wheel short distances. Staff wheels to destinations. Is able to reposition self in bed with cues. Staff assist as needed. Has abed/chair alarm. Vital signs reviewed, no concerns. Fall: Had 2 falls last month, no injury. Transferring self. Immediate intervention: hourly rounding, bed/chair alarm, when in room don't leave in w/c. Is a high fall risk according to assessment done on 04/06/22.
--- NOTE | 2022-05-19 08:57 | PC.NURSE ---
Addendum entered by Kendy Garcia RN 05/19/22 17:45: Possible charted in error. Have followed up with nurse for clarification. Original Note: Status/Diet: Resident does not want a pureed texture banana. Will give banana cut into small pieces. And will monitor swallowing, coughing/choking.
[2022-05-19 11:54] VITALS: BP 118/80; PULSE 61; RESP 18; TEMP 36.6; O2SAT 99
[2022-05-19 11:56] VITALS: BMI 17.9
--- NOTE | 2022-05-19 13:36 | PC.SOCIAL ---
Sent an e-mail to Gregoria Forbes with [facility] at [email or web address] to provide her with resident's health care directive. Phone call to Gregoria to verify that she received document. Gregoria states that Gloria Guido wondered if she had the authority to sign the document. Informed that she is named as a health care agent on the resident's health care directive and it would be [facility] decision. Reminded that the family plan was hospice and all family members were in agreement at the care conference that was held earlier this week. Gregoria will follow up with Gloria Lora. Discussed transportation for client. [facility] is unable to assist with transportation on [place] for resident due to staffing. Informed that the other option would be for family to private pay transportation company like [employer]. Phone call to Gloria Lora at [phone]. Discussed health care directive form. Informed that [facility] will follow up to discuss further. Gloria discussed transportation for [place] giana to take resident to breakfast with the grandchildren since the hospital has a no visiting policy for children. Informed Gloria of transportation options. Met with resident and resident's , Jyothi Lora, in resident's room. Discussed hospice with resident's . Informed resident's that hospice is a service that will assist resident in feeling comfortable his last part of life. Jyothi agrees and states she is scared to lose him. Jyothi states she fine with hospice starting and she will keep saying prayers for her . Jyothi stated that she is very pleased with the multimedia engineer that was provided by [facility] for the care conference which was Ignacio Chinchilla. This worker informed that this worker will request him specially if we need an in person multimedia engineer again. Social Work will follow up as necessary.
--- NOTE | 2022-05-19 15:20 | PC.SOCIAL ---
Received a phone call from Gregoria Pimentel at [facility]. Gregoria informed that all of the paperwork was completed and signed and the initial hospice appointment will ocurr today still. Gregoria informed that the nurse, Beth, will come earlier, at approximately 5:00 pm to 5:30 pm, due to bad weather. This worker will inform the staff at the [facility].
[2022-05-19] MEDS: ATORVASTATIN CALCIUM 40 MG TABLET PO (19:37)
[2022-05-19] MEDS: LATANOPROST 0.005% OPHTH 1 DROP EYE-BOTH (19:37)
[2022-05-20] MEDS: timoloL maleate 0.5 % 1 DROP EYE-BOTH (07:38)
[2022-05-20] MEDS: OMEPRAZOLE 20 MG CAPSULE DR PO (07:38)
[2022-05-20] MEDS: polyethylene glycoL 3350 17 GM PACK PO (08:49)
[2022-05-20] MEDS: METOPROLOL TARTRATE 25 MG TABLET PO ×2 (08:49→15:00)
[2022-05-20] MEDS: CYANOCOBALAMIN (VITAMIN B-12) 500 MCG TABLET 250 MCG PO ×2 (08:49→15:00)
[2022-05-20] MEDS: POTASSIUM CHLORIDE 10 MEQ CAPSULE ER 20 MEQ PO (08:49)
[2022-05-20] MEDS: ASPIRIN 81 MG TABLET EC PO (08:49)
[2022-05-20] MEDS: ESCITALOPRAM 10 MG TABLET PO (08:49)
[2022-05-20] MEDS: LATANOPROST 0.005% OPHTH 1 DROP EYE-BOTH (19:05)
[2022-05-20] MEDS: ATORVASTATIN CALCIUM 40 MG TABLET PO (19:05)
[2022-05-21] MEDS: OMEPRAZOLE 20 MG CAPSULE DR PO (07:49)
[2022-05-21] MEDS: ASPIRIN 81 MG TABLET EC PO (08:53)
[2022-05-21] MEDS: CYANOCOBALAMIN (VITAMIN B-12) 500 MCG TABLET 250 MCG PO ×2 (08:53→15:12)
[2022-05-21] MEDS: POTASSIUM CHLORIDE 10 MEQ CAPSULE ER 20 MEQ PO (08:54)
[2022-05-21] MEDS: polyethylene glycoL 3350 17 GM PACK PO (08:54)
[2022-05-21] MEDS: timoloL maleate 0.5 % 1 DROP EYE-BOTH (08:54)
[2022-05-21] MEDS: ESCITALOPRAM 10 MG TABLET PO (08:54)
[2022-05-21] MEDS: METOPROLOL TARTRATE 25 MG TABLET PO ×2 (08:54→15:12)
[2022-05-21] MEDS: ATORVASTATIN CALCIUM 40 MG TABLET PO (19:12)
[2022-05-21] MEDS: LATANOPROST 0.005% OPHTH 1 DROP EYE-BOTH (19:12)
[2022-05-22] MEDS: OMEPRAZOLE 20 MG CAPSULE DR PO (07:51)
[2022-05-22] MEDS: ESCITALOPRAM 10 MG TABLET PO (08:45)
[2022-05-22] MEDS: ASPIRIN 81 MG TABLET EC PO (08:45)
[2022-05-22] MEDS: CYANOCOBALAMIN (VITAMIN B-12) 500 MCG TABLET 250 MCG PO ×2 (08:45→15:41)
[2022-05-22] MEDS: METOPROLOL TARTRATE 25 MG TABLET PO ×2 (08:45→15:41)
[2022-05-22] MEDS: POTASSIUM CHLORIDE 10 MEQ CAPSULE ER 20 MEQ PO (08:47)
[2022-05-22] MEDS: polyethylene glycoL 3350 17 GM PACK PO (08:47)
[2022-05-22] MEDS: timoloL maleate 0.5 % 1 DROP EYE-BOTH (08:47)
--- NOTE | 2022-05-22 16:12 | PC.SOCIAL ---
Addendum entered by RILEY Gamble 05/22/22 16:58: Received a phone call back from Scarlet Lora. Scarlet declined the care conference. Scarlet states that last week's meeting was informational and she feels having another care conference is not necessary. Original Note: Phone call to Scarlet Lora. There was no answer, left a voicemail informing that since resident began hospice services on Sunday it is considered a significant change in status and want to discuss if family would like to hold a care conference with the significant change. Requested a phone call back to this worker to discuss further. Received a fax from [facility] requesting information on resident's guarantor information for financial since resident now entered hospice. Provided a letter via fax to [phone] stating that resident's financial guarantor is resident's , Jyothi Lora. Provided Jyothi's contact information.
[2022-05-22] MEDS: LATANOPROST 0.005% OPHTH 1 DROP EYE-BOTH (19:48)
[2022-05-22] MEDS: ATORVASTATIN CALCIUM 40 MG TABLET PO (19:48)
[2022-05-23] MEDS: OMEPRAZOLE 20 MG CAPSULE DR PO (07:33)
[2022-05-23] MEDS: METOPROLOL TARTRATE 25 MG TABLET PO ×2 (08:51→15:39)
[2022-05-23] MEDS: ASPIRIN 81 MG TABLET EC PO (08:51)
[2022-05-23] MEDS: timoloL maleate 0.5 % 1 DROP EYE-BOTH (08:51)
[2022-05-23] MEDS: POTASSIUM CHLORIDE 10 MEQ CAPSULE ER 20 MEQ PO (08:51)
[2022-05-23] MEDS: ESCITALOPRAM 10 MG TABLET PO (08:51)
[2022-05-23] MEDS: CYANOCOBALAMIN (VITAMIN B-12) 500 MCG TABLET 250 MCG PO (08:51)
--- NOTE | 2022-05-23 10:14 | PC.SOCIAL ---
Met with resident and resident's (Jyothi Lora) in resident's room. Jyothi provided this worker with a letter from [facility] stating that they are requesting information on two checking accounts from [facility] that were not reported on Resident's MA application. Asked Jyothi if they have two checking accounts at [facility] and she replied yes. Informed Jyothi that she will need to get the last three months of bank statements for each account and provide it to [facility]. Jyothi states that Lissett Alexander will come over tomorrow and she will show her the letter. Social Work will follow up as necessary.
--- NOTE | 2022-05-23 10:41 | PC.NURSE ---
Order: Received written order discontinue Xtandi by Dr. Nuñez.
--- NOTE | 2022-05-23 12:06 | PC.NURSE ---
Order: Edagr THOMAS here. Medications reviewed. Order: Discontinue Atovarstatin 40mg @ HS & Vit. B12 BID. Change Potassium capsules to tablet - Ilia notified.
[2022-05-23] MEDS: LATANOPROST 0.005% OPHTH 1 DROP EYE-BOTH (18:55)
[2022-05-24] MEDS: OMEPRAZOLE 20 MG CAPSULE DR PO (07:53)
[2022-05-24] MEDS: POTASSIUM CHLORIDE 10 MEQ CAPSULE ER 20 MEQ PO (08:52)
[2022-05-24] MEDS: ASPIRIN 81 MG TABLET EC PO (08:52)
[2022-05-24] MEDS: METOPROLOL TARTRATE 25 MG TABLET PO ×2 (08:52→16:24)
[2022-05-24] MEDS: timoloL maleate 0.5 % 1 DROP EYE-BOTH (08:52)
[2022-05-24] MEDS: ESCITALOPRAM 10 MG TABLET PO (08:52)
[2022-05-24] MEDS: LATANOPROST 0.005% OPHTH 1 DROP EYE-BOTH (19:23)
[2022-05-25] MEDS: OMEPRAZOLE 20 MG CAPSULE DR PO (07:43)
[2022-05-25] MEDS: timoloL maleate 0.5 % 1 DROP EYE-BOTH (07:44)
[2022-05-25] MEDS: POTASSIUM CHLORIDE 10 MEQ CAPSULE ER 20 MEQ PO (08:14)
[2022-05-25] MEDS: ASPIRIN 81 MG TABLET EC PO (08:14)
[2022-05-25] MEDS: ESCITALOPRAM 10 MG TABLET PO (08:14)
[2022-05-25] MEDS: polyethylene glycoL 3350 17 GM PACK PO (08:14)
[2022-05-25] MEDS: METOPROLOL TARTRATE 25 MG TABLET PO ×2 (08:14→16:37)
--- NOTE | 2022-05-25 08:40 | PC.NURSE ---
Met with resident and he indicated he wanted his side rails down. Will continue with interventions of call light in reach, frequent checks, bed alarm and bed in low position.
[2022-05-25 12:32] VITALS: BMI 18.3
--- NOTE | 2022-05-25 13:39 | PC.NURSE ---
Evacuee Assessment: resident is ambulatory but only for short distances d/t weakness also is deaf. Level 2 appropriate at this time.
[2022-05-25] MEDS: LATANOPROST 0.005% OPHTH 1 DROP EYE-BOTH (19:09)
--- NOTE | 2022-05-26 03:15 | PC.NURSE ---
WEEKLY CHARTING - WEEK 3: Vital signs reviewed and are noted WNL. Temporary and comprehensive care plan reviewed with no change. Per last skin assessment, has a small scab on left ear. No other skin concerns. Incontinent of bowel and bladder with occasional episodes of continence. Wears medium brief at night. Is offered toilet on rounds, but often refuses. Is checked and changed in bed with assist of 1. Staff assist for dileep-care, pad, and clothing management.
[2022-05-26] MEDS: OMEPRAZOLE 20 MG CAPSULE DR PO (07:18)
[2022-05-26] MEDS: timoloL maleate 0.5 % 1 DROP EYE-BOTH (07:18)
[2022-05-26] MEDS: POTASSIUM CHLORIDE 10 MEQ CAPSULE ER 20 MEQ PO (08:17)
[2022-05-26] MEDS: ESCITALOPRAM 10 MG TABLET PO (08:17)
[2022-05-26] MEDS: polyethylene glycoL 3350 17 GM PACK PO (08:17)
[2022-05-26] MEDS: ASPIRIN 81 MG TABLET EC PO (08:17)
[2022-05-26] MEDS: METOPROLOL TARTRATE 25 MG TABLET PO ×2 (08:17→15:13)
[2022-05-26] MEDS: ACETAMINOPHEN 325 MG TABLET 650 MG PO (08:22)
[2022-05-26 10:27] VITALS: BMI 18.3
[2022-05-26 10:41] VITALS: BP 103/67; PULSE 55; RESP 16; TEMP 36.4; O2SAT 97
[2022-05-26] MEDS: LATANOPROST 0.005% OPHTH 1 DROP EYE-BOTH (19:39)
--- NOTE | 2022-05-26 21:54 | PC.NURSE ---
Week #3: Charting Temporary care plan reviewed, no change. Care plan reviewed, no change. Skin summary: No skin concerns at this time. Toileting: Resident is incontinent of bladder, wears a pull up, is changed on a schedual. Resident is up with one assist.
[2022-05-27] MEDS: timoloL maleate 0.5 % 1 DROP EYE-BOTH (07:30)
[2022-05-27] MEDS: OMEPRAZOLE 20 MG CAPSULE DR PO (07:33)
[2022-05-27] MEDS: ESCITALOPRAM 10 MG TABLET PO (08:40)
[2022-05-27] MEDS: ASPIRIN 81 MG TABLET EC PO (08:40)
[2022-05-27] MEDS: METOPROLOL TARTRATE 25 MG TABLET PO ×2 (08:41→16:35)
[2022-05-27] MEDS: polyethylene glycoL 3350 17 GM PACK PO (08:41)
[2022-05-27] MEDS: POTASSIUM CHLORIDE 10 MEQ CAPSULE ER 20 MEQ PO (08:42)
[2022-05-27] MEDS: LATANOPROST 0.005% OPHTH 1 DROP EYE-BOTH (20:36)
[2022-05-28] MEDS: OMEPRAZOLE 20 MG CAPSULE DR PO (07:40)
[2022-05-28] MEDS: METOPROLOL TARTRATE 25 MG TABLET PO ×2 (08:06→15:56)
[2022-05-28] MEDS: ESCITALOPRAM 10 MG TABLET PO (08:06)
[2022-05-28] MEDS: polyethylene glycoL 3350 17 GM PACK PO (08:06)
[2022-05-28] MEDS: ASPIRIN 81 MG TABLET EC PO (08:06)
[2022-05-28] MEDS: POTASSIUM CHLORIDE 10 MEQ CAPSULE ER 20 MEQ PO (08:07)
[2022-05-28] MEDS: timoloL maleate 0.5 % 1 DROP EYE-BOTH (08:15)
[2022-05-28] MEDS: LATANOPROST 0.005% OPHTH 1 DROP EYE-BOTH (19:47)
[2022-05-29] MEDS: OMEPRAZOLE 20 MG CAPSULE DR PO (07:15)
[2022-05-29] MEDS: polyethylene glycoL 3350 17 GM PACK PO (07:16)
[2022-05-29] MEDS: ESCITALOPRAM 10 MG TABLET PO (08:37)
[2022-05-29] MEDS: ASPIRIN 81 MG TABLET EC PO (08:37)
[2022-05-29] MEDS: timoloL maleate 0.5 % 1 DROP EYE-BOTH (08:38)
[2022-05-29] MEDS: METOPROLOL TARTRATE 25 MG TABLET PO ×2 (08:38→15:04)
[2022-05-29] MEDS: POTASSIUM CHLORIDE 10 MEQ CAPSULE ER 20 MEQ PO (08:38)
--- NOTE | 2022-05-29 10:45 | PC.NURSE ---
Evacuee assessment: Level 2: can walk short distances but will need to use w/c when evacuated. Also he is deaf and needs moderate staff assistance.
[2022-05-29] MEDS: LATANOPROST 0.005% OPHTH 1 DROP EYE-BOTH (19:24)
[2022-05-30] MEDS: OMEPRAZOLE 20 MG CAPSULE DR PO (07:37)
[2022-05-30] MEDS: METOPROLOL TARTRATE 25 MG TABLET PO ×2 (08:49→16:15)
[2022-05-30] MEDS: ESCITALOPRAM 10 MG TABLET PO (08:49)
[2022-05-30] MEDS: timoloL maleate 0.5 % 1 DROP EYE-BOTH (08:49)
[2022-05-30] MEDS: POTASSIUM CHLORIDE 10 MEQ CAPSULE ER 20 MEQ PO (08:49)
[2022-05-30] MEDS: polyethylene glycoL 3350 17 GM PACK PO (08:49)
[2022-05-30] MEDS: ASPIRIN 81 MG TABLET EC PO (08:49)
[2022-05-30] MEDS: LATANOPROST 0.005% OPHTH 1 DROP EYE-BOTH (18:40)
[2022-05-31] MEDS: OMEPRAZOLE 20 MG CAPSULE DR PO (07:28)
[2022-05-31] MEDS: POTASSIUM CHLORIDE 10 MEQ CAPSULE ER 20 MEQ PO (08:35)
[2022-05-31] MEDS: METOPROLOL TARTRATE 25 MG TABLET PO ×2 (08:35→15:38)
[2022-05-31] MEDS: ESCITALOPRAM 10 MG TABLET PO (08:35)
[2022-05-31] MEDS: ASPIRIN 81 MG TABLET EC PO (08:35)
[2022-05-31] MEDS: timoloL maleate 0.5 % 1 DROP EYE-BOTH (08:35)
--- NOTE | 2022-05-31 10:42 | PC.SOCIAL ---
Met with resident and resident's in resident's room. Resident's provided a letter she received in the mail from [facility] regarding resident's MA application. Letter informs that resident's MA application is still pending past the initial 60 day application period. No further action is needed, letter appeared to be informational.
[2022-05-31] MEDS: LATANOPROST 0.005% OPHTH 1 DROP EYE-BOTH (19:41)
[2022-06-01] MEDS: polyethylene glycoL 3350 17 GM PACK PO (07:08)
[2022-06-01] MEDS: OMEPRAZOLE 20 MG CAPSULE DR PO (07:08)
[2022-06-01] MEDS: ASPIRIN 81 MG TABLET EC PO (08:27)
[2022-06-01] MEDS: METOPROLOL TARTRATE 25 MG TABLET PO ×2 (08:27→15:12)
[2022-06-01] MEDS: POTASSIUM CHLORIDE 10 MEQ CAPSULE ER 20 MEQ PO (08:27)
[2022-06-01] MEDS: ESCITALOPRAM 10 MG TABLET PO (08:27)
[2022-06-01] MEDS: timoloL maleate 0.5 % 1 DROP EYE-BOTH (08:28)
[2022-06-01] MEDS: LATANOPROST 0.005% OPHTH 1 DROP EYE-BOTH (19:30)
--- NOTE | 2022-06-02 01:26 | PC.NURSE ---
WEEKLY CHARTING - WEEK 4: Vital signs reviewed. Temporary and comprehensive care plan reviewed - no change. No behaviors documented in the last month. Currently receives escitalopram 10mg daily with no adverse effects. 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 Requires tobacco conditioner or whiteboard for all communication. Staff anticipate needs and observe for nonverbal cues. Has cognitive impairment r/t dementia. Wears glasses for visual deficit. Xtandi was discontinued 05/23. All medications administered by nurse. Was admitted to hospice care for declining condition r/t metastatic prostate cancer.
[2022-06-02 07:00] VITALS: BP 117/70; RESP 16; TEMP 36.5; O2SAT 94; BMI 18.2
[2022-06-02] MEDS: OMEPRAZOLE 20 MG CAPSULE DR PO (07:38)
[2022-06-02] MEDS: polyethylene glycoL 3350 17 GM PACK PO (08:36)
[2022-06-02] MEDS: POTASSIUM CHLORIDE 10 MEQ CAPSULE ER 20 MEQ PO (08:36)
[2022-06-02] MEDS: METOPROLOL TARTRATE 25 MG TABLET PO ×2 (08:36→16:41)
[2022-06-02] MEDS: ESCITALOPRAM 10 MG TABLET PO (08:36)
[2022-06-02] MEDS: ASPIRIN 81 MG TABLET EC PO (08:36)
[2022-06-02] MEDS: timoloL maleate 0.5 % 1 DROP EYE-BOTH (08:37)
--- NOTE | 2022-06-02 11:28 | PC.NURSE ---
WEEKLY CHARTING - WEEK 4: Temporary and comprehensive care plan reviewed with no change. VSS. No behaviors issues documented in the past 4 weeks. Resident on escitalopram 10mg daily with no adverse effects documented for the past 4 weeks.. Resident Requires rn staffing or whiteboard for all communication due to difficulty of hearing. Staff anticipate needs and observe for nonverbal cues. Has cognitive impairment r/t dementia. Wears glasses for visual deficit. Admitted to hospice care due to declining health condition r/t metastatic prostate cancer.
[2022-06-02] MEDS: LATANOPROST 0.005% OPHTH 1 DROP EYE-BOTH (19:15)
[2022-06-03] MEDS: OMEPRAZOLE 20 MG CAPSULE DR PO (06:58)
[2022-06-03] MEDS: METOPROLOL TARTRATE 25 MG TABLET PO ×2 (08:36→16:07)
[2022-06-03] MEDS: POTASSIUM CHLORIDE 10 MEQ CAPSULE ER 20 MEQ PO (08:36)
[2022-06-03] MEDS: ASPIRIN 81 MG TABLET EC PO (08:36)
[2022-06-03] MEDS: ESCITALOPRAM 10 MG TABLET PO (08:36)
[2022-06-03] MEDS: timoloL maleate 0.5 % 1 DROP EYE-BOTH (08:36)
[2022-06-03] MEDS: LATANOPROST 0.005% OPHTH 1 DROP EYE-BOTH (19:34)
[2022-06-04] MEDS: OMEPRAZOLE 20 MG CAPSULE DR PO (07:29)
[2022-06-04] MEDS: ASPIRIN 81 MG TABLET EC PO (08:21)
[2022-06-04] MEDS: ESCITALOPRAM 10 MG TABLET PO (08:21)
[2022-06-04] MEDS: METOPROLOL TARTRATE 25 MG TABLET PO ×2 (08:21→16:14)
[2022-06-04] MEDS: POTASSIUM CHLORIDE 10 MEQ CAPSULE ER 20 MEQ PO (08:22)
[2022-06-04] MEDS: timoloL maleate 0.5 % 1 DROP EYE-BOTH (08:22)
[2022-06-04] MEDS: polyethylene glycoL 3350 17 GM PACK PO (08:22)
[2022-06-04] MEDS: LATANOPROST 0.005% OPHTH 1 DROP EYE-BOTH (20:48)
[2022-06-05] MEDS: timoloL maleate 0.5 % 1 DROP EYE-BOTH (07:39)
[2022-06-05] MEDS: OMEPRAZOLE 20 MG CAPSULE DR PO (07:39)
[2022-06-05] MEDS: METOPROLOL TARTRATE 25 MG TABLET PO ×2 (08:44→16:00)
[2022-06-05] MEDS: POTASSIUM CHLORIDE 10 MEQ CAPSULE ER 20 MEQ PO (08:44)
[2022-06-05] MEDS: ESCITALOPRAM 10 MG TABLET PO (08:44)
[2022-06-05] MEDS: ASPIRIN 81 MG TABLET EC PO (08:44)
--- NOTE | 2022-06-05 13:23 | PC.NURSE ---
COVID OUTBREAK TESTING (Antigen): Resident provided verbal consent for outbreak COVID testing. Resident is currently asymptomatic. Resident/family will be notified only if resident is positive.
[2022-06-05 16:56] VITALS: TEMP 36.8; O2SAT 95
[2022-06-05] MEDS: LATANOPROST 0.005% OPHTH 1 DROP EYE-BOTH (19:56)
[2022-06-05 23:00] VITALS: TEMP 36.3; O2SAT 95
[2022-06-06 07:00] VITALS: TEMP 36.4; O2SAT 96
[2022-06-06] MEDS: OMEPRAZOLE 20 MG CAPSULE DR PO (07:30)
[2022-06-06] MEDS: timoloL maleate 0.5 % 1 DROP EYE-BOTH (07:30)
[2022-06-06] MEDS: ASPIRIN 81 MG TABLET EC PO (08:48)
[2022-06-06] MEDS: METOPROLOL TARTRATE 25 MG TABLET PO ×2 (08:48→16:14)
[2022-06-06] MEDS: polyethylene glycoL 3350 17 GM PACK PO (08:48)
[2022-06-06] MEDS: ESCITALOPRAM 10 MG TABLET PO (08:48)
[2022-06-06] MEDS: POTASSIUM CHLORIDE 10 MEQ CAPSULE ER 20 MEQ PO (08:48)
--- NOTE | 2022-06-06 10:15 | PC.NURSE ---
MDS charting: LULY of 05/29/22. Reviewed charting and discussed with staff. Errors noted. Resident charted appropriately on MDS.
--- NOTE | 2022-06-06 12:29 | PC.NURSE ---
COVID swab done per residents consent as antigen was supposed to be done on 06/05/22 and was processed as a priority test instead. Will await results.
[2022-06-06 12:50] LABS: SARS Antigen* Negative (Negative)
[2022-06-06] MEDS: LATANOPROST 0.005% OPHTH 1 DROP EYE-BOTH (20:16)
[2022-06-06 23:00] VITALS: TEMP 36.3; O2SAT 95
[2022-06-07 07:00] VITALS: TEMP 36.3; O2SAT 95
[2022-06-07] MEDS: OMEPRAZOLE 20 MG CAPSULE DR PO (07:36)
[2022-06-07] MEDS: timoloL maleate 0.5 % 1 DROP EYE-BOTH (07:36)
[2022-06-07] MEDS: METOPROLOL TARTRATE 25 MG TABLET PO ×2 (08:53→15:26)
[2022-06-07] MEDS: polyethylene glycoL 3350 17 GM PACK PO (08:53)
[2022-06-07] MEDS: ASPIRIN 81 MG TABLET EC PO (08:53)
[2022-06-07] MEDS: ESCITALOPRAM 10 MG TABLET PO (08:53)
[2022-06-07] MEDS: POTASSIUM CHLORIDE 10 MEQ CAPSULE ER 20 MEQ PO (08:53)
--- NOTE | 2022-06-07 14:49 | PC.SPIRITC ---
I provided visit for support and connection.
[2022-06-07 15:00] VITALS: TEMP 36.3; O2SAT 93
[2022-06-07] MEDS: LATANOPROST 0.005% OPHTH 1 DROP EYE-BOTH (19:48)
--- NOTE | 2022-06-07 21:32 | PC.NURSE ---
Health Status: Resident had one copious loose stool before dinner. Vital signs obtained were WNL. No additional loose stools noted or reported at this time. Will continue to monitor.
[2022-06-07 23:00] VITALS: TEMP 36.9; O2SAT 97
[2022-06-08 07:00] VITALS: TEMP 36; O2SAT 98
[2022-06-08] MEDS: OMEPRAZOLE 20 MG CAPSULE DR PO (07:33)
[2022-06-08] MEDS: METOPROLOL TARTRATE 25 MG TABLET PO ×2 (08:15→16:24)
[2022-06-08] MEDS: polyethylene glycoL 3350 17 GM PACK PO (08:15)
[2022-06-08] MEDS: ASPIRIN 81 MG TABLET EC PO (08:15)
[2022-06-08] MEDS: POTASSIUM CHLORIDE 10 MEQ CAPSULE ER 20 MEQ PO (08:15)
[2022-06-08] MEDS: timoloL maleate 0.5 % 1 DROP EYE-BOTH (08:15)
[2022-06-08] MEDS: ESCITALOPRAM 10 MG TABLET PO (08:15)
[2022-06-08] MEDS: LATANOPROST 0.005% OPHTH 1 DROP EYE-BOTH (20:23)
[2022-06-08 21:55] VITALS: TEMP 36.4; O2SAT 95
[2022-06-08 23:00] VITALS: TEMP 36.4; O2SAT 95
--- NOTE | 2022-06-09 03:35 | PC.NURSE ---
WEEKLY CHARTING - WEEK 1: Vital signs reviewed with no concerns. Temporary and comprehensive care plan reviewed - no change. Resident denies pain when asked. No oral analgesics. May utilized PRN acetaminophen per SO. Limited to extensive assist with dressing, grooming, bathing, and oral care. Receives soft and bite sized diet d/t edentulous status. Able to eat independently after set-up. Requires some cues. Weight is stable.?
--- NOTE | 2022-06-09 06:47 | PC.NURSE ---
Week #1: Comprehensive care plan reviewed, no changes made. Nothing added to temporary care plan. Needs limited to extensive assist of one with dressing, grooming, oral cares and bathing. Is able to feed self after set up. Is on regular, soft and bite sized, thin liquids. No problems with chewing or swallowing noted. No natural teeth. Vital signs reviewed, no concerns. Pain: Is on no schedule pain medication. No signs of pain noted. Denies pain when asked. Needs anticipated by staff.
[2022-06-09] MEDS: OMEPRAZOLE 20 MG CAPSULE DR PO (07:08)
[2022-06-09] MEDS: ASPIRIN 81 MG TABLET EC PO (08:28)
[2022-06-09] MEDS: POTASSIUM CHLORIDE 10 MEQ CAPSULE ER 20 MEQ PO (08:28)
[2022-06-09] MEDS: timoloL maleate 0.5 % 1 DROP EYE-BOTH (08:28)
[2022-06-09] MEDS: ESCITALOPRAM 10 MG TABLET PO (08:28)
[2022-06-09] MEDS: polyethylene glycoL 3350 17 GM PACK PO (08:28)
[2022-06-09] MEDS: METOPROLOL TARTRATE 25 MG TABLET PO (08:28)
[2022-06-09 10:44] VITALS: BP 123/67; PULSE 68; RESP 20; TEMP 36.4; O2SAT 97; BMI 18.2
--- NOTE | 2022-06-09 12:23 | PC.NURSE ---
Recert Visit: Resident seen by Dr. Le. Orders reviewed and renewed for 45 days with changes. Order: D/C KCL, Decrease Metoprolol to 12.5 mg BID.
[2022-06-09] MEDS: METOPROLOL TARTRATE 25 MG TABLET 12.5 MG PO (15:28)
[2022-06-09] MEDS: LATANOPROST 0.005% OPHTH 1 DROP EYE-BOTH (20:02)
[2022-06-09 21:26] VITALS: BP 118/59; TEMP 36.6; O2SAT 93
--- NOTE | 2022-06-09 22:20 | PC.SOCIAL ---
This worker was informed that resident's , Jyothi Lora, requested to speak with this worker. Phone call to Jyothi Lora at [phone]. Spoke to Jyothi Alfredn through nut threader services. Jyothi is asking what the new amount of her bill is. Asked Jyothi if she received a new billing statement for June. Jyothi states she has not. Jyothi will come in to [facility] on Sunday06/13/2022 to meet with this worker and call Patient Financial Services to discuss further. Social work will follow up as necessary.
[2022-06-09 23:00] VITALS: TEMP 36.2; O2SAT 94
[2022-06-10] MEDS: OMEPRAZOLE 20 MG CAPSULE DR PO (06:38)
[2022-06-10] MEDS: polyethylene glycoL 3350 17 GM PACK PO (08:03)
[2022-06-10] MEDS: ESCITALOPRAM 10 MG TABLET PO (08:03)
[2022-06-10] MEDS: ASPIRIN 81 MG TABLET EC PO (08:03)
[2022-06-10] MEDS: METOPROLOL TARTRATE 25 MG TABLET 12.5 MG PO ×2 (08:03→15:07)
[2022-06-10] MEDS: timoloL maleate 0.5 % 1 DROP EYE-BOTH (08:03)
[2022-06-10 09:53] VITALS: TEMP 36.3; O2SAT 96
[2022-06-10] MEDS: LATANOPROST 0.005% OPHTH 1 DROP EYE-BOTH (19:16)
[2022-06-10 21:00] VITALS: BP 127/82; TEMP 37.2; O2SAT 95
[2022-06-10 23:00] VITALS: TEMP 36.6; O2SAT 97
[2022-06-11] MEDS: OMEPRAZOLE 20 MG CAPSULE DR PO (06:40)
[2022-06-11] MEDS: ASPIRIN 81 MG TABLET EC PO (08:04)
[2022-06-11] MEDS: polyethylene glycoL 3350 17 GM PACK PO (08:04)
[2022-06-11] MEDS: timoloL maleate 0.5 % 1 DROP EYE-BOTH (08:04)
[2022-06-11] MEDS: METOPROLOL TARTRATE 25 MG TABLET 12.5 MG PO ×2 (08:04→15:12)
[2022-06-11] MEDS: ESCITALOPRAM 10 MG TABLET PO (08:04)
[2022-06-11 09:41] VITALS: TEMP 36.5; O2SAT 96
[2022-06-11] MEDS: LATANOPROST 0.005% OPHTH 1 DROP EYE-BOTH (20:16)
[2022-06-11 21:15] VITALS: BP 135/74; TEMP 36.6; O2SAT 94
[2022-06-11 23:00] VITALS: TEMP 36.1; O2SAT 94
[2022-06-12] MEDS: ASPIRIN 81 MG TABLET EC PO (07:08)
[2022-06-12] MEDS: OMEPRAZOLE 20 MG CAPSULE DR PO (07:08)
[2022-06-12] MEDS: ESCITALOPRAM 10 MG TABLET PO (07:08)
[2022-06-12] MEDS: polyethylene glycoL 3350 17 GM PACK PO (07:15)
[2022-06-12] MEDS: timoloL maleate 0.5 % 1 DROP EYE-BOTH (07:15)
[2022-06-12 14:56] VITALS: TEMP 36.4; O2SAT 95
[2022-06-12 15:00] VITALS: TEMP 36.6; O2SAT 95
[2022-06-12 16:00] VITALS: BP 121/74
[2022-06-12] MEDS: METOPROLOL TARTRATE 25 MG TABLET 12.5 MG PO ×2 (16:33→16:36)
[2022-06-12] MEDS: LATANOPROST 0.005% OPHTH 1 DROP EYE-BOTH (19:08)
[2022-06-12 22:02] LABS: SARS PCR* Negative SARS-CoV-2 (Negative)
[2022-06-12 23:00] VITALS: TEMP 36.2; O2SAT 96
[2022-06-13 07:00] VITALS: TEMP 36.4; O2SAT 96
[2022-06-13] MEDS: OMEPRAZOLE 20 MG CAPSULE DR PO (07:41)
[2022-06-13] MEDS: timoloL maleate 0.5 % 1 DROP EYE-BOTH (07:41)
[2022-06-13] MEDS: polyethylene glycoL 3350 17 GM PACK PO (09:06)
[2022-06-13] MEDS: ESCITALOPRAM 10 MG TABLET PO (09:06)
[2022-06-13] MEDS: ASPIRIN 81 MG TABLET EC PO (09:06)
[2022-06-13] MEDS: METOPROLOL TARTRATE 25 MG TABLET 12.5 MG PO ×2 (09:06→15:48)
--- NOTE | 2022-06-13 11:28 | PC.SOCIAL ---
Met with resident and resident's , Jyothi Lora, in resident's room. Jyothi informed this worker that she has not received June 2022 billing for resident. Phone call to Rosalinda Allen in Patient Financial Services. Bills were sent out last adn should arrive shortly. Bills typically go out on the of each month, however, there was a delay due to the weather. June billing is $10,385.00. Provided information to resident's . Jyothi states she has not received any communication from [facility] yet. Informed Jyothi that she will have to watch her mail as she should receive a letter soon. Resident's had questions about resident's pulse. Informed resident's that this worker will send a nurse in to discuss further. Provided information to Tatiana in Nursing. Social Work will follow up as necessary.
[2022-06-13] MEDS: LATANOPROST 0.005% OPHTH 1 DROP EYE-BOTH (20:56)
[2022-06-13 21:55] VITALS: TEMP 36.6; O2SAT 100
[2022-06-13 23:00] VITALS: TEMP 36.7; O2SAT 98
[2022-06-14] MEDS: OMEPRAZOLE 20 MG CAPSULE DR PO (07:45)
[2022-06-14] MEDS: timoloL maleate 0.5 % 1 DROP EYE-BOTH (07:45)
[2022-06-14] MEDS: ESCITALOPRAM 10 MG TABLET PO (08:35)
[2022-06-14] MEDS: METOPROLOL TARTRATE 25 MG TABLET 12.5 MG PO ×2 (08:35→15:47)
[2022-06-14] MEDS: ASPIRIN 81 MG TABLET EC PO (08:35)
[2022-06-14 10:27] VITALS: TEMP 36.7; O2SAT 94
[2022-06-14 15:00] VITALS: TEMP 36.7; O2SAT 94
[2022-06-14 16:00] VITALS: BP 128/77
[2022-06-14] MEDS: LATANOPROST 0.005% OPHTH 1 DROP EYE-BOTH (19:26)
[2022-06-14 23:00] VITALS: TEMP 36.4; O2SAT 98
[2022-06-15] MEDS: OMEPRAZOLE 20 MG CAPSULE DR PO (06:35)
[2022-06-15] MEDS: ESCITALOPRAM 10 MG TABLET PO (08:18)
[2022-06-15] MEDS: METOPROLOL TARTRATE 25 MG TABLET 12.5 MG PO ×2 (08:18→15:09)
[2022-06-15] MEDS: polyethylene glycoL 3350 17 GM PACK PO (08:18)
[2022-06-15] MEDS: ASPIRIN 81 MG TABLET EC PO (08:18)
[2022-06-15] MEDS: timoloL maleate 0.5 % 1 DROP EYE-BOTH (08:18)
[2022-06-15 10:29] VITALS: TEMP 36.4; O2SAT 95
[2022-06-15] MEDS: LATANOPROST 0.005% OPHTH 1 DROP EYE-BOTH (19:20)
[2022-06-15 21:33] VITALS: TEMP 36.4; O2SAT 95
[2022-06-15 23:00] VITALS: TEMP 36.7; O2SAT 96
--- NOTE | 2022-06-16 03:47 | PC.NURSE ---
WEEKLY CHARTING - WEEK 2: Vital signs reviewed. Temporary and comprehensive care plan reviewed - no change. Requires assist of 1 with transfers and ambulation with gait belt and walker. Staff provide cues for bed mobility. Able to propel w/c short distances. Total staff assist for destination. Is at high risk for falls. Fall interventions include: gripper socks, bed and chair alarms, call light in reach, falling star magnet, hourly safety checks, bed in low position.
[2022-06-16] MEDS: OMEPRAZOLE 20 MG CAPSULE DR PO (06:36)
--- NOTE | 2022-06-16 07:12 | PC.NURSE ---
Week #2-Mobility: Comprehensive care plan reviewed, no changes made.Nothing added to temporary care plan. Resident needs one assist, gait belt & walker with transfers/ambulation. Staff wheels to all destinations. One assist with repositioning every 2 hours. Right side rail up for bed mobility and comfort. Has a bed & chair alarm. Vital signs reviewed by MD. 06/09 Metoprolol decreased to 12.5mg BID. Continue weekly vital signs monitoring. Fall: No falls the past month. Remains a high fall risk according to assessment done on 05/30/22.
[2022-06-16] MEDS: ESCITALOPRAM 10 MG TABLET PO (07:48)
[2022-06-16] MEDS: ASPIRIN 81 MG TABLET EC PO (07:48)
[2022-06-16] MEDS: polyethylene glycoL 3350 17 GM PACK PO (07:48)
[2022-06-16] MEDS: METOPROLOL TARTRATE 25 MG TABLET 12.5 MG PO ×2 (07:48→15:57)
[2022-06-16] MEDS: timoloL maleate 0.5 % 1 DROP EYE-BOTH (07:48)
[2022-06-16 10:06] VITALS: TEMP 36.7; O2SAT 94
[2022-06-16 10:07] VITALS: BMI 18.1
[2022-06-16 13:27] VITALS: BP 116/64; PULSE 60; RESP 20; TEMP 36.7; O2SAT 95
[2022-06-16 17:01] VITALS: TEMP 36.4; O2SAT 94
[2022-06-16] MEDS: LATANOPROST 0.005% OPHTH 1 DROP EYE-BOTH (19:50)
[2022-06-16 23:00] VITALS: TEMP 36.6; O2SAT 97
[2022-06-17 07:00] VITALS: TEMP 36.4; O2SAT 95
[2022-06-17] MEDS: OMEPRAZOLE 20 MG CAPSULE DR PO (07:44)
[2022-06-17] MEDS: ASPIRIN 81 MG TABLET EC PO (08:49)
[2022-06-17] MEDS: METOPROLOL TARTRATE 25 MG TABLET 12.5 MG PO ×2 (08:50→15:58)
[2022-06-17] MEDS: ESCITALOPRAM 10 MG TABLET PO (08:50)
[2022-06-17] MEDS: timoloL maleate 0.5 % 1 DROP EYE-BOTH (08:50)
[2022-06-17 16:58] VITALS: TEMP 36.4; O2SAT 93
[2022-06-17] MEDS: LATANOPROST 0.005% OPHTH 1 DROP EYE-BOTH (20:21)
[2022-06-17 23:00] VITALS: TEMP 36.9; O2SAT 96
[2022-06-18 07:00] VITALS: TEMP 36.8; O2SAT 93
[2022-06-18] MEDS: OMEPRAZOLE 20 MG CAPSULE DR PO (07:19)
[2022-06-18] MEDS: METOPROLOL TARTRATE 25 MG TABLET 12.5 MG PO ×2 (09:00→15:45)
[2022-06-18] MEDS: timoloL maleate 0.5 % 1 DROP EYE-BOTH (09:00)
[2022-06-18] MEDS: ESCITALOPRAM 10 MG TABLET PO (09:00)
[2022-06-18] MEDS: ASPIRIN 81 MG TABLET EC PO (09:00)
[2022-06-18 17:05] VITALS: TEMP 36.6; O2SAT 94
[2022-06-18] MEDS: LATANOPROST 0.005% OPHTH 1 DROP EYE-BOTH (19:26)
[2022-06-18 23:00] VITALS: TEMP 36.7; O2SAT 96
[2022-06-19 07:00] VITALS: TEMP 36.7; O2SAT 91
[2022-06-19] MEDS: OMEPRAZOLE 20 MG CAPSULE DR PO (07:37)
[2022-06-19] MEDS: METOPROLOL TARTRATE 25 MG TABLET 12.5 MG PO ×2 (08:52→16:45)
[2022-06-19] MEDS: timoloL maleate 0.5 % 1 DROP EYE-BOTH (08:52)
[2022-06-19] MEDS: ASPIRIN 81 MG TABLET EC PO (08:52)
[2022-06-19] MEDS: ESCITALOPRAM 10 MG TABLET PO (08:52)
--- NOTE | 2022-06-19 11:27 | NUTR.NU ---
Nutrition update for High Risk/Underweight BMI: Resident with gradual weight decline with now underweight BMI at 18.1 kg/m2. No significant weight change within 30, 90, 180 days however gradual weight decline to underweight BMI. Current diet is Regula, IDDSI Lvl 6 soft & bite-sized texturer. No current meal intakes to assess. Resident is receiving snacks BID per family request. Snacks consist mainly of ice cream, occasionally Mighty Shake or Ensure Clear with intakes mainly 100%. Patient is currently on Hospice - can expect decline in weight with decline in healthy status. No nutrition interventions at this time due to expected gradual decline and on Hospice. RDN will continue to monitor and follow-up prn.
--- NOTE | 2022-06-19 11:53 | PC.NURSE ---
COVID OUTBREAK TESTING (Antigen): Resident provided verbal consent for outbreak COVID testing. Resident is currently asymptomatic.? Resident/family will be notified only if resident is positive.
[2022-06-19 15:00] VITALS: TEMP 36.6; O2SAT 95
[2022-06-19] MEDS: LATANOPROST 0.005% OPHTH 1 DROP EYE-BOTH (19:30)
--- NOTE | 2022-06-19 20:09 | PC.NURSE ---
Lab; JOÃO-CoV 2 Antigen swab sample collected and sent to lab at 1655. Result is not back at this time. Will continue t monitor.
[2022-06-19 23:00] VITALS: TEMP 37.2; O2SAT 95
[2022-06-20 06:07] LABS: SARS Antigen* Negative (Negative)
[2022-06-20 07:00] VITALS: TEMP 36.8; O2SAT 92
[2022-06-20] MEDS: OMEPRAZOLE 20 MG CAPSULE DR PO (07:45)
[2022-06-20] MEDS: ESCITALOPRAM 10 MG TABLET PO (08:44)
[2022-06-20] MEDS: timoloL maleate 0.5 % 1 DROP EYE-BOTH (08:44)
[2022-06-20] MEDS: METOPROLOL TARTRATE 25 MG TABLET 12.5 MG PO ×2 (08:44→16:35)
[2022-06-20] MEDS: ASPIRIN 81 MG TABLET EC PO (08:44)
--- NOTE | 2022-06-20 10:42 | PC.SOCIAL ---
Met with resident and resident's , Jyothi Lora, in resident's room. Resident's informed that the pharmacy sent resident's medication Xtandi that was discontinued in the mail a few days ago. Resident's informed that she had a phone call with them and asked them to stop sending the medication, but she does not believe they understood her. Phone call to [facility] pharmacy at [phone]. Informed pharmacy that resident's medication was discontinued and he is no longer taking medication. Pharmacy will put a stop order in and stop sending the medication. Provided information to resident and resident's . Resident's provided this worker with the check for [facility] for resident's monthly charge. Provided check to hotel front desk agent to go to billing.
--- NOTE | 2022-06-20 12:13 | PC.SPIRITC ---
I visited with Tony and his about their aleksandr practices and to check in with how they are doing with the change of Tony moving to the [facility]. Both expressed gratitude and feeling very comfortable here; there aleksandr is a major support for them. I will continue to visit for support and connection.
[2022-06-20 17:11] VITALS: TEMP 37; O2SAT 98
[2022-06-20] MEDS: LATANOPROST 0.005% OPHTH 1 DROP EYE-BOTH (20:07)
[2022-06-20 23:00] VITALS: TEMP 36.6; O2SAT 94
[2022-06-21 07:00] VITALS: TEMP 36.8; O2SAT 92
[2022-06-21] MEDS: OMEPRAZOLE 20 MG CAPSULE DR PO (08:02)
[2022-06-21] MEDS: timoloL maleate 0.5 % 1 DROP EYE-BOTH (08:03)
[2022-06-21] MEDS: ESCITALOPRAM 10 MG TABLET PO (08:57)
[2022-06-21] MEDS: ASPIRIN 81 MG TABLET EC PO (08:57)
[2022-06-21] MEDS: METOPROLOL TARTRATE 25 MG TABLET 12.5 MG PO ×2 (08:57→15:37)
--- NOTE | 2022-06-21 14:25 | PC.PHA ---
MEDICATION REVIEW MEDICATION MONITORING: Escitalopram 10 mg daily while in hospice care, GDR not appropriate at this time. IRREGULARITY/COMMENTS:Medication regimen simplified since last review due to change in status. Specialty medication for prostate cancer has been discontinued patients 7 other medications reviewed and are appropriate. SUGGESTED COURSE OF ACTION:No medication recommendations for June.
[2022-06-21 15:00] VITALS: TEMP 36.9; O2SAT 94
[2022-06-21] MEDS: LATANOPROST 0.005% OPHTH 1 DROP EYE-BOTH (19:17)
[2022-06-21 23:00] VITALS: TEMP 36.6; O2SAT 97
[2022-06-22] MEDS: OMEPRAZOLE 20 MG CAPSULE DR PO (06:43)
[2022-06-22] MEDS: ESCITALOPRAM 10 MG TABLET PO (07:37)
[2022-06-22] MEDS: polyethylene glycoL 3350 17 GM PACK PO (07:37)
[2022-06-22] MEDS: METOPROLOL TARTRATE 25 MG TABLET 12.5 MG PO ×2 (07:37→16:00)
[2022-06-22] MEDS: ASPIRIN 81 MG TABLET EC PO (07:37)
[2022-06-22] MEDS: timoloL maleate 0.5 % 1 DROP EYE-BOTH (07:37)
[2022-06-22 09:23] VITALS: TEMP 36.4; O2SAT 97
[2022-06-22 16:50] VITALS: TEMP 36.4; O2SAT 96
[2022-06-22] MEDS: LATANOPROST 0.005% OPHTH 1 DROP EYE-BOTH (20:06)
[2022-06-22 23:00] VITALS: TEMP 36.8; O2SAT 95
--- NOTE | 2022-06-23 03:09 | PC.NURSE ---
WEEKLY CHARTING - WEEK 3: Vital signs reviewed. Temporary and comprehensive care plan reviewed - Toileting section updated. No skin issues at this time. Is incontinent of bowel and bladder with some control. Wears a pull-up during daytime hours and brief at NOC. Requires extensive assist with transfers to/from toilet, clothing/pad management, and dileep-cares.
[2022-06-23] MEDS: OMEPRAZOLE 20 MG CAPSULE DR PO (06:23)
--- NOTE | 2022-06-23 07:29 | PC.NURSE ---
Week #3-Toileting: Comprehensive care plan reviewed, no changes made. Nothing added to temporary care plan. Resident is incontinent of bowel and bladder with some control. Needs extensive one assist, walker, gait belt with toileting including mobility to/from toilet, pads, dileep cares and clothing adjustment. Staff to toilet every 2 hours and per request. Wears medium briefs. Vital signs reviewed, no concerns. Skin: No issues at this time. Skin is routinely checked during cares and on bath day.
[2022-06-23] MEDS: ESCITALOPRAM 10 MG TABLET PO (08:04)
[2022-06-23] MEDS: ASPIRIN 81 MG TABLET EC PO (08:04)
[2022-06-23] MEDS: METOPROLOL TARTRATE 25 MG TABLET 12.5 MG PO ×2 (08:04→15:19)
[2022-06-23] MEDS: polyethylene glycoL 3350 17 GM PACK PO (08:05)
[2022-06-23] MEDS: timoloL maleate 0.5 % 1 DROP EYE-BOTH (08:05)
[2022-06-23 10:24] VITALS: BP 139/76; PULSE 69; RESP 20; TEMP 36.6; O2SAT 95; BMI 18.1
[2022-06-23] MEDS: LATANOPROST 0.005% OPHTH 1 DROP EYE-BOTH (19:29)
[2022-06-23 20:59] VITALS: TEMP 36.7; O2SAT 93
[2022-06-23 23:00] VITALS: TEMP 36.6; O2SAT 93
[2022-06-24] MEDS: OMEPRAZOLE 20 MG CAPSULE DR PO (06:32)
[2022-06-24] MEDS: timoloL maleate 0.5 % 1 DROP EYE-BOTH (07:53)
[2022-06-24] MEDS: polyethylene glycoL 3350 17 GM PACK PO (07:53)
[2022-06-24] MEDS: ESCITALOPRAM 10 MG TABLET PO (07:53)
[2022-06-24] MEDS: METOPROLOL TARTRATE 25 MG TABLET 12.5 MG PO ×2 (07:53→15:07)
[2022-06-24] MEDS: ASPIRIN 81 MG TABLET EC PO (07:53)
[2022-06-24 09:19] VITALS: TEMP 36.3; O2SAT 95
[2022-06-24] MEDS: LATANOPROST 0.005% OPHTH 1 DROP EYE-BOTH (19:16)
[2022-06-24 21:20] VITALS: TEMP 36.6; O2SAT 91
[2022-06-24 23:00] VITALS: TEMP 36.9; O2SAT 94
[2022-06-25] MEDS: OMEPRAZOLE 20 MG CAPSULE DR PO (06:49)
[2022-06-25] MEDS: METOPROLOL TARTRATE 25 MG TABLET 12.5 MG PO ×2 (07:47→15:31)
[2022-06-25] MEDS: ESCITALOPRAM 10 MG TABLET PO (07:47)
[2022-06-25] MEDS: timoloL maleate 0.5 % 1 DROP EYE-BOTH (07:47)
[2022-06-25] MEDS: polyethylene glycoL 3350 17 GM PACK PO (07:47)
[2022-06-25] MEDS: ASPIRIN 81 MG TABLET EC PO (08:14)
[2022-06-25 11:06] VITALS: TEMP 36.2; O2SAT 93
[2022-06-25] MEDS: LATANOPROST 0.005% OPHTH 1 DROP EYE-BOTH (19:30)
[2022-06-25 21:21] VITALS: TEMP 36.7; O2SAT 95
[2022-06-25 23:00] VITALS: TEMP 36.4; O2SAT 96
[2022-06-26] MEDS: OMEPRAZOLE 20 MG CAPSULE DR PO (06:49)
[2022-06-26] MEDS: ASPIRIN 81 MG TABLET EC PO (08:04)
[2022-06-26] MEDS: METOPROLOL TARTRATE 25 MG TABLET 12.5 MG PO ×2 (08:04→16:27)
[2022-06-26] MEDS: ESCITALOPRAM 10 MG TABLET PO (08:04)
[2022-06-26] MEDS: timoloL maleate 0.5 % 1 DROP EYE-BOTH (08:05)
[2022-06-26] MEDS: polyethylene glycoL 3350 17 GM PACK PO (08:05)
[2022-06-26 10:27] VITALS: TEMP 36.6; O2SAT 95
[2022-06-26 13:21] LABS: SARS PCR* Negative SARS-CoV-2 (Negative)
[2022-06-26 15:00] VITALS: TEMP 36.6; O2SAT 95
[2022-06-26] MEDS: LATANOPROST 0.005% OPHTH 1 DROP EYE-BOTH (19:22)
[2022-06-26 23:00] VITALS: TEMP 36.2; O2SAT 95
[2022-06-27 07:00] VITALS: TEMP 36.8; O2SAT 93
[2022-06-27] MEDS: OMEPRAZOLE 20 MG CAPSULE DR PO (07:47)
[2022-06-27] MEDS: ASPIRIN 81 MG TABLET EC PO (08:37)
[2022-06-27] MEDS: ESCITALOPRAM 10 MG TABLET PO (08:37)
[2022-06-27] MEDS: METOPROLOL TARTRATE 25 MG TABLET 12.5 MG PO ×2 (08:37→16:24)
[2022-06-27] MEDS: timoloL maleate 0.5 % 1 DROP EYE-BOTH (08:37)
[2022-06-27] MEDS: LATANOPROST 0.005% OPHTH 1 DROP EYE-BOTH (20:21)
[2022-06-27 21:31] VITALS: TEMP 37.2; O2SAT 94
[2022-06-27 23:00] VITALS: TEMP 36.7; O2SAT 96
[2022-06-28 07:00] VITALS: TEMP 36.8; O2SAT 96
[2022-06-28] MEDS: OMEPRAZOLE 20 MG CAPSULE DR PO (08:01)
[2022-06-28] MEDS: METOPROLOL TARTRATE 25 MG TABLET 12.5 MG PO ×2 (08:40→15:55)
[2022-06-28] MEDS: ESCITALOPRAM 10 MG TABLET PO (08:40)
[2022-06-28] MEDS: ASPIRIN 81 MG TABLET EC PO (08:40)
[2022-06-28] MEDS: timoloL maleate 0.5 % 1 DROP EYE-BOTH (08:40)
--- NOTE | 2022-06-28 13:44 | PC.SOCIAL ---
Received a voicemail that resident's , Jyothi Lora, would like to meet with this worker. Met with resident's at the [facility]. Resident's wanted to ensure that there was an geological engineering teacher for resident during gnosticism services today and on . This worker asked if the geological engineering teacher Ipad was working well and resident's stated there was no geological engineering teacher on Sunday, but stated it does work to use the ipad. Discussed with [place] and she stated that they attempted to get a switch operator and no one was available on Sunday. Today they will continue to get an geological engineering teacher on the ipad for gnosticism services. Provided information to resident's . Social work will follow up as necessary.
[2022-06-28 15:00] VITALS: TEMP 36.8; O2SAT 96
[2022-06-28] MEDS: LATANOPROST 0.005% OPHTH 1 DROP EYE-BOTH (19:43)
[2022-06-28 23:00] VITALS: TEMP 36.9; O2SAT 97
[2022-06-29] MEDS: OMEPRAZOLE 20 MG CAPSULE DR PO (06:51)
[2022-06-29] MEDS: polyethylene glycoL 3350 17 GM PACK PO (08:10)
[2022-06-29] MEDS: ESCITALOPRAM 10 MG TABLET PO (08:10)
[2022-06-29] MEDS: ASPIRIN 81 MG TABLET EC PO (08:10)
[2022-06-29] MEDS: timoloL maleate 0.5 % 1 DROP EYE-BOTH (08:10)
[2022-06-29] MEDS: METOPROLOL TARTRATE 25 MG TABLET 12.5 MG PO ×2 (08:10→15:02)
[2022-06-29 09:46] VITALS: TEMP 36.8; O2SAT 95
[2022-06-29 15:00] VITALS: TEMP 36.8; O2SAT 95
[2022-06-29] MEDS: LATANOPROST 0.005% OPHTH 1 DROP EYE-BOTH (19:46)
[2022-06-29 23:00] VITALS: TEMP 37.1; O2SAT 96
--- NOTE | 2022-06-30 03:18 | PC.NURSE ---
WEEKLY CHARTING - WEEK 4: Vital signs reviewed - no concerns. Temporary and comprehensive care plan reviewed - no change. No documented behaviors in the last month. Receives escitalopram 10mg daily with no adverse effects. 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 Requires meal grinder tender or whiteboard for all communication. Staff anticipate needs and observe for cues. Cognitive impairment r/t dementia. Wears glasses for visual deficit. KCL discontinued and metoprolol dose reduced on 06/09. All medications administered by licensed nurse. Continues with hospice services for metastatic prostate cancer. Condition is currently stable.
[2022-06-30] MEDS: OMEPRAZOLE 20 MG CAPSULE DR PO (06:35)
[2022-06-30] MEDS: polyethylene glycoL 3350 17 GM PACK PO (08:04)
[2022-06-30] MEDS: ASPIRIN 81 MG TABLET EC PO (08:04)
[2022-06-30] MEDS: ESCITALOPRAM 10 MG TABLET PO (08:04)
[2022-06-30] MEDS: METOPROLOL TARTRATE 25 MG TABLET 12.5 MG PO ×2 (08:04→16:38)
[2022-06-30] MEDS: timoloL maleate 0.5 % 1 DROP EYE-BOTH (08:04)
[2022-06-30 11:15] VITALS: BP 136/71; PULSE 79; RESP 20; TEMP 36.2; O2SAT 96; BMI 18.3
--- NOTE | 2022-06-30 13:04 | PC.NURSE ---
Week #4: Comprehensive care plan reviewed, no changes made. Nothing added to temporary care plan. No changes noted in communication, hearing, vision, or orientation. 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 No useful hearing. Use emergency room tech/whiteboard for all communication. Speech unclear. Staff anticipate needs and observe for non verbal cues. Vision impaired corrected by glasses. Continues with hospice care. Health condition is currently stable. Vital signs fine. Nurse to administer all medications. Mood/Behavior: No issues the past month. Continues on Lexapro 10 mg daily with no adverse effects noted. No changes in medication.
[2022-06-30] MEDS: LATANOPROST 0.005% OPHTH 1 DROP EYE-BOTH (20:29)
[2022-06-30 22:46] VITALS: TEMP 37.1; O2SAT 94
[2022-06-30 23:00] VITALS: TEMP 37.1; O2SAT 95
[2022-07-01 07:00] VITALS: TEMP 36.5; O2SAT 95
[2022-07-01] MEDS: ESCITALOPRAM 10 MG TABLET PO (07:45)
[2022-07-01] MEDS: ASPIRIN 81 MG TABLET EC PO (07:45)
[2022-07-01] MEDS: polyethylene glycoL 3350 17 GM PACK PO (07:45)
[2022-07-01] MEDS: OMEPRAZOLE 20 MG CAPSULE DR PO (07:45)
[2022-07-01] MEDS: timoloL maleate 0.5 % 1 DROP EYE-BOTH (07:45)
[2022-07-01] MEDS: METOPROLOL TARTRATE 25 MG TABLET 12.5 MG PO ×2 (07:45→16:02)
[2022-07-01] MEDS: LATANOPROST 0.005% OPHTH 1 DROP EYE-BOTH (20:10)
[2022-07-01 21:42] VITALS: TEMP 37.1; O2SAT 93
[2022-07-01 23:00] VITALS: TEMP 37; O2SAT 98
[2022-07-02 07:00] VITALS: TEMP 36.4; O2SAT 93
[2022-07-02] MEDS: timoloL maleate 0.5 % 1 DROP EYE-BOTH (07:25)
[2022-07-02] MEDS: OMEPRAZOLE 20 MG CAPSULE DR PO (07:30)
[2022-07-02] MEDS: ESCITALOPRAM 10 MG TABLET PO (08:27)
[2022-07-02] MEDS: ASPIRIN 81 MG TABLET EC PO (08:27)
[2022-07-02] MEDS: polyethylene glycoL 3350 17 GM PACK PO (08:27)
[2022-07-02] MEDS: METOPROLOL TARTRATE 25 MG TABLET 12.5 MG PO ×2 (08:27→16:08)
[2022-07-02 17:13] VITALS: TEMP 36.6; O2SAT 96
[2022-07-02] MEDS: LATANOPROST 0.005% OPHTH 1 DROP EYE-BOTH (20:25)
[2022-07-02 23:00] VITALS: TEMP 37.1; O2SAT 96
[2022-07-03] MEDS: timoloL maleate 0.5 % 1 DROP EYE-BOTH (07:00)
[2022-07-03] MEDS: OMEPRAZOLE 20 MG CAPSULE DR PO (07:00)
[2022-07-03] MEDS: ESCITALOPRAM 10 MG TABLET PO (08:29)
[2022-07-03] MEDS: polyethylene glycoL 3350 17 GM PACK PO (08:29)
[2022-07-03] MEDS: METOPROLOL TARTRATE 25 MG TABLET 12.5 MG PO ×2 (08:29→16:41)
[2022-07-03] MEDS: ASPIRIN 81 MG TABLET EC PO (08:29)
--- NOTE | 2022-07-03 10:20 | PC.NURSE ---
COVID OUTBREAK TESTING Resident provided verbal consent for outbreak COVID testing. Resident is currently asymptomatic.? Resident/family will be notified only if resident is positive.
[2022-07-03 10:34] VITALS: TEMP 36.6; O2SAT 94
[2022-07-03 13:49] LABS: SARS PCR* Negative SARS-CoV-2 (Negative)
[2022-07-03 15:00] VITALS: TEMP 36.6; O2SAT 94
[2022-07-03] MEDS: LATANOPROST 0.005% OPHTH 1 DROP EYE-BOTH (19:43)
[2022-07-03 23:00] VITALS: TEMP 36.9; O2SAT 95
[2022-07-04] MEDS: METOPROLOL TARTRATE 25 MG TABLET 12.5 MG PO ×2 (07:36→15:36)
[2022-07-04] MEDS: ESCITALOPRAM 10 MG TABLET PO (07:36)
[2022-07-04] MEDS: ASPIRIN 81 MG TABLET EC PO (07:36)
[2022-07-04] MEDS: OMEPRAZOLE 20 MG CAPSULE DR PO (07:36)
[2022-07-04] MEDS: timoloL maleate 0.5 % 1 DROP EYE-BOTH (07:37)
[2022-07-04] MEDS: polyethylene glycoL 3350 17 GM PACK PO (07:37)
[2022-07-04 09:54] VITALS: TEMP 36.7; O2SAT 94
[2022-07-04] MEDS: LATANOPROST 0.005% OPHTH 1 DROP EYE-BOTH (18:56)
[2022-07-04 21:16] VITALS: TEMP 36.8; O2SAT 92
[2022-07-04 23:00] VITALS: TEMP 36.8; O2SAT 94
[2022-07-05 07:00] VITALS: TEMP 36.6; O2SAT 94
[2022-07-05] MEDS: OMEPRAZOLE 20 MG CAPSULE DR PO (07:47)
[2022-07-05] MEDS: polyethylene glycoL 3350 17 GM PACK PO (07:47)
[2022-07-05] MEDS: ASPIRIN 81 MG TABLET EC PO (07:47)
[2022-07-05] MEDS: ESCITALOPRAM 10 MG TABLET PO (07:47)
[2022-07-05] MEDS: METOPROLOL TARTRATE 25 MG TABLET 12.5 MG PO ×2 (07:47→15:26)
[2022-07-05] MEDS: timoloL maleate 0.5 % 1 DROP EYE-BOTH (07:54)
[2022-07-05 15:00] VITALS: TEMP 36.9; O2SAT 94
[2022-07-05] MEDS: LATANOPROST 0.005% OPHTH 1 DROP EYE-BOTH (19:23)
[2022-07-05 23:00] VITALS: TEMP 36.9; O2SAT 96
[2022-07-06] MEDS: OMEPRAZOLE 20 MG CAPSULE DR PO (06:53)
[2022-07-06 07:00] VITALS: TEMP 36.6; O2SAT 94
[2022-07-06] MEDS: timoloL maleate 0.5 % 1 DROP EYE-BOTH (07:54)
[2022-07-06] MEDS: ESCITALOPRAM 10 MG TABLET PO (07:54)
[2022-07-06] MEDS: METOPROLOL TARTRATE 25 MG TABLET 12.5 MG PO ×2 (07:54→15:56)
[2022-07-06] MEDS: polyethylene glycoL 3350 17 GM PACK PO (07:54)
[2022-07-06] MEDS: ASPIRIN 81 MG TABLET EC PO (07:54)
[2022-07-06 15:00] VITALS: TEMP 36.6; O2SAT 95
[2022-07-06] MEDS: LATANOPROST 0.005% OPHTH 1 DROP EYE-BOTH (19:11)
[2022-07-06 23:00] VITALS: TEMP 36.5; O2SAT 95
[2022-07-07] MEDS: OMEPRAZOLE 20 MG CAPSULE DR PO (06:49)
[2022-07-07] MEDS: METOPROLOL TARTRATE 25 MG TABLET 12.5 MG PO ×2 (07:36→15:15)
[2022-07-07] MEDS: polyethylene glycoL 3350 17 GM PACK PO (07:36)
[2022-07-07] MEDS: timoloL maleate 0.5 % 1 DROP EYE-BOTH (07:36)
[2022-07-07] MEDS: ESCITALOPRAM 10 MG TABLET PO (07:36)
[2022-07-07] MEDS: ASPIRIN 81 MG TABLET EC PO (08:33)
[2022-07-07 10:08] VITALS: BP 121/61; PULSE 69; RESP 18; TEMP 36.2; O2SAT 97; BMI 18.3
--- NOTE | 2022-07-07 16:52 | PC.SOCIAL ---
Received a voicemail from resident's , Jyothi Lora, requesting a phone call back. Resident's is asking if [facility] will provide her with a tax document for payments made. Phone call to Rosalinda Lozano in Patient Financial Services at [facility] ext. [phone]. Rosalinda informed that since the hospital is private owned resident will not receive a tax document for payments made. Phone call to Jyothi Lora. Provided information that this worker learned from Patient Financial Services. Jyothi just wanted to make sure she wasn't getting a tax document from [facility] as she is going to get her taxes completed.
[2022-07-07] MEDS: LATANOPROST 0.005% OPHTH 1 DROP EYE-BOTH (19:27)
[2022-07-07 21:14] VITALS: TEMP 36.6; O2SAT 96
[2022-07-07 23:00] VITALS: TEMP 36.3; O2SAT 95
[2022-07-08] MEDS: ESCITALOPRAM 10 MG TABLET PO (07:36)
[2022-07-08] MEDS: METOPROLOL TARTRATE 25 MG TABLET 12.5 MG PO ×2 (07:36→15:12)
[2022-07-08] MEDS: OMEPRAZOLE 20 MG CAPSULE DR PO (07:36)
[2022-07-08] MEDS: ASPIRIN 81 MG TABLET EC PO (07:36)
[2022-07-08] MEDS: timoloL maleate 0.5 % 1 DROP EYE-BOTH (07:37)
[2022-07-08] MEDS: polyethylene glycoL 3350 17 GM PACK PO (07:37)
[2022-07-08 09:28] VITALS: TEMP 36.4; O2SAT 97
[2022-07-08] MEDS: LATANOPROST 0.005% OPHTH 1 DROP EYE-BOTH (19:24)
[2022-07-08 21:16] VITALS: TEMP 36.6; O2SAT 94
[2022-07-08 23:00] VITALS: TEMP 36.6; O2SAT 96
[2022-07-09] MEDS: timoloL maleate 0.5 % 1 DROP EYE-BOTH (06:59)
[2022-07-09] MEDS: OMEPRAZOLE 20 MG CAPSULE DR PO (06:59)
[2022-07-09] MEDS: ASPIRIN 81 MG TABLET EC PO (08:13)
[2022-07-09] MEDS: ESCITALOPRAM 10 MG TABLET PO (08:13)
[2022-07-09] MEDS: METOPROLOL TARTRATE 25 MG TABLET 12.5 MG PO ×2 (08:13→15:13)
[2022-07-09] MEDS: polyethylene glycoL 3350 17 GM PACK PO (08:13)
[2022-07-09 10:55] VITALS: TEMP 36.8; O2SAT 93
[2022-07-09] MEDS: LATANOPROST 0.005% OPHTH 1 DROP EYE-BOTH (19:09)
[2022-07-09 21:06] VITALS: TEMP 36.6; O2SAT 94
[2022-07-09 23:00] VITALS: TEMP 36.8; O2SAT 93
[2022-07-10 07:00] VITALS: TEMP 36.4; O2SAT 95
[2022-07-10] MEDS: OMEPRAZOLE 20 MG CAPSULE DR PO (07:50)
[2022-07-10] MEDS: timoloL maleate 0.5 % 1 DROP EYE-BOTH (07:51)
[2022-07-10] MEDS: METOPROLOL TARTRATE 25 MG TABLET 12.5 MG PO ×2 (07:51→16:11)
[2022-07-10] MEDS: ESCITALOPRAM 10 MG TABLET PO (07:51)
[2022-07-10] MEDS: polyethylene glycoL 3350 17 GM PACK PO (07:51)
[2022-07-10] MEDS: ASPIRIN 81 MG TABLET EC PO (07:51)
--- NOTE | 2022-07-10 09:43 | PC.NURSE ---
COVID OUTBREAK TESTING Residents family gave verbal consent for outbreak COVID testing. Resident is currently asymptomatic.? Resident/family will be notified only if resident is positive.
[2022-07-10 11:40] LABS: SARS PCR* Negative SARS-CoV-2 (Negative)
[2022-07-10 15:00] VITALS: TEMP 36.4; O2SAT 95
[2022-07-10] MEDS: LATANOPROST 0.005% OPHTH 1 DROP EYE-BOTH (19:21)
[2022-07-11 03:52] VITALS: TEMP 36.1; O2SAT 94
[2022-07-11 07:00] VITALS: TEMP 36.5; O2SAT 93
[2022-07-11] MEDS: ESCITALOPRAM 10 MG TABLET PO (07:41)
[2022-07-11] MEDS: ASPIRIN 81 MG TABLET EC PO (07:41)
[2022-07-11] MEDS: OMEPRAZOLE 20 MG CAPSULE DR PO (07:41)
[2022-07-11] MEDS: polyethylene glycoL 3350 17 GM PACK PO (07:42)
[2022-07-11] MEDS: METOPROLOL TARTRATE 25 MG TABLET 12.5 MG PO ×2 (07:42→16:18)
[2022-07-11] MEDS: timoloL maleate 0.5 % 1 DROP EYE-BOTH (07:42)
[2022-07-11] MEDS: LATANOPROST 0.005% OPHTH 1 DROP EYE-BOTH (20:22)
[2022-07-11 21:39] VITALS: TEMP 36.6; O2SAT 95
[2022-07-11 23:00] VITALS: TEMP 36.6; O2SAT 94
[2022-07-12] MEDS: OMEPRAZOLE 20 MG CAPSULE DR PO (07:08)
[2022-07-12] MEDS: ESCITALOPRAM 10 MG TABLET PO (07:08)
[2022-07-12] MEDS: timoloL maleate 0.5 % 1 DROP EYE-BOTH (07:08)
[2022-07-12] MEDS: METOPROLOL TARTRATE 25 MG TABLET 12.5 MG PO ×2 (07:08→16:38)
[2022-07-12] MEDS: ASPIRIN 81 MG TABLET EC PO (07:08)
[2022-07-12] MEDS: polyethylene glycoL 3350 17 GM PACK PO (08:33)
[2022-07-12 10:37] VITALS: TEMP 37; O2SAT 96
[2022-07-12 15:00] VITALS: TEMP 36.7; O2SAT 95
[2022-07-12] MEDS: LATANOPROST 0.005% OPHTH 1 DROP EYE-BOTH (19:17)
[2022-07-12 21:27] VITALS: TEMP 36.7; O2SAT 95
[2022-07-13] MEDS: timoloL maleate 0.5 % 1 DROP EYE-BOTH (07:15)
[2022-07-13] MEDS: OMEPRAZOLE 20 MG CAPSULE DR PO (07:15)
[2022-07-13] MEDS: METOPROLOL TARTRATE 25 MG TABLET 12.5 MG PO ×2 (07:15→15:21)
[2022-07-13] MEDS: polyethylene glycoL 3350 17 GM PACK PO (07:15)
[2022-07-13] MEDS: ASPIRIN 81 MG TABLET EC PO (07:15)
[2022-07-13] MEDS: ESCITALOPRAM 10 MG TABLET PO (07:15)
[2022-07-13 10:05] VITALS: TEMP 36.4; O2SAT 95
--- NOTE | 2022-07-13 13:19 | NUTR.NU ---
Addendum entered and electronically signed by Leticia Richey RD 07/13/22 13:40: Current weight 127.6 lbs; 126 lbs/30 days; 128 lbs/90 days; 130 lbs/180 days. Original Note: Nutrition update for High Risk/Underweight BMI: Resident with gradual weight decline with now underweight BMI at 18.3 kg/m2. No significant weight change within 30, 90, 180 days however gradual weight decline to underweight BMI. Current diet is Regular, IDDSI Lvl 6 soft & bite-sized texture. No current meal intakes to assess. Resident is receiving snacks BID per family request. Snacks consist mainly of ice cream, occasionally Mighty Shake or Ensure Clear with intakes mainly 100%. Patient is currently on Hospice - can expect decline in weight with decline in health status. No nutrition interventions at this time due to expected gradual decline and on Hospice. RDN will continue to monitor and follow-up prn.
[2022-07-13] MEDS: LATANOPROST 0.005% OPHTH 1 DROP EYE-BOTH (19:15)
[2022-07-13 20:54] VITALS: TEMP 36.6; O2SAT 94
[2022-07-13 23:00] VITALS: TEMP 37.2; O2SAT 93
--- NOTE | 2022-07-14 02:56 | PC.NURSE ---
WEEKLY CHARTING - WEEK 1: Vital signs reviewed - no concerns. Temporary and comprehensive care plan reviewed - no change. Resident denies pain when asked. Does not receive any oral analgesics. Requires limited to extensive assist with dressing, grooming, bathing, and oral care. Soft and bite sized diet with thin liquids d/t edentulous status. Able to eat independently after set-up. Requires some cues. Weight is stable.?
[2022-07-14 07:00] VITALS: BP 104/63; PULSE 58; RESP 16; TEMP 36.4; O2SAT 94; BMI 18.3
[2022-07-14] MEDS: OMEPRAZOLE 20 MG CAPSULE DR PO (07:42)
[2022-07-14] MEDS: timoloL maleate 0.5 % 1 DROP EYE-BOTH (08:08)
[2022-07-14] MEDS: ASPIRIN 81 MG TABLET EC PO (08:08)
[2022-07-14] MEDS: METOPROLOL TARTRATE 25 MG TABLET 12.5 MG PO ×2 (08:08→16:14)
[2022-07-14] MEDS: polyethylene glycoL 3350 17 GM PACK PO (08:08)
[2022-07-14] MEDS: ESCITALOPRAM 10 MG TABLET PO (08:08)
[2022-07-14] MEDS: LATANOPROST 0.005% OPHTH 1 DROP EYE-BOTH (19:55)
--- NOTE | 2022-07-14 21:56 | PC.NURSE ---
Weekly Charting: Week 1- Reviewed Comprehensive and Temporary care plan with no changes or additions. No complaints of pain this month. Can receive standing order Tylenol as needed. Is always in a good mood. Continues on Hospice Care. Extensive assist of one for adl's. Is Stand pivot to wheelchair for trips to bathroom and to and from the dining room. Receives cut up meat and soft vegetables. Has a good appetite usually eating 100% of his meals. No issues with choking.
--- NOTE | 2022-07-14 22:02 | PC.NURSE ---
Weekly Charting: Week 1- Reviewed vital signs which are stable. No changes to Comprehensive or Temporary Care Plans. Resident does not complain of pain. receives TOM 1000mg BID. Does not effect her quality of life. She is independant with her cares. Staff lotion her back and pass her meds. she has a regular diet regular texture with no issues.
[2022-07-14 23:00] VITALS: TEMP 37.1; O2SAT 96
[2022-07-15 07:00] VITALS: TEMP 36.2; O2SAT 96
[2022-07-15] MEDS: OMEPRAZOLE 20 MG CAPSULE DR PO (07:56)
[2022-07-15] MEDS: ESCITALOPRAM 10 MG TABLET PO (08:32)
[2022-07-15] MEDS: ASPIRIN 81 MG TABLET EC PO (08:32)
[2022-07-15] MEDS: timoloL maleate 0.5 % 1 DROP EYE-BOTH (08:32)
[2022-07-15] MEDS: polyethylene glycoL 3350 17 GM PACK PO (08:32)
[2022-07-15] MEDS: METOPROLOL TARTRATE 25 MG TABLET 12.5 MG PO ×2 (08:32→15:49)
[2022-07-15 18:54] VITALS: TEMP 36.6; O2SAT 96
[2022-07-15] MEDS: LATANOPROST 0.005% OPHTH 1 DROP EYE-BOTH (20:01)
[2022-07-15 23:00] VITALS: TEMP 36.8; O2SAT 95
[2022-07-16 07:00] VITALS: TEMP 36.5; O2SAT 93
[2022-07-16] MEDS: OMEPRAZOLE 20 MG CAPSULE DR PO (07:51)
[2022-07-16] MEDS: METOPROLOL TARTRATE 25 MG TABLET 12.5 MG PO ×2 (08:26→16:19)
[2022-07-16] MEDS: ESCITALOPRAM 10 MG TABLET PO (08:26)
[2022-07-16] MEDS: ASPIRIN 81 MG TABLET EC PO (08:26)
[2022-07-16] MEDS: timoloL maleate 0.5 % 1 DROP EYE-BOTH (08:27)
[2022-07-16] MEDS: polyethylene glycoL 3350 17 GM PACK PO (08:27)
[2022-07-16] MEDS: LATANOPROST 0.005% OPHTH 1 DROP EYE-BOTH (19:41)
[2022-07-16 22:00] VITALS: TEMP 36.6; O2SAT 96
[2022-07-16 23:00] VITALS: TEMP 37.2; O2SAT 96
[2022-07-17] MEDS: ASPIRIN 81 MG TABLET EC PO (07:09)
[2022-07-17] MEDS: OMEPRAZOLE 20 MG CAPSULE DR PO (07:09)
[2022-07-17] MEDS: ESCITALOPRAM 10 MG TABLET PO (07:09)
[2022-07-17] MEDS: METOPROLOL TARTRATE 25 MG TABLET 12.5 MG PO ×2 (07:09→16:30)
[2022-07-17] MEDS: timoloL maleate 0.5 % 1 DROP EYE-BOTH (07:10)
[2022-07-17] MEDS: polyethylene glycoL 3350 17 GM PACK PO (08:25)
[2022-07-17 10:24] VITALS: TEMP 36.5; O2SAT 93
[2022-07-17 11:41] LABS: SARS PCR* Negative SARS-CoV-2 (Negative)
--- NOTE | 2022-07-17 14:05 | PC.NURSE ---
COVID OUTBREAK TESTING Resident gave verbal consent for outbreak COVID testing. Resident is currently asymptomatic.? Resident/family will be notified only if resident is positive.
[2022-07-17 15:00] VITALS: TEMP 37; O2SAT 95
[2022-07-17] MEDS: LATANOPROST 0.005% OPHTH 1 DROP EYE-BOTH (19:32)
[2022-07-17 23:00] VITALS: TEMP 36.8; O2SAT 94
[2022-07-18] MEDS: OMEPRAZOLE 20 MG CAPSULE DR PO (06:34)
[2022-07-18] MEDS: ESCITALOPRAM 10 MG TABLET PO (08:00)
[2022-07-18] MEDS: polyethylene glycoL 3350 17 GM PACK PO (08:00)
[2022-07-18] MEDS: ASPIRIN 81 MG TABLET EC PO (08:00)
[2022-07-18] MEDS: METOPROLOL TARTRATE 25 MG TABLET 12.5 MG PO ×2 (08:00→15:51)
[2022-07-18] MEDS: timoloL maleate 0.5 % 1 DROP EYE-BOTH (08:00)
[2022-07-18 09:57] VITALS: TEMP 36.2; O2SAT 97
[2022-07-18 16:55] VITALS: TEMP 36.9; O2SAT 94
[2022-07-18] MEDS: LATANOPROST 0.005% OPHTH 1 DROP EYE-BOTH (19:59)
[2022-07-18 23:00] VITALS: TEMP 36.7; O2SAT 96
[2022-07-19] MEDS: OMEPRAZOLE 20 MG CAPSULE DR PO (06:51)
[2022-07-19] MEDS: timoloL maleate 0.5 % 1 DROP EYE-BOTH (07:10)
[2022-07-19] MEDS: ESCITALOPRAM 10 MG TABLET PO (07:10)
[2022-07-19] MEDS: ASPIRIN 81 MG TABLET EC PO (07:10)
[2022-07-19] MEDS: polyethylene glycoL 3350 17 GM PACK PO (07:10)
[2022-07-19] MEDS: METOPROLOL TARTRATE 25 MG TABLET 12.5 MG PO ×2 (07:10→16:02)
[2022-07-19 09:49] VITALS: TEMP 36.5; O2SAT 97
--- NOTE | 2022-07-19 13:02 | PC.PHA1 ---
STATE ARCHIVIST PHARMACIST'S MEDICATION REVIEW: MEDICATION MONITORING:Escitalopram 10 mg daily appropriate while in hospice, GDR still clinically contraindicated as patient demonstrating positive behaviors and change at this time not appropriate. IRREGULARITY OR COMMENTS:Patient taking eye drops, laxative, baby aspirin, metoprolol and omeprazole. SUGGESTED COURSE OF ACTION TAKEN:No medication concerns or recommendations.
[2022-07-19 15:00] VITALS: TEMP 36.6; O2SAT 98
[2022-07-19] MEDS: LATANOPROST 0.005% OPHTH 1 DROP EYE-BOTH (19:22)
[2022-07-19 23:00] VITALS: TEMP 36.8; O2SAT 93
[2022-07-20] MEDS: OMEPRAZOLE 20 MG CAPSULE DR PO (06:23)
[2022-07-20] MEDS: ESCITALOPRAM 10 MG TABLET PO (07:09)
[2022-07-20] MEDS: ASPIRIN 81 MG TABLET EC PO (07:09)
[2022-07-20] MEDS: METOPROLOL TARTRATE 25 MG TABLET 12.5 MG PO ×2 (07:09→15:08)
[2022-07-20] MEDS: timoloL maleate 0.5 % 1 DROP EYE-BOTH (07:10)
[2022-07-20] MEDS: polyethylene glycoL 3350 17 GM PACK PO (07:10)
[2022-07-20 09:09] VITALS: TEMP 36.6; O2SAT 96
[2022-07-20 16:48] VITALS: TEMP 36.8; O2SAT 94
[2022-07-20] MEDS: LATANOPROST 0.005% OPHTH 1 DROP EYE-BOTH (20:05)
[2022-07-20 23:00] VITALS: TEMP 36.6; O2SAT 94
--- NOTE | 2022-07-21 03:08 | PC.NURSE ---
WEEKLY CHARTING - WEEK 2: Vital signs reviewed - no concerns. Temporary and comprehensive care plan reviewed - no change. Assist of 1 with transfers and ambulation with gait belt and walker. Staff provide cues for bed mobility. Able to? propel w/c short distances. Staff assist for destination. At high risk for falls per fall risk assessment. Fall interventions include: gripper socks, bed and chair alarms, keep area free of clutter, call light in reach, falling star magnet, hourly visual checks, bed in low position with brakes locked.
[2022-07-21] MEDS: OMEPRAZOLE 20 MG CAPSULE DR PO (06:25)
--- NOTE | 2022-07-21 07:17 | PC.NURSE ---
Week #2-Mobility: Comprehensive care plan reviewed, no changes made.Nothing added to temporary care plan. Resident needs one assist, gait belt & walker with transfers/ambulation. Staff wheels to all destinations. One assist with repositioning. Has a bed & chair alarm. Vital signs reviewed, no concerns. Continue weekly vital signs monitoring. Fall: No falls the past month. Remains a high fall risk according to assessment done on 05/30/22. Fall interventions: bed and chair alarms, call light within reach, keep area free of clutters, hourly checks, bed in low position with brakes locked,don't leave in wheelchair when in room.
[2022-07-21] MEDS: ASPIRIN 81 MG TABLET EC PO (07:27)
[2022-07-21] MEDS: METOPROLOL TARTRATE 25 MG TABLET 12.5 MG PO ×2 (07:27→15:40)
[2022-07-21] MEDS: ESCITALOPRAM 10 MG TABLET PO (07:27)
[2022-07-21] MEDS: polyethylene glycoL 3350 17 GM PACK PO (07:27)
[2022-07-21] MEDS: timoloL maleate 0.5 % 1 DROP EYE-BOTH (07:27)
[2022-07-21 09:51] VITALS: TEMP 36.6; O2SAT 96; BMI 18.3
[2022-07-21 10:10] VITALS: BP 138/67; PULSE 62; RESP 18; TEMP 36.6; O2SAT 96
[2022-07-21] MEDS: LATANOPROST 0.005% OPHTH 1 DROP EYE-BOTH (19:39)
[2022-07-21 20:25] VITALS: TEMP 36.8; O2SAT 93
[2022-07-21 23:00] VITALS: TEMP 36.3; O2SAT 94
[2022-07-22] MEDS: OMEPRAZOLE 20 MG CAPSULE DR PO (06:33)
[2022-07-22] MEDS: METOPROLOL TARTRATE 25 MG TABLET 12.5 MG PO ×2 (07:28→15:04)
[2022-07-22] MEDS: ESCITALOPRAM 10 MG TABLET PO (07:28)
[2022-07-22] MEDS: ASPIRIN 81 MG TABLET EC PO (07:28)
[2022-07-22] MEDS: timoloL maleate 0.5 % 1 DROP EYE-BOTH (07:28)
[2022-07-22] MEDS: polyethylene glycoL 3350 17 GM PACK PO (07:28)
[2022-07-22 09:27] VITALS: TEMP 36.8; O2SAT 96
[2022-07-22 15:49] VITALS: TEMP 36.3; O2SAT 93
[2022-07-22] MEDS: LATANOPROST 0.005% OPHTH 1 DROP EYE-BOTH (19:44)
[2022-07-22 23:00] VITALS: TEMP 36.5; O2SAT 95
[2022-07-23] MEDS: OMEPRAZOLE 20 MG CAPSULE DR PO (06:41)
[2022-07-23] MEDS: ESCITALOPRAM 10 MG TABLET PO (07:37)
[2022-07-23] MEDS: ASPIRIN 81 MG TABLET EC PO (07:37)
[2022-07-23] MEDS: METOPROLOL TARTRATE 25 MG TABLET 12.5 MG PO ×2 (07:38→16:50)
[2022-07-23] MEDS: timoloL maleate 0.5 % 1 DROP EYE-BOTH (07:38)
[2022-07-23] MEDS: polyethylene glycoL 3350 17 GM PACK PO (07:38)
[2022-07-23 09:40] VITALS: TEMP 36.6; O2SAT 96
[2022-07-23] MEDS: LATANOPROST 0.005% OPHTH 1 DROP EYE-BOTH (19:24)
[2022-07-23 21:33] VITALS: TEMP 36.6; O2SAT 95
[2022-07-23 23:00] VITALS: TEMP 36.2; O2SAT 94
[2022-07-24] MEDS: OMEPRAZOLE 20 MG CAPSULE DR PO (06:26)
[2022-07-24] MEDS: ASPIRIN 81 MG TABLET EC PO (07:52)
[2022-07-24] MEDS: ESCITALOPRAM 10 MG TABLET PO (07:52)
[2022-07-24] MEDS: METOPROLOL TARTRATE 25 MG TABLET 12.5 MG PO ×2 (07:53→15:58)
[2022-07-24] MEDS: polyethylene glycoL 3350 17 GM PACK PO (07:53)
[2022-07-24] MEDS: timoloL maleate 0.5 % 1 DROP EYE-BOTH (07:53)
[2022-07-24 10:02] VITALS: TEMP 36.4; O2SAT 95
--- NOTE | 2022-07-24 11:13 | PC.NURSE ---
COVID OUTBREAK TESTING Resident gave verbal consent for outbreak COVID testing. Resident is currently asymptomatic.? Resident/family will be notified only if resident is positive.
[2022-07-24 12:29] LABS: SARS PCR* Negative SARS-CoV-2 (Negative)
[2022-07-24 16:53] VITALS: TEMP 36.5; O2SAT 97
[2022-07-24] MEDS: LATANOPROST 0.005% OPHTH 1 DROP EYE-BOTH (19:11)
[2022-07-24 23:00] VITALS: TEMP 36.7; O2SAT 97
[2022-07-25] MEDS: OMEPRAZOLE 20 MG CAPSULE DR PO (06:37)
[2022-07-25] MEDS: polyethylene glycoL 3350 17 GM PACK PO (08:17)
[2022-07-25] MEDS: ESCITALOPRAM 10 MG TABLET PO (08:17)
[2022-07-25] MEDS: METOPROLOL TARTRATE 25 MG TABLET 12.5 MG PO ×2 (08:17→16:17)
[2022-07-25] MEDS: ASPIRIN 81 MG TABLET EC PO (08:17)
[2022-07-25] MEDS: timoloL maleate 0.5 % 1 DROP EYE-BOTH (08:17)
[2022-07-25 10:26] VITALS: TEMP 36.4; O2SAT 96
[2022-07-25] MEDS: LATANOPROST 0.005% OPHTH 1 DROP EYE-BOTH (19:58)
[2022-07-25 21:22] VITALS: TEMP 37.1; O2SAT 93
[2022-07-25 23:00] VITALS: TEMP 36.5; O2SAT 93
[2022-07-26] MEDS: OMEPRAZOLE 20 MG CAPSULE DR PO (06:34)
[2022-07-26] MEDS: polyethylene glycoL 3350 17 GM PACK PO (07:47)
[2022-07-26] MEDS: METOPROLOL TARTRATE 25 MG TABLET 12.5 MG PO ×2 (07:47→16:08)
[2022-07-26] MEDS: ASPIRIN 81 MG TABLET EC PO (07:47)
[2022-07-26] MEDS: ESCITALOPRAM 10 MG TABLET PO (07:47)
[2022-07-26] MEDS: timoloL maleate 0.5 % 1 DROP EYE-BOTH (07:47)
[2022-07-26 09:08] VITALS: TEMP 36.8; O2SAT 93
[2022-07-26 15:00] VITALS: TEMP 37; O2SAT 99
[2022-07-26] MEDS: LATANOPROST 0.005% OPHTH 1 DROP EYE-BOTH (21:38)
[2022-07-26 23:48] VITALS: TEMP 36.4; O2SAT 96
[2022-07-27] MEDS: OMEPRAZOLE 20 MG CAPSULE DR PO (07:19)
[2022-07-27] MEDS: timoloL maleate 0.5 % 1 DROP EYE-BOTH (07:19)
[2022-07-27] MEDS: METOPROLOL TARTRATE 25 MG TABLET 12.5 MG PO ×2 (07:19→15:41)
[2022-07-27] MEDS: ESCITALOPRAM 10 MG TABLET PO (07:19)
[2022-07-27] MEDS: ASPIRIN 81 MG TABLET EC PO (07:19)
[2022-07-27] MEDS: polyethylene glycoL 3350 17 GM PACK PO (08:49)
[2022-07-27 11:04] VITALS: TEMP 36.8; O2SAT 94
[2022-07-27] MEDS: LATANOPROST 0.005% OPHTH 1 DROP EYE-BOTH (20:03)
[2022-07-27 21:15] VITALS: TEMP 36.9; O2SAT 94
[2022-07-27 23:00] VITALS: TEMP 36.2; O2SAT 97
[2022-07-28] MEDS: METOPROLOL TARTRATE 25 MG TABLET 12.5 MG PO ×2 (07:42→16:51)
[2022-07-28] MEDS: OMEPRAZOLE 20 MG CAPSULE DR PO (07:42)
[2022-07-28] MEDS: polyethylene glycoL 3350 17 GM PACK PO (07:42)
[2022-07-28] MEDS: ESCITALOPRAM 10 MG TABLET PO (07:42)
[2022-07-28] MEDS: ASPIRIN 81 MG TABLET EC PO (07:42)
[2022-07-28] MEDS: timoloL maleate 0.5 % 1 DROP EYE-BOTH (07:48)
[2022-07-28 10:44] VITALS: BP 122/67; RESP 18; TEMP 36.6; O2SAT 94; BMI 18.3
--- NOTE | 2022-07-28 15:29 | PC.SOCIAL ---
Met with resident's , Jyothi Lora, in resident's room. Jyothi informed that Lissett Alexander (family friend and person general inspector) would be going on vacation for a majority of August 2022. Jyothi wondered if they could have an general inspector if it was needed during that time. This worker informed that the Ipad for a live general inspector is available to use 25/12 for resident. This worker also informed if it is preferred to have an in person general inspector (for example, for a meeting or any need) then [facility] or social work can assist with bringing in an in person general inspector at any time. This worker informed that [facility] and social work always want to ensure that resident and resident's are able to communicate with staff. Resident's thanked this worker and stated she will communicate if she would like an in person general inspector and stated that the ipad is great to use for most days. Social work will continue to follow up as necessary.
[2022-07-28] MEDS: LATANOPROST 0.005% OPHTH 1 DROP EYE-BOTH (20:19)
[2022-07-28 22:02] VITALS: TEMP 37; O2SAT 95
[2022-07-29 01:05] VITALS: TEMP 36.6; O2SAT 94
[2022-07-29 07:00] VITALS: TEMP 36.6; O2SAT 94
[2022-07-29] MEDS: OMEPRAZOLE 20 MG CAPSULE DR PO (07:34)
[2022-07-29] MEDS: ESCITALOPRAM 10 MG TABLET PO (07:34)
[2022-07-29] MEDS: ASPIRIN 81 MG TABLET EC PO (07:34)
[2022-07-29] MEDS: polyethylene glycoL 3350 17 GM PACK PO (07:34)
[2022-07-29] MEDS: timoloL maleate 0.5 % 1 DROP EYE-BOTH (07:34)
[2022-07-29] MEDS: METOPROLOL TARTRATE 25 MG TABLET 12.5 MG PO ×2 (07:34→16:03)
--- NOTE | 2022-07-29 15:26 | PC.NURSE ---
Weekly Charting- Week # 3: Reviewed vitals which are stable. No changes to the temporary or comprehensive care plans. Some healing scratches to the right meléndez. Resident is incontinent of urine and bowels if not taken to the bathroom regularly. He will try to resist using the bathroom but staff are insistent and then he stays continent. He wears pull ups. He receives extensive assistance with toileting and pericares.
[2022-07-29] MEDS: LATANOPROST 0.005% OPHTH 1 DROP EYE-BOTH (19:38)
[2022-07-29 21:35] VITALS: TEMP 36.6; O2SAT 94
[2022-07-30 00:12] VITALS: TEMP 36.6; O2SAT 94
[2022-07-30 07:00] VITALS: TEMP 36.6; O2SAT 98
[2022-07-30] MEDS: METOPROLOL TARTRATE 25 MG TABLET 12.5 MG PO ×2 (07:51→16:09)
[2022-07-30] MEDS: timoloL maleate 0.5 % 1 DROP EYE-BOTH (07:51)
[2022-07-30] MEDS: polyethylene glycoL 3350 17 GM PACK PO (07:51)
[2022-07-30] MEDS: ESCITALOPRAM 10 MG TABLET PO (07:51)
[2022-07-30] MEDS: ASPIRIN 81 MG TABLET EC PO (07:51)
[2022-07-30] MEDS: OMEPRAZOLE 20 MG CAPSULE DR PO (07:51)
[2022-07-30 21:32] VITALS: TEMP 36.9; O2SAT 93
[2022-07-30 23:00] VITALS: TEMP 36.7; O2SAT 94
[2022-07-31] MEDS: LATANOPROST 0.005% OPHTH 1 DROP EYE-BOTH ×3 (08:26→19:37)
[2022-07-31] MEDS: OMEPRAZOLE 20 MG CAPSULE DR PO (08:27)
[2022-07-31] MEDS: METOPROLOL TARTRATE 25 MG TABLET 12.5 MG PO ×2 (08:28→16:23)
[2022-07-31] MEDS: polyethylene glycoL 3350 17 GM PACK PO (08:28)
[2022-07-31] MEDS: ASPIRIN 81 MG TABLET EC PO (08:28)
[2022-07-31] MEDS: timoloL maleate 0.5 % 1 DROP EYE-BOTH (08:28)
[2022-07-31] MEDS: ESCITALOPRAM 10 MG TABLET PO (08:28)
[2022-07-31 10:52] VITALS: TEMP 36.4; O2SAT 94
--- NOTE | 2022-07-31 11:51 | PC.NURSE ---
COVID OUTBREAK TESTING Resident gave verbal consent for outbreak COVID testing. Resident is currently asymptomatic.? Resident/family will be notified only if resident is positive.
[2022-07-31 14:55] LABS: SARS PCR* Negative SARS-CoV-2 (Negative)
[2022-07-31 15:00] VITALS: TEMP 36.6; O2SAT 94
[2022-07-31 23:00] VITALS: TEMP 36.6; O2SAT 95
[2022-08-01] MEDS: METOPROLOL TARTRATE 25 MG TABLET 12.5 MG PO ×2 (07:45→16:33)
[2022-08-01] MEDS: ASPIRIN 81 MG TABLET EC PO (07:45)
[2022-08-01] MEDS: timoloL maleate 0.5 % 1 DROP EYE-BOTH (07:45)
[2022-08-01] MEDS: ESCITALOPRAM 10 MG TABLET PO (07:45)
[2022-08-01] MEDS: polyethylene glycoL 3350 17 GM PACK PO (07:45)
[2022-08-01] MEDS: OMEPRAZOLE 20 MG CAPSULE DR PO (07:45)
[2022-08-01 10:19] VITALS: TEMP 36.6; O2SAT 95
[2022-08-01] MEDS: LATANOPROST 0.005% OPHTH 1 DROP EYE-BOTH (20:33)
[2022-08-01 21:52] VITALS: TEMP 36.6; O2SAT 93
[2022-08-01 23:00] VITALS: TEMP 36.4; O2SAT 93
[2022-08-02] MEDS: OMEPRAZOLE 20 MG CAPSULE DR PO (07:53)
[2022-08-02] MEDS: timoloL maleate 0.5 % 1 DROP EYE-BOTH (07:53)
[2022-08-02] MEDS: ESCITALOPRAM 10 MG TABLET PO (07:53)
[2022-08-02] MEDS: polyethylene glycoL 3350 17 GM PACK PO (07:53)
[2022-08-02] MEDS: METOPROLOL TARTRATE 25 MG TABLET 12.5 MG PO ×2 (07:53→15:30)
[2022-08-02] MEDS: ASPIRIN 81 MG TABLET EC PO (07:53)
[2022-08-02 10:28] VITALS: TEMP 36.7; O2SAT 94
--- NOTE | 2022-08-02 14:58 | PC.SOCIAL ---
Addendum entered by RILEY Gamble 08/02/22 15:29: Forwarded care conference notice to Gregoria Forbes at [facility]. Gregoria confirmed and informed that she will provide the information to resident's nurses, Nicolle and Mayelin. Phone call to resident's and left message providing care conference information. Printed a copy of the care conference notice for resident's . Phone call to resident's [id number] Scarlet Lora. Left a voicemail providing the care conference information and informed that this worker will mail a notice in the mail so Scarlet has the call in information. Social Work will follow up as necessary. Original Note: Sent an e-mail to Claudia Michael ([facility] career services manager) to request an in-person career services manager for resident's upcoming care conference on August 15 at 1:15pm. Family preference is to have Ignacio Chinchilla for ASL interpretation if he is available. Social Work will follow up as necessary.
[2022-08-02 15:00] VITALS: TEMP 36.7; O2SAT 94
[2022-08-02] MEDS: LATANOPROST 0.005% OPHTH 1 DROP EYE-BOTH (19:24)
[2022-08-02 23:00] VITALS: TEMP 37.1; O2SAT 95
[2022-08-03] MEDS: OMEPRAZOLE 20 MG CAPSULE DR PO (07:55)
[2022-08-03] MEDS: timoloL maleate 0.5 % 1 DROP EYE-BOTH (08:01)
[2022-08-03] MEDS: ESCITALOPRAM 10 MG TABLET PO (08:01)
[2022-08-03] MEDS: METOPROLOL TARTRATE 25 MG TABLET 12.5 MG PO ×2 (08:01→15:54)
[2022-08-03] MEDS: ASPIRIN 81 MG TABLET EC PO (08:01)
[2022-08-03] MEDS: polyethylene glycoL 3350 17 GM PACK PO (08:01)
[2022-08-03 10:28] VITALS: TEMP 36.3; O2SAT 95
--- NOTE | 2022-08-03 16:48 | PC.SOCIAL ---
Met with resident's , Jyothi Lora, in resident's room. Provided with a written copy of the care conference notice. informed that she will attend in person. Informed that there will be an in person parts interpreter. Received an email from Riya Michael ([facility] Rn Manager). Riya informed that she placed a request for an stone operator for resident's care conference and will update this worker when she has more information.
[2022-08-03] MEDS: LATANOPROST 0.005% OPHTH 1 DROP EYE-BOTH (19:32)
[2022-08-03 22:04] VITALS: TEMP 37.1; O2SAT 95
[2022-08-03 23:00] VITALS: TEMP 36.8; O2SAT 97
[2022-08-04] VITALS (7 sets, daily range): BP systolic 116–152; BP diastolic 68–80; PULSE 55–67; RESP 16–18; TEMP 36.1–37; O2SAT 92–100; BMI 19.1
--- NOTE | 2022-08-04 03:43 | PC.NURSE ---
WEEKLY CHARTING - WEEK 4: Vital signs reviewed - no concerns. Temporary and comprehensive care plan reviewed - no change. No documented behaviors in the last month. Receives escitalopram 10mg daily with no adverse effects. Sleeps well through the night. 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 Requires marker delivery or whiteboard for all communication. Needs are anticipated and staff observe for cues. Cognitively impaired r/t dementia. Wears glasses for visual deficit. All medications administered by licensed nurse. Continues with hospice services for metastatic prostate cancer. Condition is currently stable.
--- NOTE | 2022-08-04 07:24 | PC.NURSE ---
Week #4: Comprehensive & temporary care plan reviewed, no changes made. Nothing added to temporary care plan. No changes noted in communication, hearing, vision, or orientation. 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 No useful hearing. Use hourly sign language interpreter/whiteboard for all communication. Speech unclear. Staff anticipate needs and observe for non verbal cues. Vision impaired corrected by glasses. Continues with hospice care. Health condition is currently stable. Vital signs reviewed, no concerns.fine. Nurse to administer all medications.? Mood/Behavior: No issues the past month. Continues on Lexapro 10 mg daily with no adverse effects noted. No changes in medication.
[2022-08-04] MEDS: OMEPRAZOLE 20 MG CAPSULE DR PO (07:49)
[2022-08-04] MEDS: ESCITALOPRAM 10 MG TABLET PO (08:16)
[2022-08-04] MEDS: METOPROLOL TARTRATE 25 MG TABLET 12.5 MG PO ×2 (08:16→17:11)
[2022-08-04] MEDS: polyethylene glycoL 3350 17 GM PACK PO (08:16)
[2022-08-04] MEDS: ASPIRIN 81 MG TABLET EC PO (08:16)
[2022-08-04] MEDS: timoloL maleate 0.5 % 1 DROP EYE-BOTH (08:16)
--- NOTE | 2022-08-04 09:24 | PC.SOCIAL ---
Received an e-mail from Claudia Michael ([facility] Palletizer) informing that Ignacio Chinchilla has been assigned to provide ASL interpretation for resident's care conference on 08/15/22.
--- NOTE | 2022-08-04 16:35 | LTC.FALL ---
[facility] Fall Note: Resident bed alarm triggered at 1600. Staff LOY Valenzuela responded and found resident supine on floor, at foot of the bed, perpendicular to bed. LOY immediately notified sign writer hand. Oil Tank Car Cleaner responded and assessed resident. Resident c/o back pain, and stomach ache. Video business technology architect used to ensure clarity as resident is deaf. Resident denies hitting head, denies any other pain. Fall unwitnessed and resident on anticoagulant; Neuro and VS Q1H for 4H, and Q4H for 72H implemented in interventions. Resident placed on backboard and assisted to bed by 4 staff, denies any pain once off the floor. VS and Neuros WNL. MYKE. Hand grasps B/L equal. o Fall Date: 08/04/22 o Fall Time:1600 o What happened? Unwitnessed fall. o Who found the resident and who responded? LOY Valenzuela, responded; Lakshmi Buitrago RN, LOY Reynoso, LOY Abel. o What was the resident doing? Attempting to self transfer. Resident reports he lost his balance and slipped o How the resident was found (knees, left side, arm under them), any hazards (cords, objects, nonskid slippers) brakes on? Proper equipment?. Supine at foot of bed, perpendicular to bed. No hazards in way, shoes on. o Did you assess for head trauma, spinal injuries, skeletal injuries, neurological changes and status, and head and neck pain? What did you find? No immediate signs of injury. ROM WNL, MYKE, Hand grasps equal B/L. No c/o of pain with movement. Denies hitting head. Resident cognition is WNL. Insurance Claims Supervisor used to ensure communication most effective. o Did you assess ROM in shoulders, elbows, hips, knees, any other affected areas, unless there is suspected spinal injury. ROM assessed and found to be WNL. o Did you Assess for pain or discomfort? Resident c/o pain in back. States it resolved once off the floor. o What are the injuries and how are they being treated? No apparent injuries o How was the resident transferred from the floor? back board, 4 staff transferred to bed. o Did you call the MD or put a note in the ENGLISH HORN PLAYER book? o Enter vital signs. Entered at end of note o Did you notify family? Yes, o What was the root cause of the fall? Why did it happen? Resident attempting to self transfer o Create an IMMEDIATE INTERVENTION to ensure that this won't immediately happen again. (Put in temporary care plan too)Cont hourly checks, bed and chair alarms, not to be left alone in W/C in room. o Complete Safety report and huddle (now one form) o If resident is seen in ED or fractured something, note that you started a [facility] Report process. Instructions are at the East nurse's desk in a red binder labeled [facility] report. Last Vital Signs Temp 97.6 F 08/04/22 16:32 Pulse 58 L 08/04/22 16:32 Resp 16 08/04/22 16:32 BP 151/73 H 08/04/22 16:32 Pulse Ox 98 08/04/22 16:32 O2 Del Method 08/04/22 16:32
--- NOTE | 2022-08-04 17:00 | PC.NURSE ---
Fall F/U: Resident VSS, ROM WNL, Denies pain, MYKE. hand grasps equal b/l
--- NOTE | 2022-08-04 18:00 | PC.NURSE ---
Fall f/U: Resident remains comfortable, VSS, hand grasps equal B/L, ROM WNL, denies pain. MYKE
[2022-08-04] MEDS: LATANOPROST 0.005% OPHTH 1 DROP EYE-BOTH (19:30)
--- NOTE | 2022-08-04 21:38 | PC.NURSE ---
Addendum entered by Lakshmi Buitrago RN 08/04/22 21:41: Fall charting for 1899 check Original Note: Fall f/u: Resident has no c/o pain, MYKE, ROM WNL, VSS.
[2022-08-05] VITALS (7 sets, daily range): BP systolic 110–148; BP diastolic 64–82; PULSE 58–92; RESP 16–19; TEMP 36.1–36.9; O2SAT 65–98
--- NOTE | 2022-08-05 05:21 | PC.NURSE ---
Follow up fall: Resident night went fine, he did not complain about any pain or discomfort related to latest fall. Vitals are normal, neuro intact. Will keep monitoring.
[2022-08-05] MEDS: OMEPRAZOLE 20 MG CAPSULE DR PO (07:29)
[2022-08-05] MEDS: polyethylene glycoL 3350 17 GM PACK PO (07:29)
[2022-08-05] MEDS: ESCITALOPRAM 10 MG TABLET PO (07:29)
[2022-08-05] MEDS: ASPIRIN 81 MG TABLET EC PO (07:29)
[2022-08-05] MEDS: METOPROLOL TARTRATE 25 MG TABLET 12.5 MG PO ×2 (07:29→15:40)
[2022-08-05] MEDS: timoloL maleate 0.5 % 1 DROP EYE-BOTH (07:29)
--- NOTE | 2022-08-05 14:21 | PC.NURSE ---
Fall F/U: Resident is alert, denies pain,appetite fair, vital are WNL T 97.8,P60 B/P 114/64 R 20 .Hand grasps equal both hands. Pupil reactive and equal. Noted no injury.
[2022-08-05] MEDS: LATANOPROST 0.005% OPHTH 1 DROP EYE-BOTH (19:15)
--- NOTE | 2022-08-05 21:42 | PC.NURSE ---
Fall F/U: MYKE, Hand grasps equal B/L. Denies pain. ROM WNL. Last Vital Signs Temp 98.2 F 08/05/22 17:00 Pulse 64 08/05/22 17:00 Resp 18 08/05/22 17:00 BP 148/82 H 08/05/22 17:00 Pulse Ox 98 08/05/22 17:00 O2 Del Method 08/05/22 17:00
--- NOTE | 2022-08-05 21:45 | PC.NURSE ---
Fall F/u: Resident denies pain, MYKE, ROM WNL, Hand graps equal B/L. VSS. Last Vital Signs Temp 98.4 F 08/05/22 21:00 Pulse 58 L 08/05/22 21:00 Resp 16 08/05/22 21:00 BP 146/79 H 08/05/22 21:00 Pulse Ox 96 08/05/22 21:00 O2 Del Method 08/05/22 21:00
[2022-08-06] VITALS (8 sets, daily range): BP systolic 115–148; BP diastolic 68–82; PULSE 60–74; RESP 16–18; TEMP 36.2–36.8; O2SAT 93–97
--- NOTE | 2022-08-06 05:44 | PC.NURSE ---
Follow up fall Resident was awake at first when staff got in his room to check his vitals. Neuro intact. vitals normal. He did not complain about any pain or discomfort, will keep monitoring.
[2022-08-06] MEDS: ESCITALOPRAM 10 MG TABLET PO (07:24)
[2022-08-06] MEDS: polyethylene glycoL 3350 17 GM PACK PO (07:24)
[2022-08-06] MEDS: ASPIRIN 81 MG TABLET EC PO (07:24)
[2022-08-06] MEDS: timoloL maleate 0.5 % 1 DROP EYE-BOTH (07:24)
[2022-08-06] MEDS: OMEPRAZOLE 20 MG CAPSULE DR PO (07:24)
[2022-08-06] MEDS: METOPROLOL TARTRATE 25 MG TABLET 12.5 MG PO ×2 (07:24→16:13)
--- NOTE | 2022-08-06 10:13 | PC.NURSE ---
Fall F/U : Resident was alert, appetite fair, denies pain.Hand grasp good both hand. Pupils equal and reactive both eyes. Vitals T 97.2 P 64 B/P 115/68 O2 95
--- NOTE | 2022-08-06 13:27 | PC.NURSE ---
Fall F/U : Resident is alert and pain free. Vitals are as follows: Temp 98.2,P60 B/P 121/73 R 18 O2 96. Appetite good
--- NOTE | 2022-08-06 17:20 | PC.NURSE ---
Fall F/U: Resident denies pain, VSS, ROM WNL, MYKE, hand grasp strength equal B/L. Last Vital Signs Temp 97.8 F 08/06/22 17:19 Pulse 74 08/06/22 17:19 Resp 18 08/06/22 17:19 BP 148/82 H 08/06/22 17:19 Pulse Ox 97 08/06/22 17:19 O2 Del Method 08/06/22 17:19
[2022-08-06] MEDS: LATANOPROST 0.005% OPHTH 1 DROP EYE-BOTH (19:16)
[2022-08-07] VITALS (8 sets, daily range): BP systolic 120–147; BP diastolic 71–76; PULSE 56–68; RESP 16–18; TEMP 36.3–36.8; O2SAT 94–97
--- NOTE | 2022-08-07 06:17 | PC.NURSE ---
Fall Follow-up: Vital signs obtained during this shift were within resident's normal ranges. Equal Strength in bilateral hand grasps. Able to perform ROM with C/O pain. PERRLA assessment incomplete due to language barrier.
[2022-08-07] MEDS: ESCITALOPRAM 10 MG TABLET PO (07:56)
[2022-08-07] MEDS: OMEPRAZOLE 20 MG CAPSULE DR PO (07:56)
[2022-08-07] MEDS: timoloL maleate 0.5 % 1 DROP EYE-BOTH (07:56)
[2022-08-07] MEDS: polyethylene glycoL 3350 17 GM PACK PO (07:56)
[2022-08-07] MEDS: ASPIRIN 81 MG TABLET EC PO (07:56)
[2022-08-07] MEDS: METOPROLOL TARTRATE 25 MG TABLET 12.5 MG PO ×2 (07:56→16:14)
--- NOTE | 2022-08-07 10:00 | PC.NURSE ---
COVID OUTBREAK TESTING Resident and residents POA gave verbal consent for outbreak COVID testing. Resident is currently asymptomatic.? Resident/family will be notified only if resident is positive.
--- NOTE | 2022-08-07 11:28 | PC.NURSE ---
Fall followup vital signs: B/P 120/72, P 60, O2 96% on RA, R 16, T 97.3. Neuros intact. Hand grasps equal bilaterally. Pupils round, reactive to light & equal bilaterally. No verbal or nonverbal complaints of pain noted. Resident resting at this time.
[2022-08-07 11:51] LABS: SARS PCR* Negative SARS-CoV-2 (Negative)
--- NOTE | 2022-08-07 13:03 | PC.NURSE ---
Fall F/u's Vitals: BP 147/76, P 56, R 17, Temp 98.1, O2 sat 97% on RA. Pupil equal and reactive to light. Equal hand grasps and strength bilateral. No verbal or nonverbal indication of pain/discomfort noted or reported this shift. Resident appears to be per usual self.
[2022-08-07] MEDS: LATANOPROST 0.005% OPHTH 1 DROP EYE-BOTH (19:12)
[2022-08-08 01:00] VITALS: BP 103/63; PULSE 91; RESP 16; TEMP 36.3; O2SAT 96
[2022-08-08 05:00] VITALS: BP 111/68; PULSE 90; TEMP 36.5; O2SAT 96
--- NOTE | 2022-08-08 05:54 | PC.NURSE ---
FALL FOLLOW UP Resident night went fine, no complain of any discomfort related to fall. Vitals normal, neuro intact. Will continue to monitor.
[2022-08-08 07:00] VITALS: TEMP 36.5; O2SAT 94
[2022-08-08] MEDS: ASPIRIN 81 MG TABLET EC PO (07:39)
[2022-08-08] MEDS: ESCITALOPRAM 10 MG TABLET PO (07:39)
[2022-08-08] MEDS: OMEPRAZOLE 20 MG CAPSULE DR PO (07:39)
[2022-08-08] MEDS: polyethylene glycoL 3350 17 GM PACK PO (07:39)
[2022-08-08] MEDS: METOPROLOL TARTRATE 25 MG TABLET 12.5 MG PO ×2 (07:39→15:50)
[2022-08-08] MEDS: timoloL maleate 0.5 % 1 DROP EYE-BOTH (07:40)
--- NOTE | 2022-08-08 11:05 | PC.NURSE ---
Recert Visit: Resident seen by SENIOR BEHAVIORAL SCIENTISTEdgar. Orders reviewed and renewed of 75 days with no changes.
[2022-08-08] MEDS: LATANOPROST 0.005% OPHTH 1 DROP EYE-BOTH (20:13)
[2022-08-08 21:42] VITALS: TEMP 36.7; O2SAT 94
[2022-08-08 23:56] VITALS: TEMP 36.7; O2SAT 92
[2022-08-09 07:00] VITALS: TEMP 36.4; O2SAT 94
[2022-08-09] MEDS: ASPIRIN 81 MG TABLET EC PO (07:29)
[2022-08-09] MEDS: ESCITALOPRAM 10 MG TABLET PO (07:29)
[2022-08-09] MEDS: METOPROLOL TARTRATE 25 MG TABLET 12.5 MG PO ×2 (07:29→15:53)
[2022-08-09] MEDS: polyethylene glycoL 3350 17 GM PACK PO (07:30)
[2022-08-09] MEDS: timoloL maleate 0.5 % 1 DROP EYE-BOTH (07:30)
[2022-08-09] MEDS: OMEPRAZOLE 20 MG CAPSULE DR PO (07:30)
[2022-08-09 15:00] VITALS: TEMP 36.8; O2SAT 95
[2022-08-09] MEDS: LATANOPROST 0.005% OPHTH 1 DROP EYE-BOTH (19:32)
[2022-08-09 23:00] VITALS: TEMP 37.1; O2SAT 96
[2022-08-10 07:00] VITALS: TEMP 36.4; O2SAT 95
[2022-08-10] MEDS: ESCITALOPRAM 10 MG TABLET PO (07:26)
[2022-08-10] MEDS: METOPROLOL TARTRATE 25 MG TABLET 12.5 MG PO ×2 (07:26→16:33)
[2022-08-10] MEDS: OMEPRAZOLE 20 MG CAPSULE DR PO (07:26)
[2022-08-10] MEDS: ASPIRIN 81 MG TABLET EC PO (07:26)
[2022-08-10] MEDS: timoloL maleate 0.5 % 1 DROP EYE-BOTH (07:27)
[2022-08-10] MEDS: polyethylene glycoL 3350 17 GM PACK PO (07:28)
--- NOTE | 2022-08-10 09:57 | PC.SOCIAL ---
Resident's called requesting clarification on the date/time of resident's care conference. Provided date/time of care conference. Resident's stated that she wanted to ensure that Gloria Lora was aware. Informed resident's that this worker did send an e-mail notice to Gloria Lora with all of the care conference information. Phone call to Gloria Lora, resident's [id number]. Left a voicemail informing Gloria that this worker sent out an e-mail with information on resident's upcoming care conference. Provided date/time and informed that the meeting is in person, but the call in information was listed on the e-mail if she would like to participate by phone. Left contact information if Gloria has any other questions. Social work will follow up as necessary.
[2022-08-10 15:00] VITALS: TEMP 36.3; O2SAT 94
[2022-08-10] MEDS: LATANOPROST 0.005% OPHTH 1 DROP EYE-BOTH (19:33)
--- NOTE | 2022-08-11 00:49 | PC.NURSE ---
WEEKLY CHARTING - WEEK 1: Vital signs reviewed - no concerns. Temporary and comprehensive care plan reviewed - no change. Offers no c/o pain and denies pain when asked. No oral analgesics at this time. May utilize PRN acetaminophen per S.O. if needed. Requires extensive assist with dressing, grooming, bathing, and oral care. Receives a regular diet with soft and bite sized texture and thin liquids d/t edentulous status. Able to eat independently after set-up. May require cues at times. Appetite is fair. Eats approximately 50% of meals. Weight is stable.
[2022-08-11 07:00] VITALS: BP 105/56; PULSE 61; RESP 17; TEMP 36.6; O2SAT 93; BMI 18.9
[2022-08-11] MEDS: OMEPRAZOLE 20 MG CAPSULE DR PO (07:30)
--- NOTE | 2022-08-11 07:33 | PC.NURSE ---
Week #1-ADL's: Comprehensive and temporary care plan reviewed. No changes made. Nothing added to temporary care plan. Resident needs extensive assist of one with dressing, grooming, oral cares and bathing. Feed self after set up. Is regular diet, soft and bite sized texture r/t edentulous. No problems with chewing/swallowing reported/noted. Vital signs reviewed, no concerns. Pain: Has no complain. Is on no schedule pain medication. May use Tylenol PSO PRN. Staff anticipates need for pain.
[2022-08-11] MEDS: timoloL maleate 0.5 % 1 DROP EYE-BOTH (08:15)
[2022-08-11] MEDS: ESCITALOPRAM 10 MG TABLET PO (08:15)
[2022-08-11] MEDS: ASPIRIN 81 MG TABLET EC PO (08:15)
[2022-08-11] MEDS: METOPROLOL TARTRATE 25 MG TABLET 12.5 MG PO ×2 (08:15→15:45)
[2022-08-11] MEDS: polyethylene glycoL 3350 17 GM PACK PO (08:15)
[2022-08-11 16:38] VITALS: TEMP 36.6; O2SAT 95
[2022-08-11] MEDS: LATANOPROST 0.005% OPHTH 1 DROP EYE-BOTH (19:44)
[2022-08-11 21:40] VITALS: TEMP 36.6; O2SAT 92
[2022-08-12] MEDS: METOPROLOL TARTRATE 25 MG TABLET 12.5 MG PO ×2 (07:19→16:03)
[2022-08-12] MEDS: ASPIRIN 81 MG TABLET EC PO (07:19)
[2022-08-12] MEDS: OMEPRAZOLE 20 MG CAPSULE DR PO (07:19)
[2022-08-12] MEDS: timoloL maleate 0.5 % 1 DROP EYE-BOTH (07:19)
[2022-08-12] MEDS: ESCITALOPRAM 10 MG TABLET PO (07:19)
[2022-08-12] MEDS: polyethylene glycoL 3350 17 GM PACK PO (08:38)
[2022-08-12] MEDS: LATANOPROST 0.005% OPHTH 1 DROP EYE-BOTH (20:14)
[2022-08-12 21:46] VITALS: TEMP 36.5; O2SAT 93
[2022-08-13] MEDS: OMEPRAZOLE 20 MG CAPSULE DR PO (07:34)
[2022-08-13] MEDS: timoloL maleate 0.5 % 1 DROP EYE-BOTH (08:12)
[2022-08-13] MEDS: ESCITALOPRAM 10 MG TABLET PO (08:12)
[2022-08-13] MEDS: METOPROLOL TARTRATE 25 MG TABLET 12.5 MG PO ×2 (08:12→15:45)
[2022-08-13] MEDS: ASPIRIN 81 MG TABLET EC PO (08:12)
[2022-08-13] MEDS: polyethylene glycoL 3350 17 GM PACK PO (08:12)
[2022-08-13] MEDS: LATANOPROST 0.005% OPHTH 1 DROP EYE-BOTH (20:15)
[2022-08-13 23:10] VITALS: TEMP 36.3; O2SAT 95
[2022-08-14] MEDS: METOPROLOL TARTRATE 25 MG TABLET 12.5 MG PO ×2 (07:48→16:17)
[2022-08-14] MEDS: ESCITALOPRAM 10 MG TABLET PO (07:48)
[2022-08-14] MEDS: polyethylene glycoL 3350 17 GM PACK PO (07:48)
[2022-08-14] MEDS: ASPIRIN 81 MG TABLET EC PO (07:48)
[2022-08-14] MEDS: OMEPRAZOLE 20 MG CAPSULE DR PO (07:48)
[2022-08-14] MEDS: timoloL maleate 0.5 % 1 DROP EYE-BOTH (07:48)
[2022-08-14 15:00] VITALS: TEMP 36.4; O2SAT 96
[2022-08-14] MEDS: LATANOPROST 0.005% OPHTH 1 DROP EYE-BOTH (19:15)
[2022-08-15] MEDS: METOPROLOL TARTRATE 25 MG TABLET 12.5 MG PO ×2 (07:20→16:20)
[2022-08-15] MEDS: ASPIRIN 81 MG TABLET EC PO (07:20)
[2022-08-15] MEDS: timoloL maleate 0.5 % 1 DROP EYE-BOTH (07:20)
[2022-08-15] MEDS: OMEPRAZOLE 20 MG CAPSULE DR PO (07:20)
[2022-08-15] MEDS: polyethylene glycoL 3350 17 GM PACK PO (07:20)
[2022-08-15] MEDS: ESCITALOPRAM 10 MG TABLET PO (07:20)
--- NOTE | 2022-08-15 13:58 | PC.SOCIAL ---
Care conference held today at 1:00 pm in activity room. Resident participated, Resident's , Jyothi Lora, and Resident's [id number] Scarlet Lora, and chef's assistant Ignacio Chinchilla participated in person. Resident's [id number] Gloria Lora participated by phone. Updates from Janay Campbell in Nursing, Leticia Richey in Nutrition, Hina Law in Life Enrichment, and this worker from Social Work. Resident's care plan was reviewed during care conference. Discussion on resident's overall status has improved since resident stopped taking his cancer medication. Resident has been actively involved in conversations and was able to complete a mood assessment with social work. Mood is stable at this time and there are no concerns. Family questioned whether resident would continue to qualify for hospice services since resident is doing so well. Informed family that [facility] would make the determination and would consult with family if any changes were made. * This worker reached out to [facility] and verified if [facility] nurse, Mayelin, was joining the care conference. Gregoria from [facility] informed that Mayelin was meeting with clients today and unable to attend and stated if there were any questions or updates to inform [facility]. Sent e-mail back stating that family wondered about resident continuing to qualify for hospice services since resident was doing well. Informed that care conference overall went really well. Social Work will follow up as necessary.
--- NOTE | 2022-08-15 14:30 | PC.NURSE ---
CARE CONFERENCE: Nursing, SS, LE, dietary, sister in law Scarlet, daughter in law Gloria (via phone), ASL interp., resident, and present. The care conference was conducted using in person underground distribution engineer Ignacio. Nursing provided an update on residents current condition. Resident has improved significantly since last care conference. Resident continues on Hospice but discussed that there is the potential for him to graduate Hospice if he continues to do well. ?We have not heard of any plans for this so far but want family to be aware, family understands. Hospice was not present to speak on this. Discussed that resident is much more alert and able to communicate since discontinuation of chemo medication. Jyothi does not have any plan to put him back on this medication if he graduates Hospice. Resident continues to need assist of one with ADLs. Active medication list was reviewed and discussed with Jyothi. Resident has fallen once this quarter, he continues to use a bed and chair alarm as well as frequent staff safety checks. Discussed the potential need for dental and vision appointments, denies at this time and wants to wait until springtime when the weather is warmer. She feels that Jacque?s eyes are stable and healthy and wants to be sure he continues to get his eye drops. She wonders if she should bring Jacque?s dentures from home, she is worried they will get lost. Assured that if she wanted to bring them in that they would be safe. She is not sure if she will bring them or not. Resident is currently on a regular soft and bite sized diet which is going well, his weight is stable with a slight increase. Resident has been able to participate in feeding himself with setup assist. No other nutrition concerns. Activities discussed resident current participation in activities, resident is doing well, there are no concerns and residents denies any further needs. SW Reports that resident?s mood is stable. POLST reviewed, no changes. Staff continue to use iPad dye house wheel operator and whiteboard for communication. Staff anticipate needs. Resident is vulnerable due to need for assistance with ADLs and fragility.
--- NOTE | 2022-08-15 14:41 | PC.NURSE ---
ADL CORRECTION: Incorrect charting in LULY period for ADLs. BED MOBILITY: staff who documented dependent was interviewed, resident required extensive assistance. Coded as such. AMB IN ROY: Staff interviewed who documented total dependence and independent? clarified that resident did ambulate in the roy for a short distance with extensive assist of 1. Coded as such. DRESSING: Staff interviewed who documented total dependence?clarified that resident actually required extensive assist. Coded as such.
[2022-08-15 14:50] VITALS: BMI 18.9
[2022-08-15 15:00] VITALS: TEMP 36.7; O2SAT 94
[2022-08-15] MEDS: LATANOPROST 0.005% OPHTH 1 DROP EYE-BOTH (20:40)
[2022-08-16] MEDS: ASPIRIN 81 MG TABLET EC PO (07:07)
[2022-08-16] MEDS: ESCITALOPRAM 10 MG TABLET PO (07:07)
[2022-08-16] MEDS: METOPROLOL TARTRATE 25 MG TABLET 12.5 MG PO ×2 (07:07→16:04)
[2022-08-16] MEDS: OMEPRAZOLE 20 MG CAPSULE DR PO (07:07)
[2022-08-16] MEDS: timoloL maleate 0.5 % 1 DROP EYE-BOTH (07:08)
[2022-08-16] MEDS: polyethylene glycoL 3350 17 GM PACK PO (07:09)
--- NOTE | 2022-08-16 11:34 | PC.PHA1 ---
METAL ROOFER PHARMACIST'S MEDICATION REVIEW: MEDICATION MONITORING:Escitalopram 10 mg po daily IRREGULARITY OR COMMENTS:Patient continues on seven scheduled medication orders and is being followed by window systems administrator. After he and agreed to stop oral chemo regimen he has been living with more comfort. Given his status at this point in his life GDR of escitalopram clinically contraindicated. SUGGESTED COURSE OF ACTION TAKEN:No medication recommending at this time.
--- NOTE | 2022-08-16 13:14 | PC.NURSE ---
Resident status: Resident has been having L/A loose stool 2 to 3 times a day especially every time after breakfast of lunch. Advise to change Miralax to PRN or alternate days . Noted in N/P book.
--- NOTE | 2022-08-16 16:55 | PC.SOCIAL ---
Met with resident's , Jyothi Lora, in resident's room. Jyothi states that an account, Nancy, is assisting with bills and she will call [employer] [facility] about the CC bill that is owed. Jyothi informed that resident does not need a Dentist. Provided information to Janay Campbell in Nursing. Social Work will follow up as necessary.
[2022-08-16 17:14] VITALS: TEMP 36.5; O2SAT 95
[2022-08-16] MEDS: LATANOPROST 0.005% OPHTH 1 DROP EYE-BOTH (19:56)
[2022-08-17] MEDS: OMEPRAZOLE 20 MG CAPSULE DR PO (07:36)
[2022-08-17] MEDS: METOPROLOL TARTRATE 25 MG TABLET 12.5 MG PO ×2 (07:53→16:20)
[2022-08-17] MEDS: ASPIRIN 81 MG TABLET EC PO (07:53)
[2022-08-17] MEDS: ESCITALOPRAM 10 MG TABLET PO (07:53)
[2022-08-17] MEDS: timoloL maleate 0.5 % 1 DROP EYE-BOTH (08:01)
--- NOTE | 2022-08-17 10:19 | PC.NURSE ---
Order: sales account director here. Miralax daily changed to daily PRN.
[2022-08-17] MEDS: LATANOPROST 0.005% OPHTH 1 DROP EYE-BOTH (20:11)
[2022-08-17 22:06] VITALS: TEMP 36.4; O2SAT 95
--- NOTE | 2022-08-17 22:08 | PC.NURSE ---
Emesis: Was sitting at the DR table waiting for supper and had an emesis. He rubbed his abdomen to say he didn't feel good. He wanted to go to bed. Was put to bed and has been sleeping soundly since then.
[2022-08-17 23:46] VITALS: TEMP 36.7; O2SAT 92
--- NOTE | 2022-08-18 01:50 | PC.NURSE ---
Weekly Charting Week 2: Vitals reviewed. no concern. Comprehensive and temporary care reviewed. No changes made, No added to temporary care plan. Res need assist of 1 staff repositioning in bed and recliner. Able to ambulate with 1 staff limited assistance wit GB and walker. Per latest fall assessment , Is at High risk for fall. Fall Prevention: call light within reach, bed in low position brakes locked, bed alarm and chair alarm in place. continue hourly checks, falling star symbol on door, gripper socks on when in bed.
--- NOTE | 2022-08-18 04:43 | PC.NURSE ---
Status note: Noted moderate amount of emesis chocolate in color. BP 124/76, Temp 98.0, RR 17, HR 84, 02 sat 95% Room Air. Lung sounds clear in all lyon. HOB slightly elevated.
[2022-08-18] MEDS: OMEPRAZOLE 20 MG CAPSULE DR PO (06:21)
[2022-08-18 06:52] VITALS: TEMP 36.9; O2SAT 92
[2022-08-18 06:53] VITALS: BP 120/75; PULSE 81; RESP 18; TEMP 36.9; O2SAT 92
[2022-08-18 07:00] VITALS: BMI 18.2
--- NOTE | 2022-08-18 07:00 | PC.NURSE ---
Week #2 - Mobility: Comprehensive and temporary care plan reviewed. No changes made, nothing added to temporary care plan. Resident needs one assist, transfer belt and walker with transfers and ambulation. Staff wheels to all destinations. One assist with bed/chair positioning. Has bed and chair alarms. Vital signs reviewed, no concerns. Fall: No fall the past month. Had a fall on 08/04, no injury. Remains a high fall risk according to assessment done on 08/15/22. Fall interventions: Call light within reach, bed in low position brakes locked, hourly safety checks, in room don't leave in w/c, bed/chair alarms.
[2022-08-18] MEDS: ASPIRIN 81 MG TABLET EC PO (07:49)
[2022-08-18] MEDS: ESCITALOPRAM 10 MG TABLET PO (07:49)
[2022-08-18] MEDS: METOPROLOL TARTRATE 25 MG TABLET 12.5 MG PO ×2 (07:50→16:29)
[2022-08-18] MEDS: timoloL maleate 0.5 % 1 DROP EYE-BOTH (07:50)
--- NOTE | 2022-08-18 12:50 | PC.NURSE ---
Resident Status: Resident was feeling very tired this morning and felt slightly fresh after bath. Vital as follows: T98.4,P81,R 18, B/P 120/75. Resident ate his breakfast 100% and took some soup for lunch . No emesis noted or loose stool noted. Staff will continue to monitor.
[2022-08-18 15:00] VITALS: TEMP 36.8
[2022-08-18] MEDS: LATANOPROST 0.005% OPHTH 1 DROP EYE-BOTH (19:28)
[2022-08-19 00:19] VITALS: TEMP 36.7; O2SAT 93
[2022-08-19] MEDS: OMEPRAZOLE 20 MG CAPSULE DR PO (07:06)
[2022-08-19] MEDS: ESCITALOPRAM 10 MG TABLET PO (08:48)
[2022-08-19] MEDS: timoloL maleate 0.5 % 1 DROP EYE-BOTH (08:48)
[2022-08-19] MEDS: METOPROLOL TARTRATE 25 MG TABLET 12.5 MG PO ×2 (08:48→16:09)
[2022-08-19] MEDS: ASPIRIN 81 MG TABLET EC PO (08:48)
[2022-08-19 10:17] VITALS: TEMP 36.4; O2SAT 95
[2022-08-19 13:40] VITALS: BMI 18.3
[2022-08-19 15:00] VITALS: TEMP 37; O2SAT 96
[2022-08-19] MEDS: LATANOPROST 0.005% OPHTH 1 DROP EYE-BOTH (19:03)
[2022-08-20 00:03] VITALS: TEMP 36.6; O2SAT 93
[2022-08-20] MEDS: OMEPRAZOLE 20 MG CAPSULE DR PO (06:30)
[2022-08-20] MEDS: METOPROLOL TARTRATE 25 MG TABLET 12.5 MG PO ×2 (08:05→15:47)
[2022-08-20] MEDS: ASPIRIN 81 MG TABLET EC PO (08:05)
[2022-08-20] MEDS: ESCITALOPRAM 10 MG TABLET PO (08:05)
[2022-08-20] MEDS: timoloL maleate 0.5 % 1 DROP EYE-BOTH (08:06)
[2022-08-20 10:11] VITALS: TEMP 36.2; O2SAT 96
[2022-08-20 15:00] VITALS: TEMP 36.7; O2SAT 96
[2022-08-20] MEDS: LATANOPROST 0.005% OPHTH 1 DROP EYE-BOTH (19:26)
[2022-08-20 23:49] VITALS: TEMP 36.7; O2SAT 97
[2022-08-21] MEDS: OMEPRAZOLE 20 MG CAPSULE DR PO (06:24)
[2022-08-21 07:00] VITALS: TEMP 36.2; O2SAT 98
[2022-08-21] MEDS: METOPROLOL TARTRATE 25 MG TABLET 12.5 MG PO ×2 (07:40→15:59)
[2022-08-21] MEDS: ESCITALOPRAM 10 MG TABLET PO (07:40)
[2022-08-21] MEDS: ASPIRIN 81 MG TABLET EC PO (07:40)
[2022-08-21] MEDS: timoloL maleate 0.5 % 1 DROP EYE-BOTH (07:41)
--- NOTE | 2022-08-21 10:00 | PC.NURSE ---
COVID OUTBREAK TESTING Resident gave verbal consent for outbreak COVID testing. Resident is currently asymptomatic.? Resident/family will be notified only if resident is positive.
[2022-08-21 12:31] LABS: SARS PCR* Negative SARS-CoV-2 (Negative)
[2022-08-21 15:00] VITALS: TEMP 36.6; O2SAT 96
[2022-08-21] MEDS: LATANOPROST 0.005% OPHTH 1 DROP EYE-BOTH (19:22)
[2022-08-21 23:56] VITALS: TEMP 36.6; O2SAT 95
[2022-08-22 07:00] VITALS: TEMP 36.6; O2SAT 93
[2022-08-22] MEDS: ESCITALOPRAM 10 MG TABLET PO (07:40)
[2022-08-22] MEDS: ASPIRIN 81 MG TABLET EC PO (07:40)
[2022-08-22] MEDS: OMEPRAZOLE 20 MG CAPSULE DR PO (07:40)
[2022-08-22] MEDS: METOPROLOL TARTRATE 25 MG TABLET 12.5 MG PO ×2 (07:41→16:15)
[2022-08-22] MEDS: timoloL maleate 0.5 % 1 DROP EYE-BOTH (07:43)
[2022-08-22] MEDS: LATANOPROST 0.005% OPHTH 1 DROP EYE-BOTH (20:06)
[2022-08-22 22:57] VITALS: TEMP 36.6; O2SAT 94
[2022-08-22 23:00] VITALS: TEMP 36.9; O2SAT 93
[2022-08-23 07:00] VITALS: TEMP 36.7; O2SAT 95
[2022-08-23] MEDS: OMEPRAZOLE 20 MG CAPSULE DR PO (07:45)
[2022-08-23] MEDS: ASPIRIN 81 MG TABLET EC PO (07:45)
[2022-08-23] MEDS: ESCITALOPRAM 10 MG TABLET PO (07:46)
[2022-08-23] MEDS: timoloL maleate 0.5 % 1 DROP EYE-BOTH (07:46)
[2022-08-23] MEDS: METOPROLOL TARTRATE 25 MG TABLET 12.5 MG PO ×2 (07:46→16:10)
[2022-08-23 15:00] VITALS: TEMP 36.5; O2SAT 95
[2022-08-23] MEDS: LATANOPROST 0.005% OPHTH 1 DROP EYE-BOTH (19:56)
[2022-08-23 23:00] VITALS: TEMP 37.1; O2SAT 95
[2022-08-24] MEDS: timoloL maleate 0.5 % 1 DROP EYE-BOTH (07:18)
[2022-08-24] MEDS: ESCITALOPRAM 10 MG TABLET PO (07:18)
[2022-08-24] MEDS: ASPIRIN 81 MG TABLET EC PO (07:18)
[2022-08-24] MEDS: OMEPRAZOLE 20 MG CAPSULE DR PO (07:18)
[2022-08-24] MEDS: METOPROLOL TARTRATE 25 MG TABLET 12.5 MG PO ×2 (07:18→16:01)
[2022-08-24 09:52] VITALS: TEMP 36.4; O2SAT 95
[2022-08-24 15:14] VITALS: TEMP 36.2; O2SAT 94
[2022-08-24] MEDS: LATANOPROST 0.005% OPHTH 1 DROP EYE-BOTH (19:20)
[2022-08-24 23:00] VITALS: TEMP 37; O2SAT 95
--- NOTE | 2022-08-25 03:41 | PC.NURSE ---
WEEKLY CHARTING - WEEK 3: Vital signs reviewed - no concerns. Temporary and comprehensive care plan reviewed - no change. Primarily incontinent of bowel and bladder, but will void and have bowel movement on toilet at times. Wears brief. Assist of 1 with toileting needs including dileep-care, pad management, and clothing adjustment. Is assisted up to toilet on 1st and 3rd rounds and brief is checked on 2nd rounds at night.
[2022-08-25 07:00] VITALS: PULSE 60; RESP 16; TEMP 36.6; O2SAT 97; BMI 18.6
[2022-08-25] MEDS: OMEPRAZOLE 20 MG CAPSULE DR PO (07:36)
[2022-08-25] MEDS: timoloL maleate 0.5 % 1 DROP EYE-BOTH (08:03)
[2022-08-25] MEDS: ASPIRIN 81 MG TABLET EC PO (08:03)
[2022-08-25] MEDS: ESCITALOPRAM 10 MG TABLET PO (08:03)
[2022-08-25] MEDS: METOPROLOL TARTRATE 25 MG TABLET 12.5 MG PO ×2 (08:03→15:53)
[2022-08-25 17:12] VITALS: TEMP 36.6; O2SAT 96
[2022-08-25] MEDS: LATANOPROST 0.005% OPHTH 1 DROP EYE-BOTH (20:40)
[2022-08-25 23:00] VITALS: TEMP 37; O2SAT 95
[2022-08-26 07:00] VITALS: TEMP 36.6; O2SAT 93
[2022-08-26] MEDS: METOPROLOL TARTRATE 25 MG TABLET 12.5 MG PO ×2 (07:37→15:28)
[2022-08-26] MEDS: ASPIRIN 81 MG TABLET EC PO (07:37)
[2022-08-26] MEDS: ESCITALOPRAM 10 MG TABLET PO (07:37)
[2022-08-26] MEDS: OMEPRAZOLE 20 MG CAPSULE DR PO (07:37)
[2022-08-26] MEDS: timoloL maleate 0.5 % 1 DROP EYE-BOTH (07:37)
[2022-08-26 17:00] VITALS: TEMP 36.5; O2SAT 96
[2022-08-26] MEDS: LATANOPROST 0.005% OPHTH 1 DROP EYE-BOTH (20:07)
[2022-08-26 23:00] VITALS: TEMP 36.6; O2SAT 94
[2022-08-27 07:00] VITALS: TEMP 36.4; O2SAT 97
[2022-08-27] MEDS: OMEPRAZOLE 20 MG CAPSULE DR PO (07:33)
[2022-08-27] MEDS: ASPIRIN 81 MG TABLET EC PO (07:33)
[2022-08-27] MEDS: METOPROLOL TARTRATE 25 MG TABLET 12.5 MG PO ×2 (07:33→16:05)
[2022-08-27] MEDS: ESCITALOPRAM 10 MG TABLET PO (07:33)
[2022-08-27] MEDS: timoloL maleate 0.5 % 1 DROP EYE-BOTH (07:34)
[2022-08-27 16:50] VITALS: TEMP 36.7; O2SAT 94
[2022-08-27] MEDS: LATANOPROST 0.005% OPHTH 1 DROP EYE-BOTH (19:44)
[2022-08-27 23:00] VITALS: TEMP 37; O2SAT 93
[2022-08-28 07:00] VITALS: TEMP 36.6; O2SAT 94
[2022-08-28] MEDS: timoloL maleate 0.5 % 1 DROP EYE-BOTH (07:56)
[2022-08-28] MEDS: ASPIRIN 81 MG TABLET EC PO (07:56)
[2022-08-28] MEDS: ESCITALOPRAM 10 MG TABLET PO (07:56)
[2022-08-28] MEDS: METOPROLOL TARTRATE 25 MG TABLET 12.5 MG PO ×2 (07:56→16:12)
[2022-08-28] MEDS: OMEPRAZOLE 20 MG CAPSULE DR PO (07:56)
--- NOTE | 2022-08-28 11:59 | PC.NURSE ---
COVID OUTBREAK TESTING Resident gave verbal consent for outbreak COVID testing. Resident is currently asymptomatic.? Resident/family will be notified only if resident is positive.
[2022-08-28 12:51] LABS: SARS PCR* Negative SARS-CoV-2 (Negative)
[2022-08-28 15:00] VITALS: TEMP 36.8; O2SAT 95
[2022-08-28] MEDS: LATANOPROST 0.005% OPHTH 1 DROP EYE-BOTH (19:11)
[2022-08-28 23:00] VITALS: TEMP 37.1; O2SAT 91
[2022-08-29] MEDS: OMEPRAZOLE 20 MG CAPSULE DR PO (07:15)
[2022-08-29] MEDS: ASPIRIN 81 MG TABLET EC PO (07:16)
[2022-08-29] MEDS: timoloL maleate 0.5 % 1 DROP EYE-BOTH (07:16)
[2022-08-29] MEDS: METOPROLOL TARTRATE 25 MG TABLET 12.5 MG PO ×2 (07:16→15:43)
[2022-08-29] MEDS: ESCITALOPRAM 10 MG TABLET PO (07:16)
[2022-08-29 10:24] VITALS: TEMP 36.6; O2SAT 92
[2022-08-29] MEDS: LATANOPROST 0.005% OPHTH 1 DROP EYE-BOTH (20:01)
[2022-08-29 21:43] VITALS: TEMP 36.6; O2SAT 96
[2022-08-29 23:00] VITALS: TEMP 36.8; O2SAT 94
[2022-08-30 07:00] VITALS: TEMP 36.4; O2SAT 96
[2022-08-30] MEDS: OMEPRAZOLE 20 MG CAPSULE DR PO (07:38)
[2022-08-30] MEDS: timoloL maleate 0.5 % 1 DROP EYE-BOTH (07:38)
[2022-08-30] MEDS: METOPROLOL TARTRATE 25 MG TABLET 12.5 MG PO ×2 (07:38→16:00)
[2022-08-30] MEDS: ASPIRIN 81 MG TABLET EC PO (07:38)
[2022-08-30] MEDS: ESCITALOPRAM 10 MG TABLET PO (07:38)
[2022-08-30 15:00] VITALS: TEMP 36.3; O2SAT 96
[2022-08-30] MEDS: LATANOPROST 0.005% OPHTH 1 DROP EYE-BOTH (20:18)
[2022-08-30 23:00] VITALS: TEMP 37.1; O2SAT 95
[2022-08-31 07:00] VITALS: TEMP 36.6; O2SAT 95
[2022-08-31] MEDS: timoloL maleate 0.5 % 1 DROP EYE-BOTH (07:36)
[2022-08-31] MEDS: ASPIRIN 81 MG TABLET EC PO (07:36)
[2022-08-31] MEDS: ESCITALOPRAM 10 MG TABLET PO (07:36)
[2022-08-31] MEDS: METOPROLOL TARTRATE 25 MG TABLET 12.5 MG PO ×2 (07:36→15:44)
[2022-08-31] MEDS: OMEPRAZOLE 20 MG CAPSULE DR PO (07:36)
[2022-08-31 16:56] VITALS: TEMP 37.1; O2SAT 97
[2022-08-31] MEDS: LATANOPROST 0.005% OPHTH 1 DROP EYE-BOTH (19:58)
[2022-08-31 23:00] VITALS: TEMP 37; O2SAT 94
--- NOTE | 2022-09-01 01:32 | PC.NURSE ---
WEEKLY CHARTING - WEEK 4: Vital signs reviewed - no concerns. Temporary and comprehensive care plan reviewed - no change. No documented behaviors in the last month. Currently receives escitalopram 10mg daily. No noted adverse effects. 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 Staff utilize tube draw helper or whiteboard for communication. Needs are anticipated and staff observe for non-verbal cues. Cognitively impaired r/t dementia. Wears glasses for visual deficit. All medications administered by licensed nurse. Receives hospice services for metastatic prostate cancer. Health condition is stable at this time.
[2022-09-01] MEDS: ASPIRIN 81 MG TABLET EC PO (07:06)
[2022-09-01] MEDS: OMEPRAZOLE 20 MG CAPSULE DR PO (07:06)
[2022-09-01] MEDS: ESCITALOPRAM 10 MG TABLET PO (07:07)
[2022-09-01] MEDS: METOPROLOL TARTRATE 25 MG TABLET 12.5 MG PO ×2 (07:07→15:50)
[2022-09-01] MEDS: timoloL maleate 0.5 % 1 DROP EYE-BOTH (07:07)
--- NOTE | 2022-09-01 07:34 | PC.NURSE ---
Week #4: Comprehensive & temporary care plan reviewed, no changes made. Nothing added to temporary care plan. No changes noted in communication, hearing, vision, or orientation. 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 No useful hearing. Use house piping inspector/whiteboard for all communication. Speech unclear. Staff anticipate needs and observe for non verbal cues. Vision impaired corrected by glasses. Continues with hospice care. Health condition is stable. Vital signs reviewed, no concerns.fine. Nurse to administer all medications.? Mood/Behavior: No issues the past month. Continues on Lexapro 10 mg daily with no adverse effects noted. No changes in medication.
[2022-09-01 09:03] VITALS: BMI 18.2
[2022-09-01 09:39] VITALS: BP 137/83; PULSE 66; RESP 18; TEMP 36.8; O2SAT 96
[2022-09-01 15:00] VITALS: TEMP 36.6; O2SAT 95
[2022-09-01] MEDS: LATANOPROST 0.005% OPHTH 1 DROP EYE-BOTH (20:18)
[2022-09-01 23:43] VITALS: TEMP 36.4; O2SAT 93
[2022-09-02] MEDS: timoloL maleate 0.5 % 1 DROP EYE-BOTH (07:15)
[2022-09-02] MEDS: METOPROLOL TARTRATE 25 MG TABLET 12.5 MG PO ×2 (07:15→15:56)
[2022-09-02] MEDS: ASPIRIN 81 MG TABLET EC PO (07:15)
[2022-09-02] MEDS: OMEPRAZOLE 20 MG CAPSULE DR PO (07:15)
[2022-09-02] MEDS: ESCITALOPRAM 10 MG TABLET PO (07:15)
[2022-09-02 10:27] VITALS: TEMP 37.1; O2SAT 94
[2022-09-02 15:00] VITALS: TEMP 37.2; O2SAT 94
[2022-09-02] MEDS: LATANOPROST 0.005% OPHTH 1 DROP EYE-BOTH (20:19)
[2022-09-03] VITALS: TEMP 36.7; O2SAT 92
[2022-09-03] MEDS: OMEPRAZOLE 20 MG CAPSULE DR PO (07:27)
[2022-09-03] MEDS: METOPROLOL TARTRATE 25 MG TABLET 12.5 MG PO ×2 (07:27→16:23)
[2022-09-03] MEDS: timoloL maleate 0.5 % 1 DROP EYE-BOTH (07:27)
[2022-09-03] MEDS: ESCITALOPRAM 10 MG TABLET PO (07:27)
[2022-09-03] MEDS: ASPIRIN 81 MG TABLET EC PO (07:27)
[2022-09-03 09:53] VITALS: TEMP 36.3; O2SAT 96
[2022-09-03 15:00] VITALS: TEMP 35.7; O2SAT 93
[2022-09-03] MEDS: LATANOPROST 0.005% OPHTH 1 DROP EYE-BOTH (20:58)
[2022-09-03 23:42] VITALS: TEMP 36.4; O2SAT 93
[2022-09-04 07:00] VITALS: TEMP 36.2; O2SAT 95
[2022-09-04] MEDS: OMEPRAZOLE 20 MG CAPSULE DR PO (07:55)
[2022-09-04] MEDS: timoloL maleate 0.5 % 1 DROP EYE-BOTH (07:56)
[2022-09-04] MEDS: METOPROLOL TARTRATE 25 MG TABLET 12.5 MG PO ×2 (07:56→16:06)
[2022-09-04] MEDS: ESCITALOPRAM 10 MG TABLET PO (07:56)
[2022-09-04] MEDS: ASPIRIN 81 MG TABLET EC PO (07:56)
--- NOTE | 2022-09-04 11:07 | PC.NURSE ---
COVID OUTBREAK TESTING Resident and residents family gave verbal consent for outbreak COVID testing. Resident is currently asymptomatic.? Resident/family will be notified only if resident is positive.
[2022-09-04 11:53] LABS: SARS PCR* Negative SARS-CoV-2 (Negative)
[2022-09-04 15:00] VITALS: TEMP 36.2; O2SAT 96
[2022-09-04] MEDS: LATANOPROST 0.005% OPHTH 1 DROP EYE-BOTH (19:33)
[2022-09-05 01:18] VITALS: TEMP 36.7; O2SAT 92
[2022-09-05 07:00] VITALS: TEMP 36.7; O2SAT 100
[2022-09-05] MEDS: OMEPRAZOLE 20 MG CAPSULE DR PO (07:48)
[2022-09-05] MEDS: ASPIRIN 81 MG TABLET EC PO (07:49)
[2022-09-05] MEDS: ESCITALOPRAM 10 MG TABLET PO (07:49)
[2022-09-05] MEDS: METOPROLOL TARTRATE 25 MG TABLET 12.5 MG PO ×2 (07:50→19:50)
[2022-09-05] MEDS: timoloL maleate 0.5 % 1 DROP EYE-BOTH (07:50)
[2022-09-05 17:13] VITALS: TEMP 37.1; O2SAT 95
[2022-09-05] MEDS: LATANOPROST 0.005% OPHTH 1 DROP EYE-BOTH (19:50)
[2022-09-05 23:00] VITALS: TEMP 37.1; O2SAT 94
[2022-09-06 07:00] VITALS: TEMP 36.7; O2SAT 95
[2022-09-06] MEDS: OMEPRAZOLE 20 MG CAPSULE DR PO (07:40)
[2022-09-06] MEDS: ASPIRIN 81 MG TABLET EC PO (07:40)
[2022-09-06] MEDS: METOPROLOL TARTRATE 25 MG TABLET 12.5 MG PO ×2 (07:41→15:43)
[2022-09-06] MEDS: timoloL maleate 0.5 % 1 DROP EYE-BOTH (07:41)
[2022-09-06] MEDS: ESCITALOPRAM 10 MG TABLET PO (07:41)
[2022-09-06 15:00] VITALS: TEMP 36.2; O2SAT 95
[2022-09-06] MEDS: LATANOPROST 0.005% OPHTH 1 DROP EYE-BOTH (19:47)
[2022-09-06 23:00] VITALS: TEMP 36.9; O2SAT 93
[2022-09-07] MEDS: ASPIRIN 81 MG TABLET EC PO (08:09)
[2022-09-07] MEDS: timoloL maleate 0.5 % 1 DROP EYE-BOTH (08:09)
[2022-09-07] MEDS: ESCITALOPRAM 10 MG TABLET PO (08:09)
[2022-09-07] MEDS: OMEPRAZOLE 20 MG CAPSULE DR PO (08:09)
[2022-09-07] MEDS: METOPROLOL TARTRATE 25 MG TABLET 12.5 MG PO ×2 (08:09→15:42)
[2022-09-07 09:49] VITALS: TEMP 36.4; O2SAT 95
[2022-09-07 15:13] VITALS: TEMP 36.4; O2SAT 95
[2022-09-07] MEDS: LATANOPROST 0.005% OPHTH 1 DROP EYE-BOTH (19:16)
[2022-09-07 23:00] VITALS: TEMP 36.9; O2SAT 93
--- NOTE | 2022-09-08 00:50 | PC.NURSE ---
WEEKLY CHARTING - WEEK 1: Vital signs reviewed - no concerns. Temporary and comprehensive care plan reviewed - no change. No noted c/o pain and denies pain when asked. No oral pain management regimen at this time. May utilize PRN acetaminophen per S.O. Extensive assist of 1 with dressing, grooming, bathing, and oral care. Receives a regular diet with soft and bite sized texture and thin liquids d/t edentulous status. Able to eat independently after set-up. Requires cueing/partial assist at times. Appetite is variable. Weight is stable at this time.
[2022-09-08 07:00] VITALS: BP 112/65; PULSE 61; RESP 16; TEMP 36.9; O2SAT 95; O2SAT 96; BMI 18.6
[2022-09-08] MEDS: timoloL maleate 0.5 % 1 DROP EYE-BOTH (07:25)
[2022-09-08] MEDS: METOPROLOL TARTRATE 25 MG TABLET 12.5 MG PO ×2 (07:25→16:53)
[2022-09-08] MEDS: OMEPRAZOLE 20 MG CAPSULE DR PO (07:25)
[2022-09-08] MEDS: ESCITALOPRAM 10 MG TABLET PO (07:25)
[2022-09-08] MEDS: ASPIRIN 81 MG TABLET EC PO (07:25)
--- NOTE | 2022-09-08 10:51 | PC.NURSE ---
Week #1-ADL's: Comprehensive and temporary care plan reviewed. No changes made. Nothing added to temporary care plan. Resident needs extensive assist of one with dressing, grooming, oral cares and bathing. Feed self after set up. Is on regular diet, soft and bite sized texture r/t edentulous. No problems with chewing/swallowing reported/noted. Vital signs reviewed, no concerns. Pain: Has no complain. Is on no schedule pain medication. May use Tylenol PSO PRN. Staff anticipates need for pain.
[2022-09-08 15:00] VITALS: TEMP 36.4; O2SAT 95
[2022-09-08] MEDS: LATANOPROST 0.005% OPHTH 1 DROP EYE-BOTH (19:03)
[2022-09-08 23:00] VITALS: TEMP 37; O2SAT 93
[2022-09-09 07:00] VITALS: TEMP 36.6; O2SAT 96
[2022-09-09] MEDS: ESCITALOPRAM 10 MG TABLET PO (07:28)
[2022-09-09] MEDS: ASPIRIN 81 MG TABLET EC PO (07:28)
[2022-09-09] MEDS: METOPROLOL TARTRATE 25 MG TABLET 12.5 MG PO ×2 (07:28→15:52)
[2022-09-09] MEDS: OMEPRAZOLE 20 MG CAPSULE DR PO (07:28)
[2022-09-09] MEDS: timoloL maleate 0.5 % 1 DROP EYE-BOTH (07:28)
[2022-09-09 17:05] VITALS: TEMP -12.7; TEMP 9; O2SAT 96
[2022-09-09] MEDS: LATANOPROST 0.005% OPHTH 1 DROP EYE-BOTH (19:34)
[2022-09-09 23:00] VITALS: TEMP 37; O2SAT 94
[2022-09-10 07:00] VITALS: TEMP 36.4; O2SAT 95
[2022-09-10] MEDS: OMEPRAZOLE 20 MG CAPSULE DR PO (07:51)
[2022-09-10] MEDS: ESCITALOPRAM 10 MG TABLET PO (07:54)
[2022-09-10] MEDS: ASPIRIN 81 MG TABLET EC PO (07:54)
[2022-09-10] MEDS: METOPROLOL TARTRATE 25 MG TABLET 12.5 MG PO ×2 (07:54→15:53)
[2022-09-10] MEDS: timoloL maleate 0.5 % 1 DROP EYE-BOTH (08:21)
[2022-09-10 15:00] VITALS: TEMP 36.8; O2SAT 96
[2022-09-10] MEDS: LATANOPROST 0.005% OPHTH 1 DROP EYE-BOTH (19:35)
[2022-09-10 23:00] VITALS: TEMP 36.7; O2SAT 92
[2022-09-11 07:00] VITALS: TEMP 36.8; O2SAT 96
[2022-09-11] MEDS: OMEPRAZOLE 20 MG CAPSULE DR PO (07:58)
[2022-09-11] MEDS: METOPROLOL TARTRATE 25 MG TABLET 12.5 MG PO ×2 (08:00→16:20)
[2022-09-11] MEDS: timoloL maleate 0.5 % 1 DROP EYE-BOTH (08:00)
[2022-09-11] MEDS: ASPIRIN 81 MG TABLET EC PO (08:00)
[2022-09-11] MEDS: ESCITALOPRAM 10 MG TABLET PO (08:00)
--- NOTE | 2022-09-11 12:38 | PC.NURSE ---
COVID OUTBREAK TESTING Resident gave verbal consent for outbreak COVID testing. Resident is currently asymptomatic.? Resident/family will be notified only if resident is positive.
[2022-09-11 13:42] LABS: SARS PCR* Negative SARS-CoV-2 (Negative)
[2022-09-11 15:00] VITALS: TEMP 36.7; O2SAT 97
[2022-09-11] MEDS: LATANOPROST 0.005% OPHTH 1 DROP EYE-BOTH (20:03)
[2022-09-11 23:00] VITALS: TEMP 36.9; O2SAT 93
[2022-09-12 07:00] VITALS: TEMP 36.6; O2SAT 95
[2022-09-12] MEDS: METOPROLOL TARTRATE 25 MG TABLET 12.5 MG PO ×2 (07:37→15:51)
[2022-09-12] MEDS: ESCITALOPRAM 10 MG TABLET PO (07:37)
[2022-09-12] MEDS: OMEPRAZOLE 20 MG CAPSULE DR PO (07:37)
[2022-09-12] MEDS: ASPIRIN 81 MG TABLET EC PO (07:37)
[2022-09-12] MEDS: timoloL maleate 0.5 % 1 DROP EYE-BOTH (07:38)
--- NOTE | 2022-09-12 11:20 | PC.NURSE ---
Discussed with CONSUMER PRODUCT ADVISOR about decrease in Lexapro. At this time no changes will be made as resident is on hospice program and mood is stable.
--- NOTE | 2022-09-12 11:46 | PC.SPIRITC ---
I provided visit for connection and support to Jacque and his . They talked about meeting one another and the importance of their aleksandr.
[2022-09-12 15:00] VITALS: TEMP 36.4; O2SAT 97
[2022-09-12] MEDS: LATANOPROST 0.005% OPHTH 1 DROP EYE-BOTH (19:47)
[2022-09-12 23:00] VITALS: TEMP 36.6; O2SAT 94
[2022-09-13 07:00] VITALS: TEMP 36.5; O2SAT 94
[2022-09-13] MEDS: ESCITALOPRAM 10 MG TABLET PO (07:47)
[2022-09-13] MEDS: OMEPRAZOLE 20 MG CAPSULE DR PO (07:47)
[2022-09-13] MEDS: ASPIRIN 81 MG TABLET EC PO (07:47)
[2022-09-13] MEDS: METOPROLOL TARTRATE 25 MG TABLET 12.5 MG PO ×2 (07:48→16:17)
[2022-09-13] MEDS: timoloL maleate 0.5 % 1 DROP EYE-BOTH (07:48)
--- NOTE | 2022-09-13 11:29 | PC.PHA1 ---
CLERK ANALYST PHARMACIST'S MEDICATION REVIEW: MEDICATION MONITORING:Escitalopram 10 mg daily, hospice continues, GDR continues to be clinically contraindicated. IRREGULARITY OR COMMENTS:Patient continues to do well on his current medication regimen. All medications prescribed are appropriate for hospice goals. SUGGESTED COURSE OF ACTION TAKEN:No medication recommendations at this time.
[2022-09-13 15:00] VITALS: TEMP 37.1; O2SAT 94
[2022-09-13] MEDS: LATANOPROST 0.005% OPHTH 1 DROP EYE-BOTH (19:30)
[2022-09-13 23:00] VITALS: TEMP 36.9; O2SAT 92
[2022-09-14] MEDS: METOPROLOL TARTRATE 25 MG TABLET 12.5 MG PO ×2 (07:42→15:41)
[2022-09-14] MEDS: timoloL maleate 0.5 % 1 DROP EYE-BOTH (07:42)
[2022-09-14] MEDS: ASPIRIN 81 MG TABLET EC PO (07:42)
[2022-09-14] MEDS: OMEPRAZOLE 20 MG CAPSULE DR PO (07:42)
[2022-09-14] MEDS: ESCITALOPRAM 10 MG TABLET PO (07:42)
[2022-09-14 10:25] VITALS: TEMP 36.2; O2SAT 93
[2022-09-14 15:00] VITALS: TEMP 37; O2SAT 98
[2022-09-14] MEDS: LATANOPROST 0.005% OPHTH 1 DROP EYE-BOTH (19:30)
[2022-09-14 23:00] VITALS: TEMP 36.4; O2SAT 92
--- NOTE | 2022-09-15 02:00 | PC.NURSE ---
WEEKLY CHARTING - WEEK 2: Vital signs reviewed - no concerns. Temporary and comprehensive care plan reviewed - no change. Assist of 1 with gait belt and walker for transfers and ambulation. Able to move independently in bed with cues from staff. Staff assist PRN. Propels w/c short distances. Dependent on staff for distance/destination. Per last fall risk assessment, resident is at high risk for falls. Fall interventions: bed and chair alarms in place and active, gripper socks, call light in reach, keep area free of clutter, falling star magnet, bed in low position with brakes locked, call light in reach.
--- NOTE | 2022-09-15 06:42 | PC.NURSE ---
Weekly Charting, Week 2 - Mobility: Comprehensive and temporary care plan reviewed. No changes made, nothing added to temporary care plan. Resident needs one assist, transfer belt and walker with transfers and ambulation. Staff wheels to all destinations. One assist with bed/chair positioning. Has bed and chair alarms. Vital signs reviewed, no concerns. Fall: Had a fall on 08/04, no injury. Remains a high fall risk according to assessment done on 08/15/22. Fall interventions: Call light within reach, bed in low position brakes locked, hourly safety checks, in room don't leave in w/c, bed/chair alarms.
[2022-09-15 07:00] VITALS: BP 94/52; PULSE 63; RESP 16; TEMP 36.3; O2SAT 93; BMI 18.1
[2022-09-15] MEDS: OMEPRAZOLE 20 MG CAPSULE DR PO (07:31)
[2022-09-15] MEDS: ASPIRIN 81 MG TABLET EC PO (07:54)
[2022-09-15] MEDS: timoloL maleate 0.5 % 1 DROP EYE-BOTH (07:54)
[2022-09-15] MEDS: ESCITALOPRAM 10 MG TABLET PO (07:54)
[2022-09-15] MEDS: METOPROLOL TARTRATE 25 MG TABLET 12.5 MG PO ×2 (07:54→15:34)
[2022-09-15 17:05] VITALS: TEMP 36.5; O2SAT 93
[2022-09-15] MEDS: LATANOPROST 0.005% OPHTH 1 DROP EYE-BOTH (19:56)
[2022-09-16 00:07] VITALS: TEMP 36.6; O2SAT 92
[2022-09-16] MEDS: OMEPRAZOLE 20 MG CAPSULE DR PO (06:37)
[2022-09-16] MEDS: ASPIRIN 81 MG TABLET EC PO (07:59)
[2022-09-16] MEDS: METOPROLOL TARTRATE 25 MG TABLET 12.5 MG PO ×2 (07:59→15:09)
[2022-09-16] MEDS: timoloL maleate 0.5 % 1 DROP EYE-BOTH (07:59)
[2022-09-16] MEDS: ESCITALOPRAM 10 MG TABLET PO (07:59)
[2022-09-16 10:52] VITALS: TEMP 36.3; O2SAT 93
--- NOTE | 2022-09-16 10:53 | PC.NURSE ---
Stomach and headache : Resident c/o of stomach discomfort and headache. Refused breakfast and went back back to rest in his room. To continue monitor resident for lunch.
[2022-09-16 15:02] VITALS: TEMP 36.2; O2SAT 94
[2022-09-16] MEDS: LATANOPROST 0.005% OPHTH 1 DROP EYE-BOTH (19:09)
[2022-09-16 23:50] VITALS: TEMP 36.6; O2SAT 94
[2022-09-17] MEDS: polyethylene glycoL 3350 17 GM PACK PO (07:30)
[2022-09-17] MEDS: OMEPRAZOLE 20 MG CAPSULE DR PO (07:36)
[2022-09-17] MEDS: ASPIRIN 81 MG TABLET EC PO (07:36)
[2022-09-17] MEDS: timoloL maleate 0.5 % 1 DROP EYE-BOTH (07:36)
[2022-09-17] MEDS: METOPROLOL TARTRATE 25 MG TABLET 12.5 MG PO ×2 (07:36→16:08)
[2022-09-17] MEDS: ESCITALOPRAM 10 MG TABLET PO (07:36)
[2022-09-17 10:35] VITALS: TEMP 36.2; O2SAT 96
[2022-09-17 16:53] VITALS: TEMP 36.4; O2SAT 94
[2022-09-17] MEDS: LATANOPROST 0.005% OPHTH 1 DROP EYE-BOTH (19:30)
--- NOTE | 2022-09-17 21:24 | PC.NURSE ---
Constipation: noted resident had small hard stool like benjamin and furthermore resident has been complaining of stomach ache and have no appetite to eat. Given PRN Miralax at 0730 however there was no result till 2000 hours. To repeat Miralax next morning.
[2022-09-17 23:48] VITALS: TEMP 36.7; O2SAT 96
[2022-09-18 07:00] VITALS: TEMP 36.6; O2SAT 95
[2022-09-18] MEDS: OMEPRAZOLE 20 MG CAPSULE DR PO (07:23)
[2022-09-18] MEDS: METOPROLOL TARTRATE 25 MG TABLET 12.5 MG PO ×2 (07:24→15:37)
[2022-09-18] MEDS: ASPIRIN 81 MG TABLET EC PO (07:24)
[2022-09-18] MEDS: ESCITALOPRAM 10 MG TABLET PO (07:24)
[2022-09-18] MEDS: timoloL maleate 0.5 % 1 DROP EYE-BOTH (07:24)
[2022-09-18 12:06] LABS: SARS PCR* Negative SARS-CoV-2 (Negative)
[2022-09-18 15:00] VITALS: TEMP 37; O2SAT 95
[2022-09-18] MEDS: LATANOPROST 0.005% OPHTH 1 DROP EYE-BOTH (19:07)
[2022-09-18 23:00] VITALS: TEMP 36.7; O2SAT 95
[2022-09-19 07:00] VITALS: TEMP 36.8; O2SAT 93
[2022-09-19] MEDS: METOPROLOL TARTRATE 25 MG TABLET 12.5 MG PO ×2 (07:35→15:49)
[2022-09-19] MEDS: ASPIRIN 81 MG TABLET EC PO (07:35)
[2022-09-19] MEDS: ESCITALOPRAM 10 MG TABLET PO (07:35)
[2022-09-19] MEDS: OMEPRAZOLE 20 MG CAPSULE DR PO (07:35)
[2022-09-19] MEDS: timoloL maleate 0.5 % 1 DROP EYE-BOTH (07:35)
[2022-09-19 17:04] VITALS: TEMP 37.2; O2SAT 94
[2022-09-19] MEDS: LATANOPROST 0.005% OPHTH 1 DROP EYE-BOTH (19:53)
[2022-09-19 23:00] VITALS: TEMP 36.7; O2SAT 96
[2022-09-20 07:00] VITALS: TEMP 36.9; O2SAT 93
[2022-09-20] MEDS: ASPIRIN 81 MG TABLET EC PO (07:10)
[2022-09-20] MEDS: METOPROLOL TARTRATE 25 MG TABLET 12.5 MG PO ×2 (07:10→15:43)
[2022-09-20] MEDS: ESCITALOPRAM 10 MG TABLET PO (07:10)
[2022-09-20] MEDS: timoloL maleate 0.5 % 1 DROP EYE-BOTH (07:10)
[2022-09-20] MEDS: OMEPRAZOLE 20 MG CAPSULE DR PO (07:10)
[2022-09-20] MEDS: LATANOPROST 0.005% OPHTH 1 DROP EYE-BOTH (19:05)
[2022-09-21] MEDS: OMEPRAZOLE 20 MG CAPSULE DR PO (06:31)
[2022-09-21] MEDS: ESCITALOPRAM 10 MG TABLET PO (07:55)
[2022-09-21] MEDS: ASPIRIN 81 MG TABLET EC PO (07:55)
[2022-09-21] MEDS: METOPROLOL TARTRATE 25 MG TABLET 12.5 MG PO ×2 (07:56→15:46)
[2022-09-21] MEDS: timoloL maleate 0.5 % 1 DROP EYE-BOTH (07:56)
[2022-09-21] MEDS: LATANOPROST 0.005% OPHTH 1 DROP EYE-BOTH (19:43)
--- NOTE | 2022-09-22 01:36 | PC.NURSE ---
WEEKLY CHARTING WEEK 3 Vital signs reviewed. Hypotension noted, ELECTRICAL TRANSMISSION ENGINEER aware, Res is on Hospice care. Comprehensive care plan and temporary care plan reviewed. No changes made. Toileting: Is incontinent both bowel and bladder. Staff check and changed. Eun cares, incontinent pad and clothing adjustment manage by staff. Wears medium briefs. Skin: No skin issue. Skin check done every bath days and during cares.
[2022-09-22 07:00] VITALS: BP 105/62; PULSE 54; TEMP 36.4; O2SAT 94
[2022-09-22] MEDS: OMEPRAZOLE 20 MG CAPSULE DR PO (07:01)
[2022-09-22] MEDS: ASPIRIN 81 MG TABLET EC PO (08:02)
[2022-09-22] MEDS: timoloL maleate 0.5 % 1 DROP EYE-BOTH (08:02)
[2022-09-22] MEDS: ESCITALOPRAM 10 MG TABLET PO (08:02)
[2022-09-22] MEDS: METOPROLOL TARTRATE 25 MG TABLET 12.5 MG PO ×2 (08:02→16:11)
[2022-09-22 13:43] VITALS: BMI 18.2
--- NOTE | 2022-09-22 14:52 | PC.NURSE ---
Weekly charting for Week #3- Toileting and skin: Reviewed vital signs and have noted a trend downward with his blood pressures. He is on Hospice and this is to be expected. Reviewed Comprehensive and Temporary Care Plans and did not note any changes. Resident is incontinent of bowel and bladder. Needs assistance to the bathroom Q 2 hours or as needed. He will resist going to the bathroom but with encouragement he will go and usually either be incontinent or will be able to stay dry. Staff will transfer her to the bathroom using his wheelchair and assist of one for pivot transfer to the toilet and assist with changing brief and pericares and adjustment of clothing.
[2022-09-22] MEDS: LATANOPROST 0.005% OPHTH 1 DROP EYE-BOTH (19:52)
[2022-09-23] MEDS: OMEPRAZOLE 20 MG CAPSULE DR PO (07:35)
[2022-09-23] MEDS: ESCITALOPRAM 10 MG TABLET PO (08:03)
[2022-09-23] MEDS: METOPROLOL TARTRATE 25 MG TABLET 12.5 MG PO ×2 (08:03→15:37)
[2022-09-23] MEDS: ASPIRIN 81 MG TABLET EC PO (08:03)
[2022-09-23] MEDS: timoloL maleate 0.5 % 1 DROP EYE-BOTH (08:03)
[2022-09-23] MEDS: LATANOPROST 0.005% OPHTH 1 DROP EYE-BOTH (19:16)
[2022-09-24] MEDS: OMEPRAZOLE 20 MG CAPSULE DR PO (06:39)
[2022-09-24] MEDS: timoloL maleate 0.5 % 1 DROP EYE-BOTH (07:17)
[2022-09-24] MEDS: ESCITALOPRAM 10 MG TABLET PO (07:17)
[2022-09-24] MEDS: METOPROLOL TARTRATE 25 MG TABLET 12.5 MG PO ×2 (07:17→16:02)
[2022-09-24] MEDS: ASPIRIN 81 MG TABLET EC PO (07:17)
[2022-09-24] MEDS: LATANOPROST 0.005% OPHTH 1 DROP EYE-BOTH (19:57)
[2022-09-25] MEDS: METOPROLOL TARTRATE 25 MG TABLET 12.5 MG PO ×2 (07:22→15:45)
[2022-09-25] MEDS: OMEPRAZOLE 20 MG CAPSULE DR PO (07:22)
[2022-09-25] MEDS: timoloL maleate 0.5 % 1 DROP EYE-BOTH (07:22)
[2022-09-25] MEDS: ASPIRIN 81 MG TABLET EC PO (07:22)
[2022-09-25] MEDS: ESCITALOPRAM 10 MG TABLET PO (07:22)
[2022-09-25] MEDS: LATANOPROST 0.005% OPHTH 1 DROP EYE-BOTH (19:09)
[2022-09-26] MEDS: ASPIRIN 81 MG TABLET EC PO (07:21)
[2022-09-26] MEDS: OMEPRAZOLE 20 MG CAPSULE DR PO (07:21)
[2022-09-26] MEDS: METOPROLOL TARTRATE 25 MG TABLET 12.5 MG PO ×2 (07:21→15:48)
[2022-09-26] MEDS: ESCITALOPRAM 10 MG TABLET PO (07:21)
[2022-09-26] MEDS: timoloL maleate 0.5 % 1 DROP EYE-BOTH (07:22)
[2022-09-26] MEDS: LATANOPROST 0.005% OPHTH 1 DROP EYE-BOTH (19:47)
[2022-09-27] MEDS: ESCITALOPRAM 10 MG TABLET PO (07:46)
[2022-09-27] MEDS: ASPIRIN 81 MG TABLET EC PO (07:46)
[2022-09-27] MEDS: METOPROLOL TARTRATE 25 MG TABLET 12.5 MG PO ×2 (07:46→15:44)
[2022-09-27] MEDS: OMEPRAZOLE 20 MG CAPSULE DR PO (07:46)
[2022-09-27] MEDS: timoloL maleate 0.5 % 1 DROP EYE-BOTH (07:47)
--- NOTE | 2022-09-27 10:26 | PC.NURSE ---
Resident visited by hospice nurse Yesica Garcia NP ordered Zofarn 4 mg BID for nausea and Tylenol 500mg-1000mg PO TID for pain. Resident appears to be tired and c/o's stomach discomfort at the time of hospice nurse visit.
[2022-09-27] MEDS: LATANOPROST 0.005% OPHTH 1 DROP EYE-BOTH (20:17)
[2022-09-27 20:25] VITALS: TEMP 36.9
[2022-09-27] MEDS: ACETAMINOPHEN 325 MG TABLET 975 MG PO (20:25)
[2022-09-27 21:36] VITALS: TEMP 36.9
[2022-09-28] MEDS: OMEPRAZOLE 20 MG CAPSULE DR PO (07:27)
[2022-09-28] MEDS: ASPIRIN 81 MG TABLET EC PO (07:28)
[2022-09-28] MEDS: METOPROLOL TARTRATE 25 MG TABLET 12.5 MG PO ×2 (07:28→15:53)
[2022-09-28] MEDS: timoloL maleate 0.5 % 1 DROP EYE-BOTH (07:28)
[2022-09-28] MEDS: ESCITALOPRAM 10 MG TABLET PO (07:28)
[2022-09-28] MEDS: ACETAMINOPHEN 500 MG TABLET PO (19:58)
[2022-09-28] MEDS: LATANOPROST 0.005% OPHTH 1 DROP EYE-BOTH (19:59)
--- NOTE | 2022-09-29 00:40 | PC.NURSE ---
WEEKLY CHARTING - WEEK 4: Vital signs reviewed without concerns. Temporary and comprehensive care plan reviewed - no change. No behaviors documented in the last 30 days. Receives escitalopram 10mg daily. No adverse drug effects noted. No useful hearing. 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 life insurance underwriter or whiteboard is required for communication. Staff anticipate needs and observe for non-verbal communication. Cognition is impaired r/t dementia. Wears glasses for visual deficit. All medications administered by licensed nurse. Continues to receive hospice services for metastatic prostate cancer. Health status stable at this time.
[2022-09-29] MEDS: OMEPRAZOLE 20 MG CAPSULE DR PO (06:57)
--- NOTE | 2022-09-29 07:04 | PC.NURSE ---
Weekly Charting-Week 4: Comprehensive & temporary care plan reviewed, no changes made. Nothing added to temporary care plan. No changes noted in communication, hearing, vision, or orientation. 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 No useful hearing. Use cad operator/whiteboard for all communication. Speech unclear. Staff anticipate needs and observe for non verbal cues. Vision impaired corrected by glasses. Continues with hospice care for prostate cancer. Health condition is stable. Vital signs reviewed, no concerns. Nurse to administer all medications.? Mood/Behavior: No issues the past month. Continues on Lexapro 10 mg daily with no adverse effects noted. No changes in medication.
[2022-09-29] MEDS: ACETAMINOPHEN 500 MG TABLET PO ×3 (08:08→20:05)
[2022-09-29] MEDS: ASPIRIN 81 MG TABLET EC PO (08:09)
[2022-09-29] MEDS: METOPROLOL TARTRATE 25 MG TABLET 12.5 MG PO ×2 (08:09→15:27)
[2022-09-29] MEDS: ESCITALOPRAM 10 MG TABLET PO (08:09)
[2022-09-29] MEDS: timoloL maleate 0.5 % 1 DROP EYE-BOTH (08:09)
[2022-09-29 09:04] VITALS: BMI 18.1
[2022-09-29 10:16] VITALS: BP 113/51; PULSE 50; RESP 18; TEMP 36.4; O2SAT 97
--- NOTE | 2022-09-29 13:43 | PC.NURSE ---
Status: [facility] contacted earlier again regarding Tylenol and Zofran ordered on 09/27. Per pharmacy they are not able to fill for us, Hospice ordered from other pharmacy. Hospice contacted no call back. At this time contacted MARTHA Robert and she will check on this.
[2022-09-29] MEDS: LATANOPROST 0.005% OPHTH 1 DROP EYE-BOTH (20:05)
[2022-09-30] MEDS: timoloL maleate 0.5 % 1 DROP EYE-BOTH (07:23)
[2022-09-30] MEDS: ASPIRIN 81 MG TABLET EC PO (07:23)
[2022-09-30] MEDS: ONDANSETRON ODT 4 MG TAB PO ×2 (07:23→15:02)
[2022-09-30] MEDS: OMEPRAZOLE 20 MG CAPSULE DR PO (07:23)
[2022-09-30] MEDS: METOPROLOL TARTRATE 25 MG TABLET 12.5 MG PO ×2 (07:23→15:02)
[2022-09-30] MEDS: ESCITALOPRAM 10 MG TABLET PO (07:23)
[2022-09-30] MEDS: ACETAMINOPHEN 500 MG TABLET PO ×3 (07:23→19:16)
[2022-09-30] MEDS: polyethylene glycoL 3350 17 GM PACK PO (07:30)
[2022-09-30] MEDS: LATANOPROST 0.005% OPHTH 1 DROP EYE-BOTH (19:16)
[2022-10-01] MEDS: timoloL maleate 0.5 % 1 DROP EYE-BOTH (07:26)
[2022-10-01] MEDS: ACETAMINOPHEN 500 MG TABLET PO ×3 (07:26→18:56)
[2022-10-01] MEDS: ASPIRIN 81 MG TABLET EC PO (07:26)
[2022-10-01] MEDS: ONDANSETRON ODT 4 MG TAB PO ×2 (07:26→16:06)
[2022-10-01] MEDS: ESCITALOPRAM 10 MG TABLET PO (07:26)
[2022-10-01] MEDS: OMEPRAZOLE 20 MG CAPSULE DR PO (07:26)
[2022-10-01] MEDS: METOPROLOL TARTRATE 25 MG TABLET 12.5 MG PO ×2 (07:26→16:06)
[2022-10-01] MEDS: polyethylene glycoL 3350 17 GM PACK PO (07:30)
--- NOTE | 2022-10-01 09:31 | PC.NURSE ---
Self- transfer: Resident self-transfer himself to the bathroom. He put ON the call light but was unable to wait for assistance. He was found by the bathroom door by LOY and was assisted to the bathroom. He had a M/A soft stool after PRN Miralax was given at 0730.
[2022-10-01] MEDS: LATANOPROST 0.005% OPHTH 1 DROP EYE-BOTH (18:57)
[2022-10-02] MEDS: ACETAMINOPHEN 500 MG TABLET PO ×3 (07:04→19:25)
[2022-10-02] MEDS: OMEPRAZOLE 20 MG CAPSULE DR PO (07:04)
[2022-10-02] MEDS: ONDANSETRON ODT 4 MG TAB PO ×2 (07:05→15:55)
[2022-10-02] MEDS: ESCITALOPRAM 10 MG TABLET PO (07:05)
[2022-10-02] MEDS: ASPIRIN 81 MG TABLET EC PO (07:05)
[2022-10-02] MEDS: METOPROLOL TARTRATE 25 MG TABLET 12.5 MG PO ×2 (07:05→15:55)
[2022-10-02] MEDS: timoloL maleate 0.5 % 1 DROP EYE-BOTH (07:06)
[2022-10-02] MEDS: LATANOPROST 0.005% OPHTH 1 DROP EYE-BOTH (19:26)
[2022-10-03] MEDS: OMEPRAZOLE 20 MG CAPSULE DR PO (07:40)
[2022-10-03] MEDS: ACETAMINOPHEN 500 MG TABLET PO ×3 (07:40→19:31)
[2022-10-03] MEDS: ASPIRIN 81 MG TABLET EC PO (07:41)
[2022-10-03] MEDS: METOPROLOL TARTRATE 25 MG TABLET 12.5 MG PO ×2 (07:41→15:17)
[2022-10-03] MEDS: ESCITALOPRAM 10 MG TABLET PO (07:41)
[2022-10-03] MEDS: ONDANSETRON ODT 4 MG TAB PO ×2 (07:42→15:18)
[2022-10-03] MEDS: timoloL maleate 0.5 % 1 DROP EYE-BOTH (07:43)
[2022-10-03] MEDS: LATANOPROST 0.005% OPHTH 1 DROP EYE-BOTH (19:32)
[2022-10-04] MEDS: ACETAMINOPHEN 500 MG TABLET PO ×3 (07:11→19:34)
[2022-10-04] MEDS: OMEPRAZOLE 20 MG CAPSULE DR PO (07:11)
[2022-10-04] MEDS: ASPIRIN 81 MG TABLET EC PO (07:12)
[2022-10-04] MEDS: timoloL maleate 0.5 % 1 DROP EYE-BOTH (07:12)
[2022-10-04] MEDS: METOPROLOL TARTRATE 25 MG TABLET 12.5 MG PO ×2 (07:12→15:51)
[2022-10-04] MEDS: ONDANSETRON ODT 4 MG TAB PO ×2 (07:12→15:51)
[2022-10-04] MEDS: ESCITALOPRAM 10 MG TABLET PO (07:12)
--- NOTE | 2022-10-04 08:25 | PC.SPIRITC ---
Late entry from 10/03/2022: I provided visit for support and connection to Jacque's , Jyothi.
[2022-10-04] MEDS: LATANOPROST 0.005% OPHTH 1 DROP EYE-BOTH (19:34)
[2022-10-05] MEDS: OMEPRAZOLE 20 MG CAPSULE DR PO (06:31)
[2022-10-05] MEDS: ACETAMINOPHEN 500 MG TABLET PO ×3 (08:04→19:30)
[2022-10-05] MEDS: ASPIRIN 81 MG TABLET EC PO (08:04)
[2022-10-05] MEDS: METOPROLOL TARTRATE 25 MG TABLET 12.5 MG PO ×2 (08:05→16:01)
[2022-10-05] MEDS: timoloL maleate 0.5 % 1 DROP EYE-BOTH (08:05)
[2022-10-05] MEDS: ESCITALOPRAM 10 MG TABLET PO (08:05)
[2022-10-05] MEDS: ONDANSETRON ODT 4 MG TAB PO ×2 (08:05→16:01)
--- NOTE | 2022-10-05 10:38 | PC.SPIRITC ---
I provided visit for connection and support. Jacque indicated he was not feeling 100%, expressed that he is feeling tired.
--- NOTE | 2022-10-05 11:18 | PC.NURSE ---
Fax: Face sheet, care plan, POLST, Immunization record, medication list, care conference summary, diet assessment, healthcare social worker assessment, and most recent primary care provider note faxed to Mihaela, insurance case resource manager, at Fax #: [phone]. ext [phone].
--- NOTE | 2022-10-05 13:13 | PC.NURSE ---
Weakness: Resident was very weak today, was unable to get up from bed, he was assisted out of bed using EZ stand, c/o stomachache and was given Tylenol 1000mg.He was unable to fed himself breakfast and lunch and he was fed by staff. Took 100% of breakfast and 75% lunch . Vital are WNL T 98.5, P:64, R : 18 BP 100/55 O2 91 % (RA). To continue to monitor resident
--- NOTE | 2022-10-05 14:06 | PC.SOCIAL ---
Return phone call to Mihaela at [facility] [employer], ([phone] ext. [phone]). Mihaela is requesting to set an online meeting to complete a care coordination assessment with resident, since resident just went on Medical Assistance. This worker will schedule a webex meeting for October 11, 2022 at 1:00 pm via [employer] with an in-person sales agent. Mihaela will e-mail this worker information that she will be asking resident. Webex invitation was created and sent. E-mail sent to Claudia Michael at [facility] sales agent services to request an in-person sales agent for the meeting. Social work will follow up as necessary.
--- NOTE | 2022-10-05 14:46 | PC.NURSE ---
Reviewed Lexpro use with BANBURY MACHINE OPERATOR Tracey Hernández. At this time no changes will be made as resident will have an MD visit this month and the use of Lexapro can be advised at that time.
[2022-10-05] MEDS: LATANOPROST 0.005% OPHTH 1 DROP EYE-BOTH (19:32)
--- NOTE | 2022-10-06 01:15 | PC.NURSE ---
WEEKLY CHARTING - WEEK 1: Vital signs reviewed - low diastolic BP and pulse values at times. Continue to monitor and update provider as needed. Temporary and comprehensive care plan reviewed - no change. Currently receives acetaminophen 500-1000mg TID for pain management which is noted to be effective. Extensive assist of 1 with dressing, grooming, bathing, and oral care. Receives a regular diet with soft and bite sized texture and thin liquids. Able to eat independently after set-up. Requires cues and feeding at times. Appetite is fair.
[2022-10-06 07:00] VITALS: BP 105/67; PULSE 57; RESP 18; TEMP 36.6; O2SAT 95; BMI 18.3
[2022-10-06] MEDS: OMEPRAZOLE 20 MG CAPSULE DR PO (07:33)
[2022-10-06] MEDS: ACETAMINOPHEN 500 MG TABLET PO ×3 (07:33→19:55)
[2022-10-06] MEDS: timoloL maleate 0.5 % 1 DROP EYE-BOTH (07:34)
[2022-10-06] MEDS: METOPROLOL TARTRATE 25 MG TABLET 12.5 MG PO (07:34)
[2022-10-06] MEDS: ASPIRIN 81 MG TABLET EC PO (07:34)
[2022-10-06] MEDS: ONDANSETRON ODT 4 MG TAB PO ×2 (07:34→15:55)
[2022-10-06] MEDS: ESCITALOPRAM 10 MG TABLET PO (07:34)
--- NOTE | 2022-10-06 08:00 | PC.NURSE ---
Weekly Charting, Week 1-ADL's: Comprehensive and temporary care plan reviewed. No changes made. Nothing added to temporary care plan. Resident needs extensive assist of one with dressing, grooming, oral cares and bathing. Feed self after set up. Is on regular diet, soft and bite sized texture, thin liquids r/t edentulous. No problems with chewing/swallowing reported/noted. Vital signs reviewed, occasional low diastolic values & bradycardia. Continue with weekly monitoring and refer to provider as needed. Resident is on hospice care. Pain: 09/27 Tylenol 500-1000 mg TID started for complain of abd pain (non verbal gesture). Staff anticipates need for pain as resident is not able to communicate need.
--- NOTE | 2022-10-06 11:56 | PC.NURSE ---
Recert Visit: Resident seen by Dr. Le. Orders reviewed and renewed of 75 days with changes. Order: Discontinue Aspirin and Metoprolol.
[2022-10-06] MEDS: LATANOPROST 0.005% OPHTH 1 DROP EYE-BOTH (19:55)
[2022-10-07] MEDS: OMEPRAZOLE 20 MG CAPSULE DR PO (07:58)
[2022-10-07] MEDS: ESCITALOPRAM 10 MG TABLET PO (08:00)
[2022-10-07] MEDS: ONDANSETRON ODT 4 MG TAB PO ×2 (08:00→15:52)
[2022-10-07] MEDS: ACETAMINOPHEN 500 MG TABLET PO ×3 (08:00→19:55)
[2022-10-07] MEDS: timoloL maleate 0.5 % 1 DROP EYE-BOTH (08:00)
[2022-10-07] MEDS: LATANOPROST 0.005% OPHTH 1 DROP EYE-BOTH (19:56)
[2022-10-08] MEDS: ESCITALOPRAM 10 MG TABLET PO (07:53)
[2022-10-08] MEDS: ACETAMINOPHEN 500 MG TABLET PO ×3 (07:53→20:35)
[2022-10-08] MEDS: OMEPRAZOLE 20 MG CAPSULE DR PO (07:53)
[2022-10-08] MEDS: ONDANSETRON ODT 4 MG TAB PO ×2 (07:53→15:54)
[2022-10-08] MEDS: timoloL maleate 0.5 % 1 DROP EYE-BOTH (08:00)
[2022-10-08 16:00] VITALS: BP 134/61
[2022-10-08] MEDS: LATANOPROST 0.005% OPHTH 1 DROP EYE-BOTH (20:36)
[2022-10-09] MEDS: ACETAMINOPHEN 500 MG TABLET PO ×3 (07:01→20:49)
[2022-10-09] MEDS: OMEPRAZOLE 20 MG CAPSULE DR PO (07:01)
[2022-10-09] MEDS: ONDANSETRON ODT 4 MG TAB PO ×2 (07:02→15:28)
[2022-10-09] MEDS: ESCITALOPRAM 10 MG TABLET PO (07:02)
[2022-10-09] MEDS: timoloL maleate 0.5 % 1 DROP EYE-BOTH (07:02)
[2022-10-09 16:00] VITALS: BP 126/63
[2022-10-09] MEDS: LATANOPROST 0.005% OPHTH 1 DROP EYE-BOTH (20:50)
--- NOTE | 2022-10-09 21:13 | PC.NURSE ---
Health Status: Resident refused to eat dinner as he signals lack of hunger. Nutritional beverages encouraged and offered including, Yumiko-Christina and Ensure clear.
[2022-10-10] MEDS: ONDANSETRON ODT 4 MG TAB PO ×2 (07:39→16:18)
[2022-10-10] MEDS: ACETAMINOPHEN 500 MG TABLET PO ×3 (07:39→19:15)
[2022-10-10] MEDS: OMEPRAZOLE 20 MG CAPSULE DR PO (07:39)
[2022-10-10] MEDS: ESCITALOPRAM 10 MG TABLET PO (07:39)
[2022-10-10] MEDS: timoloL maleate 0.5 % 1 DROP EYE-BOTH (07:39)
[2022-10-10 16:00] VITALS: BP 113/65
[2022-10-10] MEDS: LATANOPROST 0.005% OPHTH 1 DROP EYE-BOTH (19:15)
[2022-10-11] MEDS: ONDANSETRON ODT 4 MG TAB PO ×2 (07:39→15:04)
[2022-10-11] MEDS: OMEPRAZOLE 20 MG CAPSULE DR PO (07:39)
[2022-10-11] MEDS: timoloL maleate 0.5 % 1 DROP EYE-BOTH (07:39)
[2022-10-11] MEDS: ACETAMINOPHEN 500 MG TABLET PO ×3 (07:39→19:34)
[2022-10-11] MEDS: ESCITALOPRAM 10 MG TABLET PO (07:39)
[2022-10-11 16:00] VITALS: BP 136/73
[2022-10-11] MEDS: LATANOPROST 0.005% OPHTH 1 DROP EYE-BOTH (19:35)
[2022-10-12] MEDS: OMEPRAZOLE 20 MG CAPSULE DR PO (08:01)
[2022-10-12] MEDS: ACETAMINOPHEN 500 MG TABLET PO ×3 (08:14→20:39)
[2022-10-12] MEDS: ONDANSETRON ODT 4 MG TAB PO ×2 (08:15→15:43)
[2022-10-12] MEDS: ESCITALOPRAM 10 MG TABLET PO (08:15)
[2022-10-12] MEDS: timoloL maleate 0.5 % 1 DROP EYE-BOTH (08:15)
--- NOTE | 2022-10-12 11:07 | PC.SOCIAL ---
Met with resident and resident's , Jyothi Lora, in resident's room. Resident's stated that resident's [id number] and grandchildren will visit this Sunday. Resident's asked what doors they should enter at. Provided information on visits. Followed up with an e-mail to resident's [id number], Gloria Lora, providing her with visiting information.
[2022-10-12 16:00] VITALS: BP 131/68
[2022-10-12] MEDS: LATANOPROST 0.005% OPHTH 1 DROP EYE-BOTH (20:39)
--- NOTE | 2022-10-13 01:22 | PC.NURSE ---
WEEKLY CHARTING WEEK 2 Vital signs reviewed with no concerns. Comprehensive and temporary care plan reviewed with no changes. Res requires limited assist 1 staff with the use of gait belt and walker for transfer and ambulation. Able to proper wheelchair independent in short distance. Res is independent with bed mobility, staff reminded to reposition himself in bed. Res is a high fall risk. fall prevention; safety check every hour, bed and chair alarm, star magnet in door, call light within reach, bed in low position with brakes lock, wear non slip socks.
[2022-10-13] MEDS: OMEPRAZOLE 20 MG CAPSULE DR PO (07:13)
[2022-10-13] MEDS: ACETAMINOPHEN 500 MG TABLET PO ×3 (07:30→19:25)
[2022-10-13] MEDS: ESCITALOPRAM 10 MG TABLET PO (07:31)
[2022-10-13] MEDS: ONDANSETRON ODT 4 MG TAB PO ×2 (07:31→15:38)
[2022-10-13] MEDS: timoloL maleate 0.5 % 1 DROP EYE-BOTH (07:31)
--- NOTE | 2022-10-13 07:36 | PC.NURSE ---
Weekly Charting, Week 2 - Mobility: Comprehensive and temporary care plan reviewed. No changes made, nothing added to temporary care plan. Resident needs one assist, transfer belt and walker with transfers and ambulation. Staff wheels to all destinations. One assist with bed/chair positioning. Has bed and chair alarms. Vital signs reviewed. BP has some low values. 5/5 Metoprolol discontinued. Continue weekly monitoring. Fall: No fall the past month. Remains a high fall risk according to assessment done on 08/15/22. Fall interventions: Call light within reach, bed in low position brakes locked, hourly safety checks, in room don't leave in w/c, bed/chair alarms.
[2022-10-13 12:59] VITALS: BP 119/70; PULSE 61; RESP 18; TEMP 36.8; O2SAT 94; BMI 18.2
[2022-10-13] MEDS: LATANOPROST 0.005% OPHTH 1 DROP EYE-BOTH (19:26)
[2022-10-14] MEDS: OMEPRAZOLE 20 MG CAPSULE DR PO (06:34)
[2022-10-14] MEDS: ESCITALOPRAM 10 MG TABLET PO (07:43)
[2022-10-14] MEDS: ACETAMINOPHEN 500 MG TABLET PO ×3 (07:43→19:12)
[2022-10-14] MEDS: timoloL maleate 0.5 % 1 DROP EYE-BOTH (07:44)
[2022-10-14] MEDS: ONDANSETRON ODT 4 MG TAB PO ×2 (07:44→15:41)
--- NOTE | 2022-10-14 12:54 | PC.NURSE ---
Loose Stool: Resident had loose stool X 2 ( moderate) . Appetite fair . Staff to monitor
[2022-10-14] MEDS: LOPERAMIDE HCL 2 MG CAPSULE PO (17:20)
[2022-10-14] MEDS: LATANOPROST 0.005% OPHTH 1 DROP EYE-BOTH (19:13)
[2022-10-15] MEDS: ESCITALOPRAM 10 MG TABLET PO (07:33)
[2022-10-15] MEDS: OMEPRAZOLE 20 MG CAPSULE DR PO (07:33)
[2022-10-15] MEDS: ACETAMINOPHEN 500 MG TABLET PO ×3 (07:33→19:03)
[2022-10-15] MEDS: ONDANSETRON ODT 4 MG TAB PO ×2 (07:33→15:59)
[2022-10-15] MEDS: timoloL maleate 0.5 % 1 DROP EYE-BOTH (07:33)
[2022-10-15] MEDS: LATANOPROST 0.005% OPHTH 1 DROP EYE-BOTH (19:03)
[2022-10-16] MEDS: ACETAMINOPHEN 500 MG TABLET PO ×3 (07:05→19:10)
[2022-10-16] MEDS: ESCITALOPRAM 10 MG TABLET PO (07:05)
[2022-10-16] MEDS: OMEPRAZOLE 20 MG CAPSULE DR PO (07:05)
[2022-10-16] MEDS: ONDANSETRON ODT 4 MG TAB PO ×2 (07:06→16:11)
[2022-10-16] MEDS: timoloL maleate 0.5 % 1 DROP EYE-BOTH (07:06)
[2022-10-16] MEDS: LATANOPROST 0.005% OPHTH 1 DROP EYE-BOTH (19:11)
[2022-10-17] MEDS: ESCITALOPRAM 10 MG TABLET PO (07:20)
[2022-10-17] MEDS: ONDANSETRON ODT 4 MG TAB PO ×2 (07:20→16:24)
[2022-10-17] MEDS: ACETAMINOPHEN 500 MG TABLET PO ×3 (07:20→20:00)
[2022-10-17] MEDS: OMEPRAZOLE 20 MG CAPSULE DR PO (07:20)
[2022-10-17] MEDS: timoloL maleate 0.5 % 1 DROP EYE-BOTH (07:21)
--- NOTE | 2022-10-17 11:29 | PC.NURSE ---
ORDER: Nystatin powder BID to affected area.
[2022-10-17] MEDS: NYSTATIN POWDER 1 APPLIC TOPICAL (16:24)
[2022-10-17] MEDS: LATANOPROST 0.005% OPHTH 1 DROP EYE-BOTH (20:01)
[2022-10-18] MEDS: OMEPRAZOLE 20 MG CAPSULE DR PO (06:58)
[2022-10-18] MEDS: ACETAMINOPHEN 500 MG TABLET PO ×3 (07:08→19:12)
[2022-10-18] MEDS: ONDANSETRON ODT 4 MG TAB PO ×2 (07:08→15:29)
[2022-10-18] MEDS: timoloL maleate 0.5 % 1 DROP EYE-BOTH (07:08)
[2022-10-18] MEDS: NYSTATIN POWDER 1 APPLIC TOPICAL ×2 (07:08→15:29)
[2022-10-18] MEDS: ESCITALOPRAM 10 MG TABLET PO (07:08)
--- NOTE | 2022-10-18 16:30 | PC.SOCIAL ---
Addendum entered by RILEY Gamble 10/19/22 13:53: Received a follow up e-mail from Claudia Michael in [employer] informing that Ignacio Chinchilla has been assigned as an drilling supervisor for resident's upcoming care conference. Original Note: Scheduled resident's next care conference for SundayNovember 21 at 1:30 pm. Provided invitation to care conference via e-mail to Gregoria Forbes at [facility], to share with nursing staff at [facility]. Sent an e-mail to [facility] [employer] to request an in person lace machine operator for resident's care conference. Provided care conference notice to family. Social Work will follow up as necessary.
[2022-10-18 18:20] VITALS: BP 131/84; PULSE 78; RESP 20; TEMP 36.8; O2SAT 95
[2022-10-18 19:20] VITALS: BP 118/64; PULSE 78; RESP 18; TEMP 36.8; O2SAT 94
--- NOTE | 2022-10-18 19:20 | PC.NURSE ---
Fall follow up: Vital signs: pupil size ( reaction/hand grasp/level of consciousness) are normal for resident. Denies pain, dizziness, or blurry vision. No concerns at this time. Will continue to monitor.
[2022-10-18 20:20] VITALS: BP 114/69; PULSE 75; RESP 18; TEMP 36.7; O2SAT 93
--- NOTE | 2022-10-18 20:20 | PC.NURSE ---
Fall follow up: Vital signs: pupil size ( reaction/hand grasp/level of consciousness) are normal for resident. Denies pain, dizziness, or blurry vision. Able to tolerate ROM based on his level of comfort. No signs and symptoms of intracranial pressure relating to fall incident observed at this time. No concerns at this time. Will continue to monitor.
[2022-10-18] MEDS: LATANOPROST 0.005% OPHTH 1 DROP EYE-BOTH (20:43)
[2022-10-18 21:20] VITALS: BP 114/69; PULSE 75; RESP 18; TEMP 36.7; O2SAT 93
--- NOTE | 2022-10-18 21:20 | PC.NURSE ---
Fall follow up: Resident is sleeping at this time.
--- NOTE | 2022-10-18 22:51 | PC.NURSE ---
Family Update: Gloria Lora was called and notified at 1900 on fall incident.
--- NOTE | 2022-10-18 22:53 | LTC.FALL ---
[facility] Fall Note: o Fall Date: 10/18/22 o Fall Time: 1819 o What happened? Resident was found on the floor near the entrance to his room and adjacent to his bathroom door. o Who found the resident and who responded? Assigned LOY found resident on the floor, and one of the floor nurses present at that time responded. o What was the resident doing? It appears, he attempted to self transfer from his wheel chair and walked to his room unassisted, because his unoccupied wheel chair was found next to the entrance of his room. o How the resident was found (knees, left side, arm under them), any hazards (cords, objects, nonskid slippers) brakes on? Proper equipment? Found on a supine position with coffee splashed around him and in his cloths, and a coffee mug lying on his lateral side. o Did you assess for head trauma, spinal injuries, skeletal injuries, neurological changes and status, and head and neck pain? What did you find? Nothing concerning in assessment findings; thus, no burning injuries, fracture , or skin tear at observed this time. o Did you assess ROM in shoulders, elbows, hips, knees, any other affected areas, unless there is suspected spinal injury. Able to tolerate ROM without signs and symptoms usually indicating pain, such as moaning, groaning, facial grimacing, or crying. o Did you Assess for pain or discomfort? Resident denies pain. o What are the injuries and how are they being treated? No injuries noted at this time. o How was the resident transferred from the floor? 2 assist with a Nasrin. o Did you call the MD or put a note in the MONEY ROOM TELLER book? Noted in MONEY ROOM TELLER book. o Enter vital signs. Normal within residents values, please refer to worklist. o Did you notify family? Gloria Lora notified. o What was the root cause of the fall? Why did it happen? As r/t confusion, resident was impatient to wait for LOY to assist him after dinner. o Create an IMMEDIATE INTERVENTION to ensure that this won't immediately happen again. (Put in temporary care plan too) o Complete Safety report and huddle (now one form) o If resident is seen in ED or fractured something, note that you started a [facility] Report process. Instructions are at the East nurse's desk in a red binder labeled [facility] report.
[2022-10-19 02:00] VITALS: BP 108/64; PULSE 77; RESP 16; TEMP 36.7; O2SAT 95
--- NOTE | 2022-10-19 02:29 | PC.NURSE ---
Fall F/U: Resident is waken upon assessment. He is cooperative during assessment. Neuro, ROM are within Resident normal baseline. Res is comfortable, no non verbal signs pain. VSS Temp 98.0, BP 108/64, RR 16, HR 77, O2 sat 95% RA.
[2022-10-19 06:00] VITALS: BP 117/64; PULSE 77; RESP 17; TEMP 36.6; O2SAT 91
--- NOTE | 2022-10-19 06:29 | PC.NURSE ---
Fall F/U: Res is awake, cooperative with assessment. He smile and trying to communicate to engineering writer. Pupil is equal reactive to light. Nuero and ROM within resident's normal baseline. No non verbal and verbal signs of pain. VSS Temp 97.8, BP117/64, RR 17, HR 77, O2 sat 91% RA.
[2022-10-19] MEDS: NYSTATIN POWDER 1 APPLIC TOPICAL ×2 (07:24→16:15)
[2022-10-19] MEDS: ESCITALOPRAM 10 MG TABLET PO (07:24)
[2022-10-19] MEDS: ACETAMINOPHEN 500 MG TABLET PO ×3 (07:24→19:38)
[2022-10-19] MEDS: ONDANSETRON ODT 4 MG TAB PO ×2 (07:24→16:16)
[2022-10-19] MEDS: timoloL maleate 0.5 % 1 DROP EYE-BOTH (07:24)
[2022-10-19] MEDS: OMEPRAZOLE 20 MG CAPSULE DR PO (07:24)
[2022-10-19 09:21] VITALS: BP 115/74; PULSE 71; RESP 18; TEMP 36.6; O2SAT 95
--- NOTE | 2022-10-19 09:23 | PC.NURSE ---
Fall F/U: Resident is alert, denies any pain. Vital are WNL : T: 97.8, P: 71, R: 18, BP 115/74 and O2 sat 95% (RA) No episode of nausea or vomiting, ate 85% of breakfast. Pupil is equal and reactive to light, no headache. ?Hand grasp and ROM are within baseline. Noted no injury on his body.
[2022-10-19 13:02] VITALS: BP 120/68; PULSE 68; RESP 18; TEMP 36.8; O2SAT 95
--- NOTE | 2022-10-19 13:03 | PC.NURSE ---
Resident was alert. vital are WNL . Took lunch about 80% , no c/o pain . T 98.2, P 68, BP 120/68, R 18 and O2 95% RA. Hand grasp is at baseline , pupils equal and reactive.
[2022-10-19 17:00] VITALS: BP 110/61; PULSE 61; RESP 18; TEMP 36.9; O2SAT 98
[2022-10-19] MEDS: LATANOPROST 0.005% OPHTH 1 DROP EYE-BOTH (19:38)
[2022-10-19 21:00] VITALS: BP 118/73; PULSE 82; RESP 18; TEMP 36.7; O2SAT 97
--- NOTE | 2022-10-20 00:50 | PC.NURSE ---
WEEKLY CHARTING - WEEK 3: Vital signs reviewed - no concerns. Comprehensive care plan reviewed - no change. Temporary care plan added, Fell in room with no injuries. Less fall incidents. To place wheelchair alarm, implement hourly check, continue not to leave in wheelchair alone when in room. Primarily incontinent of bowel and bladder, but will void and have bowel movement on toilet at times. Wears brief. Assist of 1 with toileting needs including dileep-care, pad management, and clothing adjustment. Check and change during 1st and 3rd rounds at night.
[2022-10-20 01:00] VITALS: BP 104/63; PULSE 63; RESP 17; TEMP 36.7; O2SAT 95
--- NOTE | 2022-10-20 01:23 | PC.NURSE ---
FALL F/U. Resident is sleeping in bed. Refused to open his eyes for pupil check. Hands grasp and NEURO within Resident baseline. He is comfortable no signs of pain. VSS Temp 98.1, BP 104/63, RR 16, HR 63 O2 sat 95 at RA.
[2022-10-20 05:00] VITALS: BP 116/70; PULSE 65; RESP 17; TEMP 36.6; O2SAT 96
--- NOTE | 2022-10-20 05:48 | PC.NURSE ---
FALL F/U: Resident is sleeping in bed, awaken upon assessment. Pupil is equal reactive to light. Hands grasp strong, Neuro and ROM within normal. Res is comfortable, no complain of pain. VSS Temp 97.9, BP 116/70, RR 17, HR 65, )2 sat 96% RA.
--- NOTE | 2022-10-20 07:29 | PC.NURSE ---
Weekly Charting, 3-Toileting: Comprehensive & temporary care plan reviewed. No changes made. Nothing added to temporary care plan. Resident is incontinent of bowel and bladder with some control. Needs extensive one assist, walker, gait belt with toileting including mobility to/from toilet, pads, dileep cares and clothing adjustment. Staff to toilet every 2 hours and per request. Wears medium briefs. Vital signs reviewed, no concerns. Skin: No issues at this time. Skin is routinely checked during cares and on bath day.
[2022-10-20] MEDS: OMEPRAZOLE 20 MG CAPSULE DR PO (07:46)
[2022-10-20] MEDS: ESCITALOPRAM 10 MG TABLET PO (08:11)
[2022-10-20] MEDS: ACETAMINOPHEN 500 MG TABLET PO ×3 (08:11→19:42)
[2022-10-20] MEDS: ONDANSETRON ODT 4 MG TAB PO ×2 (08:11→16:01)
[2022-10-20] MEDS: timoloL maleate 0.5 % 1 DROP EYE-BOTH (08:12)
[2022-10-20 09:00] VITALS: BP 143/81; PULSE 71; RESP 116; TEMP 36.5; O2SAT 96
--- NOTE | 2022-10-20 10:47 | PC.NURSE ---
Contacted Hospice regarding Tylenol, supply is low. Per [facility] a refill request was sent to Hospice and hasn't got back.
--- NOTE | 2022-10-20 12:19 | PC.NURSE ---
Fall F/U: VS: 143/81, Temp 97.7, R 16, O2 sat 96% on RA, R 16. Resident denies any pain and no nonverbal indication of pain noted or reported. Resident ate 75% of breakfast in Dining room.? Pupil is equal and reactive to light, no headache. ?Hand grasp equal bilaterally and ROM are within baseline. Resident appears to be per usual self.
[2022-10-20 13:00] VITALS: BP 138/80; PULSE 68; RESP 17; TEMP 36.4; O2SAT 95
--- NOTE | 2022-10-20 13:38 | PC.NURSE ---
all F/U @ 1300: VS: Bp 138/80, Temp 97.5, R 17, O2 sat 95% on RA. Resident did not complains of pain and no nonverbal indication of pain/discomfort noted or reported. Resident ate 50% of lunch in Dining room. Pupil is equal and reactive to light, ?Hand grasp equal bilaterally and ROM are within baseline. No complains of headache or nausea. Will continues to monitor.
[2022-10-20] MEDS: NYSTATIN POWDER 1 APPLIC TOPICAL (16:01)
[2022-10-20 17:00] VITALS: BP 106/65; PULSE 70; RESP 16; TEMP 36.8; O2SAT 96
[2022-10-20] MEDS: LATANOPROST 0.005% OPHTH 1 DROP EYE-BOTH (19:42)
[2022-10-20 21:00] VITALS: BP 106/65; BP 138/80; PULSE 70; RESP 16; TEMP 36.8; O2SAT 96
--- NOTE | 2022-10-20 22:36 | PC.NURSE ---
Fall follow-up: Fall assessment findings are normal within baseline. No new concerns as related to fall incident.
[2022-10-21 01:00] VITALS: BP 101/64; PULSE 70; RESP 18; TEMP 36.2; O2SAT 93
[2022-10-21 04:59] VITALS: BP 110/57; PULSE 69; RESP 16; TEMP 36.1; O2SAT 91
--- NOTE | 2022-10-21 05:35 | PC.NURSE ---
FALL FOLLOW UP Resident slept all night, did not attempt to get up or self transfer. Neuro intact, vitals normal. Will continue to monitor.
[2022-10-21] MEDS: ACETAMINOPHEN 500 MG TABLET PO ×3 (07:08→19:39)
[2022-10-21] MEDS: OMEPRAZOLE 20 MG CAPSULE DR PO (07:08)
[2022-10-21] MEDS: ESCITALOPRAM 10 MG TABLET PO (07:09)
[2022-10-21] MEDS: timoloL maleate 0.5 % 1 DROP EYE-BOTH (07:09)
[2022-10-21] MEDS: ONDANSETRON ODT 4 MG TAB PO ×2 (07:09→16:10)
[2022-10-21 09:00] VITALS: BP 116/65; PULSE 67; RESP 16; TEMP 36.5; O2SAT 95
[2022-10-21 09:36] VITALS: BMI 18.8
--- NOTE | 2022-10-21 10:45 | PC.NURSE ---
Fall F/U @ 0900 : VS: Bp 116/65, Temp 97.7, R 16, O2 sat 95% on RA, P 67. No complains of pain or no nonverbal indication of pain/discomfort noted or reported. Resident was up for breakfast to eat in Dining room per usual. Pupils are equal and reactive to light, ?Hand grasp equal bilaterally and ROM are within baseline. No complains of headache or nausea. Will continues to monitor.
[2022-10-21 13:00] VITALS: BP 105/72; PULSE 67; RESP 16; TEMP 36.4; O2SAT 96
[2022-10-21] MEDS: NYSTATIN POWDER 1 APPLIC TOPICAL ×2 (13:25→16:08)
--- NOTE | 2022-10-21 13:31 | PC.NURSE ---
Fall F/U @ 1300 : VSS.? No complains of pain or no nonverbal indication of pain/discomfort noted or reported. Resident ate 75% for luch in Dining room per usual. Pupils are equal and reactive to light, ?Hand grasp equal bilaterally and ROM are within baseline. No complains of headache or nausea. Will continues to monitor.
[2022-10-21 16:58] VITALS: BP 119/69; RESP 18; TEMP 36.6; O2SAT 93
--- NOTE | 2022-10-21 17:00 | PC.NURSE ---
Fall follow-up: Fall assessment findings are normal within baseline. In a pleasant. Had only 25% of his dinner, but consumed 100% of Ensure Clear. No new concerns as related to fall incident.
[2022-10-21] MEDS: LATANOPROST 0.005% OPHTH 1 DROP EYE-BOTH (19:40)
[2022-10-21 21:00] VITALS: BP 105/52; PULSE 85; RESP 18; TEMP 36.7; O2SAT 93
[2022-10-22 00:38] VITALS: BP 109/62; PULSE 72; RESP 16; TEMP 36.7; O2SAT 95
--- NOTE | 2022-10-22 00:40 | PC.NURSE ---
S/P Fall: Vitals and neuros are WNL and resident is resting in bed at this time, no verbal or non verbal indications of pain, ROM remains intact to all extremities.
[2022-10-22 04:07] VITALS: BP 119/69; PULSE 65; RESP 16; TEMP 36.4; O2SAT 96
[2022-10-22] MEDS: OMEPRAZOLE 20 MG CAPSULE DR PO (07:13)
[2022-10-22] MEDS: timoloL maleate 0.5 % 1 DROP EYE-BOTH (07:38)
[2022-10-22] MEDS: ACETAMINOPHEN 500 MG TABLET PO ×3 (07:38→20:59)
[2022-10-22] MEDS: ONDANSETRON ODT 4 MG TAB PO ×2 (07:38→15:56)
[2022-10-22] MEDS: ESCITALOPRAM 10 MG TABLET PO (07:38)
[2022-10-22] MEDS: NYSTATIN POWDER 1 APPLIC TOPICAL (16:00)
[2022-10-22] MEDS: LATANOPROST 0.005% OPHTH 1 DROP EYE-BOTH (20:59)
[2022-10-23] MEDS: OMEPRAZOLE 20 MG CAPSULE DR PO (07:38)
[2022-10-23] MEDS: ACETAMINOPHEN 500 MG TABLET PO (07:38)
[2022-10-23] MEDS: ESCITALOPRAM 10 MG TABLET PO (07:39)
[2022-10-23] MEDS: timoloL maleate 0.5 % 1 DROP EYE-BOTH (07:39)
[2022-10-23] MEDS: ONDANSETRON ODT 4 MG TAB PO ×2 (07:39→16:44)
[2022-10-23] MEDS: NYSTATIN POWDER 1 APPLIC TOPICAL (16:00)
[2022-10-23] MEDS: LOPERAMIDE HCL 2 MG CAPSULE PO (18:27)
[2022-10-23] MEDS: LATANOPROST 0.005% OPHTH 1 DROP EYE-BOTH (19:49)
[2022-10-24] MEDS: NYSTATIN POWDER 1 APPLIC TOPICAL (07:27)
[2022-10-24] MEDS: timoloL maleate 0.5 % 1 DROP EYE-BOTH (07:43)
[2022-10-24] MEDS: OMEPRAZOLE 20 MG CAPSULE DR PO (07:43)
[2022-10-24] MEDS: ESCITALOPRAM 10 MG TABLET PO (07:43)
[2022-10-24] MEDS: ONDANSETRON ODT 4 MG TAB PO ×2 (07:43→15:54)
[2022-10-24] MEDS: ACETAMINOPHEN 500 MG TABLET PO ×3 (08:00→19:08)
--- NOTE | 2022-10-24 11:26 | PC.PHA1 ---
PIGMENT PUMPER PHARMACIST'S MEDICATION REVIEW: MEDICATION MONITORING:Escitalopram 10 mg po daily continues IRREGULARITY OR COMMENTS:Patient continues with hospice. MD recently stopped metoprolol and aspirin due to hypotension and gi upset. Escitalopram GDR clinically contraindicated at this time. SUGGESTED COURSE OF ACTION TAKEN:No medication recommendations at this time.
--- NOTE | 2022-10-24 11:51 | PC.SPIRITC ---
Jacque's , Jyothi, wanted to talk about plans to celebrate their 50th wedding anniversary. I will help coordinate getting their veneer jointer offbearer from [facility] here for a blessing.
--- NOTE | 2022-10-24 12:20 | PC.NURSE ---
Order: Change Nystatin powder to BID PRN by Edgar THOMAS.
[2022-10-24] MEDS: LATANOPROST 0.005% OPHTH 1 DROP EYE-BOTH (19:08)
[2022-10-25] MEDS: OMEPRAZOLE 20 MG CAPSULE DR PO (07:37)
[2022-10-25] MEDS: ONDANSETRON ODT 4 MG TAB PO ×2 (07:38→15:38)
[2022-10-25] MEDS: ESCITALOPRAM 10 MG TABLET PO (07:38)
[2022-10-25] MEDS: timoloL maleate 0.5 % 1 DROP EYE-BOTH (07:38)
[2022-10-25] MEDS: ACETAMINOPHEN 500 MG TABLET PO ×3 (07:38→19:57)
[2022-10-25] MEDS: LATANOPROST 0.005% OPHTH 1 DROP EYE-BOTH (19:57)
[2022-10-26] MEDS: OMEPRAZOLE 20 MG CAPSULE DR PO (08:20)
[2022-10-26] MEDS: timoloL maleate 0.5 % 1 DROP EYE-BOTH (08:28)
[2022-10-26] MEDS: ONDANSETRON ODT 4 MG TAB PO ×2 (08:28→15:40)
[2022-10-26] MEDS: ACETAMINOPHEN 500 MG TABLET PO ×3 (08:28→20:58)
[2022-10-26] MEDS: ESCITALOPRAM 10 MG TABLET PO (08:28)
[2022-10-26] MEDS: LATANOPROST 0.005% OPHTH 1 DROP EYE-BOTH (20:58)
--- NOTE | 2022-10-27 01:55 | PC.NURSE ---
WEEKLY CHARTING - WEEK 4: Vital signs reviewed with no concerns. Temporary and comprehensive care plan reviewed with no changes made. No behaviors documented in this month. Currently on Escitalopram 10mg daily. No adverse drug effects noted. No useful hearing. 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 pantograph watcher or whiteboard is required for communication. Staff anticipate needs and observe for non-verbal communication. Cognition is impaired r/t dementia. Visual deficit corrected with glasses. All medications administered by licensed nurse. Continues to receive hospice services for metastatic prostate cancer. Health status stable at this time.
[2022-10-27] MEDS: OMEPRAZOLE 20 MG CAPSULE DR PO (06:53)
--- NOTE | 2022-10-27 07:10 | PC.NURSE ---
Weekly Charting-Week 4: Comprehensive & temporary care plan reviewed, no changes made. Nothing added to temporary care plan. No changes noted in communication, hearing, vision, or orientation. 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 No useful hearing. Use data communications engineer/whiteboard for all communication. Speech unclear. Staff anticipate needs and observe for non verbal cues. Vision impaired corrected by glasses. Continues with hospice care for prostate cancer. Health condition is stable. Vital signs reviewed, with some low BP's. 5/5 Metoprolol discontinued. Continue weekly monitoring and refer to provider as needed. Nurse to administer all medications.? Mood/Behavior: No issues the past month. Continues on Lexapro 10 mg daily with no adverse effects noted. No changes in medication.
[2022-10-27] MEDS: ESCITALOPRAM 10 MG TABLET PO (07:40)
[2022-10-27] MEDS: ACETAMINOPHEN 500 MG TABLET PO ×3 (07:40→20:21)
[2022-10-27] MEDS: ONDANSETRON ODT 4 MG TAB PO ×2 (07:40→15:02)
[2022-10-27] MEDS: timoloL maleate 0.5 % 1 DROP EYE-BOTH (07:41)
[2022-10-27 13:15] VITALS: BP 118/67; PULSE 72; RESP 18; TEMP 36.3; O2SAT 85; BMI 19.5
[2022-10-27] MEDS: LATANOPROST 0.005% OPHTH 1 DROP EYE-BOTH (20:22)
[2022-10-28] MEDS: OMEPRAZOLE 20 MG CAPSULE DR PO (06:32)
[2022-10-28] MEDS: ACETAMINOPHEN 500 MG TABLET PO ×3 (07:38→19:26)
[2022-10-28] MEDS: ONDANSETRON ODT 4 MG TAB PO ×2 (07:39→15:14)
[2022-10-28] MEDS: timoloL maleate 0.5 % 1 DROP EYE-BOTH (07:39)
[2022-10-28] MEDS: ESCITALOPRAM 10 MG TABLET PO (07:39)
[2022-10-28] MEDS: polyethylene glycoL 3350 17 GM PACK PO (11:57)
[2022-10-28] MEDS: LATANOPROST 0.005% OPHTH 1 DROP EYE-BOTH (19:26)
[2022-10-29] MEDS: OMEPRAZOLE 20 MG CAPSULE DR PO (06:39)
[2022-10-29] MEDS: ACETAMINOPHEN 500 MG TABLET PO ×3 (07:33→20:25)
[2022-10-29] MEDS: ESCITALOPRAM 10 MG TABLET PO (07:33)
[2022-10-29] MEDS: ONDANSETRON ODT 4 MG TAB PO ×2 (07:33→15:11)
[2022-10-29] MEDS: timoloL maleate 0.5 % 1 DROP EYE-BOTH (07:33)
[2022-10-29 10:08] VITALS: BP 129/75; PULSE 66; RESP 18; TEMP 36.4; O2SAT 96
--- NOTE | 2022-10-29 10:09 | LTC.FALL ---
[facility] Fall Note: o Fall Date: 10/29/22 o Fall Time: 09 o What happened? Resident was found lying on the floor near his breakfast table. o Who found the resident and who responded? [place] ( Michell Lyons) and she quickly got the LOY (phyllis) and nurse (Janice) o What was the resident doing? Finishing his breakfast and waiting to go to his room o How the resident was found (knees, left side, arm under them), any hazards (cords, objects, nonskid slippers) brakes on? Proper equipment? He was found lying on the right side with the wheel chair beside him. o Did you assess for head trauma, spinal injuries, skeletal injuries, neurological changes and status, and head and neck pain? What did you find? Yes he was assess for head trauma. Found no injuries on his head and body. o Did you assess ROM in shoulders, elbows, hips, knees, any other affected areas, unless there is suspected spinal injury. Yes ROM was assess. He was able to stand up with 2 assist and walk a short distance o Did you Assess for pain or discomfort? Yes , only slight discomfort on his left knees o What are the injuries and how are they being treated? Just monitor o How was the resident transferred from the floor? He was slowly lifted up by 2 assist after assessing neuro and ROM o Did you call the MD or put a note in the FOUNDER PRESIDENT AND CEO book? Yes o Enter vital signs. Yes T97.5, P66, BP 129/75 and O2 96 o Did you notify family? Yes o What was the root cause of the fall? Why did it happen? He was left alone as the LOY was assisting other resident to their room o Create an IMMEDIATE INTERVENTION to ensure that this won't immediately happen again. (Put in temporary care plan too) Yes o Complete Safety report and huddle (now one form) Yes o If resident is seen in ED or fractured something, note that you started a [facility] Report process. Instructions are at the East nurse's desk in a red binder labeled [facility] report.
--- NOTE | 2022-10-29 10:55 | PC.NURSE ---
Fall F/U : Resident had a fall at 0910 at the breakfast area near his table. He was found by helper Michell lying on the floor on his right side. Neuro check and vital are done every hour for 4 hours then 4 hours for 72 hours. Neuro and vital done at 0930 are as follows: T 97.5, P 66, R 18, BP 129/75 and O2 96 ,Resident is alert and able to response using sign language. He denies any pain.no injury noted on his body .ROM is at baseline. No any vomiting . Resident wanted to attend muslim at 1015 and he was send to the chapel. Care plan updated and noted in the SENIOR MEDICAL DIRECTOR book. Current counter measure is to relocate sitting position to another table in order for staff to assist and observe him
--- NOTE | 2022-10-29 13:35 | PC.NURSE ---
Fall F/U : Resident is alert and responsive. Took 50% of his lunch only since he had L/A loose stool. No c/o pain. Vital and neuro are WNL. T97.6, P72, R18, O2 95 and BP 118/75. Napping on his recliner after lunch .Noted a abrasion (skin burn) on his right hip ( no bleeding ) due to fall.Noted redness also on his right knee cap. No c/o pain.
[2022-10-29 13:44] VITALS: BP 118/75; PULSE 72; RESP 18; TEMP 36.6; O2SAT 95
[2022-10-29 17:00] VITALS: BP 157/78; PULSE 67; RESP 16; TEMP 36.6; O2SAT 97
--- NOTE | 2022-10-29 17:00 | PC.NURSE ---
Fall F/u: Resident c/o pain in R knee. Reports pain is tolerable. MYKE, ROM WNL. Neuro status intact. VSS. Last Vital Signs Temp 97.8 F 10/29/22 17:00 Pulse 67 10/29/22 17:00 Resp 16 10/29/22 17:00 BP 157/78 H 10/29/22 17:00 Pulse Ox 97 10/29/22 17:00 O2 Del Method Room Air 10/29/22 17:00
[2022-10-29] MEDS: LATANOPROST 0.005% OPHTH 1 DROP EYE-BOTH (20:25)
[2022-10-29 21:00] VITALS: BP 148/80; PULSE 64; RESP 16; TEMP 36.7; O2SAT 96
--- NOTE | 2022-10-29 21:51 | PC.NURSE ---
Fall F/U: Resident sleeping peacefully upon entering for assessment. Denies pain at this time. ROM WNL. MYKE. VSS. Last Vital Signs Temp 98.0 F 10/29/22 21:00 Pulse 64 10/29/22 21:00 Resp 16 10/29/22 21:00 BP 148/80 H 10/29/22 21:00 Pulse Ox 96 10/29/22 21:00 O2 Del Method Room Air 10/29/22 21:00
[2022-10-30 01:00] VITALS: BP 131/74; PULSE 74; RESP 18; TEMP 36.4; O2SAT 94
--- NOTE | 2022-10-30 01:12 | PC.NURSE ---
Fall F/U. Res is sleeping upon entering the room. Awaken easily during assessment. Res is smiling trying to communicate with parts data writer. Denies any pain. Neuro, ROM WNL. VSS Temp 97.6, BP 131/74, RR 18, HR 74, O2 sat 94% RA.
[2022-10-30 05:00] VITALS: BP 118/75; PULSE 68; RESP 16; TEMP 36.6; O2SAT 94
--- NOTE | 2022-10-30 05:19 | PC.NURSE ---
Fall F/U: Resident was sleeping upon assessment. Neuro, ROM and Vitals WNL. Denies pain. VSS Temp 97.8, BP 118/75, RR 18, HR 68, O2 sat 94% RA.
[2022-10-30] MEDS: ACETAMINOPHEN 500 MG TABLET PO ×3 (07:46→20:52)
[2022-10-30] MEDS: ONDANSETRON ODT 4 MG TAB PO ×2 (07:46→15:54)
[2022-10-30] MEDS: ESCITALOPRAM 10 MG TABLET PO (07:46)
[2022-10-30] MEDS: OMEPRAZOLE 20 MG CAPSULE DR PO (07:46)
[2022-10-30] MEDS: timoloL maleate 0.5 % 1 DROP EYE-BOTH (07:47)
[2022-10-30 09:00] VITALS: BP 103/58; PULSE 64; RESP 16; TEMP 36.7; O2SAT 95
--- NOTE | 2022-10-30 09:18 | PC.NURSE ---
Fall followup note: Resident alert & responsive per baseline. Vital signs: B/P 103/58, P 64, R 16, T 98.1, O2 sat 95% on RA. No nonverbal indications of pain noted as resident smiling when being assessed by keno writer. Resident remains able to move all four extremities and hand grasps equal bilaterally. Pupils are round, reactive to light & equal bilaterally. Resident resting in recliner at this time while visits and chair alarm is in place with call light within reach.
[2022-10-30 12:53] VITALS: BP 126/79; PULSE 67; RESP 18; TEMP 36.9; O2SAT 96
--- NOTE | 2022-10-30 12:55 | PC.NURSE ---
Fall followup note: PERRLA. VS: B/P 126/79, P 67, R 18, T 98.4, O2 sat 96% on RA. Hand grasps remain equal bilaterally and res remains able to move all four extremities without difficulty. Resident remains alert & oriented per baseline. No nonverbal signs of pain have been noted this shift. Resident smiling when approached by race and sports book writer.
[2022-10-30 17:00] VITALS: BP 132/75; PULSE 66; RESP 18; TEMP 37.1; O2SAT 94
--- NOTE | 2022-10-30 17:00 | PC.NURSE ---
Fall Follow-up:?Peripheral lyon full bilaterally. Perrla intact bilaterally. Resident denies pain at this time. Hand grasps strength equal and strong?bilaterally. With language barrier, resident is alert, oriented and comprehends the occurrence of the fall incident. No signs and symptoms of intracranial pressure including headache, blurred vision, confusion, or high blood pressure noted so far. Resident participated in activities and was in pleasant mood. Vital signs are normal within residents ranges - refer to 'WORKLIST' for documented values. Will continue to monitor.
[2022-10-30] MEDS: LATANOPROST 0.005% OPHTH 1 DROP EYE-BOTH (20:52)
[2022-10-30 21:00] VITALS: BP 126/75; PULSE 64; RESP 18; TEMP 37.1; O2SAT 94
--- NOTE | 2022-10-30 22:06 | PC.NURSE ---
Fall Follow-up: Resident is sleeping at this time. Vital signs are normal within residents ranges - refer to 'WORKLIST' for documented values. Will continue to monitor.
[2022-10-31 01:00] VITALS: BP 124/77; PULSE 74; RESP 16; TEMP 36.4; O2SAT 94
[2022-10-31 05:00] VITALS: BP 136/70; PULSE 72; RESP 16; TEMP 36.4; O2SAT 93
--- NOTE | 2022-10-31 05:17 | PC.NURSE ---
FALL follow up Resident did not try to self transfer during night, neuro intact, vitals are within normal range.
[2022-10-31] MEDS: ACETAMINOPHEN 500 MG TABLET PO ×3 (07:29→19:34)
[2022-10-31] MEDS: OMEPRAZOLE 20 MG CAPSULE DR PO (07:29)
[2022-10-31] MEDS: ONDANSETRON ODT 4 MG TAB PO ×2 (07:30→16:16)
[2022-10-31] MEDS: timoloL maleate 0.5 % 1 DROP EYE-BOTH (07:30)
[2022-10-31] MEDS: ESCITALOPRAM 10 MG TABLET PO (07:30)
[2022-10-31 09:00] VITALS: BP 107/64; PULSE 64; RESP 16; TEMP 36.3; O2SAT 93
--- NOTE | 2022-10-31 09:57 | PC.NURSE ---
Fall followup note: Resident noted to be alert & responsive per baseline. PERRLA. Hand grasps noted to be equal bilaterally and resident remains able to move all four extremities. VS: B/P 107/64, P 64, R 16, T 97.4, O2 sat 93% on RA. No indications of pain noted. Resident smiling when communicating with parts data writer.
[2022-10-31 13:21] VITALS: BP 117/56; PULSE 61; RESP 16; TEMP 36.3; O2SAT 95
--- NOTE | 2022-10-31 13:22 | PC.NURSE ---
Fall followup note: VS B/P 117/56, P 61, R 16, T 97.4, O2 sat 95% on RA. No indications of pain noted this shift. Resident remains alert & oriented per baseline. He remains able to move all four extremities with no indications of pain. Hand grasps remain equal bilaterally. PERRLA.
[2022-10-31 17:00] VITALS: BP 117/67; PULSE 61; RESP 18; TEMP 36.6; O2SAT 95
--- NOTE | 2022-10-31 17:00 | PC.NURSE ---
Fall Follow-up:?No new concerns as related to recent fall incident noted or reported at this time. Peripheral lyon full bilaterally. PERRLA intact bilaterally. Resident denies pain at this time. Hand grasps strength equal and strong?bilaterally. With language barrier, resident is alert, oriented? and comprehends the occurrence of the fall incident. No signs and symptoms of intracranial pressure including headache, blurred vision, confusion, or high blood pressure noted so far. Resident napping in his recliner at this time. Vital signs are normal within residents ranges - refer to 'WORKLIST' for documented values. Will continue to monitor.
[2022-10-31] MEDS: LATANOPROST 0.005% OPHTH 1 DROP EYE-BOTH (19:35)
[2022-10-31 21:00] VITALS: BP 107/68; PULSE 66; RESP 18; TEMP 36.6; O2SAT 94
--- NOTE | 2022-10-31 21:00 | PC.NURSE ---
Fall Follow-up:??Resident is sleeping at this time. Vital signs are normal within residents ranges - refer to 'WORKLIST' for documented values. Will continue to monitor.
[2022-11-01 01:00] VITALS: BP 130/75; PULSE 94; RESP 69; TEMP 36.6; O2SAT 94
[2022-11-01 05:00] VITALS: BP 113/66; PULSE 70; RESP 16; TEMP 36.2; O2SAT 92
--- NOTE | 2022-11-01 07:07 | PC.NURSE ---
FOLLOW UP FALL Resident night went fine , no attempt to self transfer or getting out of bed. Neuro intact, vitals are stable.
[2022-11-01] MEDS: OMEPRAZOLE 20 MG CAPSULE DR PO (07:40)
[2022-11-01] MEDS: ACETAMINOPHEN 500 MG TABLET PO ×3 (08:19→19:14)
[2022-11-01] MEDS: ONDANSETRON ODT 4 MG TAB PO ×2 (08:20→16:01)
[2022-11-01] MEDS: ESCITALOPRAM 10 MG TABLET PO (08:20)
[2022-11-01] MEDS: timoloL maleate 0.5 % 1 DROP EYE-BOTH (08:20)
[2022-11-01] MEDS: LATANOPROST 0.005% OPHTH 1 DROP EYE-BOTH (19:17)
[2022-11-02] MEDS: OMEPRAZOLE 20 MG CAPSULE DR PO (06:42)
[2022-11-02] MEDS: ACETAMINOPHEN 500 MG TABLET PO ×3 (08:05→19:34)
[2022-11-02] MEDS: timoloL maleate 0.5 % 1 DROP EYE-BOTH (08:06)
[2022-11-02] MEDS: ONDANSETRON ODT 4 MG TAB PO ×2 (08:06→17:02)
[2022-11-02] MEDS: ESCITALOPRAM 10 MG TABLET PO (08:06)
[2022-11-02] MEDS: LATANOPROST 0.005% OPHTH 1 DROP EYE-BOTH (19:35)
[2022-11-03 07:00] VITALS: BMI 18.2
[2022-11-03] MEDS: OMEPRAZOLE 20 MG CAPSULE DR PO (08:00)
[2022-11-03] MEDS: ACETAMINOPHEN 500 MG TABLET PO ×3 (08:00→20:49)
[2022-11-03] MEDS: ESCITALOPRAM 10 MG TABLET PO (08:00)
[2022-11-03] MEDS: ONDANSETRON ODT 4 MG TAB PO ×2 (08:01→16:07)
[2022-11-03] MEDS: timoloL maleate 0.5 % 1 DROP EYE-BOTH (08:01)
[2022-11-03 13:04] VITALS: BP 128/70; PULSE 77; RESP 18; TEMP 36.4; O2SAT 94
[2022-11-03] MEDS: LATANOPROST 0.005% OPHTH 1 DROP EYE-BOTH (20:50)
[2022-11-04] MEDS: OMEPRAZOLE 20 MG CAPSULE DR PO (07:29)
[2022-11-04] MEDS: timoloL maleate 0.5 % 1 DROP EYE-BOTH (07:38)
[2022-11-04] MEDS: ONDANSETRON ODT 4 MG TAB PO ×2 (07:38→15:21)
[2022-11-04] MEDS: ACETAMINOPHEN 500 MG TABLET PO ×3 (07:38→20:12)
[2022-11-04] MEDS: ESCITALOPRAM 10 MG TABLET PO (07:38)
[2022-11-04] MEDS: LATANOPROST 0.005% OPHTH 1 DROP EYE-BOTH (20:13)
[2022-11-05] MEDS: OMEPRAZOLE 20 MG CAPSULE DR PO (07:17)
[2022-11-05] MEDS: ACETAMINOPHEN 500 MG TABLET PO ×3 (07:20→19:49)
[2022-11-05] MEDS: timoloL maleate 0.5 % 1 DROP EYE-BOTH (07:20)
[2022-11-05] MEDS: ESCITALOPRAM 10 MG TABLET PO (07:20)
[2022-11-05] MEDS: ONDANSETRON ODT 4 MG TAB PO ×2 (07:20→16:02)
[2022-11-05] MEDS: LATANOPROST 0.005% OPHTH 1 DROP EYE-BOTH (19:49)
[2022-11-06] MEDS: timoloL maleate 0.5 % 1 DROP EYE-BOTH (07:27)
[2022-11-06] MEDS: ACETAMINOPHEN 500 MG TABLET PO ×3 (07:27→19:19)
[2022-11-06] MEDS: ONDANSETRON ODT 4 MG TAB PO ×2 (07:27→15:13)
[2022-11-06] MEDS: OMEPRAZOLE 20 MG CAPSULE DR PO (07:27)
[2022-11-06] MEDS: ESCITALOPRAM 10 MG TABLET PO (07:27)
[2022-11-06] MEDS: LATANOPROST 0.005% OPHTH 1 DROP EYE-BOTH (19:19)
[2022-11-07] MEDS: OMEPRAZOLE 20 MG CAPSULE DR PO (06:36)
[2022-11-07] MEDS: ACETAMINOPHEN 500 MG TABLET PO ×3 (07:49→20:01)
[2022-11-07] MEDS: ONDANSETRON ODT 4 MG TAB PO ×2 (07:50→16:41)
[2022-11-07] MEDS: ESCITALOPRAM 10 MG TABLET PO (07:50)
[2022-11-07] MEDS: timoloL maleate 0.5 % 1 DROP EYE-BOTH (07:50)
[2022-11-07] MEDS: LATANOPROST 0.005% OPHTH 1 DROP EYE-BOTH (20:01)
[2022-11-08] MEDS: ACETAMINOPHEN 500 MG TABLET PO ×3 (07:27→20:06)
[2022-11-08] MEDS: ESCITALOPRAM 10 MG TABLET PO (07:27)
[2022-11-08] MEDS: OMEPRAZOLE 20 MG CAPSULE DR PO (07:27)
[2022-11-08] MEDS: ONDANSETRON ODT 4 MG TAB PO ×2 (07:28→15:49)
[2022-11-08] MEDS: timoloL maleate 0.5 % 1 DROP EYE-BOTH (07:28)
[2022-11-08] MEDS: LATANOPROST 0.005% OPHTH 1 DROP EYE-BOTH (20:06)
[2022-11-09] MEDS: ESCITALOPRAM 10 MG TABLET PO (07:22)
[2022-11-09] MEDS: ACETAMINOPHEN 500 MG TABLET PO ×3 (07:22→20:54)
[2022-11-09] MEDS: timoloL maleate 0.5 % 1 DROP EYE-BOTH (07:22)
[2022-11-09] MEDS: ONDANSETRON ODT 4 MG TAB PO ×2 (07:22→16:06)
[2022-11-09] MEDS: OMEPRAZOLE 20 MG CAPSULE DR PO (07:22)
--- NOTE | 2022-11-09 14:58 | PC.SOCIAL ---
Met with resident and resident's to complete PHQ-9 assessment. Resident scored a 9 on the PHQ-9 assessment. Discussed mental health therapy services and resident's did not think it was necessary for resident. Resident's and resident think resident scored higher due to resident's overall health. Social work will follow up as necessary.
[2022-11-09] MEDS: LATANOPROST 0.005% OPHTH 1 DROP EYE-BOTH (20:54)
--- NOTE | 2022-11-10 02:55 | PC.NURSE ---
Weekly Charting Week 1: Vital signs reviewed with no concern. Comprehensive and temporary care plan reviewed with no changes made. On hospice care. Currently receives acetaminophen 500-1000mg TID for pain management which is noted to be effective. Extensive assist of 1 with dressing, grooming, bathing, and oral care. Receives a regular diet with soft and bite sized texture and thin liquids. Able to eat independently after set-up.
[2022-11-10] MEDS: OMEPRAZOLE 20 MG CAPSULE DR PO (07:11)
[2022-11-10] MEDS: ONDANSETRON ODT 4 MG TAB PO ×2 (07:11→16:09)
[2022-11-10] MEDS: timoloL maleate 0.5 % 1 DROP EYE-BOTH (07:11)
[2022-11-10] MEDS: ACETAMINOPHEN 500 MG TABLET PO ×3 (07:11→20:56)
[2022-11-10] MEDS: ESCITALOPRAM 10 MG TABLET PO (07:11)
[2022-11-10 12:42] VITALS: BP 118/64; PULSE 70; RESP 18; TEMP 36.6; O2SAT 94; BMI 19.2
--- NOTE | 2022-11-10 13:40 | PC.NURSE ---
Weekly Charting, Week 1-ADL's: Comprehensive and temporary care plan reviewed. No changes made. Nothing added to temporary care plan. Resident needs extensive assist of one with dressing, grooming, oral cares and bathing. Feed self after set up. Is on regular diet, soft and bite sized texture r/t edentulous, thin liquids. No problems with chewing/swallowing reported/noted. Vital signs reviewed, no concerns. Pain: 10/24/Tylenol 1000mg TID started. Resident complain of abdominal pain to Hospice through gestures. Staff anticipates need for pain.
[2022-11-10] MEDS: LATANOPROST 0.005% OPHTH 1 DROP EYE-BOTH (20:57)
[2022-11-11] MEDS: OMEPRAZOLE 20 MG CAPSULE DR PO (06:39)
[2022-11-11] MEDS: ONDANSETRON ODT 4 MG TAB PO ×2 (07:55→16:19)
[2022-11-11] MEDS: ACETAMINOPHEN 500 MG TABLET PO ×3 (07:55→20:18)
[2022-11-11] MEDS: ESCITALOPRAM 10 MG TABLET PO (07:55)
[2022-11-11] MEDS: timoloL maleate 0.5 % 1 DROP EYE-BOTH (07:55)
[2022-11-11] MEDS: LATANOPROST 0.005% OPHTH 1 DROP EYE-BOTH (20:18)
[2022-11-12] MEDS: OMEPRAZOLE 20 MG CAPSULE DR PO (06:38)
[2022-11-12] MEDS: timoloL maleate 0.5 % 1 DROP EYE-BOTH (07:54)
[2022-11-12] MEDS: ACETAMINOPHEN 500 MG TABLET PO ×3 (07:54→20:08)
[2022-11-12] MEDS: ESCITALOPRAM 10 MG TABLET PO (07:54)
[2022-11-12] MEDS: ONDANSETRON ODT 4 MG TAB PO ×2 (07:54→16:34)
[2022-11-12] MEDS: NYSTATIN POWDER 1 APPLIC TOPICAL (10:25)
[2022-11-12] MEDS: LATANOPROST 0.005% OPHTH 1 DROP EYE-BOTH (20:08)
[2022-11-13] MEDS: OMEPRAZOLE 20 MG CAPSULE DR PO (07:09)
[2022-11-13] MEDS: ESCITALOPRAM 10 MG TABLET PO (07:41)
[2022-11-13] MEDS: ACETAMINOPHEN 500 MG TABLET PO ×3 (07:41→21:07)
[2022-11-13] MEDS: ONDANSETRON ODT 4 MG TAB PO ×2 (07:41→15:45)
[2022-11-13] MEDS: timoloL maleate 0.5 % 1 DROP EYE-BOTH (07:41)
[2022-11-13 13:38] VITALS: BMI 19.2
[2022-11-13] MEDS: LATANOPROST 0.005% OPHTH 1 DROP EYE-BOTH (21:08)
[2022-11-14] MEDS: OMEPRAZOLE 20 MG CAPSULE DR PO (06:54)
[2022-11-14] MEDS: ESCITALOPRAM 10 MG TABLET PO (07:00)
[2022-11-14] MEDS: timoloL maleate 0.5 % 1 DROP EYE-BOTH (07:00)
[2022-11-14] MEDS: ONDANSETRON ODT 4 MG TAB PO ×2 (07:00→15:23)
[2022-11-14] MEDS: ACETAMINOPHEN 500 MG TABLET PO ×3 (07:00→20:02)
[2022-11-14] MEDS: NYSTATIN POWDER 1 APPLIC TOPICAL (13:09)
--- NOTE | 2022-11-14 13:34 | PC.NURSE ---
Behavior note: During lunch it was noted resident attempted to stand up numerous times and needed redirection from staff. He stood up once and was noted to be reaching for daily menu on table. Staff then responded and assisted resident back to seated position. Chair and bed alarms remain in place.
[2022-11-14] MEDS: LATANOPROST 0.005% OPHTH 1 DROP EYE-BOTH (20:03)
[2022-11-15] MEDS: ACETAMINOPHEN 500 MG TABLET PO ×3 (07:22→19:51)
[2022-11-15] MEDS: OMEPRAZOLE 20 MG CAPSULE DR PO (07:22)
[2022-11-15] MEDS: ONDANSETRON ODT 4 MG TAB PO ×2 (07:23→16:13)
[2022-11-15] MEDS: timoloL maleate 0.5 % 1 DROP EYE-BOTH (07:23)
[2022-11-15] MEDS: ESCITALOPRAM 10 MG TABLET PO (07:23)
[2022-11-15] MEDS: LATANOPROST 0.005% OPHTH 1 DROP EYE-BOTH (19:51)
[2022-11-16] MEDS: OMEPRAZOLE 20 MG CAPSULE DR PO (06:48)
[2022-11-16] MEDS: ACETAMINOPHEN 500 MG TABLET PO ×3 (08:57→19:24)
[2022-11-16] MEDS: ESCITALOPRAM 10 MG TABLET PO (08:57)
[2022-11-16] MEDS: ONDANSETRON ODT 4 MG TAB PO ×2 (08:57→16:45)
[2022-11-16] MEDS: timoloL maleate 0.5 % 1 DROP EYE-BOTH (08:58)
[2022-11-16] MEDS: NYSTATIN POWDER 1 APPLIC TOPICAL (10:08)
[2022-11-16] MEDS: LATANOPROST 0.005% OPHTH 1 DROP EYE-BOTH (19:24)
--- NOTE | 2022-11-16 23:43 | PC.NURSE ---
Weekly charting: Week 2 Reviewed recent vital signs, no concerns noted. Reviewed temporary and comprehensive care plans, no new changes noted/ made. Resident is assist of 1 with gait belt for transfers. Resident can ambulate with assist of one, gait belt, and walker. 1/4 side rails are up for repositioning use only. Staff wheels resident to all meals and activities. Resident is at high risk for falls. Most recent fall was 10/29/2022. Interventions in place to prevent falls include call light within reach, bed and chair alarms in place, bed locked and in low position, not leaving resident alone when in wheelchair, non skid footwear worn at all times, toileting Q2H, hourly visual safety checks, and falling star program.
[2022-11-17 07:00] VITALS: BP 124/75; PULSE 71; RESP 16; TEMP 36.6; O2SAT 97; BMI 19.3
[2022-11-17] MEDS: OMEPRAZOLE 20 MG CAPSULE DR PO (07:26)
[2022-11-17] MEDS: ACETAMINOPHEN 500 MG TABLET PO ×3 (07:36→19:16)
[2022-11-17] MEDS: ESCITALOPRAM 10 MG TABLET PO (07:36)
[2022-11-17] MEDS: ONDANSETRON ODT 4 MG TAB PO ×2 (07:36→16:41)
[2022-11-17] MEDS: timoloL maleate 0.5 % 1 DROP EYE-BOTH (07:37)
--- NOTE | 2022-11-17 07:55 | PC.NURSE ---
Weekly Charting, Week 2 - Mobility: Comprehensive and temporary care plan reviewed. No changes made, nothing added to temporary care plan. Resident needs one assist, transfer belt and walker with transfers and ambulation. Staff wheels to all destinations. One assist with bed/chair positioning. Has bed and chair alarms. Vital signs reviewed, no concerns. Continue weekly monitoring. Fall: Had 2 falls the past month with no injury. Remains a high fall risk according to assessment done on 08/15/22. Fall interventions: Call light within reach, bed in low position brakes locked, hourly safety checks, in room don't leave in w/c, bed/chair alarms, relocate area in the dining room so he can be observed.
[2022-11-17] MEDS: LATANOPROST 0.005% OPHTH 1 DROP EYE-BOTH (19:17)
[2022-11-18] MEDS: OMEPRAZOLE 20 MG CAPSULE DR PO (07:07)
[2022-11-18] MEDS: ACETAMINOPHEN 500 MG TABLET PO ×3 (08:25→19:48)
[2022-11-18] MEDS: timoloL maleate 0.5 % 1 DROP EYE-BOTH (08:26)
[2022-11-18] MEDS: ONDANSETRON ODT 4 MG TAB PO ×2 (08:26→15:15)
[2022-11-18] MEDS: ESCITALOPRAM 10 MG TABLET PO (08:26)
[2022-11-18 11:19] VITALS: BP 151/81; PULSE 76; RESP 17; TEMP 36.4; O2SAT 95
[2022-11-18 11:20] VITALS: BP 151/81; RESP 17; O2SAT 95
--- NOTE | 2022-11-18 11:41 | LTC.FALL ---
[facility] Fall Note: o Fall Date:11/18/22 o Fall Time:11:15 o What happened? Self transfer from recliner to the bathroom. o Who found the resident and who responded? Staff ( Ghislaine Elizondo) and Gaviota Lamb o What was the resident doing? Resident was self toileting. o How the resident was found (knees, left side, arm under them), any hazards (cords, objects, nonskid slippers) brakes on? Proper equipment? found Laying on floor in his R side with head towards to bathroom sink and pants and brief down to knees with stool. o Did you assess for head trauma, spinal injuries, skeletal injuries, neurological changes and status, and head and neck pain? Yes What did you find? No injuries found at this time. o Did you assess ROM in shoulders, elbows, hips, knees, any other affected areas, unless there is suspected spinal injury. None o Did you Assess for pain or discomfort? No complaints of pain and no nonverbal pain noted. o What are the injuries and how are they being treated? none o How was the resident transferred from the floor? Assisted of 2 to get him up the floor. o Did you call the MD or put a note in the CHOCOLATE MAKER book? Will hospice nurse o Enter vital signs. BP 151/81, P 76, R 18, T 97.5, 17 O2 sat 95% on RA o Did you notify family? Will notify his . o What was the root cause of the fall? Why did it happen? Resident self transferred to bathroom and alarm did not turn on. o Create an IMMEDIATE INTERVENTION to ensure that this won't immediately happen again. (Put in temporary care plan too). Making sure alarm on all the time when transferring bed or chair. o Complete Safety report and huddle (now one form) o If resident is seen in ED or fractured something, note that you started a [facility] Report process. Instructions are at the East nurse's desk in a red binder labeled VA report.
--- NOTE | 2022-11-18 12:18 | NUTR.NU ---
Family Update: Updated hospice nurse of fall and left message to his to call us back. Hospice nurse may come to see him.
--- NOTE | 2022-11-18 13:53 | NUTR.NU ---
Fall followup note: VS: BP 151/80, T 97.5, P 76, R 18, O2 sat 95% on RA. Resident was? alert & responsive, PERRLA. Hand grasps noted to be equal bilaterally and able to move all four extremities per baseline. No complain of pain and no nonverbal indication of pain noted or reported at this time,? administered scheduled Tylenol , encouraged rest and repositioning. Chair alarm is on. Resident ate 50% of his lunch. Will continues to monitor.
--- NOTE | 2022-11-18 14:27 | PC.NURSE ---
Fall followup: Resident was? alert & responsive. MARISA. Resident has no complaints of pain and no nonverbal indication of pain noted r/t to today's fall. Resident ate 50% of his lunch in dinning room . B/P 124/75, P 71, R 18, T 98, , O2 sat 97% on RA.. Resident appears to be tired than usual and resting in his recliner comfortably at this time. will continues to monitor.
--- NOTE | 2022-11-18 15:00 | PC.NURSE ---
Fall Follow-up:?Resident is being monitored after reported fall incident. Fall prevention interventions including hourly/alarm checks, toileting program, and other '4 Ps' are implemented. Peripheral lyon full bilaterally. PERRLA intact bilaterally. Resident denies pain, and no non-verbal signs and symptoms often indicating pain noted. Hand grasps strength equal and strong?bilaterally. With language barrier, resident is alert, oriented? and comprehends the occurrence of fall incident through sign language. No signs and symptoms of intracranial pressure including headache, blurred vision, confusion, or high blood pressure noted so far. Resident napping in his recliner at this time. Vital signs are normal within residents ranges - refer to 'WORKLIST' for documented values. Will continue to monitor.
[2022-11-18 15:20] VITALS: BP 119/75; PULSE 69; RESP 18; TEMP 36.6; O2SAT 94
[2022-11-18 19:00] VITALS: BP 119/70; BP 120/71; PULSE 69; RESP 18; TEMP 37.2; O2SAT 94
[2022-11-18] MEDS: LATANOPROST 0.005% OPHTH 1 DROP EYE-BOTH (19:48)
--- NOTE | 2022-11-18 21:46 | PC.NURSE ---
Fall Follow-up:?Residents participated in scheduled activities including meal time in the dinning room. Peripheral lyon full bilaterally. PERRLA intact bilaterally. Resident denies pain, and no non-verbal signs and symptoms often indicating pain noted. Hand grasps strength equal and strong?bilaterally. Although, with communication barrier, resident is alert and oriented. No signs and symptoms of intracranial pressure including headache, blurred vision, confusion, or high blood pressure observed at this time. Was seen by [facility] hospice nurse at 1600 for fall follow-up report. No concerns at this time. Vital signs are normal within residents ranges - refer to 'WORKLIST' for documented values. Will continue to monitor.
[2022-11-18 23:00] VITALS: BP 103/63; PULSE 72; RESP 16; TEMP 24.8; O2SAT 93
--- NOTE | 2022-11-18 23:17 | PC.NURSE ---
S/P Fall: Vitals are WNL and neuros are intact, Resident is resting in bed at time time with bed alarm in place, alert and oriented per baseline no verbal or non verbal indications of pain, ROM remains intact to all extremities.
[2022-11-19 03:00] VITALS: BP 126/64; PULSE 77; RESP 18; TEMP 36.5; O2SAT 92
[2022-11-19 07:00] VITALS: BP 112/66; PULSE 80; RESP 16; TEMP 37; O2SAT 95
--- NOTE | 2022-11-19 07:25 | PC.NURSE ---
Fall followup note: Resident noted to be alert at this time with ROM intact. Hand grasps equal when compared bilaterally. PERRLA. Chair alarm in place. No indications of pain are currently noted. Vital signs completed and documented: B/P 112/66, P 80, R 16, T 98.6, O2 sat 95% on RA.
[2022-11-19] MEDS: OMEPRAZOLE 20 MG CAPSULE DR PO (07:27)
[2022-11-19] MEDS: ACETAMINOPHEN 500 MG TABLET PO ×3 (07:27→19:22)
[2022-11-19] MEDS: timoloL maleate 0.5 % 1 DROP EYE-BOTH (07:28)
[2022-11-19] MEDS: ONDANSETRON ODT 4 MG TAB PO ×2 (07:28→16:32)
[2022-11-19] MEDS: ESCITALOPRAM 10 MG TABLET PO (07:28)
[2022-11-19 11:00] VITALS: BP 102/67; PULSE 70; RESP 16; TEMP 36.8; O2SAT 94
--- NOTE | 2022-11-19 11:23 | PC.NURSE ---
Fall followup note: Resident remains alert & smiling when interacting with staff. No indications of pain have been noted and ROM remains intact to all four extremities. Vital signs: B/P 102/67, P 70, R 16, T 98.3, O2 sat 94% on RA. Hand grasps remain equal bilaterally. PERRLA. Chair alarm in place. Resident is having cup of coffee in dining room after nondenominational this morning.
[2022-11-19 15:00] VITALS: BP 134/71; PULSE 70; RESP 18; TEMP 37.2; O2SAT 94
--- NOTE | 2022-11-19 17:00 | PC.NURSE ---
Fall Follow-up: Peripheral lyon full bilaterally. PERRLA intact bilaterally. Resident denies pain, and no non-verbal signs and symptoms often indicating pain noted. Hand grasps strength equal and strong?bilaterally. Despite communication barrier, resident is alert, oriented. No signs and symptoms of intracranial pressure including headache, blurred vision, confusion, or high blood pressure noted so far. Resident napping in his recliner at this time. Vital signs are normal within residents ranges - refer to 'WORKLIST' for documented values. Will continue to monitor.
[2022-11-19 19:00] VITALS: BP 127/68; PULSE 70; RESP 16; TEMP 37.2; O2SAT 94
[2022-11-19] MEDS: LATANOPROST 0.005% OPHTH 1 DROP EYE-BOTH (19:22)
--- NOTE | 2022-11-19 22:53 | PC.NURSE ---
Fall follow-up:?Resident is sound asleep at this time. Vital signs are WNL. See 'WORKLIST' for recorded values.
[2022-11-19 23:00] VITALS: BP 107/69; PULSE 69; RESP 18; TEMP 36.8; O2SAT 93
[2022-11-20 03:00] VITALS: BP 118/74; PULSE 70; RESP 18; TEMP 36.8; O2SAT 92
--- NOTE | 2022-11-20 05:05 | PC.NURSE ---
FAll follow up Resident did not try to get out the bed, vitals are normal, neuro intact. Will continue to monitor for safety and comfort.
[2022-11-20 07:00] VITALS: BP 123/63; PULSE 78; RESP 16; TEMP 36.3; O2SAT 93
[2022-11-20] MEDS: ONDANSETRON ODT 4 MG TAB PO ×2 (07:26→16:30)
[2022-11-20] MEDS: ACETAMINOPHEN 500 MG TABLET PO ×3 (07:26→19:32)
[2022-11-20] MEDS: OMEPRAZOLE 20 MG CAPSULE DR PO (07:26)
[2022-11-20] MEDS: ESCITALOPRAM 10 MG TABLET PO (07:26)
[2022-11-20] MEDS: timoloL maleate 0.5 % 1 DROP EYE-BOTH (07:26)
--- NOTE | 2022-11-20 07:39 | PC.NURSE ---
Fall followup note: Vital signs completed B/P 123/63, P 78, R 16, T 97.3, O2 sat 93% on RA. Res noted to be alert & responsive per baseline. Hand grasps remain equal bilaterally. PERRLA. Resident smiling when interacting with staff. ROM intact with no c/o pain noted so far this shift.
[2022-11-20 11:00] VITALS: BP 112/70; PULSE 71; RESP 16; TEMP 36.1; O2SAT 94
--- NOTE | 2022-11-20 11:18 | PC.NURSE ---
Fall followup note: Resident remains alert & responsive, smiling when interacting with staff. PERRLA. Hand grasps equal bilaterally and ROM remains intact. No indications of pain have been reported this shift. Vital signs: B/P 112/70, P 71, R 16, T 97.0, O2 sat 94% on RA.
[2022-11-20 15:00] VITALS: BP 121/68; PULSE 77; RESP 18; TEMP 36.6; O2SAT 94
--- NOTE | 2022-11-20 15:00 | PC.NURSE ---
F/F/A:?Peripheral lyon full bilaterally. PERRLA intact bilaterally. Resident denies pain, and no non-verbal signs and symptoms often indicating pain noted. Hand grasps strength equal and strong?bilaterally. Alert and oriented to self, , and staff. No signs and symptoms of intracranial pressure including headache, blurred vision, confusion, or high blood pressure noted so far. Resident is resting in his recliner and watching cartoons on TV. Vital signs are normal within residents ranges - refer to 'WORKLIST' for documented values. Will continue to monitor.
[2022-11-20 19:00] VITALS: BP 128/70; PULSE 68; RESP 18; TEMP 36.6; O2SAT 96
--- NOTE | 2022-11-20 19:00 | PC.NURSE ---
Fall follow-up:?Resident is sound asleep at this time. Vital signs are WNL. See 'WORKLIST' for recorded values.
[2022-11-20] MEDS: LATANOPROST 0.005% OPHTH 1 DROP EYE-BOTH (19:32)
[2022-11-20 23:00] VITALS: BP 123/78; PULSE 75; RESP 18; TEMP 36.7; O2SAT 93
--- NOTE | 2022-11-21 00:12 | PC.NURSE ---
FALL F/U 23:00, Resident sounds asleep. Able to check Pupillary reaction due to resident sleeping. VSS BP 123/77, Temp 98.0, RR 18, HR 75, O2 sat 93%.
[2022-11-21 03:00] VITALS: BP 117/63; PULSE 75; RESP 17; TEMP 36.8; O2SAT 92
--- NOTE | 2022-11-21 03:48 | PC.NURSE ---
Fall F/U 0300, Resident awaken when approach to do assessment. Res is smiling the whole procedure. Nuero ROM, and VSS within normal. No compliant of pain.
[2022-11-21] MEDS: OMEPRAZOLE 20 MG CAPSULE DR PO (06:50)
[2022-11-21 07:00] VITALS: BP 117/73; PULSE 84; RESP 17; TEMP 36.6; O2SAT 93
[2022-11-21] MEDS: ESCITALOPRAM 10 MG TABLET PO (08:36)
[2022-11-21] MEDS: timoloL maleate 0.5 % 1 DROP EYE-BOTH (08:36)
[2022-11-21] MEDS: ONDANSETRON ODT 4 MG TAB PO ×2 (08:36→15:46)
[2022-11-21] MEDS: ACETAMINOPHEN 500 MG TABLET PO ×3 (08:36→19:03)
--- NOTE | 2022-11-21 10:41 | PC.NURSE ---
Fall followup note: VS: 117/73, T 98, R17, P 84, O2 sat 93% on RA. Hand grasps equal bilaterally with ROM intact . PERRLA. Resident alert & oriented to correct person, place, time. No verbal or nonverbal indications of pain currently noted.
--- NOTE | 2022-11-21 10:46 | PC.NURSE ---
Fall followup note: VS: 117/73, T 98, R17, P 84, O2 sat 93% on RA. No verbal or nonverbal indication of pain noted or reported this morning. Hand grasps equal bilaterally with ROM intact per baseline . PERRLA. Resident alert & oriented to self and family.
--- NOTE | 2022-11-21 15:12 | PC.SOCIAL ---
Resident care conference held today at 1:30 pm. Resident's [id number], Gloria Lora, attended via phone. Resident, resident's , Jyothi Lora, and resident's [id number], Scarlet Lora, attended in person. [employer] ipad was used due to in person promotions officer canceling last minute. Updates provided by Janay Campbell from Nursing, Kaley Link from Nutrition, Hina Law from [facility], and this worker from Social Work. Resident's care plan was reviewed. This worker provided an update from hospice. Resident's mood is stable. Resident reports feeling more tired and sleeping more than usual. Resident's asked about the termite control representative care bill. Explained resident is now on medical assistance with resident's paying the spend down amount. Social work will follow up with [facility] [employer] [facility] and provide information to on if bill is current.
--- NOTE | 2022-11-21 15:35 | PC.NURSE ---
CARE CONFERENCE:?Nursing, SS, LE, dietary, sister in law Scarlet, daughter in law Gloria (via phone), ASL interp. on iPad, resident, and present. Hospice was not present to speak on there behalf but an email note was provided to nephrology social worker regarding an update. Nursing provided an update on residents current condition. Resident has remained stable since last care conference. Resident continues on Hospice but per Hospice they have seen a progression in his cancer and he is not a candidate for graduation of hospice. Hospice also noted that resident has had increased abdominal pain and nausea and he now has scheduled Tylenol and Zofran which seem to help some. The pain is worse with eating.?Family understands. Resident also is more sleepy and hospice notes that resident often falls asleep during the visit. Resident continues to need assist of one with ADLs. Is more weak with ambulation. Active medication list was reviewed and discussed with Jyothi. Resident has fallen several times this quarter, he continues to use a bed and chair alarm as well as frequent staff safety checks. Nursing will continue to anticipate needs. Resident states I think its the floor. Reminded resident to call for staff assistance when wanting to get up. Resident did show his humorous side and tell the IDT, She ( Jyothi) is going to kick my ass (regarding frequent falls). Discussed the potential need for dental and vision appointments as previously discussed, denies at this time. She feels that Jacque?s eyes are stable and healthy and wants to be sure he continues to get his eye drops. Resident is currently on a regular soft and bite sized diet which is going well, his weight is stable with an increase noted. Resident has been able to participate in feeding himself with setup assist. No other nutrition concerns. Activities discussed resident current participation in activities, resident is doing well, there are no concerns and residents denies any further needs. SW Reports that resident?s mood is stable and resident reports being more tired. POL reviewed, no changes. Staff continue to use iPad rd mechanical engineer and whiteboard for communication. Staff anticipate needs. Resident is vulnerable due to need for assistance with ADLs and fragility.
[2022-11-21] MEDS: LATANOPROST 0.005% OPHTH 1 DROP EYE-BOTH (19:03)
[2022-11-22] MEDS: OMEPRAZOLE 20 MG CAPSULE DR PO (06:40)
[2022-11-22] MEDS: ACETAMINOPHEN 500 MG TABLET PO ×3 (07:15→21:32)
[2022-11-22] MEDS: ONDANSETRON ODT 4 MG TAB PO ×2 (07:16→15:13)
[2022-11-22] MEDS: ESCITALOPRAM 10 MG TABLET PO (07:16)
[2022-11-22] MEDS: timoloL maleate 0.5 % 1 DROP EYE-BOTH (07:16)
[2022-11-22] MEDS: LATANOPROST 0.005% OPHTH 1 DROP EYE-BOTH (21:33)
[2022-11-23] MEDS: ONDANSETRON ODT 4 MG TAB PO ×2 (07:47→16:38)
[2022-11-23] MEDS: ACETAMINOPHEN 500 MG TABLET PO ×3 (07:47→20:52)
[2022-11-23] MEDS: OMEPRAZOLE 20 MG CAPSULE DR PO (07:47)
[2022-11-23] MEDS: ESCITALOPRAM 10 MG TABLET PO (07:47)
[2022-11-23] MEDS: timoloL maleate 0.5 % 1 DROP EYE-BOTH (07:48)
--- NOTE | 2022-11-23 08:07 | PC.SPIRITC ---
I provided visit for connection and support.
[2022-11-23] MEDS: LATANOPROST 0.005% OPHTH 1 DROP EYE-BOTH (20:52)
--- NOTE | 2022-11-24 01:30 | PC.NURSE ---
Weekly Charting Week 3: Toileting and Skin:V ital signs reviewed - no concerns. Comprehensive care plan reviewed and Temporary care plan reviewed with no changes made. Primarily incontinent of bowel and bladder, but will void and have bowel movement on toilet at times. Wears brief. Assist of 1 with toileting needs including dileep-care, pad management, and clothing adjustment. Check and change during 1st and 3rd rounds at night. Skin is clear and intact. Skin check done on bath days and during cares.
[2022-11-24] MEDS: OMEPRAZOLE 20 MG CAPSULE DR PO (06:49)
[2022-11-24] MEDS: timoloL maleate 0.5 % 1 DROP EYE-BOTH (07:36)
[2022-11-24] MEDS: ONDANSETRON ODT 4 MG TAB PO ×2 (07:36→15:59)
[2022-11-24] MEDS: ESCITALOPRAM 10 MG TABLET PO (07:36)
[2022-11-24] MEDS: ACETAMINOPHEN 500 MG TABLET PO ×3 (07:36→19:55)
[2022-11-24 09:53] VITALS: BP 109/61; PULSE 68; RESP 18; TEMP 36.4; O2SAT 92; BMI 18.8
[2022-11-24] MEDS: LATANOPROST 0.005% OPHTH 1 DROP EYE-BOTH (19:57)
[2022-11-25] MEDS: OMEPRAZOLE 20 MG CAPSULE DR PO (06:31)
[2022-11-25] MEDS: ONDANSETRON ODT 4 MG TAB PO ×2 (07:34→16:01)
[2022-11-25] MEDS: ESCITALOPRAM 10 MG TABLET PO (07:34)
[2022-11-25] MEDS: ACETAMINOPHEN 500 MG TABLET PO ×3 (07:34→20:14)
[2022-11-25] MEDS: timoloL maleate 0.5 % 1 DROP EYE-BOTH (07:34)
--- NOTE | 2022-11-25 13:05 | PC.NURSE ---
Loose Stool: Resident had 3 episode of loose stool and was given Loperamide 2mg at 1306 hours.
[2022-11-25] MEDS: LOPERAMIDE HCL 2 MG CAPSULE PO (13:16)
[2022-11-25] MEDS: LATANOPROST 0.005% OPHTH 1 DROP EYE-BOTH (20:14)
[2022-11-26] MEDS: timoloL maleate 0.5 % 1 DROP EYE-BOTH (07:26)
[2022-11-26] MEDS: ESCITALOPRAM 10 MG TABLET PO (07:26)
[2022-11-26] MEDS: OMEPRAZOLE 20 MG CAPSULE DR PO (07:26)
[2022-11-26] MEDS: ACETAMINOPHEN 500 MG TABLET PO ×3 (07:26→19:22)
[2022-11-26] MEDS: ONDANSETRON ODT 4 MG TAB PO ×2 (07:26→15:54)
--- NOTE | 2022-11-26 09:44 | PC.NURSE ---
MDS CLARIFICATION: Bathing: staff were interviewed. Resident is able to help with part of the bathing activity, staff provide some weight bearing assistance. Resident transfers in and out of tub with extensive assist. Coded as such.
[2022-11-26] MEDS: LATANOPROST 0.005% OPHTH 1 DROP EYE-BOTH (19:23)
[2022-11-27] MEDS: OMEPRAZOLE 20 MG CAPSULE DR PO (07:05)
[2022-11-27] MEDS: ESCITALOPRAM 10 MG TABLET PO (07:57)
[2022-11-27] MEDS: timoloL maleate 0.5 % 1 DROP EYE-BOTH (07:57)
[2022-11-27] MEDS: ONDANSETRON ODT 4 MG TAB PO ×2 (07:57→15:46)
[2022-11-27] MEDS: ACETAMINOPHEN 500 MG TABLET PO ×3 (07:57→19:43)
[2022-11-27] MEDS: LATANOPROST 0.005% OPHTH 1 DROP EYE-BOTH (19:43)
[2022-11-28] MEDS: OMEPRAZOLE 20 MG CAPSULE DR PO (06:34)
[2022-11-28] MEDS: timoloL maleate 0.5 % 1 DROP EYE-BOTH (07:22)
[2022-11-28] MEDS: ESCITALOPRAM 10 MG TABLET PO (07:22)
[2022-11-28] MEDS: ACETAMINOPHEN 500 MG TABLET PO ×3 (07:22→20:44)
[2022-11-28] MEDS: ONDANSETRON ODT 4 MG TAB PO ×2 (07:22→15:20)
[2022-11-28] MEDS: LATANOPROST 0.005% OPHTH 1 DROP EYE-BOTH (20:45)
[2022-11-29] MEDS: OMEPRAZOLE 20 MG CAPSULE DR PO (06:34)
[2022-11-29] MEDS: ACETAMINOPHEN 500 MG TABLET PO ×3 (08:22→19:46)
[2022-11-29] MEDS: ONDANSETRON ODT 4 MG TAB PO ×2 (08:22→16:10)
[2022-11-29] MEDS: ESCITALOPRAM 10 MG TABLET PO (08:22)
[2022-11-29] MEDS: timoloL maleate 0.5 % 1 DROP EYE-BOTH (08:22)
--- NOTE | 2022-11-29 11:00 | PC.PHA1 ---
CONCESSION ATTENDANT PHARMACIST'S MEDICATION REVIEW: MEDICATION MONITORING:escitalopram 10 mg daily IRREGULARITY OR COMMENTS:Patient continues on same medication regimen and hospice status. Agree with plan to continue escitalopram at this time due to patient's hospice status. SUGGESTED COURSE OF ACTION TAKEN:No medication recommendations at this time.
[2022-11-29] MEDS: LATANOPROST 0.005% OPHTH 1 DROP EYE-BOTH (19:46)
[2022-11-30] MEDS: ACETAMINOPHEN 500 MG TABLET PO ×3 (07:38→19:39)
[2022-11-30] MEDS: timoloL maleate 0.5 % 1 DROP EYE-BOTH (07:38)
[2022-11-30] MEDS: ESCITALOPRAM 10 MG TABLET PO (07:38)
[2022-11-30] MEDS: ONDANSETRON ODT 4 MG TAB PO ×2 (07:38→16:25)
[2022-11-30] MEDS: OMEPRAZOLE 20 MG CAPSULE DR PO (07:38)
[2022-11-30] MEDS: LATANOPROST 0.005% OPHTH 1 DROP EYE-BOTH (19:39)
--- NOTE | 2022-12-01 01:11 | PC.NURSE ---
Weekly Charting Week 4: Vital signs reviewed with no concerns. Comprehensive and temporary care plan reviewed with no changes made. No behaviors documented in this month. Currently on? Escitalopram 10mg daily with no adverse drug effects noted. No useful hearing. 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 pay station collector or whiteboard is required for communication. Staff anticipate needs and observe for non-verbal communication. Cognition is impaired r/t dementia. Visual deficit corrected with glasses. All medications administered by licensed nurse. Continues to receive hospice services for metastatic prostate cancer. Health status stable at this time.
[2022-12-01] MEDS: OMEPRAZOLE 20 MG CAPSULE DR PO (06:49)
[2022-12-01 07:00] VITALS: BP 129/74; PULSE 65; RESP 16; TEMP 36.6; O2SAT 95; BMI 19.2
--- NOTE | 2022-12-01 07:57 | PC.NURSE ---
Weekly Charting-Week 4: Comprehensive & temporary care plan reviewed, no changes made. Nothing added to temporary care plan. No changes noted in communication, hearing, vision, or orientation. 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 No useful hearing. Use cloth stock sorter/whiteboard for all communication. Speech unclear. Staff anticipate needs and observe for non verbal cues. Vision impaired corrected by glasses. Continues on hospice care for prostate cancer. Health condition is stable. Vital signs reviewed, no concerns. Continue weekly monitoring and refer to provider as needed. Nurse to administer all medications.? Mood/Behavior: No issues the past month. Continues on Lexapro 10 mg daily with no adverse effects noted. No changes in medication.
[2022-12-01] MEDS: ACETAMINOPHEN 500 MG TABLET PO ×3 (08:06→19:55)
[2022-12-01] MEDS: ONDANSETRON ODT 4 MG TAB PO ×2 (08:07→15:45)
[2022-12-01] MEDS: ESCITALOPRAM 10 MG TABLET PO (08:07)
[2022-12-01] MEDS: timoloL maleate 0.5 % 1 DROP EYE-BOTH (08:07)
[2022-12-01] MEDS: LATANOPROST 0.005% OPHTH 1 DROP EYE-BOTH (19:55)
[2022-12-02] MEDS: OMEPRAZOLE 20 MG CAPSULE DR PO (06:58)
[2022-12-02] MEDS: ONDANSETRON ODT 4 MG TAB PO ×2 (08:03→15:42)
[2022-12-02] MEDS: timoloL maleate 0.5 % 1 DROP EYE-BOTH (08:03)
[2022-12-02] MEDS: ESCITALOPRAM 10 MG TABLET PO (08:03)
[2022-12-02] MEDS: ACETAMINOPHEN 500 MG TABLET PO ×3 (08:03→20:05)
[2022-12-02] MEDS: LATANOPROST 0.005% OPHTH 1 DROP EYE-BOTH (20:06)
[2022-12-03] MEDS: OMEPRAZOLE 20 MG CAPSULE DR PO (07:08)
[2022-12-03] MEDS: ACETAMINOPHEN 500 MG TABLET PO ×3 (08:23→19:55)
[2022-12-03] MEDS: ONDANSETRON ODT 4 MG TAB PO ×2 (08:24→16:35)
[2022-12-03] MEDS: ESCITALOPRAM 10 MG TABLET PO (08:24)
[2022-12-03] MEDS: timoloL maleate 0.5 % 1 DROP EYE-BOTH (08:24)
[2022-12-03] MEDS: LATANOPROST 0.005% OPHTH 1 DROP EYE-BOTH (19:55)
[2022-12-04] MEDS: OMEPRAZOLE 20 MG CAPSULE DR PO (07:55)
[2022-12-04] MEDS: ONDANSETRON ODT 4 MG TAB PO ×2 (07:56→15:51)
[2022-12-04] MEDS: ACETAMINOPHEN 500 MG TABLET PO ×3 (07:56→20:12)
[2022-12-04] MEDS: ESCITALOPRAM 10 MG TABLET PO (07:56)
[2022-12-04] MEDS: timoloL maleate 0.5 % 1 DROP EYE-BOTH (07:56)
[2022-12-04] MEDS: LATANOPROST 0.005% OPHTH 1 DROP EYE-BOTH (20:12)
[2022-12-05] MEDS: OMEPRAZOLE 20 MG CAPSULE DR PO (07:04)
[2022-12-05] MEDS: timoloL maleate 0.5 % 1 DROP EYE-BOTH (07:44)
[2022-12-05] MEDS: ACETAMINOPHEN 500 MG TABLET PO ×3 (07:44→19:30)
[2022-12-05] MEDS: ONDANSETRON ODT 4 MG TAB PO ×2 (07:44→15:28)
[2022-12-05] MEDS: ESCITALOPRAM 10 MG TABLET PO (07:44)
[2022-12-05] MEDS: LATANOPROST 0.005% OPHTH 1 DROP EYE-BOTH (19:30)
[2022-12-06] MEDS: OMEPRAZOLE 20 MG CAPSULE DR PO (07:03)
[2022-12-06] MEDS: ACETAMINOPHEN 500 MG TABLET PO ×3 (08:02→19:36)
[2022-12-06] MEDS: ESCITALOPRAM 10 MG TABLET PO (08:02)
[2022-12-06] MEDS: ONDANSETRON ODT 4 MG TAB PO ×2 (08:02→16:29)
[2022-12-06] MEDS: timoloL maleate 0.5 % 1 DROP EYE-BOTH (08:02)
[2022-12-06] MEDS: LATANOPROST 0.005% OPHTH 1 DROP EYE-BOTH (19:36)
[2022-12-07] MEDS: OMEPRAZOLE 20 MG CAPSULE DR PO (06:50)
[2022-12-07] MEDS: ACETAMINOPHEN 500 MG TABLET PO ×3 (08:05→19:42)
[2022-12-07] MEDS: ESCITALOPRAM 10 MG TABLET PO (08:06)
[2022-12-07] MEDS: ONDANSETRON ODT 4 MG TAB PO ×2 (08:06→16:30)
[2022-12-07] MEDS: timoloL maleate 0.5 % 1 DROP EYE-BOTH (08:06)
[2022-12-07] MEDS: LATANOPROST 0.005% OPHTH 1 DROP EYE-BOTH (19:42)
--- NOTE | 2022-12-08 02:24 | PC.NURSE ---
Weekly Charting-Week 1: Reviewed vital signs and noted to be stable. Reviewed temporary care plan with noted fall in dining room on 10-29-22 with interventions to make sure his chair alarm is working and he is set at a table with others to be observed. Comprehensive Care Plan has no changes. Resident continues on Hospice care. No complaints of pain over last month and he receives Tylenol 1000mg TID which is effective. Resident is extensive assist of one for all bathing,grooming,dressing and oral cares. He receives a regular diet that is cut in bite sized pieces and soft. Thin liquids. Can feed self after set up but does need encouragement to eat.
--- NOTE | 2022-12-08 07:02 | PC.NURSE ---
Weekly Charting, Week 1-ADL's: Comprehensive and temporary care plan reviewed. No changes made. Nothing added to temporary care plan. Resident needs extensive assist of one with dressing, grooming, oral cares and bathing. Feed self after set up. Is on regular diet, soft and bite sized texture r/t edentulous, thin liquids. No problems with chewing/swallowing reported/noted. Vital signs reviewed, no concerns. Continues on hospice care. Pain: Receives Tylenol 500-1000mg TID, has been given 1000 mg most of the time. No complain/observed pain the past month. Staff anticipates need for pain.
[2022-12-08] MEDS: OMEPRAZOLE 20 MG CAPSULE DR PO (08:01)
[2022-12-08] MEDS: ACETAMINOPHEN 500 MG TABLET PO ×3 (08:25→19:34)
[2022-12-08] MEDS: timoloL maleate 0.5 % 1 DROP EYE-BOTH (08:26)
[2022-12-08] MEDS: ONDANSETRON ODT 4 MG TAB PO ×2 (08:26→15:38)
[2022-12-08] MEDS: ESCITALOPRAM 10 MG TABLET PO (08:26)
[2022-12-08 10:37] VITALS: BMI 19.3
[2022-12-08 14:12] VITALS: BP 122/69; PULSE 64; RESP 20; TEMP 36.4; O2SAT 95
[2022-12-08] MEDS: LATANOPROST 0.005% OPHTH 1 DROP EYE-BOTH (19:34)
[2022-12-09] MEDS: timoloL maleate 0.5 % 1 DROP EYE-BOTH (07:46)
[2022-12-09] MEDS: ACETAMINOPHEN 500 MG TABLET PO ×3 (07:46→20:19)
[2022-12-09] MEDS: ONDANSETRON ODT 4 MG TAB PO ×2 (07:46→15:57)
[2022-12-09] MEDS: ESCITALOPRAM 10 MG TABLET PO (07:46)
[2022-12-09] MEDS: OMEPRAZOLE 20 MG CAPSULE DR PO (07:46)
[2022-12-09] MEDS: LATANOPROST 0.005% OPHTH 1 DROP EYE-BOTH (20:19)
[2022-12-10] MEDS: ONDANSETRON ODT 4 MG TAB PO ×2 (07:16→16:10)
[2022-12-10] MEDS: ESCITALOPRAM 10 MG TABLET PO (07:16)
[2022-12-10] MEDS: OMEPRAZOLE 20 MG CAPSULE DR PO (07:16)
[2022-12-10] MEDS: ACETAMINOPHEN 500 MG TABLET PO ×3 (07:16→19:51)
[2022-12-10] MEDS: timoloL maleate 0.5 % 1 DROP EYE-BOTH (07:16)
[2022-12-10] MEDS: LATANOPROST 0.005% OPHTH 1 DROP EYE-BOTH (19:52)
[2022-12-11] MEDS: ONDANSETRON ODT 4 MG TAB PO ×2 (08:19→15:34)
[2022-12-11] MEDS: ACETAMINOPHEN 500 MG TABLET PO ×3 (08:19→20:28)
[2022-12-11] MEDS: ESCITALOPRAM 10 MG TABLET PO (08:19)
[2022-12-11] MEDS: OMEPRAZOLE 20 MG CAPSULE DR PO (08:19)
[2022-12-11] MEDS: timoloL maleate 0.5 % 1 DROP EYE-BOTH (09:56)
[2022-12-11] MEDS: LATANOPROST 0.005% OPHTH 1 DROP EYE-BOTH (20:28)
[2022-12-12] MEDS: ACETAMINOPHEN 500 MG TABLET PO ×3 (07:11→19:29)
[2022-12-12] MEDS: OMEPRAZOLE 20 MG CAPSULE DR PO (07:11)
[2022-12-12] MEDS: ESCITALOPRAM 10 MG TABLET PO (07:12)
[2022-12-12] MEDS: timoloL maleate 0.5 % 1 DROP EYE-BOTH (07:12)
[2022-12-12] MEDS: ONDANSETRON ODT 4 MG TAB PO ×2 (07:12→16:44)
[2022-12-12] MEDS: LATANOPROST 0.005% OPHTH 1 DROP EYE-BOTH (19:29)
[2022-12-13] MEDS: ACETAMINOPHEN 500 MG TABLET PO ×3 (07:36→19:12)
[2022-12-13] MEDS: OMEPRAZOLE 20 MG CAPSULE DR PO (07:36)
[2022-12-13] MEDS: ONDANSETRON ODT 4 MG TAB PO ×2 (07:37→15:32)
[2022-12-13] MEDS: ESCITALOPRAM 10 MG TABLET PO (07:37)
[2022-12-13] MEDS: timoloL maleate 0.5 % 1 DROP EYE-BOTH (07:37)
[2022-12-13] MEDS: LATANOPROST 0.005% OPHTH 1 DROP EYE-BOTH (19:13)
[2022-12-14] MEDS: OMEPRAZOLE 20 MG CAPSULE DR PO (06:59)
[2022-12-14] MEDS: ONDANSETRON ODT 4 MG TAB PO ×2 (07:01→15:57)
[2022-12-14] MEDS: ACETAMINOPHEN 500 MG TABLET PO ×3 (07:01→21:06)
[2022-12-14] MEDS: timoloL maleate 0.5 % 1 DROP EYE-BOTH (07:01)
[2022-12-14] MEDS: ESCITALOPRAM 10 MG TABLET PO (07:01)
--- NOTE | 2022-12-14 12:02 | PC.NURSE ---
Recert visit: Resident seen by MARTHA Hernández. Orders reviewed and renewed for 75 days with no changes
[2022-12-14] MEDS: LATANOPROST 0.005% OPHTH 1 DROP EYE-BOTH (21:06)
--- NOTE | 2022-12-15 00:33 | PC.NURSE ---
Week;ly Charting Week 2 Mobility: Vitals signs reviewed with no concerns. Comprehensive and temporary care plan reviewed with no changes made. Resident requires one staff assist with transfer belt and walker with transfers and ambulation. Staff wheels to all destinations. One assist with bed/chair positioning. Has bed and chair alarms.Fall Rish Assessment remains a high fall risk Has 1x fall in the past month. Fall interventions: Call light within reach, bed in low position brakes locked, hourly safety checks, in room don't leave in w/c, bed/chair alarms, relocate area in the dining room so he can be observed.
[2022-12-15] MEDS: OMEPRAZOLE 20 MG CAPSULE DR PO (07:39)
[2022-12-15] MEDS: timoloL maleate 0.5 % 1 DROP EYE-BOTH (07:41)
[2022-12-15] MEDS: ACETAMINOPHEN 500 MG TABLET PO ×3 (07:41→19:05)
[2022-12-15] MEDS: ESCITALOPRAM 10 MG TABLET PO (07:41)
[2022-12-15] MEDS: ONDANSETRON ODT 4 MG TAB PO ×2 (07:41→16:01)
[2022-12-15 10:43] VITALS: BP 122/80; PULSE 78; RESP 16; TEMP 36.4; O2SAT 95; BMI 19.3
[2022-12-15] MEDS: LATANOPROST 0.005% OPHTH 1 DROP EYE-BOTH (19:08)
[2022-12-16] MEDS: timoloL maleate 0.5 % 1 DROP EYE-BOTH (06:50)
[2022-12-16] MEDS: ONDANSETRON ODT 4 MG TAB PO ×2 (06:50→16:51)
[2022-12-16] MEDS: ESCITALOPRAM 10 MG TABLET PO (06:50)
[2022-12-16] MEDS: OMEPRAZOLE 20 MG CAPSULE DR PO (06:50)
[2022-12-16] MEDS: ACETAMINOPHEN 500 MG TABLET PO ×3 (06:50→19:18)
[2022-12-16] MEDS: LATANOPROST 0.005% OPHTH 1 DROP EYE-BOTH (19:18)
[2022-12-17] MEDS: ACETAMINOPHEN 500 MG TABLET PO ×3 (06:57→19:04)
[2022-12-17] MEDS: OMEPRAZOLE 20 MG CAPSULE DR PO (06:57)
[2022-12-17] MEDS: ESCITALOPRAM 10 MG TABLET PO (07:00)
[2022-12-17] MEDS: ONDANSETRON ODT 4 MG TAB PO ×2 (07:00→16:22)
[2022-12-17] MEDS: timoloL maleate 0.5 % 1 DROP EYE-BOTH (07:00)
[2022-12-17] MEDS: LATANOPROST 0.005% OPHTH 1 DROP EYE-BOTH (19:05)
[2022-12-18] MEDS: ACETAMINOPHEN 500 MG TABLET PO ×3 (07:43→20:04)
[2022-12-18] MEDS: OMEPRAZOLE 20 MG CAPSULE DR PO (07:43)
[2022-12-18] MEDS: ONDANSETRON ODT 4 MG TAB PO ×2 (07:44→16:13)
[2022-12-18] MEDS: timoloL maleate 0.5 % 1 DROP EYE-BOTH (07:44)
[2022-12-18] MEDS: ESCITALOPRAM 10 MG TABLET PO (07:44)
[2022-12-18] MEDS: LATANOPROST 0.005% OPHTH 1 DROP EYE-BOTH (20:05)
[2022-12-19] MEDS: OMEPRAZOLE 20 MG CAPSULE DR PO (07:03)
[2022-12-19] MEDS: ACETAMINOPHEN 500 MG TABLET PO ×3 (07:03→19:54)
[2022-12-19] MEDS: timoloL maleate 0.5 % 1 DROP EYE-BOTH (07:04)
[2022-12-19] MEDS: ONDANSETRON ODT 4 MG TAB PO ×2 (07:04→16:32)
[2022-12-19] MEDS: ESCITALOPRAM 10 MG TABLET PO (07:04)
[2022-12-19] MEDS: LATANOPROST 0.005% OPHTH 1 DROP EYE-BOTH (19:54)
[2022-12-20] MEDS: ONDANSETRON ODT 4 MG TAB PO ×2 (07:42→16:04)
[2022-12-20] MEDS: OMEPRAZOLE 20 MG CAPSULE DR PO (07:42)
[2022-12-20] MEDS: timoloL maleate 0.5 % 1 DROP EYE-BOTH (07:42)
[2022-12-20] MEDS: ACETAMINOPHEN 500 MG TABLET PO ×3 (07:42→20:48)
[2022-12-20] MEDS: ESCITALOPRAM 10 MG TABLET PO (07:42)
[2022-12-20] MEDS: LATANOPROST 0.005% OPHTH 1 DROP EYE-BOTH (20:48)
[2022-12-21] MEDS: OMEPRAZOLE 20 MG CAPSULE DR PO (07:09)
[2022-12-21] MEDS: ACETAMINOPHEN 500 MG TABLET PO ×3 (07:09→17:50)
[2022-12-21] MEDS: ONDANSETRON ODT 4 MG TAB PO ×2 (07:10→15:07)
[2022-12-21] MEDS: ESCITALOPRAM 10 MG TABLET PO (07:10)
[2022-12-21] MEDS: timoloL maleate 0.5 % 1 DROP EYE-BOTH (07:10)
[2022-12-21] MEDS: LATANOPROST 0.005% OPHTH 1 DROP EYE-BOTH (17:51)
--- NOTE | 2022-12-22 00:41 | PC.NURSE ---
Weekly charting week 3. Toileting and Skin. Vital signs reviewed-no concerns. Comprehensive and temporary care plan reviewed with no changes made. Toileting: Res is incontinent both bowel and bladder. Staff check and changed on 1st, 2nd and 3rd rounds NOC. Staff managed dileep cares, incontinent pad and clothing. Wears medium brief. Skin: No skin issue. Skin check done every bath days and during cares.
--- NOTE | 2022-12-22 06:42 | PC.NURSE ---
WEEKLY CHARTING -WEEK 3- TOILETING & SKIN : Vital signs reviewed with no concerns.Comprehensive & temporary care plan reviewed. No changes made. Nothing added to temporary care plan. Resident is incontinent of bowel and bladder with some control. Needs extensive one assist, walker, gait belt with toileting including mobility to/from toilet, pads, dileep cares and clothing adjustment. Staff to toilet every 2 hours with some encouragement as resident has tendency to refuse even when the pullup is wet. Wears medium briefs. Skin: Previous redness on his groin has healed after nystatin application. No issues at this time. Skin is routinely checked during cares and on bath day.
[2022-12-22] MEDS: OMEPRAZOLE 20 MG CAPSULE DR PO (06:51)
[2022-12-22 07:00] VITALS: BP 117/69; PULSE 65; RESP 18; TEMP 36.9; O2SAT 92
[2022-12-22] MEDS: ACETAMINOPHEN 500 MG TABLET PO ×3 (08:06→20:29)
[2022-12-22] MEDS: ONDANSETRON ODT 4 MG TAB PO ×2 (08:07→15:23)
[2022-12-22] MEDS: timoloL maleate 0.5 % 1 DROP EYE-BOTH (08:07)
[2022-12-22] MEDS: ESCITALOPRAM 10 MG TABLET PO (08:07)
[2022-12-22 13:29] VITALS: BMI 19.8
[2022-12-22] MEDS: LATANOPROST 0.005% OPHTH 1 DROP EYE-BOTH (20:29)
[2022-12-23] MEDS: OMEPRAZOLE 20 MG CAPSULE DR PO (06:47)
[2022-12-23] MEDS: timoloL maleate 0.5 % 1 DROP EYE-BOTH (07:38)
[2022-12-23] MEDS: ONDANSETRON ODT 4 MG TAB PO ×2 (07:38→15:59)
[2022-12-23] MEDS: ACETAMINOPHEN 500 MG TABLET PO ×3 (07:38→19:27)
[2022-12-23] MEDS: ESCITALOPRAM 10 MG TABLET PO (07:38)
[2022-12-23] MEDS: LATANOPROST 0.005% OPHTH 1 DROP EYE-BOTH (19:27)
[2022-12-24] MEDS: ACETAMINOPHEN 500 MG TABLET PO ×3 (07:32→19:40)
[2022-12-24] MEDS: ONDANSETRON ODT 4 MG TAB PO ×2 (07:32→16:22)
[2022-12-24] MEDS: ESCITALOPRAM 10 MG TABLET PO (07:32)
[2022-12-24] MEDS: OMEPRAZOLE 20 MG CAPSULE DR PO (07:32)
[2022-12-24] MEDS: timoloL maleate 0.5 % 1 DROP EYE-BOTH (07:32)
[2022-12-24] MEDS: LATANOPROST 0.005% OPHTH 1 DROP EYE-BOTH (19:40)
[2022-12-25] MEDS: timoloL maleate 0.5 % 1 DROP EYE-BOTH (06:49)
[2022-12-25] MEDS: ONDANSETRON ODT 4 MG TAB PO ×2 (06:49→16:47)
[2022-12-25] MEDS: ACETAMINOPHEN 500 MG TABLET PO ×3 (06:49→20:10)
[2022-12-25] MEDS: OMEPRAZOLE 20 MG CAPSULE DR PO (06:49)
[2022-12-25] MEDS: ESCITALOPRAM 10 MG TABLET PO (06:49)
[2022-12-25] MEDS: LATANOPROST 0.005% OPHTH 1 DROP EYE-BOTH (20:10)
[2022-12-26] MEDS: OMEPRAZOLE 20 MG CAPSULE DR PO (07:44)
[2022-12-26] MEDS: ACETAMINOPHEN 500 MG TABLET PO ×3 (07:44→19:46)
[2022-12-26] MEDS: timoloL maleate 0.5 % 1 DROP EYE-BOTH (07:45)
[2022-12-26] MEDS: ESCITALOPRAM 10 MG TABLET PO (07:45)
[2022-12-26] MEDS: ONDANSETRON ODT 4 MG TAB PO ×2 (07:45→15:27)
[2022-12-26] MEDS: LATANOPROST 0.005% OPHTH 1 DROP EYE-BOTH (19:47)
[2022-12-27] MEDS: timoloL maleate 0.5 % 1 DROP EYE-BOTH (07:08)
[2022-12-27] MEDS: ACETAMINOPHEN 500 MG TABLET PO ×3 (07:08→20:18)
[2022-12-27] MEDS: ONDANSETRON ODT 4 MG TAB PO ×2 (07:08→15:40)
[2022-12-27] MEDS: ESCITALOPRAM 10 MG TABLET PO (07:08)
[2022-12-27] MEDS: OMEPRAZOLE 20 MG CAPSULE DR PO (07:08)
[2022-12-27] MEDS: LATANOPROST 0.005% OPHTH 1 DROP EYE-BOTH (20:18)
[2022-12-28] MEDS: ACETAMINOPHEN 500 MG TABLET PO ×3 (07:42→19:50)
[2022-12-28] MEDS: OMEPRAZOLE 20 MG CAPSULE DR PO (07:42)
[2022-12-28] MEDS: ESCITALOPRAM 10 MG TABLET PO (07:43)
[2022-12-28] MEDS: timoloL maleate 0.5 % 1 DROP EYE-BOTH (07:43)
[2022-12-28] MEDS: ONDANSETRON ODT 4 MG TAB PO ×2 (07:43→15:44)
[2022-12-28] MEDS: LATANOPROST 0.005% OPHTH 1 DROP EYE-BOTH (19:50)
--- NOTE | 2022-12-29 00:54 | PC.NURSE ---
Weekly Charting Week 4 Vital signs reviewed with no concerns. Comprehensive and temporary care plan reviewed with no changes made. No behaviors documented in this month. Receives Escitalopram 10mg daily with no adverse drug effects noted. 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 translator and interpreter or whiteboard is required for communication. Staff anticipate needs and observe for non-verbal communication. Cognition is impaired r/t dementia. Visual deficit corrected with glasses. All medications administered by licensed nurse. Continues to receive hospice care. Health status stable at this time.
--- NOTE | 2022-12-29 06:38 | PC.NURSE ---
WEEKLY CHARTING -WEEK 4 : Communication, Hearing/Vision, Cognition/Behaviors & Clinical Monitoring Vital signs and weight reviewed with no concerns currently and it is monitored weekly. Comprehensive & temporary care plan reviewed, no changes made. Nothing added to temporary care plan. Resident is currently on hospice care since 06/19/22 for prostate cancer and his health has been stable with occasionally c/o abdomen discomfort. Resident has a great personality with caring gestures for other residents. He is on Lexapro 10 mg daily with no adverse effects. No behavior problem since admission. No changes noted in communication, hearing, vision, or orientation. 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 He communicates using sign language and training designer. Staff uses whiteboard for all communication and most of time resident is able to understand by reading lips. Staff anticipate needs and observe for non verbal cues. Vision impaired corrected by glasses. Medication are administered by nurse with no issue and he is compliance with his medication and all his cares. No changes in chronic health condition noted. ?
[2022-12-29 07:00] VITALS: BP 108/61; PULSE 76; RESP 18; TEMP 36.8; O2SAT 90; BMI 19.8
[2022-12-29] MEDS: ONDANSETRON ODT 4 MG TAB PO ×2 (07:30→16:26)
[2022-12-29] MEDS: OMEPRAZOLE 20 MG CAPSULE DR PO (07:30)
[2022-12-29] MEDS: ACETAMINOPHEN 500 MG TABLET PO ×3 (07:30→19:46)
[2022-12-29] MEDS: timoloL maleate 0.5 % 1 DROP EYE-BOTH (07:30)
[2022-12-29] MEDS: ESCITALOPRAM 10 MG TABLET PO (07:30)
[2022-12-29] MEDS: LATANOPROST 0.005% OPHTH 1 DROP EYE-BOTH (19:47)
[2022-12-30] MEDS: ACETAMINOPHEN 500 MG TABLET PO ×3 (07:29→20:58)
[2022-12-30] MEDS: timoloL maleate 0.5 % 1 DROP EYE-BOTH (07:29)
[2022-12-30] MEDS: ONDANSETRON ODT 4 MG TAB PO ×2 (07:29→16:22)
[2022-12-30] MEDS: OMEPRAZOLE 20 MG CAPSULE DR PO (07:29)
[2022-12-30] MEDS: ESCITALOPRAM 10 MG TABLET PO (07:29)
[2022-12-30] MEDS: LATANOPROST 0.005% OPHTH 1 DROP EYE-BOTH (20:59)
[2022-12-31] MEDS: OMEPRAZOLE 20 MG CAPSULE DR PO (07:48)
[2022-12-31] MEDS: ACETAMINOPHEN 500 MG TABLET PO ×3 (07:48→20:05)
[2022-12-31] MEDS: timoloL maleate 0.5 % 1 DROP EYE-BOTH (07:49)
[2022-12-31] MEDS: ONDANSETRON ODT 4 MG TAB PO ×2 (07:49→15:44)
[2022-12-31] MEDS: ESCITALOPRAM 10 MG TABLET PO (07:49)
[2022-12-31] MEDS: LATANOPROST 0.005% OPHTH 1 DROP EYE-BOTH (20:05)
[2023-01-01] MEDS: ESCITALOPRAM 10 MG TABLET PO (07:38)
[2023-01-01] MEDS: ACETAMINOPHEN 500 MG TABLET PO ×3 (07:38→20:18)
[2023-01-01] MEDS: ONDANSETRON ODT 4 MG TAB PO ×2 (07:38→15:33)
[2023-01-01] MEDS: OMEPRAZOLE 20 MG CAPSULE DR PO (07:38)
[2023-01-01] MEDS: timoloL maleate 0.5 % 1 DROP EYE-BOTH (07:39)
--- NOTE | 2023-01-01 11:24 | PC.PHA1 ---
NAVAL AIRCREWMAN TACTICAL HELICOPTER PHARMACIST'S MEDICATION REVIEW: MEDICATION MONITORING:Escitalopram 10 mg IRREGULARITY OR COMMENTS:Patient continues on hospice, per nursing notes patient's behaviors are appropriate, therefore GDR of escitalopram clinically contraindicated. No other changes to patient's medication regimen since last review, he continues on two eye drops and scheduled acetaminophen. SUGGESTED COURSE OF ACTION TAKEN:Mo medication recommendations this review.
[2023-01-01] MEDS: LATANOPROST 0.005% OPHTH 1 DROP EYE-BOTH (20:18)
[2023-01-02] MEDS: timoloL maleate 0.5 % 1 DROP EYE-BOTH (07:23)
[2023-01-02] MEDS: ESCITALOPRAM 10 MG TABLET PO (07:23)
[2023-01-02] MEDS: ACETAMINOPHEN 500 MG TABLET PO ×3 (07:23→20:16)
[2023-01-02] MEDS: OMEPRAZOLE 20 MG CAPSULE DR PO (07:23)
[2023-01-02] MEDS: ONDANSETRON ODT 4 MG TAB PO ×2 (07:23→15:29)
[2023-01-02] MEDS: LATANOPROST 0.005% OPHTH 1 DROP EYE-BOTH (20:16)
[2023-01-03] MEDS: ACETAMINOPHEN 500 MG TABLET PO ×3 (07:08→19:35)
[2023-01-03] MEDS: OMEPRAZOLE 20 MG CAPSULE DR PO (07:08)
[2023-01-03] MEDS: ONDANSETRON ODT 4 MG TAB PO ×2 (07:09→16:10)
[2023-01-03] MEDS: ESCITALOPRAM 10 MG TABLET PO (07:09)
[2023-01-03] MEDS: timoloL maleate 0.5 % 1 DROP EYE-BOTH (07:09)
--- NOTE | 2023-01-03 15:06 | PC.NURSE ---
Sent E-mail to [facility] hospice team regarding In-House Podiatry consent and hospice. cooperative education coordinator confirmed that while it is not a covered service with hospice, it does align with the philosophy of hospice care if resident is interested. Gaming Table Operator met with resident and spouse at bedside with [facility] video board turner. Discussed recommendation for resident to be seen by In-house Podiatry for foot care and that while it was not a covered service by Medicare, it should be covered by Medicaid. Spouse and resident are in agreement to receive services as long as they do not end up paying out of pocket. This ad writer sent E-mail to In-house podiatry requesting they bill resident appropriately. Consent form scanned and sent to In-House Podiatry for visit on 01/04/2023.
[2023-01-03] MEDS: LATANOPROST 0.005% OPHTH 1 DROP EYE-BOTH (19:35)
[2023-01-04] MEDS: OMEPRAZOLE 20 MG CAPSULE DR PO (07:14)
[2023-01-04] MEDS: ACETAMINOPHEN 500 MG TABLET PO ×3 (07:14→20:10)
[2023-01-04] MEDS: ONDANSETRON ODT 4 MG TAB PO ×2 (07:14→16:18)
[2023-01-04] MEDS: timoloL maleate 0.5 % 1 DROP EYE-BOTH (07:14)
[2023-01-04] MEDS: ESCITALOPRAM 10 MG TABLET PO (07:14)
[2023-01-04] MEDS: LATANOPROST 0.005% OPHTH 1 DROP EYE-BOTH (20:10)
[2023-01-05] MEDS: OMEPRAZOLE 20 MG CAPSULE DR PO (07:58)
[2023-01-05] MEDS: timoloL maleate 0.5 % 1 DROP EYE-BOTH (07:59)
[2023-01-05] MEDS: ONDANSETRON ODT 4 MG TAB PO ×2 (07:59→15:15)
[2023-01-05] MEDS: ESCITALOPRAM 10 MG TABLET PO (07:59)
[2023-01-05] MEDS: ACETAMINOPHEN 500 MG TABLET PO ×3 (07:59→19:12)
[2023-01-05 08:16] VITALS: BP 103/70; PULSE 79; RESP 18; TEMP 36.6; O2SAT 94; BMI 19.8
[2023-01-05] MEDS: LATANOPROST 0.005% OPHTH 1 DROP EYE-BOTH (19:12)
[2023-01-06] MEDS: timoloL maleate 0.5 % 1 DROP EYE-BOTH (07:32)
[2023-01-06] MEDS: OMEPRAZOLE 20 MG CAPSULE DR PO (07:32)
[2023-01-06] MEDS: ESCITALOPRAM 10 MG TABLET PO (07:32)
[2023-01-06] MEDS: ONDANSETRON ODT 4 MG TAB PO ×2 (07:32→15:06)
[2023-01-06] MEDS: ACETAMINOPHEN 500 MG TABLET PO ×3 (07:32→19:26)
[2023-01-06] MEDS: LATANOPROST 0.005% OPHTH 1 DROP EYE-BOTH (19:27)
[2023-01-07] MEDS: ACETAMINOPHEN 500 MG TABLET PO ×3 (07:12→19:12)
[2023-01-07] MEDS: ONDANSETRON ODT 4 MG TAB PO ×2 (07:12→15:52)
[2023-01-07] MEDS: OMEPRAZOLE 20 MG CAPSULE DR PO (07:12)
[2023-01-07] MEDS: ESCITALOPRAM 10 MG TABLET PO (07:12)
[2023-01-07] MEDS: timoloL maleate 0.5 % 1 DROP EYE-BOTH (07:12)
[2023-01-07] MEDS: LATANOPROST 0.005% OPHTH 1 DROP EYE-BOTH (19:13)
[2023-01-08] MEDS: OMEPRAZOLE 20 MG CAPSULE DR PO (07:09)
[2023-01-08] MEDS: ONDANSETRON ODT 4 MG TAB PO ×2 (07:10→16:25)
[2023-01-08] MEDS: timoloL maleate 0.5 % 1 DROP EYE-BOTH (07:10)
[2023-01-08] MEDS: ACETAMINOPHEN 500 MG TABLET PO ×3 (07:10→20:23)
[2023-01-08] MEDS: ESCITALOPRAM 10 MG TABLET PO (07:10)
--- NOTE | 2023-01-08 15:02 | PC.SPIRITC ---
Jacque's , Jyothi, expressed concern over news about LTCC closure. I provided visit for support, connection, and reiterated resources given out to residents.
[2023-01-08] MEDS: LATANOPROST 0.005% OPHTH 1 DROP EYE-BOTH (20:24)
[2023-01-09] MEDS: ESCITALOPRAM 10 MG TABLET PO (07:20)
[2023-01-09] MEDS: ACETAMINOPHEN 500 MG TABLET PO ×3 (07:20→20:59)
[2023-01-09] MEDS: ONDANSETRON ODT 4 MG TAB PO ×2 (07:20→15:57)
[2023-01-09] MEDS: OMEPRAZOLE 20 MG CAPSULE DR PO (07:20)
[2023-01-09] MEDS: timoloL maleate 0.5 % 1 DROP EYE-BOTH (07:21)
--- NOTE | 2023-01-09 16:34 | PC.SOCIAL ---
Sent referral for placement to [facility]. Social work will follow up as needed.
[2023-01-09] MEDS: LATANOPROST 0.005% OPHTH 1 DROP EYE-BOTH (21:00)
[2023-01-10] MEDS: timoloL maleate 0.5 % 1 DROP EYE-BOTH (07:16)
[2023-01-10] MEDS: ACETAMINOPHEN 500 MG TABLET PO ×3 (07:16→19:46)
[2023-01-10] MEDS: OMEPRAZOLE 20 MG CAPSULE DR PO (07:16)
[2023-01-10] MEDS: ONDANSETRON ODT 4 MG TAB PO ×2 (07:16→15:24)
[2023-01-10] MEDS: ESCITALOPRAM 10 MG TABLET PO (07:16)
[2023-01-10] MEDS: LATANOPROST 0.005% OPHTH 1 DROP EYE-BOTH (19:46)
[2023-01-11] MEDS: OMEPRAZOLE 20 MG CAPSULE DR PO (07:36)
[2023-01-11] MEDS: ACETAMINOPHEN 500 MG TABLET PO ×3 (07:36→19:37)
[2023-01-11] MEDS: ESCITALOPRAM 10 MG TABLET PO (07:37)
[2023-01-11] MEDS: timoloL maleate 0.5 % 1 DROP EYE-BOTH (07:37)
[2023-01-11] MEDS: ONDANSETRON ODT 4 MG TAB PO ×2 (07:37→15:51)
[2023-01-11] MEDS: LATANOPROST 0.005% OPHTH 1 DROP EYE-BOTH (19:37)
--- NOTE | 2023-01-12 00:10 | PC.NURSE ---
Weekly Charting Week 1 PAIN and ADLs Vital signs reviewed, no concerns, Comprehensive and temporary care plan reviewed with no changes made. On hospice care. Currently receives acetaminophen 500-1000mg TID for pain management which is noted to be effective. No complain of pain the past month. ADLs: Resident requires extensive assist of 1 with dressing, grooming, bathing, and oral care. Receives regular diet with soft and bite sized texture and thin liquids. Able to eat independently after set-up. No chewing/swallowing issue reported.
--- NOTE | 2023-01-12 06:59 | PC.NURSE ---
Weekly Charting, Week 1-ADL's: Comprehensive and temporary care plan reviewed. No changes made. Nothing added to temporary care plan. Resident needs extensive assist of one with dressing, grooming, oral cares and bathing. Feed self after set up. Is on regular diet, soft and bite sized texture thin liquids. No problems with chewing/swallowing reported/noted. Vital signs reviewed, no concerns. Continues on hospice care. Pain: Receives Tylenol 500-1000mg TID, has been given 1000 mg most of the time. No complain/observed pain the past month. Staff anticipates need for pain.
[2023-01-12] MEDS: ACETAMINOPHEN 500 MG TABLET PO ×3 (07:43→20:19)
[2023-01-12] MEDS: OMEPRAZOLE 20 MG CAPSULE DR PO (07:43)
[2023-01-12] MEDS: ONDANSETRON ODT 4 MG TAB PO ×2 (07:43→16:13)
[2023-01-12] MEDS: timoloL maleate 0.5 % 1 DROP EYE-BOTH (07:43)
[2023-01-12] MEDS: ESCITALOPRAM 10 MG TABLET PO (07:43)
[2023-01-12 08:36] VITALS: BP 124/66; PULSE 67; RESP 18; TEMP 36.4; O2SAT 95
[2023-01-12] MEDS: LATANOPROST 0.005% OPHTH 1 DROP EYE-BOTH (20:20)
[2023-01-13] MEDS: ESCITALOPRAM 10 MG TABLET PO (07:13)
[2023-01-13] MEDS: ACETAMINOPHEN 500 MG TABLET PO ×3 (07:13→19:56)
[2023-01-13] MEDS: ONDANSETRON ODT 4 MG TAB PO ×2 (07:13→16:16)
[2023-01-13] MEDS: OMEPRAZOLE 20 MG CAPSULE DR PO (07:13)
[2023-01-13] MEDS: timoloL maleate 0.5 % 1 DROP EYE-BOTH (07:13)
[2023-01-13] MEDS: LATANOPROST 0.005% OPHTH 1 DROP EYE-BOTH (19:57)
[2023-01-14] MEDS: ONDANSETRON ODT 4 MG TAB PO ×2 (07:00→15:45)
[2023-01-14] MEDS: OMEPRAZOLE 20 MG CAPSULE DR PO (07:00)
[2023-01-14] MEDS: ACETAMINOPHEN 500 MG TABLET PO ×3 (07:00→19:39)
[2023-01-14] MEDS: timoloL maleate 0.5 % 1 DROP EYE-BOTH (07:00)
[2023-01-14] MEDS: ESCITALOPRAM 10 MG TABLET PO (07:00)
[2023-01-14] MEDS: LATANOPROST 0.005% OPHTH 1 DROP EYE-BOTH (19:39)
[2023-01-15] MEDS: ONDANSETRON ODT 4 MG TAB PO ×2 (07:31→16:14)
[2023-01-15] MEDS: OMEPRAZOLE 20 MG CAPSULE DR PO (07:31)
[2023-01-15] MEDS: ACETAMINOPHEN 500 MG TABLET PO ×3 (07:31→20:28)
[2023-01-15] MEDS: ESCITALOPRAM 10 MG TABLET PO (07:31)
[2023-01-15] MEDS: timoloL maleate 0.5 % 1 DROP EYE-BOTH (07:32)
--- NOTE | 2023-01-15 11:59 | PC.SOCIAL ---
Completed Preadmission screening for resident to admit to [facility] on 01/16/23. Confirmation #[id number].
--- NOTE | 2023-01-15 16:40 | PC.SOCIAL ---
Provided an update to resident's POA's Gloria Lora and Scarlet Lora. Both POA's were provided with all details for discharge to [facility].
[2023-01-15] MEDS: LATANOPROST 0.005% OPHTH 1 DROP EYE-BOTH (20:30)
[2023-01-16] MEDS: OMEPRAZOLE 20 MG CAPSULE DR PO (07:20)
[2023-01-16] MEDS: ACETAMINOPHEN 500 MG TABLET PO (07:20)
[2023-01-16] MEDS: ESCITALOPRAM 10 MG TABLET PO (07:20)
[2023-01-16] MEDS: ONDANSETRON ODT 4 MG TAB PO (07:20)
[2023-01-16] MEDS: timoloL maleate 0.5 % 1 DROP EYE-BOTH (07:21)
--- NOTE | 2023-01-16 09:58 | PC.NURSE ---
Resident discharged to [facility] at this time with resident belongings sent with. Grading Machine Feeder gave [id number] report to aquatic centre manager at [facility] prior to discharge.
--- NOTE | 2023-01-16 13:22 | PC.NURSE ---
RECAPITULAION NOTE: Resident was admitted 03/30/22 to LT after a 2nd hospitalization within two months. First admission (Mar 07-2021), resident had COVID19 and was treated with remdesivir and discharged home. Residents then called EMS due to weakness and inability to care for resident in their home and he was readmitted under observation Mar 19- until he was admitted to the LT. 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 Resident has a significant past medical history which can be found in the resident's chart/provider intake note. His cancer was previously being managed by Dr. Sutton at the [facility]. Xstandi chemo drug was discontinued and resident placed on hospice. Resident has been stable and is followed closely by [facility] for services. He was discharged today to [facility] for ongoing long-term care since [facility] term care is closing. Resident was sent with dishcarge orders, remaining medications, wheelchair, recliner, and personal belongings. Resident was not on any narcotics/anxiolytic. Confirmed that resident is DNR/DNI comfort measures. was transported by van with spouse and nursing assistants teacher. Orders faxed to RN station at: [phone].
== END 2023-01-16 09:59 | DRG 42 ==
PROVIDERS: Family Medicine; Admitting Provider Family Medicine; Family Provider Nurse Practitioner Gerontology; Visit Provider Family Medicine
DX: G30.9 Alzheimer's disease, unspecified (principal); I25.10 Atherosclerotic heart disease of native coronary artery without angina pectoris; E53.8 Deficiency of other specified B group vitamins; R54 Age-related physical debility; H40.9 Unspecified glaucoma; K21.9 Gastro-esophageal reflux disease without esophagitis; E87.6 Hypokalemia; C61 Malignant neoplasm of prostate; I10 Essential (primary) hypertension; K59.00 Constipation, unspecified; R19.7 Diarrhea, unspecified
CPT/HCPCS: 87426; 87631; 87635

== ENCOUNTER 2022-05-09 12:30 | Outpatient (RCR) | payer MEDICARE, BC, SELFPAY ==
[2022-02-08 14:20] LABS: Basophils Absolute Auto 0.03 K/uL (0.00-0.30); Basophils Percent Auto 0.4 % (0.0-3.0); Eosinophils Absolute Auto 0.12 K/uL (0.00-0.50); Eosinophils Percent Auto 1.6 % (0.0-7.0); Hematocrit 43.4 % (37.0-53.0); Hemoglobin* 14.6 gm/dL (13.5-17.5); Immature Granulocytes Abs Auto 0.01 K/uL (0.00-0.30); Lymphocytes Percent Auto 18.5 % (20-44); Mean Corpuscular HGB Conc 34 gm/dL (32-36); Mean Corpuscular Hemoglobin 27 pg (26-34); Mean Corpuscular Volume 81 fL (80-100); Monocytes Percent Auto 15.1 % (0.0-11.0); Neutrophils Absolute Auto 4.76 K/uL (1.7-7.0); Neutrophils Percent Auto 64.3 % (42.0-72.0); Platelet Count* 310 K/uL (140-440); RDW Coefficient of Variation % 14.3 % (11.5-15.5); Red Blood Count 5.33 m/uL (4.30-5.90); White Blood Count* 7.41 K/uL (4.50-11.00)
[2022-02-08 14:22] LABS: Slide Review Reflex No
[2022-02-08 14:35] LABS: Albumin* 3.9 g/dL (3.3-5.0); Chloride* 105 mmol/L (96-114); Potassium* 3.8 mmol/L (3.6-5.1); Sodium* 135 mmol/L (135-149)
[2022-02-08 14:38] LABS: Alanine Aminotransferase* 15 U/L (4-50); Alkaline Phosphatase* 88 U/L (40-150); Aspartate Amino Transferase* 24 U/L (12-35); Bilirubin Total* 0.4 mg/dL (0.1-1.5); Blood Urea Nitrogen* 9 mg/dL (7-30); Carbon Dioxide* 20 mmol/L (20-32); Creatinine* 0.6 mg/dL (0.5-1.5); Est. Creatinine Clearance* 48.63; Estimated Glomerular Filt Rate 96 ml/min; Glucose* 111 mg/dL (60-115); Total Protein* 6.4 g/dL (6.0-8.3)
[2022-02-08 14:39] LABS: Calcium* 8.9 mg/dL (8.4-10.6)
[2022-02-08 15:17] LABS: PSA Diagnostic* < 0.06 ng/mL (0.10-4.00)
--- NOTE | 2022-03-07 15:10 | ONC.NURNOTE ---
Received call from thru [employer] interpretation line wondering if her could have cold medicine. Upon further questioning states patient has a fever-or is atleast warm to touch-has cough and is weak. Instructed to take patient into urgent care
--- NOTE | 2022-03-31 15:31 | PC.NURSE ---
Xtandi Refill request Received a call from Tomasa at [facility] requesting a refill on Xtandi to reflect the correct doseage: 80 mg once daily alternating with 40 mg once daily (every other day). RN noted that a refill request was signed and returned on 03/29/2022 with instructions for 80 mg once daily. RN re-sent Dr. Sutton's written script from November, (for one refills) via fax ([phone]) with a message on the cover sheet (copy in pt's paper chart). Amina Romeo RN
--- NOTE | 2022-04-18 16:59 | ONC.NURNOTE ---
Jyothi has been calling asking why patient is not taking Xtandi and screen writer stated she did not know that she should ask nurse/physician in [facility] where patient is being cared for. Some confusion on who stopped it so oncologist Dr. giordano asked and she stated he should be taking it so order written for him to take it and due to expense of drug and patient on free medication program Jyothi will continue to bring it in for nurses and order it as she has been doing. She states she doesn't have any now but will order it and bring it in when the weather is good.
--- NOTE | 2022-04-20 16:08 | ONC.NURNOTE ---
[facility] PAP for Xtandi Re-enrollment application was received and is complete for 2022 will be processed in the coming months
--- NOTE | 2022-04-24 08:40 | ONC.NURNOTE ---
Xtandi PAP re-enrollment complete from 06/04/22-06/03/23 letter received
[2022-05-09 12:45] LABS: Basophils Percent Auto 0.2 % (0.0-3.0); Eosinophils Percent Auto 0.1 % (0.0-7.0); Hematocrit 43.7 % (37.0-53.0); Hemoglobin* 14.7 gm/dL (13.5-17.5); Immature Granulocytes Pct Auto 0.1 %; Lymphocytes Percent Auto 7.9 % (20-44); Mean Corpuscular HGB Conc 34 gm/dL (32-36); Mean Corpuscular Hemoglobin 28 pg (26-34); Mean Corpuscular Volume 83 fL (80-100); Monocytes Percent Auto 18.1 % (0.0-11.0); Neutrophils Percent Auto 73.6 % (42.0-72.0); Platelet Count* 252 K/uL (140-440); RDW Coefficient of Variation % 13.9 % (11.5-15.5); Red Blood Count 5.26 m/uL (4.30-5.90); White Blood Count* 14.86 K/uL (4.50-11.00)
[2022-05-09 12:50] LABS: Slide Review Reflex No
[2022-05-09 13:03] LABS: Albumin* 3.9 g/dL (3.3-5.0); Chloride* 108 mmol/L (96-114)
[2022-05-09 13:04] LABS: Potassium* 4.6 mmol/L (3.6-5.1); Sodium* 135 mmol/L (135-149)
[2022-05-09 13:06] LABS: Aspartate Amino Transferase* 21 U/L (12-35); Carbon Dioxide* 19 mmol/L (20-32); Creatinine* 0.6 mg/dL (0.5-1.5); Estimated Glomerular Filt Rate 96 ml/min; Total Protein* 6.6 g/dL (6.0-8.3)
[2022-05-09 13:07] LABS: Alanine Aminotransferase* 16 U/L (4-50); Alkaline Phosphatase* 91 U/L (40-150); Blood Urea Nitrogen* 10 mg/dL (7-30); Calcium* 8.9 mg/dL (8.4-10.6); Glucose* 110 mg/dL (60-115)
[2022-05-09 13:41] LABS: PSA Diagnostic* < 0.06 ng/mL (0.10-4.00)
[2022-05-09] MEDS: ZOLEDRONIC ACID 4 MG in 0.9 % SODIUM CHLORIDE 100 ml 100 ML 420 MG IVPB (14:26)
== END 2022-08-07 23:59 | disposition home or self-care (01) ==
LOC: CCIC 12:30
PROVIDERS: PCP Family Medicine; Referring Provider Family Medicine; Visit Provider Internal Medicine Hematology & Oncology
DX: C61 Malignant neoplasm of prostate (principal); C79.51 Secondary malignant neoplasm of bone; H90.5 Unspecified sensorineural hearing loss
CPT/HCPCS: 36415; 80053; 84153; 85025; 96374; 96376; 96401; 99212; 99213; 99214; J3489; J9217